=== PATIENT | male | born 1940 | race Caucasian/White ===

== ENCOUNTER 2016-04-27 18:30 | Inpatient (IN) | payer MEDICAID, MEDICARE ==
--- NOTE | 2016-04-27 18:41 | ED Physician Chart ---
Chief Complaint/HPI - Patient Information Date Seen:: 04/27/16 Time Seen:: 18:30 Chief Complaint:: agitation History of Present Illness:: 76-year-old male sent in from [facility] facility with acute, moderate, worsening, constant, agitation 2 days. Has associated increased aggressive behavior towards staff and other patients. History limited patient has underlying dementia and psychosis History provided by EMS and EMS run sheet Allergies:: Allergies Allergy/AdvReac Type Severity Reaction Status Date / Time MDX No Known Allergies - Nka Allergy Verified 10/28/11 12:00 [No Known Allergies - Nka] Historian:: EMS Review:: Nurse's Note Reviewed, EMS run form Reviewed, Transfer documents Reviewed Review of Systems - Review of Systems Other: Complete system review otherwise unremarkable except as noted in HPI. Past Medical History - Past Medical History Past Medical History: HTN, DM, Dementia Family History: None Social History: Non Smoker, No Alcohol, No Drug Use, Care Facility Surgical History: None Psychiatricy History: Dementia Medication: Reviewed Family Medical History - Family Member Mother History Unknown: Yes Ethnicity: Living Status: Still Living Hx Family Cancer: (unable to assess . pt is confused.) Hx Family Coronary Artery Disease: (KRISTEN) Hx Family Congestive Heart Failure: (KRISTEN) Hx Family Hypertension: (KRISTEN) Hx Family Stroke: (KRISTEN) Hx Family Diabetes: (KRISTEN) Hx Family Seizures: (KRISTEN) Hx Family Dementia: (KRISTEN) Hx Family AIDS: (KRISTEN) Hx Family COPD: (KRISTEN) Hx Family Hepatitis: (KRISTEN) Hx Family Psychiatric Problems: (KRISTEN) Hx Family Tuberculosis: (KRISTEN) Physical Exam - Physical Examination Other:: INITIAL VITAL SIGNS: Reviewed by me GENERAL: Alert and interactive but uncooperative and demented. No acute distress HEAD: Head is normocephalic and atraumatic EYES: EOMI. . No scleral icterus. No conjunctival injection ENT: Moist mucous membranes. NECK: Supple. No masses. Full range of motion RESPIRATORY: No tachypnea. Clear breath sounds bilaterally. No wheezing, rales, or rhonchi CV: Regular rate and rhythm. No murmurs, rubs, or gallops ABDOMEN: Soft, non-distended, non-tender. No guarding. No rebound. No masses. EXTREMITIES: No deformity. No cyanosis. No edema. SKIN: Warm and dry. No obvious rashes. NEUROLOGIC: Alert and oriented. Face is symmetric. Speech is normal. Moves all extremities equally. Motor and sensory distally intact. Labs/Radiology/EKG Results - Lab Results Results: Lab Results 04/27/16 04/27/16 04/27/16 Range/Units 19:06 19:06 19:10 WBC 8.5 (4.8-10.8) Th/cmm RBC 2.87 L (3.80-5.80) Mil/cmm Hgb 8.6 L (12.6-17.4) gm/dL Hct 25.5 L (39.0-49.0) % MCV 88.7 (80-99) fl MCH 29.9 (27.0-31.0) pg MCHC Differential 33.7 (28.0-36.0) pg RDW 13.9 (11.5-20.0) % Plt Count 274 D (150-400) Th/cmm MPV 8.2 fl Neutrophils % 76.5 (40.0-80.0) % Lymphocytes % 10.7 L (20.0-50.0) % Monocytes % 12.2 H (2.0-10.0) % Eosinophils % 0.1 (0.0-5.0) % Basophils % 0.5 (0.0-2.0) % Sodium 132 L (136-145) mEq/L Potassium 5.0 (3.5-5.1) mEq/L Chloride 102 (98-107) mEq/L Carbon Dioxide 24.4 (21.0-31.0) mEq/L Anion Gap 10.6 (7.0-16.0) BUN 57 H (7-25) mg/dL Creatinine 1.8 H (0.7-1.3) mg/dL Est GFR ( Amer) TNP Est GFR (Non-Af Amer) TNP BUN/Creatinine Ratio 31.7 Glucose 434 H (70-105) mg/dL Calcium 8.8 (8.6-10.3) mg/dL Triglycerides 149 (<150) mg/dL Cholesterol 138 (<200) mg/dL LDL Cholesterol Direct 65 L (75-193) mg/dL HDL Cholesterol 42 (23-92) mg/dL Urine Source CATH Urine Color YELLOW Urine Clarity HAZY (CLEAR) Urine pH 6.0 Ur Specific [place] 1.020 (1.005-1.030) Urine Protein >300 H (NEGATIVE) mg/dL Urine Glucose (UA) 500 H (NEGATIVE) mg/dL Urine Ketones 15 H (NEGATIVE) mg/dL Urine Blood SMALL H (NEGATIVE) Urine Nitrate NEGATIVE (NEGATIVE) Urine Bilirubin NEGATIVE (NEGATIVE) Urine Urobilinogen 0.2 (0.2 - 1.0) E.U./dL Ur Leukocyte Esterase NEGATIVE (NEGATIVE) Urine RBC 2-5 H (0-5) /hpf Urine WBC 0-2 (0-5) /hpf Ur Epithelial Cells OCCASIONAL (FEW) /lpf Amorphous Sediment MANY URATES (NONE SEEN) Urine Bacteria 1+ H (NONE SEEN) /hpf - EKG Interpretations Comments:: 12-lead EKG Interpretation by Helio Fontanez MD: Normal Sinus Rhythm with ventricular rate of 71 beats per minute Normal axis Normal intervals No acute ST or T wave changes. No obvious STEMI ED Septic Shock - . Is Septic Shock (SBP<90, OR Lactate>4 mmol\L) present?: No Reassessment (Disposition) - Reassessment Reassessment:: Patient has severe dehydration. Has acute renal failure. Has hyperglycemia. Receiving 1 L of IV normal saline and 5 units of IV insulin here in the ER. We will need further treatment prior to admission to general psych. Discussed case with the admitting physician Dr. Orourke. He'll admit the patient to his service for further workup and treatment. Reassessment Condition:: Improved - Diagnosis Diagnosis:: Acute renal failure Dehydration Hyperglycemia/uncontrolled diabetes mellitus Psychosis, NOS Hypertension - Patient Disposition Discharge/Transfer:: Acute Care w/in this hosp Admitted to:: Telemetry Admitting Medical Physician:: Carlos Orourke Time:: 19:45 Condition at Disposition:: Improved ED Discharge Plan - Patient Disposition Admit/Discharge/Transfer: Acute Care w/in this hosp Condition at Disposition: Stable
[2016-04-27] MEDS ORDERED: Haloperidol Lactate 5 mg/mL 1mL Vial IM STA (18:44)
[2016-04-27] MEDS ORDERED: Haloperidol Lactate 5 mg/mL 1mL Vial ONE (18:47)
[2016-04-27 18:55] VITALS: BP 157/77
[2016-04-27 19:19] LABS: % BASOPHILS 0.5 % (0.0-2.0); % EOSINOPHILS 0.1 % (0.0-5.0); % LYMPHOCYTES 10.7 % (20.0-50.0); % MONOCYTES 12.2 % (2.0-10.0); % NEUTROPHILS 76.5 % (40.0-80.0); HEMATOCRIT 25.5 % (39.0-49.0); HEMOGLOBIN 8.6 gm/dL (12.6-17.4); MEAN CELL VOLUME 88.7 fl (80-99); MEAN CORPUSCULAR HEMOGLOBIN 29.9 pg (27.0-31.0); MEAN CORPUSCULAR HGB CONC 33.7 pg (28.0-36.0); MEAN PLATELET VOLUME 8.2 fl; NEUTROPHILE ABSOLUTE 6.6 Th/cmm (1.8-8.0); RED BLOOD COUNT 2.87 Mil/cmm (3.80-5.80); RED CELL DISTRIBUTION WIDTH 13.9 % (11.5-20.0); WHITE BLOOD COUNT 8.5 Th/cmm (4.8-10.8)
[2016-04-27 19:21] LABS: PLATELET COUNT 274 Th/cmm (150-400)
[2016-04-27 19:34] LABS: URINE COLOR YELLOW; URINE GLUCOSE (UA) 500 mg/dL (NEGATIVE)
[2016-04-27 19:34] LABS: ANION GAP 10.6 (7.0-16.0); BUN - UREA NITROGEN 57 mg/dL (7-25); BUN/CREATININE RATIO 31.7; CALCIUM SERUM 8.8 mg/dL (8.6-10.3); CARBON DIOXIDE 24.4 mEq/L (21.0-31.0); CHLORIDE 102 mEq/L (98-107); CHOLESTEROL 138 mg/dL (<200); CREATININE - SERUM 1.8 mg/dL (0.7-1.3); GLUCOSE 434 mg/dL (70-105); SODIUM SERUM 132 mEq/L (136-145); TRIGLYCERIDES 149 mg/dL (<150)
[2016-04-27 19:35] LABS: URINE BACTERIA 1+ /hpf (NONE SEEN); URINE BILIRUBIN NEGATIVE (NEGATIVE); URINE BLOOD SMALL (NEGATIVE); URINE EPITHELIAL CELLS OCCASIONAL /lpf (FEW); URINE KETONE 15 mg/dL (NEGATIVE); URINE PROTEIN >300 mg/dL (NEGATIVE); URINE UROBILINOGEN 0.2 E.U./dL (0.2 - 1.0); URINE WBC 0-2 /hpf (0-5)
[2016-04-27 19:36] LABS: URINE AMORPHOUS SEDIMENT MANY URATES (NONE SEEN)
[2016-04-27] MEDS ORDERED: Sodium Chloride 0.9% 1,000 ML IV ONE (19:42)
[2016-04-27] MEDS ORDERED: INSULIN HUMAN REGULAR 100 UNITS/ML UNIT IVP ONE (19:43)
[2016-04-27] MEDS ORDERED: INSULIN HUMAN REGULAR 100 UNITS/ML UNIT ONE (19:53)
--- NOTE | 2016-04-27 19:57 | Admit Criteria Form ---
Admit Criteria Forms - Admit Criteria Diagnosis: RENAL FAILURE, ACUTE Clinical Indications for Admission to Inpatient Care ( Place 'X' for any and all applicable criteria): Admission is indicated for ALL (if I & II) or III of the following [A](2)(3)(4)( 5)(6)(7): [ ]I. Acute renal failure as indicated by ANY ONE of the following: [ ]a) A 3-fold rise in serum creatinine from baseline [ ]b) Serum creatinine greater than 4 mg/dL (354 micromoles/L) with an acute rise greater than 0.5 mg/dL (44.2 micromoles/L) [ ]c) Reduction of more than 75% in estimated glomerular filtration rate from baseline [ ]d) Estimated glomerular filtration rate less than 35 mL/min/1.73m2 (0.59mL/sec/1.73m2)in a child up to 18 years of age [ ]e) Anuria indicated by ALL of the following: [ ]i) Adequate volume status [ ]ii) Cessation of urine output indicated by ANY ONE of the following: [ ]1) Urine output less than 0.3 mL/kg/hr for 24 hours [ ]2) Anuria (urine output less than 0.1 mL/kg/ hr) for 12 hours [X] II. Renal failure cannot be managed in an outpatient setting or observational care setting as indicating by ANY ONE of the following: [ ]a) Altered mental status that is severe or persistent [ ]b) Volume overload or Respiratory distress (eg, clinically significant pulmonary edema) that is severe or persistent [ ]c) Cardiac arrhythmias of immediate concern [ ]d) Hemodynamic instability [ ]e) Clinically significant electrolyte abnormality that requires inpatient care (eg, hyperkalemia with severe ECG findings)[B] [ ]f) Clinically significant metabolic abnormality (eg, acidosis) that is severe or persistent [ ]g) Acute treatment of renal failure (eg, renal replacement therapy) not feasible or appropriate in observational care setting [ ]h) Clinical situation too unstable or uncertain (eg, inadequate urine output, ongoing decline in renal function, etiology unclear) [ ]i) Necessary support and caregiver ability to comply with outpatient treatment cannot be arranged in observation care timeframe (eg, within 24 hours) [X]j) Other significant finding or clinical condition judged not to be within scope of observation care [ ]III.General contraindications and/or Inappropriate clinical situations for Observational Care in patients with Acute Renal Failure, when ANY ONE of the following is required: [ ]a) Prediction of prolongation of LOS based on ANY ONE of the following may be considered as a contraindication for observational care 2, 3, 4, 5, 6, 7, 8 , 9, 10, 11 [ ]i) Age > 65 yrs. [ ]ii) Patient arriving by ambulance [ ]iii) Patient with high acuity [ ]iv) Patient requiring vital sign monitoring [ ]v) Patient on IV medication [ ]b) Systolic blood pressures 180mmHg 3,12 [ ]c) Patient with altered mental status including delirium and other alteration of consciousness, (3) [ ]d) Patient whose discharge disposition will be to a detention home or rehabilitation home should not be managed in Emergency Department Observation Unit. CMS rule requires 3 days hospital stay before such placement.3,13 [ ]e) Patient with failure to thrive due to broad array of etiologies 3, 16,17 [ ]f) Inability to ambulate 3,14 Extended stay beyond goal length of stay may be needed for(13) [ ]a) Continuing uremic complications [ ]b) Care for comorbidities [ ]c) acute renal failure [ ]d) Need for dialysis The original [facility] content created by [employer] has been revised. The portions of the content which have been revised are identified through the use of italic text or in bold, and [facility] has neither reviewed nor approved the modified material. All other unmodified content is copyright [facility] [employer]. Please see references footnoted in the original [facility] edition 2016 Admit Criteria Met?: Yes
[2016-04-27] MEDS ORDERED: Magnesium Hydroxide (MOM) 30 mL UDC PO PRN (21:28)
[2016-04-27] MEDS ORDERED: Maalox 30 mL Cup PO PRN (21:34)
[2016-04-27] MEDS ORDERED: guaiFENesin 200 MG/10 ML UDC PO PRN (21:34)
[2016-04-27] MEDS: Sodium Chloride 0.9% 1,000 ML IV SCH (22:21)
[2016-04-28 06:22] LABS: % BASOPHILS 0.6 % (0.0-2.0); % EOSINOPHILS 0.9 % (0.0-5.0); % LYMPHOCYTES 20.9 % (20.0-50.0); % NEUTROPHILS 63.6 % (40.0-80.0); MEAN CELL VOLUME 89.3 fl (80-99); MEAN CORPUSCULAR HEMOGLOBIN 30.2 pg (27.0-31.0); MEAN CORPUSCULAR HGB CONC 33.8 pg (28.0-36.0); NEUTROPHILE ABSOLUTE 5.3 Th/cmm (1.8-8.0); PLATELET COUNT 280 Th/cmm (150-400); RED BLOOD COUNT 2.65 Mil/cmm (3.80-5.80); RED CELL DISTRIBUTION WIDTH 14.5 % (11.5-20.0); WHITE BLOOD COUNT 8.3 Th/cmm (4.8-10.8)
[2016-04-28] MEDS: INSULIN ASPART, RECOMBINANT 100 UNITS/ML SUBQ SCH ×4 (06:33→23:36)
[2016-04-28 06:43] LABS: ALB/GLOB RATIO 0.9 (1.0-1.8); ALKALINE PHOSPHATASE 66 U/L (34-104); ANION GAP 10.8 (7.0-16.0); BILIRUBIN,TOTAL 0.5 mg/dL (0.3-1.0); BUN - UREA NITROGEN 58 mg/dL (7-25); CALCIUM SERUM 8.9 mg/dL (8.6-10.3); CARBON DIOXIDE 25.2 mEq/L (21.0-31.0); CHLORIDE 106 mEq/L (98-107); GLUCOSE 247 mg/dL (70-105); MAGNESIUM 2.1 mg/dL (1.9-2.7); SGOT 7 U/L (13-39); SGPT/ALT 3 U/L (7-52); SODIUM SERUM 137 mEq/L (136-145)
[2016-04-28 06:55] LABS: HEMATOCRIT 23.7 % (39.0-49.0)
[2016-04-28] MEDS: Ferrous Sulfate 300 MG/5 ML UDC PO SCH ×2 (09:37→17:59)
[2016-04-28] MEDS: Multivitamin w/ Minerals Tab PO SCH (09:37)
[2016-04-28 12:21] LABS: HEP B CORE IGM Negative (Negative); HEP C ANTIBODY 0.2 s/co ratio (0.0-0.9)
--- NOTE | 2016-04-29 05:00 | Consultation ---
IDENTIFYING INFORMATION: The patient is a 76-year-old male. REASON FOR CONSULTATION: The patient is being very agitated, combative, hitting staff, very hard to redirect. He is confused, demented. He is well-known case to me. I have seen him in the past many times. Had been hospitalized many, many times to [facility]. Patient was a very poor historian, unable to participate in meaningful conversation. PAST PSYCHIATRIC HISTORY: Dementia and psychosis. MEDICAL HISTORY: The patient was admitted because of renal failure. MEDICATIONS: He has been on Depakote 500 mg at bedtime, Seroquel 50 mg at bedtime. FAMILY AND SOCIAL HISTORY: The patient has been at a residential for the past year with multiple admissions to different psychiatric facility and different residential. He is unable to give more information. MENTAL STATUS EXAMINATION: The patient is appropriately dressed, not well groomed. He has bruises all over his body. He has renal failure. He was unable to tell me his age, where he is, why he is here. He was hitting staff, easily agitated, combative, confused, unable to engage in any meaningful conversation. Long and short term memory is poor. Insight and judgment are impaired. Unable to answer questions on hallucination or suicidal ideation or homicidal ideation. IMPRESSION: Dementia with behavioral disturbances. MEDICAL DIAGNOSIS: Renal failure, deferred to the medical doctor. I would recommend to increase Seroquel to 75 mg at bedtime and continue Depakote. Thank you very much for allowing me to participate in the care of this most interesting gentleman. [facility]# [id number]
[2016-04-29 06:58] LABS: % BASOPHILS 0.4 % (0.0-2.0); % EOSINOPHILS 0.9 % (0.0-5.0); % MONOCYTES 13.6 % (2.0-10.0); % NEUTROPHILS 61.1 % (40.0-80.0); HEMOGLOBIN 8.1 gm/dL (12.6-17.4); MEAN CELL VOLUME 87.9 fl (80-99); MEAN CORPUSCULAR HEMOGLOBIN 29.5 pg (27.0-31.0); MEAN CORPUSCULAR HGB CONC 33.5 pg (28.0-36.0); MEAN PLATELET VOLUME 7.8 fl; NEUTROPHILE ABSOLUTE 4.2 Th/cmm (1.8-8.0); PLATELET COUNT 350 Th/cmm (150-400); RED BLOOD COUNT 2.73 Mil/cmm (3.80-5.80); WHITE BLOOD COUNT 6.8 Th/cmm (4.8-10.8)
[2016-04-29] MEDS: INSULIN ASPART, RECOMBINANT 100 UNITS/ML SUBQ SCH ×4 (07:05→20:46)
[2016-04-29 07:13] LABS: ANION GAP 10.8 (7.0-16.0); BUN - UREA NITROGEN 57 mg/dL (7-25); BUN/CREATININE RATIO 31.7; CALCIUM SERUM 8.9 mg/dL (8.6-10.3); CARBON DIOXIDE 24.9 mEq/L (21.0-31.0); CHLORIDE 108 mEq/L (98-107); CREATININE - SERUM 1.8 mg/dL (0.7-1.3); GLUCOSE 209 mg/dL (70-105); POTASSIUM SERUM 4.7 mEq/L (3.5-5.1); SODIUM SERUM 139 mEq/L (136-145)
[2016-04-29] MEDS: Ferrous Sulfate 300 MG/5 ML UDC PO SCH ×2 (09:09→17:26)
[2016-04-29] MEDS: Multivitamin w/ Minerals Tab PO SCH (09:09)
[2016-04-29 13:12] LABS: FOLIC ACID 10.4 ng/mL (>3.0)
--- NOTE | 2016-04-29 15:16 | Internal Medicine Prog Note ---
Internal Medicine Subjective - Subjective Service Date: 04/29/16 ([facility] [id number]) Internal Medicine Objective - Results Result Diagrams: 04/29/16 06:02 04/29/16 06:02 Recent Labs: Laboratory Last Values WBC 6.8 Th/cmm (4.8-10.8) 04/29/16 06:02 RBC 2.73 Mil/cmm (3.80-5.80) L 04/29/16 06:02 Hgb 8.1 gm/dL (12.6-17.4) L 04/29/16 06:02 Hct 24.0 % (39.0-49.0) L 04/29/16 06:02 MCV 87.9 fl (80-99) 04/29/16 06:02 MCH 29.5 pg (27.0-31.0) 04/29/16 06:02 MCHC Differential 33.5 pg (28.0-36.0) 04/29/16 06:02 RDW 14.0 % (11.5-20.0) 04/29/16 06:02 Plt Count 350 Th/cmm (150-400) D 04/29/16 06:02 MPV 7.8 fl 04/29/16 06:02 Neutrophils % 61.1 % (40.0-80.0) 04/29/16 06:02 Lymphocytes % 24.0 % (20.0-50.0) 04/29/16 06:02 Monocytes % 13.6 % (2.0-10.0) H 04/29/16 06:02 Eosinophils % 0.9 % (0.0-5.0) 04/29/16 06:02 Basophils % 0.4 % (0.0-2.0) 04/29/16 06:02 Sodium 139 mEq/L (136-145) 04/29/16 06:02 Potassium 4.7 mEq/L (3.5-5.1) 04/29/16 06:02 Chloride 108 mEq/L (98-107) H 04/29/16 06:02 Carbon Dioxide 24.9 mEq/L (21.0-31.0) 04/29/16 06:02 Anion Gap 10.8 (7.0-16.0) 04/29/16 06:02 BUN 57 mg/dL (7-25) H 04/29/16 06:02 Creatinine 1.8 mg/dL (0.7-1.3) H 04/29/16 06:02 Est GFR ( Amer) TNP 04/29/16 06:02 Est GFR (Non-Af Amer) TNP 04/29/16 06:02 BUN/Creatinine Ratio 31.7 04/29/16 06:02 Glucose 209 mg/dL (70-105) H 04/29/16 06:02 POC Glucose 353 MG/DL (70 - 105) H 04/29/16 11:48 Hemoglobin A1c % 9.5 % (4.0-6.0) H 04/27/16 19:06 Calcium 8.9 mg/dL (8.6-10.3) 04/29/16 06:02 Magnesium 2.0 mg/dL (1.9-2.7) 04/29/16 06:02 Total Bilirubin 0.5 mg/dL (0.3-1.0) 04/28/16 05:49 AST 7 U/L (13-39) L 04/28/16 05:49 ALT 3 U/L (7-52) L 04/28/16 05:49 Alkaline Phosphatase 66 U/L (34-104) 04/28/16 05:49 Ammonia 39 umol/L (16-53) 04/29/16 06:02 B-Natriuretic Peptide 120.0 pg/mL (5.0-100.0) H 04/28/16 05:49 Total Protein 6.1 gm/dL (6.0-8.3) 04/28/16 05:49 Albumin 2.9 gm/dL (4.2-5.5) L 04/28/16 05:49 Globulin 3.2 gm/dL 04/28/16 05:49 Albumin/Globulin Ratio 0.9 (1.0-1.8) L 04/28/16 05:49 Triglycerides 149 mg/dL (<150) 04/27/16 19:06 Cholesterol 138 mg/dL (<200) 04/27/16 19:06 LDL Cholesterol Direct 65 mg/dL (75-193) L 04/27/16 19:06 HDL Cholesterol 42 mg/dL (23-92) 04/27/16 19:06 Vitamin B12 771 pg/mL (211-946) 04/28/16 05:49 Folic Acid 10.4 ng/mL (>3.0) 04/28/16 05:49 TSH 0.75 uIU/ml (0.34-5.60) 04/27/16 19:06 Urine Source CATH 04/27/16 19:10 Urine Color YELLOW 04/27/16 19:10 Urine Clarity HAZY (CLEAR) 04/27/16 19:10 Urine pH 6.0 04/27/16 19:10 Ur Specific [place] 1.020 (1.005-1.030) 04/27/16 19:10 Urine Protein >300 mg/dL (NEGATIVE) H 04/27/16 19:10 Urine Glucose (UA) 500 mg/dL (NEGATIVE) H 04/27/16 19:10 Urine Ketones 15 mg/dL (NEGATIVE) H 04/27/16 19:10 Urine Blood SMALL (NEGATIVE) H 04/27/16 19:10 Urine Nitrate NEGATIVE (NEGATIVE) 04/27/16 19:10 Urine Bilirubin NEGATIVE (NEGATIVE) 04/27/16 19:10 Urine Urobilinogen 0.2 E.U./dL (0.2 - 1.0) 04/27/16 19:10 Ur Leukocyte Esterase NEGATIVE (NEGATIVE) 04/27/16 19:10 Urine RBC 2-5 /hpf (0-5) H 04/27/16 19:10 Urine WBC 0-2 /hpf (0-5) 04/27/16 19:10 Ur Epithelial Cells OCCASIONAL /lpf (FEW) 04/27/16 19:10 Amorphous Sediment MANY URATES (NONE SEEN) 04/27/16 19:10 Urine Bacteria 1+ /hpf (NONE SEEN) H 04/27/16 19:10 Hepatitis A IgM Ab Negative (Negative) 04/27/16 19:06 Hep Bs Antigen Negative (Negative) 04/27/16 19:06 Hep B Core IgM Ab Negative (Negative) 04/27/16 19:06 Hepatitis C Antibody 0.2 s/co ratio (0.0-0.9) 04/27/16 19:06 - Physical Exam Vitals and I&O: Vital Signs Temp 97.6 F 04/29/16 11:33 Pulse 73 04/29/16 11:33 Resp 17 04/29/16 11:33 BP 176/72 04/29/16 11:33 Pulse Ox 97 04/29/16 11:33 Intake & Output 04/28/16 04/29/16 04/29/16 18:59 06:59 18:59 Intake Total 200 Balance 200 Intake: Oral 200 Other: # Voids 2 # Bowel Movements 1 0 Active Medications: Current Medications Acetaminophen (Tylenol) 650 mg PO Q4HR PRN PRN Reason: Pain (Mild) Stop: 06/26/16 21:27 Last Admin: 04/28/16 05:08 Dose: 650 mg Al Hydrox/Mg Hydrox/Simethicone (Maalox) 30 ml PO Q6HR PRN PRN Reason: Constipation Stop: 06/26/16 21:33 Carbidopa/Levodopa (Sinemet 25mg-100 Mg) 1 tab PO TID [facility] Stop: 06/27/16 08:59 Last Admin: 04/29/16 14:30 Dose: 1 tab Clonidine HCl (Catapres) 0.1 mg PO Q6HR PRN PRN Reason: SBP GREATER THAN 160 Stop: 06/26/16 21:33 Clopidogrel Bisulfate (Plavix) 75 mg PO DAILY [facility] Stop: 06/27/16 08:59 Last Admin: 04/29/16 09:09 Dose: 75 mg Docusate Sodium (Colace) 100 mg PO BID [facility] Stop: 06/27/16 08:59 Last Admin: 04/29/16 09:09 Dose: 100 mg Donepezil HCl (Aricept) 10 mg PO DAILY [facility] Stop: 06/27/16 08:59 Last Admin: 04/29/16 09:09 Dose: 10 mg Famotidine (Pepcid) 20 mg PO BID [facility] Stop: 06/27/16 08:59 Last Admin: 04/29/16 09:10 Dose: 20 mg Ferrous Sulfate (Iron) 325 mg PO BID [facility] Stop: 06/27/16 08:59 Last Admin: 04/29/16 09:09 Dose: 325 mg Glipizide (Glucotrol) 5 mg PO BID [facility] Stop: 06/27/16 08:59 Last Admin: 04/29/16 09:10 Dose: 5 mg Guaifenesin (Robitussin) 200 mg PO Q4HR PRN PRN Reason: Cough or Congestion Stop: 06/26/16 21:33 Sodium Chloride (Nacl 0.9%) 1,000 mls @ 85 mls/hr IV .[id number] JASVIR Stop: 06/26/16 21:44 Last Admin: 04/27/16 22:21 Dose: 85 mls/hr Insulin Aspart (Novolog) 0 units SUBQ ACHS JASVIR PRN Reason: Protocol Stop: 06/27/16 07:29 Last Admin: 04/29/16 12:17 Dose: 8 units Lorazepam (Ativan) 0.5 mg PO Q6HR PRN; Protocol PRN Reason: Anxiety Stop: 06/26/16 21:27 Last Admin: 04/29/16 12:16 Dose: 0.5 mg Magnesium Hydroxide (Milk Of Magnesia) 30 ml PO HS PRN PRN Reason: Constipation Stop: 06/26/16 21:27 Ondansetron HCl (Zofran) 4 mg IV Q8H PRN PRN Reason: Nausea / Vomiting Stop: 06/26/16 21:33 Psyllium Hydrophilic Mucilloid (Metamucil) 1 pkt PO DAILY [facility] Stop: 06/27/16 08:59 Last Admin: 04/29/16 09:10 Dose: 1 pkt Quetiapine Fumarate (Seroquel) 75 mg PO HS JASVIR PRN Reason: Protocol Stop: 06/27/16 20:59 Last Admin: 04/28/16 22:37 Dose: 75 mg Valproate Sodium (Depakene) 500 mg PO BID JASVIR PRN Reason: Protocol Stop: 06/27/16 08:59 Last Admin: 04/29/16 09:09 Dose: 500 mg - Procedures Procedures: Procedures Procedure Code Date ENDOSC POLYPECTOMY OF LG INTEST 45.42 07/13/07 GROUP PSYCHOTHERAPY 56190 06/03/15 GROUP PSYCHOTHERAPY [id number] 06/03/15 INDIVID PSYCHOTHERAP NEC 94.39 05/27/08 INSERT INDWELLING CATH 57.94 10/29/09 LESION REMOVAL COLONOSCOPY 50607 07/13/07 OTHER GROUP THERAPY 94.44 06/23/14 PERCUTANEOUS [ENDOSCOPIC] GASTROSTOMY [PEG] 43.11 10/10/13 RECREATIONAL THERAPY 93.81 06/24/10 Internal Medicine Assmt/Plan - Assessment Assessment: ALOC RENAL FAILURE DEHYDRATION UNCONTROLLED DIABETES Nutritional Asmnt/Malnutr-PDOC - Dietary Evaluation Malnutrition Findings (Please click <Entered> for more info): Nutritional Asmnt/Malnutrition Start: 04/28/16 14: 44 Text: Status: Complete Freq: Document 04/28/16 14:44 GSUN (Rec: 04/28/16 15:06 GSCATALINA [id number]) Nutritional Asmnt/Malnutrition Patient General Information Nutritional Screening Consult Diagnosis ER: acute renal failure, dehydration, uncontrolled DM Pertinent Medical Hx/Surgical Hx ER: HTN, DM, dementia Subjective Information 76 year old male from SNF. Pt was confused, unable to provide DM edu. Pt was seen agitated, kicking and trying to get out of bed. Spoke to RADIOGRAPHER ANGIOGRAM at bedside, stated pt eats well 80% breakfast with total assist. Mild fat wasting to orbitals and chest noted. Obtained 107.3lb via bedscale today, questionable difference to EMR weight, will follow. Current Diet Order/ Nutrition Support [id number], pureed Patient / S.O Can't verbalize diet edu Pertinent Medications Maalox, Colace, Pepcid, Iron, Glucotrol, Novolog, MOM, Zofran, Seroquel Pertinent Labs 3: BUN 57H, creatinine 1.8H, glucose 434H, A1c 9.5H 32: BUN 58H, creatinine 2.0H, glucose 247H Nutritional Hx/Data Height 5 ft 6 in Height (Calculated Centimeters) 167.6 Current Weight (lbs) 155 lb Weight (Calculated Kilograms) 70.3 Weight (Calculated Grams) 16110.8 [place] Body Weight 142lb Weight Status Approriate GI Symptoms Food Allergies No Cultural/Ethnic/Gnosticist Belief Unknown. Usual diet at home Unknown. Skin Integrity/Comment: Barron Johnson RN: multiple bruises, right lower leg abrasion Current %PO Good (75-100%) Estimated Nutritional Goals BEE in Kcals: Using Current wt Calories/Kcals/Kg 25-30kcal/kg Kcals Calculated 1758-2109kcal Protein: Using Current wt Protein g/k.6-1g/kg Protein Calculated 42-70g Fluid: ml Per MD (renal dysfunction) Nutritional Problem 2. Problem Problem Impaired nutrient utilization related to Etiology ER: acute kidney injury aeb Signs/Symptoms: BUN 58H, creatinine 2.0H 1. Problem Problem Altered nutrition related laboratory values related to Etiology DM aeb Signs/Symptoms: glucose 434H, A1c 9.5H Intervention/Recommendation Comments 1. Recommend [id number] + renal diet. 2. Monitor weight, questionable weight EMR vs. bedscale today. Expected Outcomes/Goals Expected Outcomes/Goals 1. PO intake to meet at least 75% of estimated nutritional needs.
--- NOTE | 2016-04-29 17:06 | History & Physical ---
CHIEF COMPLAINT: ALOC. HISTORY OF PRESENT ILLNESS: This is a 76-year-old male who is a [place] [facility] resident who is brought here to [facility] for ALOC. The patient is unable to feed himself, very agitated. PAST MEDICAL HISTORY: Diabetes, Alzheimer, hypercholesterolemia, schizoaffective Parkinson's. PAST SURGICAL HISTORY: Unable to obtain. MEDICATIONS: Please see medication reconciliation. ALLERGIES: No drug allergies. SOCIAL HISTORY: The patient is a [place] [facility] resident. FAMILY HISTORY: Noncontributory. REVIEW OF SYSTEMS: Unable to obtain, patient is confused. PHYSICAL EXAMINATION: GENERAL: The patient is awake, confused, in no apparent distress. VITAL SIGNS: Temperature 97.6, heart rate 72, blood pressure 176/72, O2 97%. HEENT: Head; normocephalic, atraumatic. NECK: Supple. No mass. LUNGS: Clear. CARDIOVASCULAR: Regular rhythm. ABDOMEN: Soft, nontender. LABORATORY DATA: WBC 6.8, H and H 8.1 and 24.0. Sodium 139, potassium 4.7, chloride 108, carbon dioxide 24.9, BUN 57 and creatinine 1.8. ASSESSMENT: Renal failure, dehydration, uncontrolled diabetes, altered level of consciousness. PLAN: We will keep the patient on IV fluids for hydration. Sitter at bedside for safety. Monitor patient's electrolytes levels. Psychiatrist on the case. We will continue to monitor the patient. JOB# [id number]
[2016-04-29 19:14] LABS: INR 0.94 (0.5-1.4); PROTHROMBIN TIME (TEST) 9.8 SECONDS (9.5-11.5)
--- NOTE | 2016-04-30 00:42 | Progress Notes ---
Case was discussed with staff of the patient. The patient continues to have episodes of agitation and irritability. Continues to be unable to carry on a conversation or make safe plan for self-care. Unpredictable and impulsive. I did increase his Seroquel yesterday to 75 mg at bedtime with no side effects, no sedation, and no nausea. The patient will need to follow up with psychiatrist upon discharge; however, he is still agitated and out of control. He needs to go to [facility] when medically cleared. Thank you very much for allowing me to participate in the care of this most interesting gentleman. JOB# [id number]
--- NOTE | 2016-04-30 01:54 | Consultation ---
INPATIENT GI CONSULT REFERRING PHYSICIAN: Dr. Orourke. REASON FOR CONSULTATION: Anemia. HISTORY OF PRESENT ILLNESS: This is a 76-year-old male with agitation being admitted to the hospital and was found to be anemic. No reports of any GI bleeding per staff. There is no nausea, vomiting, diarrhea, constipation, melena, hematochezia, hematemesis, or coffee-ground emesis. The patient is somewhat combative with staff. PAST MEDICAL HISTORY: Hypertension, diabetes, and dementia. PAST SURGICAL HISTORY: None to abdomen. FAMILY HISTORY: Noncontributory. SOCIAL HISTORY: Resident of skilled facility. ALLERGIES: None. CURRENT MEDICATIONS: Tylenol, Maalox, Sinemet, Catapres, Plavix, Colace, Aricept, Pepcid, iron, glipizide, Robitussin, insulin, Ativan, milk of magnesia, ____, Seroquel, and valproic acid. REVIEW OF SYSTEMS: Unobtainable. PHYSICAL EXAMINATION: VITAL SIGNS: Temperature is 97.6, breathing 17, pulse of 73, blood pressure /72, and satting 97%. GENERAL: In no apparent distress. EYES: Anicteric. Normal conjunctivae. HEENT: Normocephalic and atraumatic. Moist mucous membranes. NECK: Soft and supple. CHEST: Clear. No effort. CARDIOVASCULAR: Regular rate and rhythm. ABDOMEN: Soft, nontender, and nondistended. SKIN: Warm and dry. EXTREMITIES: Reveal no cyanosis. LABORATORY DATA: Show white count 6.8, hemoglobin 8.1, MCV of 87.9, platelets of 350,000, creatinine 1.8, and ammonia is normal at 39. IMPRESSION: This is a 76-year-old male with a normocytic anemia. No overt GI bleeding. He also has underlying dementia and psychiatric component. The patient is not cooperative with staff at this time. Workup may be challenging in this current setting. Stool studies can be checked and collected. If it is positive, then consider endoscopic workup such as EGD, colonoscopy with the patient also has to be off his Plavix. PLAN: 1. Check stool OB. 2. Defer psychiatric management for psychiatrist and primary doctor. 3. If sign of GI bleeding, then consider endoscopic workup. Thank you for allowing me to participate. Please call me if you have any questions. [facility]# [phone]
[2016-04-30] MEDS: INSULIN ASPART, RECOMBINANT 100 UNITS/ML SUBQ SCH ×4 (06:41→22:24)
[2016-04-30] MEDS: Multivitamin w/ Minerals Tab PO SCH (08:53)
[2016-04-30] MEDS: Ferrous Sulfate 300 MG/5 ML UDC PO SCH ×2 (08:54→16:47)
[2016-04-30] MEDS: Sodium Chloride 0.9% 1,000 ML IV SCH (09:52)
--- NOTE | 2016-04-30 14:55 | Internal Medicine Prog Note ---
Internal Medicine Subjective - Subjective Patient seen and examined:: with staff, chart reviewed Patient is:: awake, verbal, interactive Per staff patient is:: no adverse event, noncompliant, confused Internal Medicine Objective - Results Result Diagrams: 04/29/16 06:02 04/29/16 06:02 Recent Labs: Laboratory Last Values WBC 6.8 Th/cmm (4.8-10.8) 04/29/16 06:02 RBC 2.73 Mil/cmm (3.80-5.80) L 04/29/16 06:02 Hgb 8.1 gm/dL (12.6-17.4) L 04/29/16 06:02 Hct 24.0 % (39.0-49.0) L 04/29/16 06:02 MCV 87.9 fl (80-99) 04/29/16 06:02 MCH 29.5 pg (27.0-31.0) 04/29/16 06:02 MCHC Differential 33.5 pg (28.0-36.0) 04/29/16 06:02 RDW 14.0 % (11.5-20.0) 04/29/16 06:02 Plt Count 350 Th/cmm (150-400) D 04/29/16 06:02 MPV 7.8 fl 04/29/16 06:02 Neutrophils % 61.1 % (40.0-80.0) 04/29/16 06:02 Lymphocytes % 24.0 % (20.0-50.0) 04/29/16 06:02 Monocytes % 13.6 % (2.0-10.0) H 04/29/16 06:02 Eosinophils % 0.9 % (0.0-5.0) 04/29/16 06:02 Basophils % 0.4 % (0.0-2.0) 04/29/16 06:02 PT 9.8 SECONDS (9.5-11.5) 04/29/16 18:50 INR 0.94 (0.5-1.4) 04/29/16 18:50 Sodium 139 mEq/L (136-145) 04/29/16 06:02 Potassium 4.7 mEq/L (3.5-5.1) 04/29/16 06:02 Chloride 108 mEq/L (98-107) H 04/29/16 06:02 Carbon Dioxide 24.9 mEq/L (21.0-31.0) 04/29/16 06:02 Anion Gap 10.8 (7.0-16.0) 04/29/16 06:02 BUN 57 mg/dL (7-25) H 04/29/16 06:02 Creatinine 1.8 mg/dL (0.7-1.3) H 04/29/16 06:02 Est GFR ( Amer) TNP 04/29/16 06:02 Est GFR (Non-Af Amer) TNP 04/29/16 06:02 BUN/Creatinine Ratio 31.7 04/29/16 06:02 Glucose 209 mg/dL (70-105) H 04/29/16 06:02 POC Glucose 356 MG/DL (70 - 105) H 04/30/16 11:31 Hemoglobin A1c % 9.5 % (4.0-6.0) H 04/27/16 19:06 Calcium 8.9 mg/dL (8.6-10.3) 04/29/16 06:02 Magnesium 2.0 mg/dL (1.9-2.7) 04/29/16 06:02 Total Bilirubin 0.5 mg/dL (0.3-1.0) 04/28/16 05:49 AST 7 U/L (13-39) L 04/28/16 05:49 ALT 3 U/L (7-52) L 04/28/16 05:49 Alkaline Phosphatase 66 U/L (34-104) 04/28/16 05:49 Ammonia 39 umol/L (16-53) 04/29/16 06:02 B-Natriuretic Peptide 120.0 pg/mL (5.0-100.0) H 04/28/16 05:49 Total Protein 6.1 gm/dL (6.0-8.3) 04/28/16 05:49 Albumin 2.9 gm/dL (4.2-5.5) L 04/28/16 05:49 Globulin 3.2 gm/dL 04/28/16 05:49 Albumin/Globulin Ratio 0.9 (1.0-1.8) L 04/28/16 05:49 Triglycerides 149 mg/dL (<150) 04/27/16 19:06 Cholesterol 138 mg/dL (<200) 04/27/16 19:06 LDL Cholesterol Direct 65 mg/dL (75-193) L 04/27/16 19:06 HDL Cholesterol 42 mg/dL (23-92) 04/27/16 19:06 Vitamin B12 771 pg/mL (211-946) 04/28/16 05:49 Folic Acid 10.4 ng/mL (>3.0) 04/28/16 05:49 TSH 0.75 uIU/ml (0.34-5.60) 04/27/16 19:06 Urine Source CATH 04/27/16 19:10 Urine Color YELLOW 04/27/16 19:10 Urine Clarity HAZY (CLEAR) 04/27/16 19:10 Urine pH 6.0 04/27/16 19:10 Ur Specific [place] 1.020 (1.005-1.030) 04/27/16 19:10 Urine Protein >300 mg/dL (NEGATIVE) H 04/27/16 19:10 Urine Glucose (UA) 500 mg/dL (NEGATIVE) H 04/27/16 19:10 Urine Ketones 15 mg/dL (NEGATIVE) H 04/27/16 19:10 Urine Blood SMALL (NEGATIVE) H 04/27/16 19:10 Urine Nitrate NEGATIVE (NEGATIVE) 04/27/16 19:10 Urine Bilirubin NEGATIVE (NEGATIVE) 04/27/16 19:10 Urine Urobilinogen 0.2 E.U./dL (0.2 - 1.0) 04/27/16 19:10 Ur Leukocyte Esterase NEGATIVE (NEGATIVE) 04/27/16 19:10 Urine RBC 2-5 /hpf (0-5) H 04/27/16 19:10 Urine WBC 0-2 /hpf (0-5) 04/27/16 19:10 Ur Epithelial Cells OCCASIONAL /lpf (FEW) 04/27/16 19:10 Amorphous Sediment MANY URATES (NONE SEEN) 04/27/16 19:10 Urine Bacteria 1+ /hpf (NONE SEEN) H 04/27/16 19:10 Hepatitis A IgM Ab Negative (Negative) 04/27/16 19:06 Hep Bs Antigen Negative (Negative) 04/27/16 19:06 Hep B Core IgM Ab Negative (Negative) 04/27/16 19:06 Hepatitis C Antibody 0.2 s/co ratio (0.0-0.9) 04/27/16 19:06 - Physical Exam Vitals and I&O: Vital Signs Temp 97.9 F 04/30/16 04:00 Pulse 71 04/30/16 08:53 Resp 18 04/30/16 04:00 BP 174/71 04/30/16 08:53 Pulse Ox 98 04/30/16 04:00 Intake & Output 04/29/16 04/30/16 04/30/16 18:59 06:59 18:59 Intake Total 600 30 Balance 600 30 Intake: Oral 600 30 Other: # Voids 3 2 # Bowel Movements 0 Active Medications: Current Medications Acetaminophen (Tylenol) 650 mg PO Q4HR PRN PRN Reason: Pain (Mild) Stop: 06/26/16 21:27 Last Admin: 04/28/16 05:08 Dose: 650 mg Al Hydrox/Mg Hydrox/Simethicone (Maalox) 30 ml PO Q6HR PRN PRN Reason: Constipation Stop: 06/26/16 21:33 Carbidopa/Levodopa (Sinemet 25mg-100 Mg) 1 tab PO TID [facility] Stop: 06/27/16 08:59 Last Admin: 04/30/16 13:16 Dose: 1 tab Clonidine HCl (Catapres) 0.1 mg PO Q6HR PRN PRN Reason: SBP GREATER THAN 160 Stop: 06/26/16 21:33 Last Admin: 04/29/16 18:24 Dose: 0.1 mg Docusate Sodium (Colace) 100 mg PO BID [facility] Stop: 06/27/16 08:59 Last Admin: 04/30/16 08:54 Dose: 100 mg Donepezil HCl (Aricept) 10 mg PO DAILY [facility] Stop: 06/27/16 08:59 Last Admin: 04/30/16 08:53 Dose: 10 mg Famotidine (Pepcid) 20 mg PO BID [facility] Stop: 06/27/16 08:59 Last Admin: 04/30/16 08:53 Dose: 20 mg Ferrous Sulfate (Iron) 325 mg PO BID [facility] Stop: 06/27/16 08:59 Last Admin: 04/30/16 08:54 Dose: 325 mg Glipizide (Glucotrol) 5 mg PO BID [facility] Stop: 06/27/16 08:59 Last Admin: 04/30/16 08:53 Dose: 5 mg Guaifenesin (Robitussin) 200 mg PO Q4HR PRN PRN Reason: Cough or Congestion Stop: 06/26/16 21:33 Sodium Chloride (Nacl 0.9%) 1,000 mls @ 85 mls/hr IV .[id number] [facility] Stop: 06/26/16 21:44 Last Admin: 04/30/16 09:52 Dose: 85 mls/hr Insulin Aspart (Novolog) 0 units SUBQ ACHS JASVIR PRN Reason: Protocol Stop: 06/27/16 07:29 Last Admin: 04/30/16 11:41 Dose: 8 units Lorazepam (Ativan) 0.5 mg PO Q6HR PRN; Protocol PRN Reason: Anxiety Stop: 06/26/16 21:27 Last Admin: 04/29/16 12:16 Dose: 0.5 mg Losartan Potassium (Cozaar) 25 mg PO DAILY [facility] Stop: 06/28/16 20:59 Last Admin: 04/30/16 08:53 Dose: 25 mg Magnesium Hydroxide (Milk Of Magnesia) 30 ml PO HS PRN PRN Reason: Constipation Stop: 06/26/16 21:27 Ondansetron HCl (Zofran) 4 mg IV Q8H PRN PRN Reason: Nausea / Vomiting Stop: 06/26/16 21:33 Psyllium Hydrophilic Mucilloid (Metamucil) 1 pkt PO DAILY [facility] Stop: 06/27/16 08:59 Last Admin: 04/30/16 09:03 Dose: 1 pkt Quetiapine Fumarate (Seroquel) 75 mg PO HS JASVIR PRN Reason: Protocol Stop: 06/27/16 20:59 Last Admin: 04/29/16 20:34 Dose: 75 mg Valproate Sodium (Depakene) 500 mg PO BID JASVIR PRN Reason: Protocol Stop: 06/27/16 08:59 Last Admin: 04/30/16 08:54 Dose: 500 mg General: congested, demented HEENT: NC/AT, PERRLA Neck: Supple, No JVD Lungs: congested, rales Cardiovascular: RRR, Normal S1, Normal S2 Abdomen: soft non-tender, globular Extremities: excoriation, contracture Neurological: no change, unable to follow command - Procedures Procedures: Procedures Procedure Code Date ENDOSC POLYPECTOMY OF LG INTEST 45.42 07/13/07 GROUP PSYCHOTHERAPY 10857 06/03/15 GROUP PSYCHOTHERAPY GZHZZZZ 06/03/15 INDIVID PSYCHOTHERAP NEC 94.39 05/27/08 INSERT INDWELLING CATH 57.94 10/29/09 LESION REMOVAL COLONOSCOPY 62153 07/13/07 OTHER GROUP THERAPY 94.44 06/23/14 PERCUTANEOUS [ENDOSCOPIC] GASTROSTOMY [PEG] 43.11 10/10/13 RECREATIONAL THERAPY 93.81 06/24/10 Internal Medicine Assmt/Plan - Assessment Assessment: Assessment: ALOC RENAL FAILURE DEHYDRATION UNCONTROLLED DIABETES - Plan Plan: cont on iv abx o2 bronchodilator check labs pt on 1 to 1 psych fu jose g rn Nutritional Asmnt/Malnutr-PDOC - Dietary Evaluation Malnutrition Findings (Please click <Entered> for more info): Nutritional Asmnt/Malnutrition Start: 04/28/16 14: 44 Text: Status: Complete Freq: Document 04/28/16 14:44 GSUN (Rec: 04/28/16 15:06 GSUN [email or web address]) Nutritional Asmnt/Malnutrition Patient General Information Nutritional Screening Consult Diagnosis ER: acute renal failure, dehydration, uncontrolled DM Pertinent Medical Hx/Surgical Hx ER: HTN, DM, dementia Subjective Information 76 year old male from SNF. Pt was confused, unable to provide DM edu. Pt was seen agitated, kicking and trying to get out of bed. Spoke to TABLE KEEPER at bedside, stated pt eats well 80% breakfast with total assist. Mild fat wasting to orbitals and chest noted. Obtained 107.3lb via bedscale today, questionable difference to EMR weight, will follow. Current Diet Order/ Nutrition Support [id number], pureed Patient / S.O Can't verbalize diet edu Pertinent Medications Maalox, Colace, Pepcid, Iron, Glucotrol, Novolog, MOM, Zofran, Seroquel Pertinent Labs 3: BUN 57H, creatinine 1.8H, glucose 434H, A1c 9.5H 3/2: BUN 58H, creatinine 2.0H, glucose 247H Nutritional Hx/Data Height 1.68 m Height (Calculated Centimeters) 167.6 Current Weight (lbs) 70.307 kg Weight (Calculated Kilograms) 70.3 Weight (Calculated Grams) 54736.8 [place] Body Weight 142lb Weight Status Approriate GI Symptoms Food Allergies No Cultural/Ethnic/Rastafarian Belief Unknown. Usual diet at home Unknown. Skin Integrity/Comment: Barron 13. RN: multiple bruises, right lower leg abrasion Current %PO Good (75-100%) Estimated Nutritional Goals BEE in Kcals: Using Current wt Calories/Kcals/Kg 25-30kcal/kg Kcals Calculated 1758-2109kcal Protein: Using Current wt Protein g/k.6-1g/kg Protein Calculated 42-70g Fluid: ml Per MD (renal dysfunction) Nutritional Problem 2. Problem Problem Impaired nutrient utilization related to Etiology ER: acute kidney injury aeb Signs/Symptoms: BUN 58H, creatinine 2.0H 1. Problem Problem Altered nutrition related laboratory values related to Etiology DM aeb Signs/Symptoms: glucose 434H, A1c 9.5H Intervention/Recommendation Comments 1. Recommend [id number] + renal diet. 2. Monitor weight, questionable weight EMR vs. bedscale today. Expected Outcomes/Goals Expected Outcomes/Goals 1. PO intake to meet at least 75% of estimated nutritional needs.
[2016-04-30 17:45] LABS: MEAN CELL VOLUME 88.8 fl (80-99); MEAN CORPUSCULAR HGB CONC 33.8 pg (28.0-36.0); MEAN PLATELET VOLUME 7.2 fl; PLATELET COUNT 304 Th/cmm (150-400); RED BLOOD COUNT 2.28 Mil/cmm (3.80-5.80); RED CELL DISTRIBUTION WIDTH 14.5 % (11.5-20.0); WHITE BLOOD COUNT 5.3 Th/cmm (4.8-10.8)
[2016-04-30 17:53] LABS: ANION GAP 11.5 (7.0-16.0); BUN - UREA NITROGEN 53 mg/dL (7-25); BUN/CREATININE RATIO 37.9; CALCIUM SERUM 8.7 mg/dL (8.6-10.3); CARBON DIOXIDE 21.8 mEq/L (21.0-31.0); CHLORIDE 105 mEq/L (98-107); CREATININE - SERUM 1.4 mg/dL (0.7-1.3); GLUCOSE 289 mg/dL (70-105); POTASSIUM SERUM 5.3 mEq/L (3.5-5.1); SODIUM SERUM 133 mEq/L (136-145)
[2016-04-30 18:24] LABS: HEMOGLOBIN 6.9 gm/dL (12.6-17.4)
[2016-04-30 18:25] LABS: HEMATOCRIT 20.3 % (39.0-49.0)
[2016-04-30 18:41] LABS: ANISOCYTOSIS 1+; BASOPHIL 1 % (0-3); EOSINOPHIL 3 % (0-5); NEUTROPHILS 52 % (40-80); PLATELET ESTIMATE ADEQUATE (NORMAL); PLATELET MORPHOLOGY NORMAL (NORMAL); TOTAL CELLS COUNTED 100
[2016-05-01] MEDS: INSULIN ASPART, RECOMBINANT 100 UNITS/ML SUBQ SCH ×4 (06:54→20:37)
[2016-05-01 07:14] LABS: RED BLOOD COUNT 2.68 Mil/cmm (3.80-5.80)
[2016-05-01 07:27] LABS: MEAN CELL VOLUME 87.6 fl (80-99); MEAN CORPUSCULAR HEMOGLOBIN 29.5 pg (27.0-31.0); MEAN CORPUSCULAR HGB CONC 33.7 pg (28.0-36.0); MEAN PLATELET VOLUME 7.3 fl; PLATELET COUNT 444 Th/cmm (150-400); WHITE BLOOD COUNT 6.9 Th/cmm (4.8-10.8)
[2016-05-01 07:33] LABS: ANION GAP 11.5 (7.0-16.0); BUN - UREA NITROGEN 47 mg/dL (7-25); BUN/CREATININE RATIO 36.2; CALCIUM SERUM 8.5 mg/dL (8.6-10.3); CARBON DIOXIDE 22.4 mEq/L (21.0-31.0); CHLORIDE 108 mEq/L (98-107); CREATININE - SERUM 1.3 mg/dL (0.7-1.3); GLUCOSE 210 mg/dL (70-105); POTASSIUM SERUM 4.9 mEq/L (3.5-5.1); SODIUM SERUM 137 mEq/L (136-145)
[2016-05-01 08:42] LABS: HEMATOCRIT 23.5 % (39.0-49.0); HEMOGLOBIN 7.9 gm/dL (12.6-17.4)
[2016-05-01] MEDS: Ferrous Sulfate 300 MG/5 ML UDC PO SCH ×2 (09:03→16:20)
[2016-05-01] MEDS: Multivitamin w/ Minerals Tab PO SCH (09:04)
[2016-05-01 10:00] LABS: ANISOCYTOSIS 1+; EOSINOPHIL 6 % (0-5); NEUTROPHILS 54 % (40-80); PLATELET ESTIMATE ADEQUATE (NORMAL); PLATELET MORPHOLOGY NORMAL (NORMAL); TOTAL CELLS COUNTED 100
[2016-05-01] MEDS: Sodium Chloride 0.9% 1,000 ML IV SCH ×2 (12:43→14:27)
--- NOTE | 2016-05-01 14:14 | Internal Medicine Prog Note ---
Internal Medicine Subjective - Subjective Patient seen and examined:: with staff, chart reviewed Patient is:: awake, verbal, interactive Patient Complaints of:: congestion Per staff patient is:: no adverse event, noncompliant, confused Internal Medicine Objective - Results Result Diagrams: 05/01/16 06:45 05/01/16 06:45 Recent Labs: Laboratory Last Values WBC 6.9 Th/cmm (4.8-10.8) D 05/01/16 06:45 RBC 2.68 Mil/cmm (3.80-5.80) L 05/01/16 06:45 Hgb 7.9 gm/dL (12.6-17.4) L* D 05/01/16 06:45 Hct 23.5 % (39.0-49.0) L* D 05/01/16 06:45 MCV 87.6 fl (80-99) 05/01/16 06:45 MCH 29.5 pg (27.0-31.0) 05/01/16 06:45 MCHC Differential 33.7 pg (28.0-36.0) 05/01/16 06:45 RDW 14.0 % (11.5-20.0) 05/01/16 06:45 Plt Count 444 Th/cmm (150-400) H D 05/01/16 06:45 MPV 7.3 fl 05/01/16 06:45 Neutrophils % 61.1 % (40.0-80.0) 04/29/16 06:02 Lymphocytes % 24.0 % (20.0-50.0) 04/29/16 06:02 Monocytes % 13.6 % (2.0-10.0) H 04/29/16 06:02 Eosinophils % 0.9 % (0.0-5.0) 04/29/16 06:02 Basophils % 0.4 % (0.0-2.0) 04/29/16 06:02 Neutrophils (Manual) 54 % (40-80) 05/01/16 06:45 Lymphocytes 25 % (20-50) 05/01/16 06:45 Monocytes 15 % (2-10) H 05/01/16 06:45 Eosinophils 6 % (0-5) H 05/01/16 06:45 Basophils 1 % (0-3) 04/30/16 17:26 Platelet Estimate ADEQUATE (NORMAL) 05/01/16 06:45 Platelet Morphology NORMAL (NORMAL) 05/01/16 06:45 Anisocytosis 1+ 05/01/16 06:45 RBC Morph Micro Appear ABNORMAL (NORMAL) 05/01/16 06:45 PT 9.8 SECONDS (9.5-11.5) 04/29/16 18:50 INR 0.94 (0.5-1.4) 04/29/16 18:50 Sodium 137 mEq/L (136-145) 05/01/16 06:45 Potassium 4.9 mEq/L (3.5-5.1) 05/01/16 06:45 Chloride 108 mEq/L (98-107) H 05/01/16 06:45 Carbon Dioxide 22.4 mEq/L (21.0-31.0) 05/01/16 06:45 Anion Gap 11.5 (7.0-16.0) 05/01/16 06:45 BUN 47 mg/dL (7-25) H 05/01/16 06:45 Creatinine 1.3 mg/dL (0.7-1.3) 05/01/16 06:45 Est GFR ( Amer) TNP 05/01/16 06:45 Est GFR (Non-Af Amer) TNP 05/01/16 06:45 BUN/Creatinine Ratio 36.2 05/01/16 06:45 Glucose 210 mg/dL (70-105) H 05/01/16 06:45 POC Glucose 339 MG/DL (70 - 105) H 05/01/16 11:23 Hemoglobin A1c % 9.5 % (4.0-6.0) H 04/27/16 19:06 Calcium 8.5 mg/dL (8.6-10.3) L 05/01/16 06:45 Magnesium 2.0 mg/dL (1.9-2.7) 04/29/16 06:02 Total Bilirubin 0.5 mg/dL (0.3-1.0) 04/28/16 05:49 AST 7 U/L (13-39) L 04/28/16 05:49 ALT 3 U/L (7-52) L 04/28/16 05:49 Alkaline Phosphatase 66 U/L (34-104) 04/28/16 05:49 Ammonia 38 umol/L (16-53) 05/01/16 06:45 B-Natriuretic Peptide 113.0 pg/mL (5.0-100.0) H 05/01/16 06:45 Total Protein 6.1 gm/dL (6.0-8.3) 04/28/16 05:49 Albumin 2.9 gm/dL (4.2-5.5) L 04/28/16 05:49 Globulin 3.2 gm/dL 04/28/16 05:49 Albumin/Globulin Ratio 0.9 (1.0-1.8) L 04/28/16 05:49 Triglycerides 149 mg/dL (<150) 04/27/16 19:06 Cholesterol 138 mg/dL (<200) 04/27/16 19:06 LDL Cholesterol Direct 65 mg/dL (75-193) L 04/27/16 19:06 HDL Cholesterol 42 mg/dL (23-92) 04/27/16 19:06 Vitamin B12 771 pg/mL (211-946) 04/28/16 05:49 Folic Acid 10.4 ng/mL (>3.0) 04/28/16 05:49 TSH 0.75 uIU/ml (0.34-5.60) 04/27/16 19:06 Urine Source CATH 04/27/16 19:10 Urine Color YELLOW 04/27/16 19:10 Urine Clarity HAZY (CLEAR) 04/27/16 19:10 Urine pH 6.0 04/27/16 19:10 Ur Specific [place] 1.020 (1.005-1.030) 04/27/16 19:10 Urine Protein >300 mg/dL (NEGATIVE) H 04/27/16 19:10 Urine Glucose (UA) 500 mg/dL (NEGATIVE) H 04/27/16 19:10 Urine Ketones 15 mg/dL (NEGATIVE) H 04/27/16 19:10 Urine Blood SMALL (NEGATIVE) H 04/27/16 19:10 Urine Nitrate NEGATIVE (NEGATIVE) 04/27/16 19:10 Urine Bilirubin NEGATIVE (NEGATIVE) 04/27/16 19:10 Urine Urobilinogen 0.2 E.U./dL (0.2 - 1.0) 04/27/16 19:10 Ur Leukocyte Esterase NEGATIVE (NEGATIVE) 04/27/16 19:10 Urine RBC 2-5 /hpf (0-5) H 04/27/16 19:10 Urine WBC 0-2 /hpf (0-5) 04/27/16 19:10 Ur Epithelial Cells OCCASIONAL /lpf (FEW) 04/27/16 19:10 Amorphous Sediment MANY URATES (NONE SEEN) 04/27/16 19:10 Urine Bacteria 1+ /hpf (NONE SEEN) H 04/27/16 19:10 Stool Occult Blood NEGATIVE (NEGATIVE) 04/30/16 14:50 Hepatitis A IgM Ab Negative (Negative) 04/27/16 19:06 Hep Bs Antigen Negative (Negative) 04/27/16 19:06 Hep B Core IgM Ab Negative (Negative) 04/27/16 19:06 Hepatitis C Antibody 0.2 s/co ratio (0.0-0.9) 04/27/16 19:06 - Physical Exam Vitals and I&O: Vital Signs Temp 97.0 F 05/01/16 00:00 Pulse 73 05/01/16 12:43 Resp 18 05/01/16 00:00 BP 166/77 05/01/16 09:04 Pulse Ox 98 05/01/16 00:00 Intake & Output 04/30/16 05/01/16 05/01/16 18:59 06:59 18:59 Intake Total 1820 2820 Balance 1820 2820 Intake: Intake, IV Amount 1000 Sodium Chloride 0.9% 1, 1000 000 ml @ 85 mls/hr IV . [id number] [facility] Rx#:[id number] Oral 800 800 Tube Feeding 1020 1020 Other: # Voids 3 3 # Bowel Movements 2 2 Stool Characteristics Soft Soft Formed Formed Brown Brown Active Medications: Current Medications Acetaminophen (Tylenol) 650 mg PO Q4HR PRN PRN Reason: Pain (Mild) Stop: 06/26/16 21:27 Last Admin: 04/28/16 05:08 Dose: 650 mg Al Hydrox/Mg Hydrox/Simethicone (Maalox) 30 ml PO Q6HR PRN PRN Reason: Constipation Stop: 06/26/16 21:33 Carbidopa/Levodopa (Sinemet 25mg-100 Mg) 1 tab PO TID [facility] Stop: 06/27/16 08:59 Last Admin: 05/01/16 09:03 Dose: 1 tab Clonidine HCl (Catapres) 0.1 mg PO Q6HR PRN PRN Reason: SBP GREATER THAN 160 Stop: 06/26/16 21:33 Last Admin: 05/01/16 12:43 Dose: 0.1 mg Docusate Sodium (Colace) 100 mg PO BID [facility] Stop: 06/27/16 08:59 Last Admin: 05/01/16 09:04 Dose: 100 mg Donepezil HCl (Aricept) 10 mg PO DAILY [facility] Stop: 06/27/16 08:59 Last Admin: 05/01/16 09:03 Dose: 10 mg Famotidine (Pepcid) 20 mg PO BID [facility] Stop: 06/27/16 08:59 Last Admin: 05/01/16 09:03 Dose: 20 mg Ferrous Sulfate (Iron) 325 mg PO BID [facility] Stop: 06/27/16 08:59 Last Admin: 05/01/16 09:03 Dose: 325 mg Glipizide (Glucotrol) 5 mg PO BID [facility] Stop: 06/27/16 08:59 Last Admin: 05/01/16 09:04 Dose: 5 mg Guaifenesin (Robitussin) 200 mg PO Q4HR PRN PRN Reason: Cough or Congestion Stop: 06/26/16 21:33 Sodium Chloride (Nacl 0.9%) 1,000 mls @ 75 mls/hr IV .[id number] [facility] Stop: 06/30/16 14:09 Insulin Aspart (Novolog) 0 units SUBQ ACHS JASVIR PRN Reason: Protocol Stop: 06/27/16 07:29 Last Admin: 05/01/16 11:42 Dose: 6 units Lorazepam (Ativan) 0.5 mg PO Q6HR PRN; Protocol PRN Reason: Anxiety Stop: 06/26/16 21:27 Last Admin: 04/29/16 12:16 Dose: 0.5 mg Losartan Potassium (Cozaar) 25 mg PO DAILY [facility] Stop: 06/28/16 20:59 Last Admin: 05/01/16 09:04 Dose: 25 mg Magnesium Hydroxide (Milk Of Magnesia) 30 ml PO HS PRN PRN Reason: Constipation Stop: 06/26/16 21:27 Ondansetron HCl (Zofran) 4 mg IV Q8H PRN PRN Reason: Nausea / Vomiting Stop: 06/26/16 21:33 Psyllium Hydrophilic Mucilloid (Metamucil) 1 pkt PO DAILY JASVIR Stop: 06/27/16 08:59 Last Admin: 05/01/16 09:04 Dose: 1 pkt Quetiapine Fumarate (Seroquel) 75 mg PO HS JASVIR PRN Reason: Protocol Stop: 06/27/16 20:59 Last Admin: 04/30/16 21:44 Dose: 75 mg Valproate Sodium (Depakene) 500 mg PO BID JASVIR PRN Reason: Protocol Stop: 06/27/16 08:59 Last Admin: 05/01/16 09:03 Dose: 500 mg General: demented HEENT: NC/AT, PERRLA Neck: Supple, No JVD Lungs: congested, rales Cardiovascular: RRR, Normal S1, Normal S2 Abdomen: soft non-tender, globular, positive bowel sound Extremities: excoriation, contracture Neurological: no change - Procedures Procedures: Procedures Procedure Code Date ENDOSC POLYPECTOMY OF LG INTEST 45.42 07/13/07 GROUP PSYCHOTHERAPY 41961 06/03/15 GROUP PSYCHOTHERAPY GZHZZZZ 06/03/15 INDIVID PSYCHOTHERAP NEC 94.39 05/27/08 INSERT INDWELLING CATH 57.94 10/29/09 LESION REMOVAL COLONOSCOPY 25197 07/13/07 OTHER GROUP THERAPY 94.44 06/23/14 PERCUTANEOUS [ENDOSCOPIC] GASTROSTOMY [PEG] 43.11 10/10/13 RECREATIONAL THERAPY 93.81 06/24/10 Internal Medicine Assmt/Plan - Assessment Assessment: Assessment: sever anemia ro gi bleed ALOC RENAL FAILURE DEHYDRATION UNCONTROLLED DIABETES - Plan Plan: monitor h and h cont on iv hydration o2 bronchodilator check labs pt on 1 to 1 psych fu jose g rn Nutritional Asmnt/Malnutr-PDOC - Dietary Evaluation Malnutrition Findings (Please click <Entered> for more info): Nutritional Asmnt/Malnutrition Start: 04/28/16 14: 44 Text: Status: Complete Freq: Document 04/28/16 14:44 GSCATALINA (Rec: 04/28/16 15:06 ROBER [email or web address]) Nutritional Asmnt/Malnutrition Patient General Information Nutritional Screening Consult Diagnosis ER: acute renal failure, dehydration, uncontrolled DM Pertinent Medical Hx/Surgical Hx ER: HTN, DM, dementia Subjective Information 76 year old male from SNF. Pt was confused, unable to provide DM edu. Pt was seen agitated, kicking and trying to get out of bed. Spoke to SPRING FITTER at bedside, stated pt eats well 80% breakfast with total assist. Mild fat wasting to orbitals and chest noted. Obtained 107.3lb via bedscale today, questionable difference to EMR weight, will follow. Current Diet Order/ Nutrition Support [id number], pureed Patient / S.O Can't verbalize diet edu Pertinent Medications Maalox, Colace, Pepcid, Iron, Glucotrol, Novolog, MOM, Zofran, Seroquel Pertinent Labs 04/27: BUN 57H, creatinine 1.8H, glucose 434H, A1c 9.5H 32: BUN 58H, creatinine 2.0H, glucose 247H Nutritional Hx/Data Height 1.68 m Height (Calculated Centimeters) 167.6 Current Weight (lbs) 70.307 kg Weight (Calculated Kilograms) 70.3 Weight (Calculated Grams) 48349.8 Boss Body Weight 142lb Weight Status Approriate GI Symptoms Food Allergies No Cultural/Ethnic/Restorationist Belief Unknown. Usual diet at home Unknown. Skin Integrity/Comment: Barron Ayala. RN: multiple bruises, right lower leg abrasion Current %PO Good (75-100%) Estimated Nutritional Goals BEE in Kcals: Using Current wt Calories/Kcals/Kg 25-30kcal/kg Kcals Calculated 1758-2109kcal Protein: Using Current wt Protein g/k.6-1g/kg Protein Calculated 42-70g Fluid: ml Per MD (renal dysfunction) Nutritional Problem 2. Problem Problem Impaired nutrient utilization related to Etiology ER: acute kidney injury aeb Signs/Symptoms: BUN 58H, creatinine 2.0H 1. Problem Problem Altered nutrition related laboratory values related to Etiology DM aeb Signs/Symptoms: glucose 434H, A1c 9.5H Intervention/Recommendation Comments 1. Recommend [id number] + renal diet. 2. Monitor weight, questionable weight EMR vs. bedscale today. Expected Outcomes/Goals Expected Outcomes/Goals 1. PO intake to meet at least 75% of estimated nutritional needs.
[2016-05-02] MEDS: Sodium Chloride 0.9% 1,000 ML IV SCH (06:07)
[2016-05-02] MEDS: INSULIN ASPART, RECOMBINANT 100 UNITS/ML SUBQ SCH ×4 (07:06→21:50)
[2016-05-02 08:06] LABS: % EOSINOPHILS 2.2 % (0.0-5.0); % LYMPHOCYTES 24.6 % (20.0-50.0); % MONOCYTES 12.2 % (2.0-10.0); HEMOGLOBIN 8.4 gm/dL (12.6-17.4); MEAN CELL VOLUME 89.2 fl (80-99); MEAN CORPUSCULAR HGB CONC 33.6 pg (28.0-36.0); MEAN PLATELET VOLUME 7.2 fl; NEUTROPHILE ABSOLUTE 3.6 Th/cmm (1.8-8.0); PLATELET COUNT 512 Th/cmm (150-400); RED CELL DISTRIBUTION WIDTH 13.9 % (11.5-20.0)
[2016-05-02] MEDS: Multivitamin w/ Minerals Tab PO SCH (08:19)
[2016-05-02] MEDS: Ferrous Sulfate 300 MG/5 ML UDC PO SCH ×2 (08:20→17:30)
[2016-05-02 08:21] LABS: ALB/GLOB RATIO 0.9 (1.0-1.8); ALKALINE PHOSPHATASE 77 U/L (34-104); BILIRUBIN,TOTAL 0.5 mg/dL (0.3-1.0); BUN - UREA NITROGEN 35 mg/dL (7-25); BUN/CREATININE RATIO 29.2; CALCIUM SERUM 8.7 mg/dL (8.6-10.3); CARBON DIOXIDE 23.1 mEq/L (21.0-31.0); CHLORIDE 107 mEq/L (98-107); CREATININE - SERUM 1.2 mg/dL (0.7-1.3); GLUCOSE 254 mg/dL (70-105); MAGNESIUM 1.8 mg/dL (1.9-2.7); POTASSIUM SERUM 5.1 mEq/L (3.5-5.1); SGOT 11 U/L (13-39); SGPT/ALT 7 U/L (7-52); SODIUM SERUM 136 mEq/L (136-145)
--- NOTE | 2016-05-02 11:39 | Internal Medicine Prog Note ---
Internal Medicine Subjective - Subjective Service Date: 05/02/16 (awake, per nursing staff patient has a poor appetite. ) Patient seen and examined:: with staff Patient is:: awake Per staff patient is:: poor oral intake Internal Medicine Objective - Results Result Diagrams: 05/02/16 07:30 05/02/16 07:30 Recent Labs: Laboratory Last Values WBC 6.0 Th/cmm (4.8-10.8) 05/02/16 07:30 RBC 2.80 Mil/cmm (3.80-5.80) L 05/02/16 07:30 Hgb 8.4 gm/dL (12.6-17.4) L 05/02/16 07:30 Hct 25.0 % (39.0-49.0) L 05/02/16 07:30 MCV 89.2 fl (80-99) 05/02/16 07:30 MCH 30.0 pg (27.0-31.0) 05/02/16 07:30 MCHC Differential 33.6 pg (28.0-36.0) 05/02/16 07:30 RDW 13.9 % (11.5-20.0) 05/02/16 07:30 Plt Count 512 Th/cmm (150-400) H 05/02/16 07:30 MPV 7.2 fl 05/02/16 07:30 Neutrophils % 60.0 % (40.0-80.0) 05/02/16 07:30 Lymphocytes % 24.6 % (20.0-50.0) 05/02/16 07:30 Monocytes % 12.2 % (2.0-10.0) H 05/02/16 07:30 Eosinophils % 2.2 % (0.0-5.0) 05/02/16 07:30 Basophils % 1.0 % (0.0-2.0) 05/02/16 07:30 Neutrophils (Manual) 54 % (40-80) 05/01/16 06:45 Lymphocytes 25 % (20-50) 05/01/16 06:45 Monocytes 15 % (2-10) H 05/01/16 06:45 Eosinophils 6 % (0-5) H 05/01/16 06:45 Basophils 1 % (0-3) 04/30/16 17:26 Platelet Estimate ADEQUATE (NORMAL) 05/01/16 06:45 Platelet Morphology NORMAL (NORMAL) 05/01/16 06:45 Anisocytosis 1+ 05/01/16 06:45 RBC Morph Micro Appear ABNORMAL (NORMAL) 05/01/16 06:45 PT 9.8 SECONDS (9.5-11.5) 04/29/16 18:50 INR 0.94 (0.5-1.4) 04/29/16 18:50 Sodium 136 mEq/L (136-145) 05/02/16 07:30 Potassium 5.1 mEq/L (3.5-5.1) 05/02/16 07:30 Chloride 107 mEq/L (98-107) 05/02/16 07:30 Carbon Dioxide 23.1 mEq/L (21.0-31.0) 05/02/16 07:30 Anion Gap 11.0 (7.0-16.0) 05/02/16 07:30 BUN 35 mg/dL (7-25) H 05/02/16 07:30 Creatinine 1.2 mg/dL (0.7-1.3) 05/02/16 07:30 Est GFR ( Amer) TNP 05/02/16 07:30 Est GFR (Non-Af Amer) TNP 05/02/16 07:30 BUN/Creatinine Ratio 29.2 05/02/16 07:30 Glucose 254 mg/dL (70-105) H 05/02/16 07:30 POC Glucose 249 MG/DL (70 - 105) H 05/02/16 05:58 Hemoglobin A1c % 9.5 % (4.0-6.0) H 04/27/16 19:06 Calcium 8.7 mg/dL (8.6-10.3) 05/02/16 07:30 Magnesium 1.8 mg/dL (1.9-2.7) L 05/02/16 07:30 Total Bilirubin 0.5 mg/dL (0.3-1.0) 05/02/16 07:30 AST 11 U/L (13-39) L 05/02/16 07:30 ALT 7 U/L (7-52) 05/02/16 07:30 Alkaline Phosphatase 77 U/L (34-104) 05/02/16 07:30 Ammonia 42 umol/L (16-53) 05/02/16 07:30 B-Natriuretic Peptide 113.0 pg/mL (5.0-100.0) H 05/01/16 06:45 Total Protein 5.8 gm/dL (6.0-8.3) L 05/02/16 07:30 Albumin 2.8 gm/dL (4.2-5.5) L 05/02/16 07:30 Globulin 3.0 gm/dL 05/02/16 07:30 Albumin/Globulin Ratio 0.9 (1.0-1.8) L 05/02/16 07:30 Triglycerides 149 mg/dL (<150) 04/27/16 19:06 Cholesterol 138 mg/dL (<200) 04/27/16 19:06 LDL Cholesterol Direct 65 mg/dL (75-193) L 04/27/16 19:06 HDL Cholesterol 42 mg/dL (23-92) 04/27/16 19:06 Vitamin B12 771 pg/mL (211-946) 04/28/16 05:49 Folic Acid 10.4 ng/mL (>3.0) 04/28/16 05:49 TSH 0.75 uIU/ml (0.34-5.60) 04/27/16 19:06 Urine Source CATH 04/27/16 19:10 Urine Color YELLOW 04/27/16 19:10 Urine Clarity HAZY (CLEAR) 04/27/16 19:10 Urine pH 6.0 04/27/16 19:10 Ur Specific Success 1.020 (1.005-1.030) 04/27/16 19:10 Urine Protein >300 mg/dL (NEGATIVE) H 04/27/16 19:10 Urine Glucose (UA) 500 mg/dL (NEGATIVE) H 04/27/16 19:10 Urine Ketones 15 mg/dL (NEGATIVE) H 04/27/16 19:10 Urine Blood SMALL (NEGATIVE) H 04/27/16 19:10 Urine Nitrate NEGATIVE (NEGATIVE) 04/27/16 19:10 Urine Bilirubin NEGATIVE (NEGATIVE) 04/27/16 19:10 Urine Urobilinogen 0.2 E.U./dL (0.2 - 1.0) 04/27/16 19:10 Ur Leukocyte Esterase NEGATIVE (NEGATIVE) 04/27/16 19:10 Urine RBC 2-5 /hpf (0-5) H 04/27/16 19:10 Urine WBC 0-2 /hpf (0-5) 04/27/16 19:10 Ur Epithelial Cells OCCASIONAL /lpf (FEW) 04/27/16 19:10 Amorphous Sediment MANY URATES (NONE SEEN) 04/27/16 19:10 Urine Bacteria 1+ /hpf (NONE SEEN) H 04/27/16 19:10 Stool Occult Blood NEGATIVE (NEGATIVE) 05/01/16 13:30 Hepatitis A IgM Ab Negative (Negative) 04/27/16 19:06 Hep Bs Antigen Negative (Negative) 04/27/16 19:06 Hep B Core IgM Ab Negative (Negative) 04/27/16 19:06 Hepatitis C Antibody 0.2 s/co ratio (0.0-0.9) 04/27/16 19:06 - Physical Exam Vitals and I&O: Vital Signs Temp 97.8 F 05/02/16 08:01 Pulse 98 05/02/16 08:19 Resp 20 05/02/16 08:01 BP 198/80 05/02/16 08:19 Pulse Ox 97 05/02/16 08:01 Intake & Output 05/01/16 05/02/16 05/02/16 18:59 06:59 18:59 Intake Total 1000 Balance 1000 Intake: Intake, IV Amount 1000 Sodium Chloride 0.9% 1, 1000 000 ml @ 75 mls/hr IV . [id number] [facility] Rx#:[id number] Other: # Voids 2 1 # Bowel Movements 1 Active Medications: Current Medications Acetaminophen (Tylenol) 650 mg PO Q4HR PRN PRN Reason: Pain (Mild) Stop: 06/26/16 21:27 Last Admin: 04/28/16 05:08 Dose: 650 mg Al Hydrox/Mg Hydrox/Simethicone (Maalox) 30 ml PO Q6HR PRN PRN Reason: Constipation Stop: 06/26/16 21:33 Carbidopa/Levodopa (Sinemet 25mg-100 Mg) 1 tab PO TID [facility] Stop: 06/27/16 08:59 Last Admin: 05/02/16 08:20 Dose: 1 tab Clonidine HCl (Catapres) 0.1 mg PO Q6HR PRN PRN Reason: SBP GREATER THAN 160 Stop: 06/26/16 21:33 Last Admin: 05/01/16 12:43 Dose: 0.1 mg Docusate Sodium (Colace) 100 mg PO BID [facility] Stop: 06/27/16 08:59 Last Admin: 05/02/16 08:20 Dose: 100 mg Donepezil HCl (Aricept) 10 mg PO DAILY [facility] Stop: 06/27/16 08:59 Last Admin: 05/02/16 08:19 Dose: 10 mg Famotidine (Pepcid) 20 mg PO BID [facility] Stop: 06/27/16 08:59 Last Admin: 05/02/16 08:19 Dose: 20 mg Ferrous Sulfate (Iron) 325 mg PO BID [facility] Stop: 06/27/16 08:59 Last Admin: 05/02/16 08:20 Dose: 325 mg Glipizide (Glucotrol) 5 mg PO BID [facility] Stop: 06/27/16 08:59 Last Admin: 05/02/16 08:18 Dose: 5 mg Guaifenesin (Robitussin) 200 mg PO Q4HR PRN PRN Reason: Cough or Congestion Stop: 06/26/16 21:33 Sodium Chloride (Nacl 0.9%) 1,000 mls @ 75 mls/hr IV .[id number] [facility] Stop: 06/30/16 14:09 Last Admin: 05/02/16 06:07 Dose: 75 mls/hr Insulin Aspart (Novolog) 0 units SUBQ ACHS [facility] PRN Reason: Protocol Stop: 06/27/16 07:29 Last Admin: 05/02/16 07:06 Dose: 2 units Lorazepam (Ativan) 0.5 mg PO Q6HR PRN; Protocol PRN Reason: Anxiety Stop: 06/26/16 21:27 Last Admin: 05/02/16 08:19 Dose: 0.5 mg Losartan Potassium (Cozaar) 25 mg PO DAILY [facility] Stop: 06/28/16 20:59 Last Admin: 05/02/16 08:19 Dose: 25 mg Magnesium Hydroxide (Milk Of Magnesia) 30 ml PO HS PRN PRN Reason: Constipation Stop: 06/26/16 21:27 Ondansetron HCl (Zofran) 4 mg IV Q8H PRN PRN Reason: Nausea / Vomiting Stop: 06/26/16 21:33 Psyllium Hydrophilic Mucilloid (Metamucil) 1 pkt PO DAILY [facility] Stop: 06/27/16 08:59 Last Admin: 05/02/16 08:20 Dose: 1 pkt Quetiapine Fumarate (Seroquel) 75 mg PO HS [facility] PRN Reason: Protocol Stop: 06/27/16 20:59 Last Admin: 05/01/16 20:52 Dose: Not Given Valproate Sodium (Depakene) 500 mg PO BID [facility] PRN Reason: Protocol Stop: 06/27/16 08:59 Last Admin: 05/02/16 08:20 Dose: 500 mg General: alert HEENT: NC/AT, PERRLA Neck: Supple Lungs: CTAB Cardiovascular: RRR, Normal S1, Normal S2, without murmur Abdomen: soft non-tender - Procedures Procedures: Procedures Procedure Code Date ENDOSC POLYPECTOMY OF LG INTEST 45.42 07/13/07 GROUP PSYCHOTHERAPY 69951 06/03/15 GROUP PSYCHOTHERAPY [id number] 06/03/15 INDIVID PSYCHOTHERAP NEC 94.39 05/27/08 INSERT INDWELLING CATH 57.94 10/29/09 LESION REMOVAL COLONOSCOPY 33369 07/13/07 OTHER GROUP THERAPY 94.44 06/23/14 PERCUTANEOUS [ENDOSCOPIC] GASTROSTOMY [PEG] 43.11 10/10/13 RECREATIONAL THERAPY 93.81 06/24/10 Internal Medicine Assmt/Plan - Assessment Assessment: ALOC RENAL FAILURE DEHYDRATION UNCONTROLLED DIABETES - Plan Plan: monitor h/h will add megace dc to erik when bed available Nutritional Asmnt/Malnutr-PDOC - Dietary Evaluation Malnutrition Findings (Please click <Entered> for more info): Nutritional Asmnt/Malnutrition Start: 04/28/16 14: 44 Text: Status: Complete Freq: Document 04/28/16 14:44 GSUN (Rec: 04/28/16 15:06 GSUN [id number]) Nutritional Asmnt/Malnutrition Patient General Information Nutritional Screening Consult Diagnosis ER: acute renal failure, dehydration, uncontrolled DM Pertinent Medical Hx/Surgical Hx ER: HTN, DM, dementia Subjective Information 76 year old male from SNF. Pt was confused, unable to provide DM edu. Pt was seen agitated, kicking and trying to get out of bed. Spoke to MOLDING PLASTERER at bedside, stated pt eats well 80% breakfast with total assist. Mild fat wasting to orbitals and chest noted. Obtained 107.3lb via bedscale today, questionable difference to EMR weight, will follow. Current Diet Order/ Nutrition Support [id number], pureed Patient / S.O Can't verbalize diet edu Pertinent Medications Maalox, Colace, Pepcid, Iron, Glucotrol, Novolog, MOM, Zofran, Seroquel Pertinent Labs 04/27: BUN 57H, creatinine 1.8H, glucose 434H, A1c 9.5H 04/28: BUN 58H, creatinine 2.0H, glucose 247H Nutritional Hx/Data Height 5 ft 6 in Height (Calculated Centimeters) 167.6 Current Weight (lbs) 155 lb Weight (Calculated Kilograms) 70.3 Weight (Calculated Grams) 92576.8 [place] Body Weight 142lb Weight Status Approriate GI Symptoms Food Allergies No Cultural/Ethnic/Nondenominational Belief Unknown. Usual diet at home Unknown. Skin Integrity/Comment: Barron Johnson RN: multiple bruises, right lower leg abrasion Current %PO Good (75-100%) Estimated Nutritional Goals BEE in Kcals: Using Current wt Calories/Kcals/Kg 25-30kcal/kg Kcals Calculated 1758-2109kcal Protein: Using Current wt Protein g/k.6-1g/kg Protein Calculated 42-70g Fluid: ml Per MD (renal dysfunction) Nutritional Problem 2. Problem Problem Impaired nutrient utilization related to Etiology ER: acute kidney injury aeb Signs/Symptoms: BUN 58H, creatinine 2.0H 1. Problem Problem Altered nutrition related laboratory values related to Etiology DM aeb Signs/Symptoms: glucose 434H, A1c 9.5H Intervention/Recommendation Comments 1. Recommend [id number] + renal diet. 2. Monitor weight, questionable weight EMR vs. bedscale today. Expected Outcomes/Goals Expected Outcomes/Goals 1. PO intake to meet at least 75% of estimated nutritional needs.
--- NOTE | 2016-05-02 22:21 | Progress Notes ---
Case discussed with staff of the patient, reviewed records. The patient, so far, has been uncooperative, refusing to take his medications and not eating well. He continues to be agitated at times. He has been compliant with the medication with no side effects. Seroquel dose was increased and I would recommend to transfer the patient to [facility] when medically cleared for further treatment unless his behavior improved. Thank you very much for allowing me to participate in the care of this most interesting gentleman. JOB# [id number]
[2016-05-03 06:13] LABS: FOLIC ACID 9.6 ng/mL (>3.0)
[2016-05-03 07:24] LABS: % BASOPHILS 1.1 % (0.0-2.0); % EOSINOPHILS 1.3 % (0.0-5.0); % LYMPHOCYTES 22.3 % (20.0-50.0); % MONOCYTES 10.6 % (2.0-10.0); % NEUTROPHILS 64.7 % (40.0-80.0); HEMATOCRIT 26.1 % (39.0-49.0); HEMOGLOBIN 8.8 gm/dL (12.6-17.4); MEAN CELL VOLUME 89.2 fl (80-99); MEAN CORPUSCULAR HEMOGLOBIN 30.2 pg (27.0-31.0); MEAN CORPUSCULAR HGB CONC 33.9 pg (28.0-36.0); MEAN PLATELET VOLUME 7.2 fl; NEUTROPHILE ABSOLUTE 4.1 Th/cmm (1.8-8.0); PLATELET COUNT 567 Th/cmm (150-400); RED BLOOD COUNT 2.93 Mil/cmm (3.80-5.80); RED CELL DISTRIBUTION WIDTH 13.9 % (11.5-20.0); WHITE BLOOD COUNT 6.4 Th/cmm (4.8-10.8)
[2016-05-03 07:41] LABS: ANION GAP 12.2 (7.0-16.0); BUN - UREA NITROGEN 34 mg/dL (7-25); BUN/CREATININE RATIO 28.3; CALCIUM SERUM 8.8 mg/dL (8.6-10.3); CARBON DIOXIDE 22.9 mEq/L (21.0-31.0); CHLORIDE 107 mEq/L (98-107); CREATININE - SERUM 1.2 mg/dL (0.7-1.3); GLUCOSE 229 mg/dL (70-105); POTASSIUM SERUM 5.1 mEq/L (3.5-5.1); SODIUM SERUM 137 mEq/L (136-145)
[2016-05-03] MEDS: Ferrous Sulfate 300 MG/5 ML UDC PO SCH ×2 (09:05→18:13)
[2016-05-03] MEDS: Multivitamin w/ Minerals Tab PO SCH (09:08)
[2016-05-03] MEDS: INSULIN ASPART, RECOMBINANT 100 UNITS/ML SUBQ SCH ×4 (09:20→21:03)
--- NOTE | 2016-06-06 | Discharge Summary ---
FINAL DIAGNOSES: 1. Renal failure. 2. Dehydration. 3. Uncontrolled diabetes. 4. Altered level of consciousness. HISTORY OF PRESENT ILLNESS: This is a 76-year-old male who is a resident of a intermediate who is brought [facility] to [facility] for ALOC. The patient was unable to feed himself. The patient was also very agitated. PHYSICAL EXAMINATION: GENERAL: The patient is well developed, well nourished, in no acute distress. VITAL SIGNS: Stable. HEENT: Head is normocephalic and atraumatic. NECK: Supple. No mass. LUNGS: Clear. CARDIOVASCULAR: Regular rate rhythm. ABDOMEN: Soft, nontender, and nondistended. During the hospital stay, the patient was admitted to the Med/Surg unit. The patient was kept on IV fluids for hydration. The patient had a sitter by the bedside for safety, also a psychiatrist ____ on the case due to psychosis. The patient had a consultation with GI and his plan of care for this patient was discharge first to ____ and if there is any sign of GI bleed to do a endoscopic workup. The patient's H and H were normal during the hospital stay. For this reason, the patient was felt stable for discharge to the Geropsych Unit. CONDITION UPON DISCHARGE: Fair. DISPOSITION: Geropsych unit. JOB# [id number]
--- NOTE | 2016-06-09 16:25 | History & Physical ---
ADMIT DATE: 04/27/2016 CHIEF COMPLAINT: Change in mental status, status post fall. HISTORY OF PRESENT ILLNESS: This is a 76-year-old male with history of Parkinson's, Alzheimer's, diabetes, hypertension, dementia, BPH, GERD, was admitted from nursing facility secondary to a change in mental status: The patient apparently fell with a large bruise on the left side of the face. The patient is confused, unable to provide a meaningful history and review of systems. PAST MEDICAL HISTORY: As mentioned in history present illness. PAST SURGICAL HISTORY: Unable to obtain from the patient. ALLERGIES: No known drug allergies. MEDICATIONS: Tylenol, clonidine, Sinemet, glipizide, guaifenesin. FAMILY HISTORY: Noncontributory. SOCIAL HISTORY: The patient is in [facility]. The patient requiring 24-hour total care. REVIEW OF SYSTEMS: This is limited secondary to the patient's current mental state. We will try to obtain more detailed review of systems at a later date with the family members Lovely Alegre, the sister, number [phone]. Also try to get information from nursing staff in [place], number [phone] as well as from Dr[address] Brewer, who has been following the patient recently. PHYSICAL EXAMINATION: VITAL SIGNS: Blood pressure 120/47, respirations 20, pulse 69, temperature ____. GENERAL: Elderly male, appears stated age, chronically ill. NECK: Supple. HEENT: ____ positive ecchymosis on left eye as well the jaw.. LUNGS: Decreased breath sounds, few rhonchi. HEART: Regular rate and rhythm without systolic ejection murmur. ABDOMEN: Soft, nontender. Positive bowel sounds. EXTREMITIES: Positive excoriations. NEUROLOGIC: Limited. LABORATORY DATA: WBC 8.3, hemoglobin 8, platelets 280. Sodium 132, potassium 4.0, BUN is 28.3, creatinine 2.0. Blood sugar reported at 232, last 2 readings. Albumin 2.9. UA positive ketones and bacteria. ASSESSMENT: Status post fall, altered level of consciousness, anemia, left eye contusion, Parkinson, dehydration, renal failure, diabetes out of control, hypertension, dementia, benign prostatic hypertrophy, gastroesophageal reflux disease, Alzheimer's. PLAN: Continue the patient on IV hydration. We will correct electrolyte abnormalities. We will review the patient's chest x-ray. We will refer the patient to Psychiatry. We will send occult blood and ____ the patient and may need endoscopy. We will continue to follow. JOB# [id number]
== END 2016-05-03 22:04 | DRG 682 ==
LOC: ER 18:30 → TELE 19:45 → MSI 04-29 07:12
PROVIDERS: ADMIT Internal Medicine; ATTEND Internal Medicine
DX: N17.9 Acute kidney failure, unspecified (principal); G93.41 Metabolic encephalopathy; E43 Unspecified severe protein-calorie malnutrition; F02.81 Dementia in other diseases classified elsewhere, unspecified severity, with behavioral disturbance; E11.65 Type 2 diabetes mellitus with hyperglycemia; G20 Parkinson's disease; G30.9 Alzheimer's disease, unspecified; D64.9 Anemia, unspecified; I10 Essential (primary) hypertension; F29 Unspecified psychosis not due to a substance or known physiological condition; N40.0 Benign prostatic hyperplasia without lower urinary tract symptoms; K21.9 Gastro-esophageal reflux disease without esophagitis; F25.9 Schizoaffective disorder, unspecified; Z91.14 Patient's other noncompliance with medication regimen; Z79.4 Long term (current) use of insulin; Z68.25 Body mass index [BMI] 25.0-25.9, adult
CPT/HCPCS: 36415-UA; 80048-TC; 80053-TC; 80061-TC; 80074-90; 81001-TC; 82140-TC; 82270-TC; 82607-90; 82746-90; 82948-90; 83036-90; 83735-TC; 83880-TC; 84443-TC; 85007-TC; 85025-TC; 85027-TC; 85610-TC; 93005; J1200; J1630; J1815; J2060; J7030; Z7610

== ENCOUNTER 2016-05-03 19:00 | Inpatient (IN) | payer MEDICARE, MEDICAID ==
[~2016-05-03 19:00] MED LIST: Maalox 30 mL Cup PO PRN
[2016-05-03] MEDS ORDERED: Magnesium Hydroxide (MOM) 30 mL UDC PO PRN (21:44)
[2016-05-03] MEDS ORDERED: Maalox 30 mL Cup PO PRN ×2 (21:44→21:55)
[2016-05-04] MEDS ORDERED: Maalox 30 mL Cup PO PRN (01:04)
[2016-05-04 01:35] VITALS: BP 181/83
--- NOTE | 2016-05-04 02:25 | Progress Notes ---
Case was discussed with staff of the patient, reviewed records. The patient is reported by the staff, not eating much, continues to have episodes of agitation and irritability, continues to be unpredictable, impulsive, can carry on a reasonable conversation. I would recommend to move the patient to [facility] when medically cleared and I did increase his Seroquel dose. No side effects. Thank you very much for allowing me to participate in the care of this most interesting gentleman. [facility]# [id number]
[2016-05-04] MEDS: INSULIN ASPART, RECOMBINANT 100 UNITS/ML SUBQ SCH ×4 (06:43→20:12)
[2016-05-04] MEDS: Ferrous Sulfate 300 MG/5 ML UDC PO SCH ×2 (10:20→16:48)
[2016-05-04] MEDS: Multivitamin w/ Minerals Tab PO SCH (10:25)
--- NOTE | 2016-05-04 11:09 | Internal Medicine Prog Note ---
Internal Medicine Subjective - Subjective Service Date: 05/04/16 Patient seen and examined:: with staff Patient is:: awake Per staff patient is:: no adverse event Internal Medicine Objective - Physical Exam Vitals and I&O: Vital Signs Temp Pulse 80 05/04/16 00:55 Resp 18 05/04/16 00:55 BP 181/83 05/04/16 01:34 Pulse Ox Intake & Output 05/03/16 05/04/16 05/04/16 18:59 06:59 18:59 Weight (lbs) 133 lb 5 oz Other: # Voids 1 # Bowel Movements 0 Active Medications: Current Medications Acetaminophen (Tylenol) 650 mg PO Q4HR PRN PRN Reason: Pain (Mild) Stop: 07/02/16 21:43 Al Hydrox/Mg Hydrox/Simethicone (Maalox) 30 ml PO Q4HR PRN PRN Reason: GI DISTRESS Stop: 07/02/16 21:43 Carbidopa/Levodopa (Sinemet 25mg-100 Mg) 1 tab PO TIDWM [facility] Stop: 07/03/16 07:59 Last Admin: 05/04/16 08:00 Dose: 1 tab Docusate Sodium (Colace) 100 mg PO BID [facility] Stop: 07/03/16 08:59 Last Admin: 05/04/16 10:50 Dose: Not Given Donepezil HCl (Aricept) 10 mg PO DAILY [facility] Stop: 07/03/16 08:59 Last Admin: 05/04/16 10:20 Dose: 10 mg Famotidine (Pepcid) 20 mg PO BID [facility] Stop: 07/03/16 08:59 Last Admin: 05/04/16 10:20 Dose: 20 mg Ferrous Sulfate (Iron) 325 mg PO BID [facility] Stop: 07/03/16 08:59 Last Admin: 05/04/16 10:20 Dose: 325 mg Glipizide (Glucotrol) 5 mg PO BIDAC [facility] Stop: 07/03/16 07:29 Last Admin: 05/04/16 06:53 Dose: Not Given Insulin Aspart (Novolog) 0 units SUBQ ACHS [facility] PRN Reason: Protocol Stop: 07/03/16 07:29 Last Admin: 05/04/16 06:43 Dose: Not Given Losartan Potassium (Cozaar) 50 mg PO DAILY [facility] Stop: 07/03/16 08:59 Last Admin: 05/04/16 10:25 Dose: Not Given Magnesium Hydroxide (Milk Of Magnesia) 30 ml PO HS PRN PRN Reason: Constipation Stop: 07/02/16 21:43 Psyllium Hydrophilic Mucilloid (Metamucil) 1 pkt PO DAILY [facility] Stop: 07/03/16 08:59 Last Admin: 05/04/16 10:25 Dose: 1 pkt Quetiapine Fumarate 50 mg/ (Quetiapine Fumarate 25 mg) 75 mg PO HS [facility] Stop: 07/03/16 20:59 Valproate Sodium (Depakene) 250 mg PO BID [facility] PRN Reason: Protocol Stop: 07/03/16 10:59 General: alert HEENT: NC/AT, PERRLA Neck: Supple Lungs: CTAB Cardiovascular: RRR, Normal S1, Normal S2, without murmur Abdomen: soft non-tender, non-distended Extremities: clear Neurological: no change - Procedures Procedures: Procedures Procedure Code Date ENDOSC POLYPECTOMY OF LG INTEST 45.42 07/13/07 GROUP PSYCHOTHERAPY 87209 06/03/15 GROUP PSYCHOTHERAPY GZHZZZZ 06/03/15 INDIVID PSYCHOTHERAP NEC 94.39 05/27/08 INSERT INDWELLING CATH 57.94 10/29/09 LESION REMOVAL COLONOSCOPY 52394 07/13/07 OTHER GROUP THERAPY 94.44 06/23/14 PERCUTANEOUS [ENDOSCOPIC] GASTROSTOMY [PEG] 43.11 10/10/13 RECREATIONAL THERAPY 93.81 06/24/10 Internal Medicine Assmt/Plan - Assessment Assessment: RENAL FAILURE DEHYDRATION UNCONTROLLED DIABETES - Plan Plan: MONITOR I+O FALL PRECAUTIONS CPM
--- NOTE | 2016-05-04 13:19 | Psychosocial Evaluation ---
IDENTIFYING INFORMATION: The patient is a 76-year-old male. CHIEF COMPLAINT: No answer. HISTORY OF PRESENT ILLNESS: The patient was transferred from the medical floor. He was admitted there because of renal failure. However, he has been agitated, refusing medications, refusing care, very hard to redirect. He is confused, unable to carry on a conversation. He is demented and confused. The patient at times refusing medications, refusing to eat. He sleeps well. He gets agitated with the staff and tried to hit them. PAST PSYCHIATRIC HISTORY: The patient was a very poor historian, unable to participate in a meaningful conversation. He is demented, confused. PAST PSYCHIATRIC HISTORY: Long history of psychotic disorder. Has been admitted to this facility many times because of his aggressive behavior and has been to a different correction. MEDICAL HISTORY: Deferred to the medical doctor. ALLERGIES: The patient has no known drug allergies. MEDICATIONS: Has been on Seroquel, which was increased to 75 mg at bedtime. He is on Depakote 250 mg twice a day. He has high blood pressure, anemia and renal failure and he is on Aricept 10 mg at bedtime. He is on medication for Parkinson's, Sinemet. FAMILY AND SOCIAL HISTORY: The patient has been in a correction. He has been too many different correction. Family is supportive. He is single, never , no children. No information about family history. The patient is unable to give information. I do not have his old records. MENTAL STATUS EXAMINATION: The patient is appropriately dressed, not very well groomed. He was in hospital gown. He has some bruises on his body. He is unable to participate in a meaningful conversation. He has a poor long and short term memory. He has been agitated, confused, hitting staff, refusing to eat, refusing to take his medication at times. I did not ask questions regarding hallucination. His insight and judgment is impaired. IMPRESSION: AXIS I: Bipolar disorder and dementia. MEDICAL DIAGNOSIS: Deferred to the medical doctors. His assets, he is accepting treatment. Negative poor coping skills. INITIAL TREATMENT PLAN: The patient continued on medication. We will check Depakote level. Do group therapy, milieu therapy, individual therapy. ESTIMATED LENGTH OF STAY: 3-7 days. DISCHARGE CRITERIA: Decreasing agitation, no longer acting out, ____ medication compliant. After discharge, outpatient treatment. JOB# [id number]
[2016-05-05] MEDS: INSULIN ASPART, RECOMBINANT 100 UNITS/ML SUBQ SCH ×4 (06:33→21:25)
[2016-05-05] MEDS: Ferrous Sulfate 300 MG/5 ML UDC PO SCH ×2 (08:17→16:04)
[2016-05-05] MEDS: Multivitamin w/ Minerals Tab PO SCH (08:18)
--- NOTE | 2016-05-05 11:37 | Internal Medicine Prog Note ---
Internal Medicine Subjective - Subjective Service Date: 05/05/16 Patient seen and examined:: with staff Patient is:: awake Patient Complaints of:: congestion Per staff patient is:: no adverse event Internal Medicine Objective - Results Recent Labs: Laboratory Last Values POC Glucose 293 MG/DL (70 - 105) H 05/05/16 11:07 - Physical Exam Vitals and I&O: Vital Signs Temp 98.0 F 05/04/16 14:00 Pulse 68 05/04/16 20:00 Resp 18 05/05/16 08:00 BP 158/70 05/04/16 14:00 Pulse Ox 97 05/04/16 14:00 Intake & Output 05/04/16 05/05/16 05/05/16 18:59 06:59 18:59 Intake Total 700 Balance 700 Intake: Oral 700 Other: # Voids 3 # Bowel Movements 0 Active Medications: Current Medications Acetaminophen (Tylenol) 650 mg PO Q4HR PRN PRN Reason: Pain (Mild) Stop: 07/02/16 21:43 Al Hydrox/Mg Hydrox/Simethicone (Maalox) 30 ml PO Q4HR PRN PRN Reason: GI DISTRESS Stop: 07/02/16 21:43 Carbidopa/Levodopa (Sinemet 25mg-100 Mg) 1 tab PO TIDWM [facility] Stop: 07/03/16 07:59 Last Admin: 05/05/16 11:23 Dose: Not Given Docusate Sodium (Colace) 100 mg PO BID [facility] Stop: 07/03/16 08:59 Last Admin: 05/05/16 08:17 Dose: Not Given Donepezil HCl (Aricept) 10 mg PO DAILY [facility] Stop: 07/03/16 08:59 Last Admin: 05/05/16 08:17 Dose: Not Given Famotidine (Pepcid) 20 mg PO BID [facility] Stop: 07/03/16 08:59 Last Admin: 05/05/16 08:17 Dose: Not Given Ferrous Sulfate (Iron) 325 mg PO BID [facility] Stop: 07/03/16 08:59 Last Admin: 05/05/16 08:17 Dose: Not Given Glipizide (Glucotrol) 5 mg PO BIDAC [facility] Stop: 07/03/16 07:29 Last Admin: 05/05/16 06:33 Dose: Not Given Insulin Aspart (Novolog) 0 units SUBQ ACHS [facility] PRN Reason: Protocol Stop: 07/03/16 07:29 Last Admin: 05/05/16 11:17 Dose: 4 units Losartan Potassium (Cozaar) 50 mg PO DAILY [facility] Stop: 07/03/16 08:59 Last Admin: 05/05/16 08:17 Dose: Not Given Magnesium Hydroxide (Milk Of Magnesia) 30 ml PO HS PRN PRN Reason: Constipation Stop: 07/02/16 21:43 Psyllium Hydrophilic Mucilloid (Metamucil) 1 pkt PO DAILY [facility] Stop: 07/03/16 08:59 Last Admin: 05/05/16 08:18 Dose: Not Given Quetiapine Fumarate 50 mg/ (Quetiapine Fumarate 25 mg) 75 mg PO HS [facility] Stop: 07/03/16 20:59 Last Admin: 05/04/16 20:11 Dose: Not Given Valproate Sodium (Depakene) 250 mg PO BID [facility] PRN Reason: Protocol Stop: 07/03/16 10:59 Last Admin: 05/05/16 08:18 Dose: Not Given General: alert HEENT: NC/AT, PERRLA Neck: Supple Lungs: CTAB Cardiovascular: RRR, Normal S1, Normal S2, without murmur Abdomen: soft non-tender, non-distended - Procedures Procedures: Procedures Procedure Code Date ENDOSC POLYPECTOMY OF LG INTEST 45.42 07/13/07 GROUP PSYCHOTHERAPY 26257 06/03/15 GROUP PSYCHOTHERAPY GZHZZZZ 06/03/15 INDIVID PSYCHOTHERAP NEC 94.39 05/27/08 INSERT INDWELLING CATH 57.94 10/29/09 LESION REMOVAL COLONOSCOPY 88609 07/13/07 OTHER GROUP THERAPY 94.44 06/23/14 PERCUTANEOUS [ENDOSCOPIC] GASTROSTOMY [PEG] 43.11 10/10/13 RECREATIONAL THERAPY 93.81 06/24/10 Internal Medicine Assmt/Plan - Assessment Assessment: RENAL FAILURE DEHYDRATION UNCONTROLLED DIABETES - Plan Plan: MONITOR I+O FALL PRECAUTIONS CPM
--- NOTE | 2016-05-06 02:35 | Progress Notes ---
Case was discussed with staff of the patient, reviewed records. The patient continues to be confused and demented. Yesterday, he did take medication after he first refused this. He is still unpredictable, impulsive and continues to have poor insight. Unable to participate in a meaningful conversation or make safe plan for self-care. He has been compliant with the medication with no side effects, no sedation, no nausea and we will give him more time ____ increase Seroquel ____ further adjustment ____ is okay for the rest of the day. He is on Depakote 250 mg twice a day and will be ordering a ____ on him and we will continue to work with the patient in group therapy, milieu therapy, adjust medication as needed. JOB# [id number]
[2016-05-06] MEDS: INSULIN ASPART, RECOMBINANT 100 UNITS/ML SUBQ SCH ×4 (06:55→20:22)
[2016-05-06] MEDS: Ferrous Sulfate 300 MG/5 ML UDC PO SCH ×2 (08:26→16:34)
[2016-05-06] MEDS: Multivitamin w/ Minerals Tab PO SCH (08:27)
--- NOTE | 2016-05-06 13:16 | Internal Medicine Prog Note ---
Internal Medicine Subjective - Subjective Patient seen and examined:: with staff, chart reviewed Patient is:: awake, verbal Per staff patient is:: no adverse event, poor appetite, poor oral intake, combative, noncompliant, confused Internal Medicine Objective - Results Recent Labs: Laboratory Last Values POC Glucose 215 MG/DL (70 - 105) H 05/06/16 06:21 Valproic Acid 12.4 ug/mL (50.0-100.0) L 05/05/16 20:00 - Physical Exam Vitals and I&O: Vital Signs Temp 97.2 F 05/05/16 20:34 Pulse 71 05/06/16 08:26 Resp 19 05/05/16 20:34 BP 170/62 05/06/16 08:26 Pulse Ox 100 05/05/16 20:34 Active Medications: Current Medications Acetaminophen (Tylenol) 650 mg PO Q4HR PRN PRN Reason: Pain (Mild) Stop: 07/02/16 21:43 Al Hydrox/Mg Hydrox/Simethicone (Maalox) 30 ml PO Q4HR PRN PRN Reason: GI DISTRESS Stop: 07/02/16 21:43 Carbidopa/Levodopa (Sinemet 25mg-100 Mg) 1 tab PO TIDWM [facility] Stop: 07/03/16 07:59 Last Admin: 05/06/16 13:00 Dose: Not Given Docusate Sodium (Colace) 100 mg PO BID [facility] Stop: 07/03/16 08:59 Last Admin: 05/06/16 08:26 Dose: Not Given Donepezil HCl (Aricept) 10 mg PO DAILY [facility] Stop: 07/03/16 08:59 Last Admin: 05/06/16 08:26 Dose: Not Given Famotidine (Pepcid) 20 mg PO BID [facility] Stop: 07/03/16 08:59 Last Admin: 05/06/16 08:26 Dose: Not Given Ferrous Sulfate (Iron) 325 mg PO BID [facility] Stop: 07/03/16 08:59 Last Admin: 05/06/16 08:26 Dose: Not Given Glipizide (Glucotrol) 5 mg PO BIDAC [facility] Stop: 07/03/16 07:29 Last Admin: 05/06/16 06:55 Dose: 5 mg Insulin Aspart (Novolog) 0 units SUBQ ACHS [facility] PRN Reason: Protocol Stop: 07/03/16 07:29 Last Admin: 05/06/16 12:00 Dose: Not Given Losartan Potassium (Cozaar) 50 mg PO DAILY [facility] Stop: 07/03/16 08:59 Last Admin: 05/06/16 08:26 Dose: Not Given Magnesium Hydroxide (Milk Of Magnesia) 30 ml PO HS PRN PRN Reason: Constipation Stop: 07/02/16 21:43 Psyllium Hydrophilic Mucilloid (Metamucil) 1 pkt PO DAILY [facility] Stop: 07/03/16 08:59 Last Admin: 05/06/16 08:27 Dose: Not Given Quetiapine Fumarate (Seroquel) 100 mg PO HS [facility] Stop: 07/05/16 20:59 Valproate Sodium (Depakene) 250 mg PO BID [facility] PRN Reason: Protocol Stop: 07/03/16 10:59 Last Admin: 05/06/16 08:27 Dose: Not Given General: demented, other (l eye bruising) HEENT: NC/AT, PERRLA Neck: Supple, No JVD Lungs: CTAB Cardiovascular: RRR, Normal S1, Normal S2 Abdomen: soft non-tender, globular, positive bowel sound Extremities: excoriation, contracture Neurological: no change, disorganized, unable to follow command - Procedures Procedures: Procedures Procedure Code Date ENDOSC POLYPECTOMY OF LG INTEST 45.42 07/13/07 GROUP PSYCHOTHERAPY 92932 06/03/15 GROUP PSYCHOTHERAPY GZHZZZZ 06/03/15 INDIVID PSYCHOTHERAP NEC 94.39 05/27/08 INSERT INDWELLING CATH 57.94 10/29/09 LESION REMOVAL COLONOSCOPY 19667 07/13/07 OTHER GROUP THERAPY 94.44 06/23/14 PERCUTANEOUS [ENDOSCOPIC] GASTROSTOMY [PEG] 43.11 10/10/13 RECREATIONAL THERAPY 93.81 06/24/10 Internal Medicine Assmt/Plan - Assessment Assessment: ch RENAL FAILURE DEHYDRATION UNCONTROLLED DIABETES dementia gait instability poor po intake - Plan Plan: cont on ada iss cont on oral dm meds jose g rn
--- NOTE | 2016-05-06 22:19 | Progress Notes ---
Case discussed with staff of the patient, reviewed records. The patient apparently has been at times refusing his medication. He has been unpredictable, impulsive, gets aggressive with the staff. He is sleeping well, he need help with his feeding. He has no side effects with the medication he takes. We will be increasing Seroquel to 100 mg at bedtime and so far, no side effects, no sedation, no nausea, no extrapyramidal symptoms and we will continue to work with the patient in group therapy, milieu therapy, adjust medication as needed. JOB# [id number]
[2016-05-07] MEDS: INSULIN ASPART, RECOMBINANT 100 UNITS/ML SUBQ SCH ×4 (06:50→20:39)
[2016-05-07] MEDS: Ferrous Sulfate 300 MG/5 ML UDC PO SCH ×2 (09:15→16:11)
[2016-05-07] MEDS: Multivitamin w/ Minerals Tab PO SCH (09:15)
--- NOTE | 2016-05-07 12:51 | Internal Medicine Prog Note ---
Internal Medicine Subjective - Subjective Service Date: 05/07/16 Patient seen and examined:: with staff Patient is:: awake Per staff patient is:: no adverse event Internal Medicine Objective - Results Recent Labs: Laboratory Last Values POC Glucose 299 MG/DL (70 - 105) H 05/07/16 06:21 Valproic Acid 12.4 ug/mL (50.0-100.0) L 05/05/16 20:00 - Physical Exam Vitals and I&O: Vital Signs Temp 97.2 F 05/05/16 20:34 Pulse 66 05/06/16 19:38 Resp 18 05/06/16 19:38 BP 170/62 05/06/16 08:26 Pulse Ox 100 05/05/16 20:34 Intake & Output 05/06/16 05/07/16 05/07/16 18:59 06:59 18:59 Intake Total 240 Balance 240 Intake: Oral 240 Other: # Voids 1 Active Medications: Current Medications Acetaminophen (Tylenol) 650 mg PO Q4HR PRN PRN Reason: Pain (Mild) Stop: 07/02/16 21:43 Al Hydrox/Mg Hydrox/Simethicone (Maalox) 30 ml PO Q4HR PRN PRN Reason: GI DISTRESS Stop: 07/02/16 21:43 Carbidopa/Levodopa (Sinemet 25mg-100 Mg) 1 tab PO TIDWM [facility] Stop: 07/03/16 07:59 Last Admin: 05/07/16 11:52 Dose: Not Given Docusate Sodium (Colace) 100 mg PO BID [facility] Stop: 07/03/16 08:59 Last Admin: 05/07/16 09:15 Dose: Not Given Donepezil HCl (Aricept) 10 mg PO DAILY [facility] Stop: 07/03/16 08:59 Last Admin: 05/07/16 09:15 Dose: Not Given Famotidine (Pepcid) 20 mg PO BID [facility] Stop: 07/03/16 08:59 Last Admin: 05/07/16 09:15 Dose: Not Given Ferrous Sulfate (Iron) 325 mg PO BID [facility] Stop: 07/03/16 08:59 Last Admin: 05/07/16 09:15 Dose: Not Given Glipizide (Glucotrol) 5 mg PO BIDAC [facility] Stop: 07/03/16 07:29 Last Admin: 05/07/16 06:50 Dose: Not Given Insulin Aspart (Novolog) 0 units SUBQ ACHS [facility] PRN Reason: Protocol Stop: 07/03/16 07:29 Last Admin: 05/07/16 11:53 Dose: Not Given Losartan Potassium (Cozaar) 50 mg PO DAILY [facility] Stop: 07/03/16 08:59 Last Admin: 05/07/16 09:15 Dose: Not Given Magnesium Hydroxide (Milk Of Magnesia) 30 ml PO HS PRN PRN Reason: Constipation Stop: 07/02/16 21:43 Psyllium Hydrophilic Mucilloid (Metamucil) 1 pkt PO DAILY [facility] Stop: 07/03/16 08:59 Last Admin: 05/07/16 09:15 Dose: Not Given Quetiapine Fumarate (Seroquel) 100 mg PO HS [facility] Stop: 07/05/16 20:59 Last Admin: 05/06/16 20:23 Dose: Not Given Valproate Sodium (Depakene) 250 mg PO BID [facility] PRN Reason: Protocol Stop: 07/03/16 10:59 Last Admin: 05/07/16 09:15 Dose: Not Given General: alert HEENT: NC/AT, PERRLA Neck: Supple Lungs: CTAB Cardiovascular: RRR, Normal S1, Normal S2, without murmur Abdomen: soft non-tender, non-distended Extremities: clear - Procedures Procedures: Procedures Procedure Code Date ENDOSC POLYPECTOMY OF LG INTEST 45.42 07/13/07 GROUP PSYCHOTHERAPY 33506 06/03/15 GROUP PSYCHOTHERAPY GZHZZZZ 06/03/15 INDIVID PSYCHOTHERAP NEC 94.39 05/27/08 INSERT INDWELLING CATH 57.94 10/29/09 LESION REMOVAL COLONOSCOPY 23243 07/13/07 OTHER GROUP THERAPY 94.44 06/23/14 PERCUTANEOUS [ENDOSCOPIC] GASTROSTOMY [PEG] 43.11 10/10/13 RECREATIONAL THERAPY 93.81 06/24/10 Internal Medicine Assmt/Plan - Assessment Assessment: RENAL FAILURE DEHYDRATION UNCONTROLLED DIABETES - Plan Plan: MONITOR I+O FALL PRECAUTIONS CPM Nutritional Asmnt/Malnutr-PDOC - Dietary Evaluation Malnutrition Findings (Please click <Entered> for more info): Nutritional Asmnt/Malnutrition Start: 05/07/16 09: 08 Text: Status: Complete Freq: Document 05/07/16 09:08 DMITRI (Rec: 05/07/16 09:26 DMITRI SANGEETA- FNS1) Nutritional Asmnt/Malnutrition Patient General Information Nutritional Screening Moderate Risk Screening Diagnosis Psychosis (Reason for visit) Pertinent Medical Hx/Surgical Hx Per nursing notes, DM, HTN, CVA, renal failure, dehydration, and psycho history of psychosis, alzheimer's, bipolar and dementia. Subjective Information Patient is from [facility], primarily [place]ovan speaking. Per nursing notes, history of becoming easily agitated and physically combative. Refusing some meds and blood sugar checks. Patient lying in bed asleep at time of visit. Current Diet Order/ Nutrition Support CCHO- 60gm puree Patient / S.O Not Indicated Pertinent Medications maalox, colace, pepcid, iron, glipizide, novolog, cozaar, MOM, metamucil Pertinent Labs No labs drawn in this visit ( only accuchecks). Blood sugar 168-299. Nutritional Hx/Data Height 5 ft 6 in Height (Calculated Centimeters) 167.6 Current Weight (lbs) 133 lb Weight (Calculated Kilograms) 60.3 Weight (Calculated Grams) 61404.8 [place] Body Weight 142lb % [place] Body Weight 93 Recent Weight Change No Weight Status Approriate GI Symptoms Food Allergies No Cultural/Ethnic/Mormon Belief None indicated Usual diet at home Regular Skin Integrity/Comment: Barron Us 19 Current %PO Poor (25-49%) Estimated Nutritional Goals BEE in Kcals: Using Current wt Calories/Kcals/Kg 25-30 kcal/kg Kcals Calculated 7003-6146 kcal/day Protein: Using Current wt Protein g/k gm/kg Protein Calculated 60gm/day Fluid: ml 2748-7391 ml/day Nutritional Problem 2. Problem Problem Inadequate oral intake related to Etiology possible poor appetite aeb Signs/Symptoms: meeting <50% of estimated nutrient needs 1. Problem Problem Altered nutrition related lab values related to Etiology uncontrolled hyperglycemia aeb Signs/Symptoms: accuchecks 168-299 Intervention/Recommendation Recommendations by RD Increase Calorie Intake Comments 1. MD to continue to adjust insulin regimen for optimal glycemic control. 2. Encourage oral intake of meals; provide snacks to optimize nutrient intake. Assist with meals as needed. Expected Outcomes/Goals Expected Outcomes/Goals oral intake >75% of meals, glucose normalizes 80-180 Physician Parameters for PEM Body Mass Index (BMI) 19 - 24 (Normal)
--- NOTE | 2016-05-07 21:05 | Progress Notes ---
SUBJECTIVE: Chart reviewed and the patient interviewed. Also discussed the patient's condition with the staff and reviewed records and labs. The patient is still severely aggressive and irritable mood. The patient also is still refusing care and resisting staff's help. The patient also is trying to get off the bed and ____ exposing himself to falling and dangerous situations. He also is still refusing medications at times. He also still needs lots of redirections. ASSESSMENT: The patient is still aggressive and can be dangerous to self and others. TREATMENT PLAN: We will continue monitoring his behavior closely. Also, Dr. Mai will continue to monitor the dose of Seroquel, there are no side effects. We will continue same dose and we will continue to follow up closely. JOB# [id number]
[2016-05-08] MEDS: INSULIN ASPART, RECOMBINANT 100 UNITS/ML SUBQ SCH ×4 (06:48→21:31)
[2016-05-08] MEDS: Ferrous Sulfate 300 MG/5 ML UDC PO SCH ×2 (09:36→16:24)
[2016-05-08] MEDS: Multivitamin w/ Minerals Tab PO SCH (09:37)
--- NOTE | 2016-05-08 16:07 | Internal Medicine Prog Note ---
Internal Medicine Subjective - Subjective Service Date: 05/08/16 Patient seen and examined:: with staff Patient is:: awake Per staff patient is:: no adverse event Internal Medicine Objective - Results Recent Labs: Laboratory Last Values POC Glucose 295 MG/DL (70 - 105) H 05/08/16 11:25 Valproic Acid 12.4 ug/mL (50.0-100.0) L 05/05/16 20:00 - Physical Exam Vitals and I&O: Vital Signs Temp 97.2 F 05/08/16 15:32 Pulse 74 05/08/16 15:32 Resp 18 05/08/16 15:32 BP 133/72 05/08/16 15:32 Pulse Ox 96 05/08/16 15:32 Intake & Output 05/07/16 05/08/16 05/08/16 17:59 06:59 18:59 Intake Total Balance Intake: Oral Other: # Voids Active Medications: Current Medications Acetaminophen (Tylenol) 650 mg PO Q4HR PRN PRN Reason: Pain (Mild) Stop: 07/02/16 21:43 Al Hydrox/Mg Hydrox/Simethicone (Maalox) 30 ml PO Q4HR PRN PRN Reason: GI DISTRESS Stop: 07/02/16 21:43 Carbidopa/Levodopa (Sinemet 25mg-100 Mg) 1 tab PO TIDWM [facility] Stop: 07/03/16 07:59 Last Admin: 05/08/16 11:37 Dose: Not Given Docusate Sodium (Colace) 100 mg PO BID [facility] Stop: 07/03/16 08:59 Last Admin: 05/08/16 09:36 Dose: Not Given Donepezil HCl (Aricept) 10 mg PO DAILY [facility] Stop: 07/03/16 08:59 Last Admin: 05/08/16 09:36 Dose: Not Given Famotidine (Pepcid) 20 mg PO BID [facility] Stop: 07/03/16 08:59 Last Admin: 05/08/16 09:36 Dose: Not Given Ferrous Sulfate (Iron) 325 mg PO BID [facility] Stop: 07/03/16 08:59 Last Admin: 05/08/16 09:36 Dose: Not Given Glipizide (Glucotrol) 5 mg PO BIDAC [facility] Stop: 07/03/16 07:29 Last Admin: 05/08/16 06:48 Dose: 5 mg Insulin Aspart (Novolog) 0 units SUBQ ACHS [facility] PRN Reason: Protocol Stop: 07/03/16 07:29 Last Admin: 05/08/16 11:36 Dose: 4 units Losartan Potassium (Cozaar) 50 mg PO DAILY [facility] Stop: 07/03/16 08:59 Last Admin: 05/08/16 09:36 Dose: Not Given Magnesium Hydroxide (Milk Of Magnesia) 30 ml PO HS PRN PRN Reason: Constipation Stop: 07/02/16 21:43 Psyllium Hydrophilic Mucilloid (Metamucil) 1 pkt PO DAILY [facility] Stop: 07/03/16 08:59 Last Admin: 05/08/16 09:37 Dose: Not Given Quetiapine Fumarate (Seroquel) 100 mg PO HS [facility] Stop: 07/05/16 20:59 Last Admin: 05/07/16 20:39 Dose: 100 mg Valproate Sodium (Depakene) 250 mg PO BID [facility] PRN Reason: Protocol Stop: 07/03/16 10:59 Last Admin: 05/08/16 09:37 Dose: Not Given General: alert HEENT: NC/AT, PERRLA Neck: Supple Lungs: CTAB Cardiovascular: RRR, Normal S1, Normal S2, without murmur Abdomen: soft non-tender, non-distended, positive bowel sound Neurological: no change - Procedures Procedures: Procedures Procedure Code Date ENDOSC POLYPECTOMY OF LG INTEST 45.42 07/13/07 GROUP PSYCHOTHERAPY 49202 06/03/15 GROUP PSYCHOTHERAPY GZHZZZZ 06/03/15 INDIVID PSYCHOTHERAP NEC 94.39 05/27/08 INSERT INDWELLING CATH 57.94 10/29/09 LESION REMOVAL COLONOSCOPY 69719 07/13/07 OTHER GROUP THERAPY 94.44 06/23/14 PERCUTANEOUS [ENDOSCOPIC] GASTROSTOMY [PEG] 43.11 10/10/13 RECREATIONAL THERAPY 93.81 06/24/10 Internal Medicine Assmt/Plan - Assessment Assessment: RENAL FAILURE DEHYDRATION UNCONTROLLED DIABETES - Plan Plan: MONITOR I+O FALL PRECAUTIONS CPM Nutritional Asmnt/Malnutr-PDOC - Dietary Evaluation Malnutrition Findings (Please click <Entered> for more info): Nutritional Asmnt/Malnutrition Start: 05/07/16 09: 08 Text: Status: Complete Freq: Document 05/07/16 09:08 DMITRI (Rec: 05/07/16 09:26 DMITRI SANGEETA- FNS1) Nutritional Asmnt/Malnutrition Patient General Information Nutritional Screening Moderate Risk Screening Diagnosis Psychosis (Reason for visit) Pertinent Medical Hx/Surgical Hx Per nursing notes, DM, HTN, CVA, renal failure, dehydration, and psycho history of psychosis, alzheimer's, bipolar and dementia. Subjective Information Patient is from [facility], primarily Bengali speaking. Per nursing notes, history of becoming easily agitated and physically combative. Refusing some meds and blood sugar checks. Patient lying in bed asleep at time of visit. Current Diet Order/ Nutrition Support CCHO- 60gm puree Patient / S.O Not Indicated Pertinent Medications maalox, colace, pepcid, iron, glipizide, novolog, cozaar, MOM, metamucil Pertinent Labs No labs drawn in this visit ( only accuchecks). Blood sugar 168-299. Nutritional Hx/Data Height 5 ft 6 in Height (Calculated Centimeters) 167.6 Current Weight (lbs) 133 lb Weight (Calculated Kilograms) 60.3 Weight (Calculated Grams) 29863.8 [place] Body Weight 142lb % [place] Body Weight 93 Recent Weight Change No Weight Status Approriate GI Symptoms Food Allergies No Cultural/Ethnic/Jain Belief None indicated Usual diet at home Regular Skin Integrity/Comment: Barron Us 19 Current %PO Poor (25-49%) Estimated Nutritional Goals BEE in Kcals: Using Current wt Calories/Kcals/Kg 25-30 kcal/kg Kcals Calculated 1354-4290 kcal/day Protein: Using Current wt Protein g/k gm/kg Protein Calculated 60gm/day Fluid: ml 3602-0489 ml/day Nutritional Problem 2. Problem Problem Inadequate oral intake related to Etiology possible poor appetite aeb Signs/Symptoms: meeting <50% of estimated nutrient needs 1. Problem Problem Altered nutrition related lab values related to Etiology uncontrolled hyperglycemia aeb Signs/Symptoms: accuchecks 168-299 Intervention/Recommendation Recommendations by RD Increase Calorie Intake Comments 1. MD to continue to adjust insulin regimen for optimal glycemic control. 2. Encourage oral intake of meals; provide snacks to optimize nutrient intake. Assist with meals as needed. Expected Outcomes/Goals Expected Outcomes/Goals oral intake >75% of meals, glucose normalizes 80-180 Physician Parameters for PEM Body Mass Index (BMI) 19 - 24 (Normal)
--- NOTE | 2016-05-08 22:32 | Progress Notes ---
SUBJECTIVE: Chart reviewed and the patient interviewed. Also discussed the patient's condition with the staff and reviewed records and labs. The patient is still in angry and in irritable mood. The patient also still has episodes of aggression and impulsive, but seems that it is slightly less than before. The patient also is easier to the direct him. The patient also tries to participate slightly more in the groups. Also, has been slightly easier to care for him. Also, he is still apparently resisting care and aggressive with the staff. ASSESSMENT: The patient still can be dangerous to others and aggressive. TREATMENT PLAN: Continue to monitor his behavior and his condition closely. The patient also did take his psychotropic medications yesterday orally. Continue same dose and continue to follow up. [facility]# [id number]
[2016-05-09] MEDS: INSULIN ASPART, RECOMBINANT 100 UNITS/ML SUBQ SCH ×4 (07:01→21:00)
[2016-05-09] MEDS: Multivitamin w/ Minerals Tab PO SCH (10:31)
[2016-05-09] MEDS: Ferrous Sulfate 300 MG/5 ML UDC PO SCH ×2 (10:31→16:06)
--- NOTE | 2016-05-09 12:17 | Internal Medicine Prog Note ---
Internal Medicine Subjective - Subjective Service Date: 05/09/16 Patient seen and examined:: with staff Patient is:: awake Per staff patient is:: no adverse event Internal Medicine Objective - Results Recent Labs: Laboratory Last Values POC Glucose 226 MG/DL (70 - 105) H 05/09/16 06:56 Valproic Acid 12.4 ug/mL (50.0-100.0) L 05/05/16 20:00 - Physical Exam Vitals and I&O: Vital Signs Temp 97.5 F 05/09/16 06:34 Pulse 78 05/09/16 10:31 Resp 19 05/09/16 06:34 BP 148/86 05/09/16 10:31 Pulse Ox 98 05/09/16 06:34 Intake & Output 05/08/16 05/09/16 05/09/16 18:59 06:59 18:59 Intake Total 120 Balance 120 Intake: Oral 120 Other: # Voids 3 Active Medications: Current Medications Acetaminophen (Tylenol) 650 mg PO Q4HR PRN PRN Reason: Pain (Mild) Stop: 07/02/16 21:43 Al Hydrox/Mg Hydrox/Simethicone (Maalox) 30 ml PO Q4HR PRN PRN Reason: GI DISTRESS Stop: 07/02/16 21:43 Carbidopa/Levodopa (Sinemet 25mg-100 Mg) 1 tab PO TIDWM [facility] Stop: 07/03/16 07:59 Last Admin: 05/09/16 10:30 Dose: 1 tab Docusate Sodium (Colace) 100 mg PO BID [facility] Stop: 07/03/16 08:59 Last Admin: 05/09/16 10:30 Dose: 100 mg Donepezil HCl (Aricept) 10 mg PO DAILY [facility] Stop: 07/03/16 08:59 Last Admin: 05/09/16 10:30 Dose: 10 mg Famotidine (Pepcid) 20 mg PO BID [facility] Stop: 07/03/16 08:59 Last Admin: 05/09/16 10:31 Dose: 20 mg Ferrous Sulfate (Iron) 325 mg PO BID [facility] Stop: 07/03/16 08:59 Last Admin: 05/09/16 10:31 Dose: 325 mg Glipizide (Glucotrol) 5 mg PO BIDAC [facility] Stop: 07/03/16 07:29 Last Admin: 05/09/16 07:01 Dose: 5 mg Insulin Aspart (Novolog) 0 units SUBQ ACHS [facility] PRN Reason: Protocol Stop: 07/03/16 07:29 Last Admin: 05/09/16 07:01 Dose: 2 units Losartan Potassium (Cozaar) 50 mg PO DAILY [facility] Stop: 07/03/16 08:59 Last Admin: 05/09/16 10:31 Dose: 50 mg Magnesium Hydroxide (Milk Of Magnesia) 30 ml PO HS PRN PRN Reason: Constipation Stop: 07/02/16 21:43 Psyllium Hydrophilic Mucilloid (Metamucil) 1 pkt PO DAILY [facility] Stop: 07/03/16 08:59 Last Admin: 05/09/16 10:32 Dose: 1 pkt Quetiapine Fumarate (Seroquel) 100 mg PO HS [facility] Stop: 07/05/16 20:59 Last Admin: 05/08/16 21:31 Dose: Not Given Valproate Sodium (Depakene) 250 mg PO BID [facility] PRN Reason: Protocol Stop: 07/03/16 10:59 Last Admin: 05/09/16 10:32 Dose: 250 mg General: alert HEENT: NC/AT, PERRLA Neck: Supple Lungs: CTAB Cardiovascular: RRR, Normal S1, Normal S2, without murmur Abdomen: soft non-tender, non-distended Extremities: clear - Procedures Procedures: Procedures Procedure Code Date ENDOSC POLYPECTOMY OF LG INTEST 45.42 07/13/07 GROUP PSYCHOTHERAPY 63492 06/03/15 GROUP PSYCHOTHERAPY GZHZZZZ 06/03/15 INDIVID PSYCHOTHERAP NEC 94.39 05/27/08 INSERT INDWELLING CATH 57.94 10/29/09 LESION REMOVAL COLONOSCOPY 82443 07/13/07 OTHER GROUP THERAPY 94.44 06/23/14 PERCUTANEOUS [ENDOSCOPIC] GASTROSTOMY [PEG] 43.11 10/10/13 RECREATIONAL THERAPY 93.81 06/24/10 Internal Medicine Assmt/Plan - Assessment Assessment: RENAL FAILURE DEHYDRATION UNCONTROLLED DIABETES - Plan Plan: MONITOR I+O FALL PRECAUTIONS CPM Nutritional Asmnt/Malnutr-PDOC - Dietary Evaluation Malnutrition Findings (Please click <Entered> for more info): Nutritional Asmnt/Malnutrition Start: 05/07/16 09: 08 Text: Status: Complete Freq: Document 05/07/16 09:08 DMITRI (Rec: 05/07/16 09:26 DMITRI SANGEETA- FNS1) Nutritional Asmnt/Malnutrition Patient General Information Nutritional Screening Moderate Risk Screening Diagnosis Psychosis (Reason for visit) Pertinent Medical Hx/Surgical Hx Per nursing notes, DM, HTN, CVA, renal failure, dehydration, and psycho history of psychosis, alzheimer's, bipolar and dementia. Subjective Information Patient is from [facility], primarily Hungarian speaking. Per nursing notes, history of becoming easily agitated and physically combative. Refusing some meds and blood sugar checks. Patient lying in bed asleep at time of visit. Current Diet Order/ Nutrition Support CCHO- 60gm puree Patient / S.O Not Indicated Pertinent Medications maalox, colace, pepcid, iron, glipizide, novolog, cozaar, MOM, metamucil Pertinent Labs No labs drawn in this visit ( only accuchecks). Blood sugar 168-299. Nutritional Hx/Data Height 5 ft 6 in Height (Calculated Centimeters) 167.6 Current Weight (lbs) 133 lb Weight (Calculated Kilograms) 60.3 Weight (Calculated Grams) 92130.8 [place] Body Weight 142lb % [place] Body Weight 93 Recent Weight Change No Weight Status Approriate GI Symptoms Food Allergies No Cultural/Ethnic/Worship Belief None indicated Usual diet at home Regular Skin Integrity/Comment: [place] Us 19 Current %PO Poor (25-49%) Estimated Nutritional Goals BEE in Kcals: Using Current wt Calories/Kcals/Kg 25-30 kcal/kg Kcals Calculated 9410-4465 kcal/day Protein: Using Current wt Protein g/k gm/kg Protein Calculated 60gm/day Fluid: ml 4225-4221 ml/day Nutritional Problem 2. Problem Problem Inadequate oral intake related to Etiology possible poor appetite aeb Signs/Symptoms: meeting <50% of estimated nutrient needs 1. Problem Problem Altered nutrition related lab values related to Etiology uncontrolled hyperglycemia aeb Signs/Symptoms: accuchecks 168-299 Intervention/Recommendation Recommendations by RD Increase Calorie Intake Comments 1. MD to continue to adjust insulin regimen for optimal glycemic control. 2. Encourage oral intake of meals; provide snacks to optimize nutrient intake. Assist with meals as needed. Expected Outcomes/Goals Expected Outcomes/Goals oral intake >75% of meals, glucose normalizes 80-180 Physician Parameters for PEM Body Mass Index (BMI) 19 - 24 (Normal)
--- NOTE | 2016-05-10 00:03 | Progress Notes ---
Case was discussed with staff and the patient. The patient has been selective about what medication he will take. He is unpredictable and impulsive, however, he is not acting in anyway dangerous. He has been cooperative with Accu-Chek. He takes insulin, Glucotrol. However, I am still trying to find out what other medication he refuses. I will be changing his Depakote to Depakote sprinkles to help with his compliance. He has so far no side effects with the medication, no sedation, no nausea, no extrapyramidal symptoms. We may have to ____ him and we will continue to work with the patient in group therapy, milieu therapy, and adjust the medication as needed. JOB# [id number]
[2016-05-10] MEDS: INSULIN ASPART, RECOMBINANT 100 UNITS/ML SUBQ SCH ×4 (07:13→20:52)
[2016-05-10] MEDS: Ferrous Sulfate 300 MG/5 ML UDC PO SCH ×2 (08:59→16:22)
[2016-05-10] MEDS: Multivitamin w/ Minerals Tab PO SCH ×2 (09:00→09:02)
--- NOTE | 2016-05-10 12:51 | Internal Medicine Prog Note ---
Internal Medicine Subjective - Subjective Service Date: 05/10/16 Patient seen and examined:: with staff Patient is:: awake Per staff patient is:: no adverse event Internal Medicine Objective - Results Recent Labs: Laboratory Last Values POC Glucose 212 MG/DL (70 - 105) H 05/10/16 07:01 Valproic Acid 12.4 ug/mL (50.0-100.0) L 05/05/16 20:00 - Physical Exam Vitals and I&O: Vital Signs Temp 97.8 F 05/09/16 21:07 Pulse 67 05/10/16 11:38 Resp 20 05/10/16 11:38 BP 132/55 05/10/16 10:03 Pulse Ox 97 05/09/16 21:07 Intake & Output 05/09/16 05/10/16 05/10/16 18:59 06:59 18:59 Intake Total 700 120 Balance 700 120 Intake: Oral 700 120 Other: # Voids 3 2 # Bowel Movements 1 0 Active Medications: Current Medications Acetaminophen (Tylenol) 650 mg PO Q4HR PRN PRN Reason: Pain (Mild) Stop: 07/02/16 21:43 Al Hydrox/Mg Hydrox/Simethicone (Maalox) 30 ml PO Q4HR PRN PRN Reason: GI DISTRESS Stop: 07/02/16 21:43 Carbidopa/Levodopa (Sinemet 25mg-100 Mg) 1 tab PO TIDWM [facility] Stop: 07/03/16 07:59 Last Admin: 05/10/16 12:50 Dose: 1 tab Docusate Sodium (Colace) 100 mg PO BID [facility] Stop: 07/03/16 08:59 Last Admin: 05/10/16 09:00 Dose: 100 mg Donepezil HCl (Aricept) 10 mg PO DAILY [facility] Stop: 07/03/16 08:59 Last Admin: 05/10/16 09:01 Dose: 10 mg Famotidine (Pepcid) 20 mg PO BID [facility] Stop: 07/03/16 08:59 Last Admin: 05/10/16 09:01 Dose: 20 mg Ferrous Sulfate (Iron) 325 mg PO BID [facility] Stop: 07/03/16 08:59 Last Admin: 05/10/16 08:59 Dose: 325 mg Glipizide (Glucotrol) 5 mg PO BIDAC [facility] Stop: 07/03/16 07:29 Last Admin: 05/10/16 06:54 Dose: Not Given Insulin Aspart (Novolog) 0 units SUBQ ACHS [facility] PRN Reason: Protocol Stop: 07/03/16 07:29 Last Admin: 05/10/16 11:32 Dose: 6 units Losartan Potassium (Cozaar) 50 mg PO DAILY [facility] Stop: 07/03/16 08:59 Last Admin: 05/10/16 10:03 Dose: Not Given Magnesium Hydroxide (Milk Of Magnesia) 30 ml PO HS PRN PRN Reason: Constipation Stop: 07/02/16 21:43 Psyllium Hydrophilic Mucilloid (Metamucil) 1 pkt PO DAILY [facility] Stop: 07/03/16 08:59 Last Admin: 05/10/16 08:59 Dose: 1 pkt Quetiapine Fumarate (Seroquel) 100 mg PO HS [facility] Stop: 07/05/16 20:59 Last Admin: 05/09/16 20:44 Dose: 100 mg Valproate Sodium (Depakene) 250 mg PO BID [facility] PRN Reason: Protocol Stop: 07/03/16 10:59 Last Admin: 05/10/16 09:02 Dose: 250 mg General: alert HEENT: NC/AT, PERRLA Neck: Supple Lungs: CTAB Cardiovascular: RRR, Normal S1, Normal S2, without murmur Abdomen: soft non-tender, non-distended Neurological: no change - Procedures Procedures: Procedures Procedure Code Date ENDOSC POLYPECTOMY OF LG INTEST 45.42 07/13/07 GROUP PSYCHOTHERAPY 63681 06/03/15 GROUP PSYCHOTHERAPY GZHZZZZ 06/03/15 INDIVID PSYCHOTHERAP NEC 94.39 05/27/08 INSERT INDWELLING CATH 57.94 10/29/09 LESION REMOVAL COLONOSCOPY 25261 07/13/07 OTHER GROUP THERAPY 94.44 06/23/14 PERCUTANEOUS [ENDOSCOPIC] GASTROSTOMY [PEG] 43.11 10/10/13 RECREATIONAL THERAPY 93.81 06/24/10 Internal Medicine Assmt/Plan - Assessment Assessment: RENAL FAILURE DEHYDRATION UNCONTROLLED DIABETES - Plan Plan: MONITOR I+O FALL PRECAUTIONS CPM Nutritional Asmnt/Malnutr-PDOC - Dietary Evaluation Malnutrition Findings (Please click <Entered> for more info): Nutritional Asmnt/Malnutrition Start: 05/07/16 09: 08 Text: Status: Complete Freq: Document 05/07/16 09:08 DMITRI (Rec: 05/07/16 09:26 DMITRI SANGEETA- FNS1) Nutritional Asmnt/Malnutrition Patient General Information Nutritional Screening Moderate Risk Screening Diagnosis Psychosis (Reason for visit) Pertinent Medical Hx/Surgical Hx Per nursing notes, DM, HTN, CVA, renal failure, dehydration, and psycho history of psychosis, alzheimer's, bipolar and dementia. Subjective Information Patient is from [facility], primarily [place] speaking. Per nursing notes, history of becoming easily agitated and physically combative. Refusing some meds and blood sugar checks. Patient lying in bed asleep at time of visit. Current Diet Order/ Nutrition Support CCHO- 60gm puree Patient / S.O Not Indicated Pertinent Medications maalox, colace, pepcid, iron, glipizide, novolog, cozaar, MOM, metamucil Pertinent Labs No labs drawn in this visit ( only accuchecks). Blood sugar 168-299. Nutritional Hx/Data Height 5 ft 6 in Height (Calculated Centimeters) 167.6 Current Weight (lbs) 133 lb Weight (Calculated Kilograms) 60.3 Weight (Calculated Grams) 98221.8 [place] Body Weight 142lb % [place] Body Weight 93 Recent Weight Change No Weight Status Approriate GI Symptoms Food Allergies No Cultural/Ethnic/Gnosticist Belief None indicated Usual diet at home Regular Skin Integrity/Comment: IntactBarron 19 Current %PO Poor (25-49%) Estimated Nutritional Goals BEE in Kcals: Using Current wt Calories/Kcals/Kg 25-30 kcal/kg Kcals Calculated 5620-4075 kcal/day Protein: Using Current wt Protein g/k gm/kg Protein Calculated 60gm/day Fluid: ml 4914-0531 ml/day Nutritional Problem 2. Problem Problem Inadequate oral intake related to Etiology possible poor appetite aeb Signs/Symptoms: meeting <50% of estimated nutrient needs 1. Problem Problem Altered nutrition related lab values related to Etiology uncontrolled hyperglycemia aeb Signs/Symptoms: accuchecks 168-299 Intervention/Recommendation Recommendations by RD Increase Calorie Intake Comments 1. MD to continue to adjust insulin regimen for optimal glycemic control. 2. Encourage oral intake of meals; provide snacks to optimize nutrient intake. Assist with meals as needed. Expected Outcomes/Goals Expected Outcomes/Goals oral intake >75% of meals, glucose normalizes 80-180 Physician Parameters for PEM Body Mass Index (BMI) 19 - 24 (Normal)
--- NOTE | 2016-05-11 00:19 | Progress Notes ---
Case was discussed with staff and the patient, reviewed records. The patient now is taking his medication. He is more pleasant and cooperative today. He is able to smile. It seemed like certain people, staff members, he was found better too. When I asked them to try to see if that person was dealing with the same patient, so he continued to be compliant with his medication with no side effects with the medication, no sedation, no nausea, and we will continue to work with the patient in group therapy, milieu therapy, adjust medication as needed. JOB# [id number]
[2016-05-11] MEDS: INSULIN ASPART, RECOMBINANT 100 UNITS/ML SUBQ SCH ×4 (06:33→21:57)
[2016-05-11] MEDS: Ferrous Sulfate 300 MG/5 ML UDC PO SCH ×2 (09:59→17:21)
[2016-05-11] MEDS: Multivitamin w/ Minerals Tab PO SCH (09:59)
--- NOTE | 2016-05-11 16:12 | Internal Medicine Prog Note ---
Internal Medicine Subjective - Subjective Service Date: 05/11/16 Patient seen and examined:: with staff Patient is:: awake Internal Medicine Objective - Results Recent Labs: Laboratory Last Values POC Glucose 395 MG/DL (70 - 105) H 05/11/16 12:06 Valproic Acid 12.4 ug/mL (50.0-100.0) L 05/05/16 20:00 - Physical Exam Vitals and I&O: Vital Signs Temp 97.8 F 05/11/16 06:38 Pulse 71 05/11/16 10:00 Resp 18 05/11/16 06:38 BP 134/67 05/11/16 10:00 Pulse Ox 98 05/11/16 06:38 Intake & Output 05/10/16 05/11/16 05/11/16 18:59 06:59 18:59 Intake Total 720 120 Balance 720 120 Intake: Oral 720 120 Other: # Voids 4 3 # Bowel Movements 1 0 Active Medications: Current Medications Acetaminophen (Tylenol) 650 mg PO Q4HR PRN PRN Reason: Pain (Mild) Stop: 07/02/16 21:43 Al Hydrox/Mg Hydrox/Simethicone (Maalox) 30 ml PO Q4HR PRN PRN Reason: GI DISTRESS Stop: 07/02/16 21:43 Carbidopa/Levodopa (Sinemet 25mg-100 Mg) 1 tab PO TIDWM [facility] Stop: 07/03/16 07:59 Last Admin: 05/11/16 12:15 Dose: 1 tab Docusate Sodium (Colace) 100 mg PO BID [facility] Stop: 07/03/16 08:59 Last Admin: 05/11/16 09:59 Dose: 100 mg Donepezil HCl (Aricept) 10 mg PO DAILY [facility] Stop: 07/03/16 08:59 Last Admin: 05/11/16 09:59 Dose: 10 mg Famotidine (Pepcid) 20 mg PO BID [facility] Stop: 07/03/16 08:59 Last Admin: 05/11/16 09:59 Dose: 20 mg Ferrous Sulfate (Iron) 325 mg PO BID [facility] Stop: 07/03/16 08:59 Last Admin: 05/11/16 09:59 Dose: 325 mg Glipizide (Glucotrol) 5 mg PO BIDAC [facility] Stop: 07/03/16 07:29 Last Admin: 05/11/16 06:45 Dose: 5 mg Insulin Aspart (Novolog) 0 units SUBQ ACHS [facility] PRN Reason: Protocol Stop: 07/03/16 07:29 Last Admin: 05/11/16 12:16 Dose: 8 units Losartan Potassium (Cozaar) 50 mg PO DAILY [facility] Stop: 07/03/16 08:59 Last Admin: 05/11/16 10:00 Dose: 50 mg Magnesium Hydroxide (Milk Of Magnesia) 30 ml PO HS PRN PRN Reason: Constipation Stop: 07/02/16 21:43 Psyllium Hydrophilic Mucilloid (Metamucil) 1 pkt PO DAILY [facility] Stop: 07/03/16 08:59 Last Admin: 05/11/16 10:00 Dose: 1 pkt Quetiapine Fumarate (Seroquel) 100 mg PO HS [facility] Stop: 07/05/16 20:59 Last Admin: 05/10/16 20:25 Dose: 100 mg Valproate Sodium (Depakene) 250 mg PO BID [facility] PRN Reason: Protocol Stop: 07/03/16 10:59 Last Admin: 05/11/16 10:00 Dose: 250 mg General: alert HEENT: NC/AT, PERRLA Neck: Supple Lungs: CTAB Cardiovascular: RRR, Normal S1, Normal S2, without murmur Abdomen: soft non-tender, non-distended, positive bowel sound Neurological: no change - Procedures Procedures: Procedures Procedure Code Date ENDOSC POLYPECTOMY OF LG INTEST 45.42 07/13/07 GROUP PSYCHOTHERAPY 17745 06/03/15 GROUP PSYCHOTHERAPY GZHZZZZ 06/03/15 INDIVID PSYCHOTHERAP NEC 94.39 05/27/08 INSERT INDWELLING CATH 57.94 10/29/09 LESION REMOVAL COLONOSCOPY 18853 07/13/07 OTHER GROUP THERAPY 94.44 06/23/14 PERCUTANEOUS [ENDOSCOPIC] GASTROSTOMY [PEG] 43.11 10/10/13 RECREATIONAL THERAPY 93.81 06/24/10 Internal Medicine Assmt/Plan - Assessment Assessment: RENAL FAILURE DEHYDRATION UNCONTROLLED DIABETES - Plan Plan: MONITOR I+O FALL PRECAUTIONS CPM Nutritional Asmnt/Malnutr-PDOC - Dietary Evaluation Malnutrition Findings (Please click <Entered> for more info): Nutritional Asmnt/Malnutrition Start: 05/07/16 09: 08 Text: Status: Complete Freq: Document 05/07/16 09:08 MMULHERN (Rec: 05/07/16 09:26 DMITRI SANGEETA- FNS1) Nutritional Asmnt/Malnutrition Patient General Information Nutritional Screening Moderate Risk Screening Diagnosis Psychosis (Reason for visit) Pertinent Medical Hx/Surgical Hx Per nursing notes, DM, HTN, CVA, renal failure, dehydration, and psycho history of psychosis, alzheimer's, bipolar and dementia. Subjective Information Patient is from [facility], primarily [place]cu[place] speaking. Per nursing notes, history of becoming easily agitated and physically combative. Refusing some meds and blood sugar checks. Patient lying in bed asleep at time of visit. Current Diet Order/ Nutrition Support CCHO- 60gm puree Patient / S.O Not Indicated Pertinent Medications maalox, colace, pepcid, iron, glipizide, novolog, cozaar, MOM, metamucil Pertinent Labs No labs drawn in this visit ( only accuchecks). Blood sugar 168-299. Nutritional Hx/Data Height 5 ft 6 in Height (Calculated Centimeters) 167.6 Current Weight (lbs) 133 lb Weight (Calculated Kilograms) 60.3 Weight (Calculated Grams) 95946.8 [place] Body Weight 142lb % [place] Body Weight 93 Recent Weight Change No Weight Status Approriate GI Symptoms Food Allergies No Cultural/Ethnic/Islam Belief None indicated Usual diet at home Regular Skin Integrity/Comment: Intact, Barron 19 Current %PO Poor (25-49%) Estimated Nutritional Goals BEE in Kcals: Using Current wt Calories/Kcals/Kg 25-30 kcal/kg Kcals Calculated 9413-3719 kcal/day Protein: Using Current wt Protein g/k gm/kg Protein Calculated 60gm/day Fluid: ml 9528-0270 ml/day Nutritional Problem 2. Problem Problem Inadequate oral intake related to Etiology possible poor appetite aeb Signs/Symptoms: meeting <50% of estimated nutrient needs 1. Problem Problem Altered nutrition related lab values related to Etiology uncontrolled hyperglycemia aeb Signs/Symptoms: accuchecks 168-299 Intervention/Recommendation Recommendations by RD Increase Calorie Intake Comments 1. MD to continue to adjust insulin regimen for optimal glycemic control. 2. Encourage oral intake of meals; provide snacks to optimize nutrient intake. Assist with meals as needed. Expected Outcomes/Goals Expected Outcomes/Goals oral intake >75% of meals, glucose normalizes 80-180 Physician Parameters for PEM Body Mass Index (BMI) 19 - 24 (Normal)
--- NOTE | 2016-05-12 00:25 | Progress Notes ---
Case was discussed with staff and the patient, reviewed records. The patient has been compliant with his medication. In the past few days, he has been easier to redirect ____, no side effects of the medication, no sedation, no nausea, no extrapyramidal symptoms; however, he continues to be unpredictable, getting agitated and aggressive with staff at times, and ____ medication, no sedation, no nausea, no extrapyramidal symptoms. We will continue to work with the patient in group therapy, milieu therapy, adjust medication as needed. JOB# [id number]
[2016-05-12] MEDS: INSULIN ASPART, RECOMBINANT 100 UNITS/ML SUBQ SCH ×4 (07:07→21:47)
[2016-05-12] MEDS: Multivitamin w/ Minerals Tab PO SCH (09:26)
[2016-05-12] MEDS: Ferrous Sulfate 300 MG/5 ML UDC PO SCH ×2 (09:26→17:57)
--- NOTE | 2016-05-12 21:04 | Internal Medicine Prog Note ---
Internal Medicine Subjective - Subjective Patient seen and examined:: with staff, chart reviewed Patient is:: awake, verbal, interactive Per staff patient is:: no adverse event, confused Internal Medicine Objective - Results Recent Labs: Laboratory Last Values POC Glucose 274 MG/DL (70 - 105) H 05/12/16 17:55 Valproic Acid 12.4 ug/mL (50.0-100.0) L 05/05/16 20:00 - Physical Exam Vitals and I&O: Vital Signs Temp 97.3 F 05/12/16 06:24 Pulse 71 05/12/16 09:27 Resp 19 05/12/16 06:24 BP 118/75 05/12/16 09:27 Pulse Ox 97 05/12/16 06:24 Intake & Output 05/12/16 05/12/16 05/13/16 06:59 18:59 06:59 Intake Total 120 1100 Balance 120 1100 Weight (lbs) 57.697 kg Intake: Oral 120 1100 Other: # Voids 3 4 # Bowel Movements 1 Active Medications: Current Medications Acetaminophen (Tylenol) 650 mg PO Q4HR PRN PRN Reason: Pain (Mild) Stop: 07/02/16 21:43 Al Hydrox/Mg Hydrox/Simethicone (Maalox) 30 ml PO Q4HR PRN PRN Reason: GI DISTRESS Stop: 07/02/16 21:43 Carbidopa/Levodopa (Sinemet 25mg-100 Mg) 1 tab PO TIDWM [facility] Stop: 07/03/16 07:59 Last Admin: 05/12/16 17:57 Dose: 1 tab Docusate Sodium (Colace) 100 mg PO BID [facility] Stop: 07/03/16 08:59 Last Admin: 05/12/16 17:58 Dose: Not Given Donepezil HCl (Aricept) 10 mg PO DAILY [facility] Stop: 07/03/16 08:59 Last Admin: 05/12/16 09:25 Dose: 10 mg Famotidine (Pepcid) 20 mg PO BID [facility] Stop: 07/03/16 08:59 Last Admin: 05/12/16 17:57 Dose: 20 mg Ferrous Sulfate (Iron) 325 mg PO BID [facility] Stop: 07/03/16 08:59 Last Admin: 05/12/16 17:57 Dose: 325 mg [facility]) [facility] Stop: 07/03/16 07:29 Last Admin: 05/12/16 16:55 Dose: Not Given Insulin Aspart (Novolog) 0 units SUBQ ACHS [facility] PRN Reason: Protocol Stop: 07/03/16 07:29 Last Admin: 05/12/16 16:54 Dose: Not Given Losartan Potassium (Cozaar) 50 mg PO DAILY [facility] Stop: 07/03/16 08:59 Last Admin: 05/12/16 09:27 Dose: 50 mg Magnesium Hydroxide (Milk Of Magnesia) 30 ml PO HS PRN PRN Reason: Constipation Stop: 07/02/16 21:43 Psyllium Hydrophilic Mucilloid (Metamucil) 1 pkt PO DAILY [facility] Stop: 07/03/16 08:59 Last Admin: 05/12/16 09:26 Dose: 1 pkt Quetiapine Fumarate (Seroquel) 100 mg PO HS [facility] Stop: 07/05/16 20:59 Last Admin: 05/11/16 21:57 Dose: Not Given Valproate Sodium (Depakene) 250 mg PO BID [facility] PRN Reason: Protocol Stop: 07/03/16 10:59 Last Admin: 05/12/16 17:57 Dose: 250 mg General: demented HEENT: NC/AT, PERRLA, EOMI Neck: Supple, No JVD Lungs: CTAB Cardiovascular: RRR, Normal S1, Normal S2 Abdomen: soft non-tender, globular, positive bowel sound Extremities: excoriation, contracture Neurological: no change, disorganized - Procedures Procedures: Procedures Procedure Code Date ENDOSC POLYPECTOMY OF LG INTEST 45.42 07/13/07 GROUP PSYCHOTHERAPY 15077 06/03/15 GROUP PSYCHOTHERAPY GZHZZZZ 06/03/15 INDIVID PSYCHOTHERAP NEC 94.39 05/27/08 INSERT INDWELLING CATH 57.94 10/29/09 LESION REMOVAL COLONOSCOPY 26397 07/13/07 OTHER GROUP THERAPY 94.44 06/23/14 PERCUTANEOUS [ENDOSCOPIC] GASTROSTOMY [PEG] 43.11 10/10/13 RECREATIONAL THERAPY 93.81 06/24/10 Internal Medicine Assmt/Plan - Assessment Assessment: ch RENAL FAILURE DEHYDRATION UNCONTROLLED DIABETES dementia gait instability poor po intake - Plan Plan: cont on ada iss cont on oral dm meds dw rn continue w present care Nutritional Asmnt/Malnutr-PDOC - Dietary Evaluation Malnutrition Findings (Please click <Entered> for more info): Nutritional Asmnt/Malnutrition Start: 05/07/16 09: 08 Text: Status: Complete Freq: Document 05/07/16 09:08 JULIAHA (Rec: 05/07/16 09:26 JULIAHA RUTHERFORD- FNS1) Nutritional Asmnt/Malnutrition Patient General Information Nutritional Screening Moderate Risk Screening Diagnosis Psychosis (Reason for visit) Pertinent Medical Hx/Surgical Hx Per nursing notes, DM, HTN, CVA, renal failure, dehydration, and psycho history of psychosis, alzheimer's, bipolar and dementia. Subjective Information Patient is from [facility], primarily [place]raini speaking. Per nursing notes, history of becoming easily agitated and physically combative. Refusing some meds and blood sugar checks. Patient lying in bed asleep at time of visit. Current Diet Order/ Nutrition Support CCHO- 60gm puree Patient / S.O Not Indicated Pertinent Medications maalox, colace, pepcid, iron, glipizide, novolog, cozaar, MOM, metamucil Pertinent Labs No labs drawn in this visit ( only accuchecks). Blood sugar 168-299. Nutritional Hx/Data Height 1.68 m Height (Calculated Centimeters) 167.6 Current Weight (lbs) 60.328 kg Weight (Calculated Kilograms) 60.3 Weight (Calculated Grams) 02064.8 Bre[place] Body Weight 142lb % Breaks Body Weight 93 Recent Weight Change No Weight Status Approriate GI Symptoms Food Allergies No Cultural/Ethnic/Oriental Orthodox Belief None indicated Usual diet at home Regular Skin Integrity/Comment: Intact, Barron 19 Current %PO Poor (25-49%) Estimated Nutritional Goals BEE in Kcals: Using Current wt Calories/Kcals/Kg 25-30 kcal/kg Kcals Calculated 0259-9944 kcal/day Protein: Using Current wt Protein g/k gm/kg Protein Calculated 60gm/day Fluid: ml 2908-7942 ml/day Nutritional Problem 2. Problem Problem Inadequate oral intake related to Etiology possible poor appetite aeb Signs/Symptoms: meeting <50% of estimated nutrient needs 1. Problem Problem Altered nutrition related lab values related to Etiology uncontrolled hyperglycemia aeb Signs/Symptoms: accuchecks 168-299 Intervention/Recommendation Recommendations by RD Increase Calorie Intake Comments 1. MD to continue to adjust insulin regimen for optimal glycemic control. 2. Encourage oral intake of meals; provide snacks to optimize nutrient intake. Assist with meals as needed. Expected Outcomes/Goals Expected Outcomes/Goals oral intake >75% of meals, glucose normalizes 80-180 Physician Parameters for PEM Body Mass Index (BMI) 19 - 24 (Normal)
--- NOTE | 2016-05-13 01:15 | Progress Notes ---
Case was discussed with staff of the patient, reviewed records. The patient continues to be demented, confused, unpredictable, impulsive, unable to participate in a meaningful conversation or make safe plan for self-care; however, he is taking his medication, which is good at least. No side effects with the medication, no sedation, no nausea, no extrapyramidal symptoms; and I will be checking his Depakote level and we will continue to work with the patient in group therapy, milieu therapy, adjust the medication as needed. His last Depakote level was 10, which is below acceptable range, and since then, the dose is increased. JOB# [id number]
[2016-05-13] MEDS: INSULIN ASPART, RECOMBINANT 100 UNITS/ML SUBQ SCH ×4 (06:37→21:06)
[2016-05-13] MEDS: Ferrous Sulfate 300 MG/5 ML UDC PO SCH ×2 (09:40→18:53)
[2016-05-13] MEDS: Multivitamin w/ Minerals Tab PO SCH (11:01)
--- NOTE | 2016-05-13 14:22 | Internal Medicine Prog Note ---
Internal Medicine Subjective - Subjective Service Date: 05/13/16 Patient seen and examined:: with staff Patient is:: awake Per staff patient is:: no adverse event Internal Medicine Objective - Results Recent Labs: Laboratory Last Values POC Glucose 342 MG/DL (70 - 105) H 05/13/16 13:01 Valproic Acid 12.4 ug/mL (50.0-100.0) L 05/05/16 20:00 - Physical Exam Vitals and I&O: Vital Signs Temp 97.3 F 05/12/16 06:24 Pulse 86 05/13/16 09:42 Resp 19 05/12/16 06:24 BP 150/73 05/13/16 09:42 Pulse Ox 97 05/12/16 06:24 Intake & Output 05/12/16 05/13/16 05/13/16 18:59 06:59 18:59 Intake Total 1100 120 Balance 1100 120 Weight (lbs) 127 lb 3.2 oz Intake: Oral 1100 120 Other: # Voids 4 3 # Bowel Movements 1 Active Medications: Current Medications Acetaminophen (Tylenol) 650 mg PO Q4HR PRN PRN Reason: Pain (Mild) Stop: 07/02/16 21:43 Al Hydrox/Mg Hydrox/Simethicone (Maalox) 30 ml PO Q4HR PRN PRN Reason: GI DISTRESS Stop: 07/02/16 21:43 Carbidopa/Levodopa (Sinemet 25mg-100 Mg) 1 tab PO TIDWM [facility] Stop: 07/03/16 07:59 Last Admin: 05/13/16 13:36 Dose: Not Given Docusate Sodium (Colace) 100 mg PO BID [facility] Stop: 07/03/16 08:59 Last Admin: 05/13/16 11:01 Dose: Not Given Donepezil HCl (Aricept) 10 mg PO DAILY [facility] Stop: 07/03/16 08:59 Last Admin: 05/13/16 09:41 Dose: 10 mg Famotidine (Pepcid) 20 mg PO BID [facility] Stop: 07/03/16 08:59 Last Admin: 05/13/16 09:42 Dose: 20 mg Ferrous Sulfate (Iron) 325 mg PO BID [facility] Stop: 07/03/16 08:59 Last Admin: 05/13/16 09:40 Dose: 325 mg [facility] Stop: 07/03/16 07:29 Last Admin: 05/13/16 06:36 Dose: Not Given Insulin Aspart (Novolog) 0 units SUBQ ACHS JASVIR PRN Reason: Protocol Stop: 07/03/16 07:29 Last Admin: 05/13/16 13:38 Dose: 6 units Losartan Potassium (Cozaar) 50 mg PO DAILY [facility] Stop: 07/03/16 08:59 Last Admin: 05/13/16 09:42 Dose: 50 mg Magnesium Hydroxide (Milk Of Magnesia) 30 ml PO HS PRN PRN Reason: Constipation Stop: 07/02/16 21:43 Psyllium Hydrophilic Mucilloid (Metamucil) 1 pkt PO DAILY [facility] Stop: 07/03/16 08:59 Last Admin: 05/13/16 09:40 Dose: 1 pkt Quetiapine Fumarate (Seroquel) 100 mg PO HS [facility] Stop: 07/05/16 20:59 Last Admin: 05/12/16 21:29 Dose: 100 mg Valproate Sodium (Depakene) 250 mg PO BID JASVIR PRN Reason: Protocol Stop: 07/03/16 10:59 Last Admin: 05/13/16 09:40 Dose: 250 mg General: alert HEENT: NC/AT, PERRLA Neck: Supple Lungs: CTAB Cardiovascular: RRR, Normal S1, Normal S2, without murmur Abdomen: soft non-tender, non-distended, positive bowel sound Neurological: no change - Procedures Procedures: Procedures Procedure Code Date ENDOSC POLYPECTOMY OF LG INTEST 45.42 07/13/07 GROUP PSYCHOTHERAPY 92683 06/03/15 GROUP PSYCHOTHERAPY GZHZZZZ 06/03/15 INDIVID PSYCHOTHERAP NEC 94.39 05/27/08 INSERT INDWELLING CATH 57.94 10/29/09 LESION REMOVAL COLONOSCOPY 59483 07/13/07 OTHER GROUP THERAPY 94.44 06/23/14 PERCUTANEOUS [ENDOSCOPIC] GASTROSTOMY [PEG] 43.11 10/10/13 RECREATIONAL THERAPY 93.81 06/24/10 Internal Medicine Assmt/Plan - Assessment Assessment: RENAL FAILURE DEHYDRATION UNCONTROLLED DIABETES - Plan Plan: MONITOR I+O FALL PRECAUTIONS CPM Nutritional Asmnt/Malnutr-PDOC - Dietary Evaluation Malnutrition Findings (Please click <Entered> for more info): Nutritional Asmnt/Malnutrition Start: 05/07/16 09: 08 Text: Status: Complete Freq: Document 05/07/16 09:08 DMITRI (Rec: 05/07/16 09:26 DMITRI SANGEETA- FNS1) Nutritional Asmnt/Malnutrition Patient General Information Nutritional Screening Moderate Risk Screening Diagnosis Psychosis (Reason for visit) Pertinent Medical Hx/Surgical Hx Per nursing notes, DM, HTN, CVA, renal failure, dehydration, and psycho history of psychosis, alzheimer's, bipolar and dementia. Subjective Information Patient is from [facility], primarily [place] speaking. Per nursing notes, history of becoming easily agitated and physically combative. Refusing some meds and blood sugar checks. Patient lying in bed asleep at time of visit. Current Diet Order/ Nutrition Support [facility] [facility] [place] / S.O Not Indicated Pertinent Medications maalox, colace, pepcid, iron, glipizide, novolog, cozaar, MOM, metamucil Pertinent Labs No labs drawn in this visit ( only accuchecks). Blood sugar 168-299. Nutritional Hx/Data Height 5 ft 6 in Height (Calculated Centimeters) 167.6 Current Weight (lbs) 133 lb Weight (Calculated Kilograms) 60.3 Weight (Calculated Grams) 77514.8 [place] Body Weight 142lb % [place] Body Weight 93 Recent Weight Change No Weight Status Approriate GI Symptoms Food Allergies No Cultural/Ethnic/Jeh[employer] Belief None indicated Usual diet at home Regular Skin Integrity/Comment: Intact, Barron 19 Current %PO Poor (25-49%) Estimated Nutritional Goals BEE in Kcals: Using Current wt Calories/Kcals/Kg 25-30 kcal/kg Kcals Calculated 3331-7415 kcal/day Protein: Using Current wt Protein g/k gm/kg Protein Calculated 60gm/day Fluid: ml 5971-4721 ml/day Nutritional Problem 2. Problem Problem Inadequate oral intake related to Etiology possible poor appetite aeb Signs/Symptoms: meeting <50% of estimated nutrient needs 1. Problem Problem Altered nutrition related lab values related to Etiology uncontrolled hyperglycemia aeb Signs/Symptoms: accuchecks 168-299 Intervention/Recommendation Recommendations by RD Increase Calorie Intake Comments 1. MD to continue to adjust insulin regimen for optimal glycemic control. 2. Encourage oral intake of meals; provide snacks to optimize nutrient intake. Assist with meals as needed. Expected Outcomes/Goals Expected Outcomes/Goals oral intake >75% of meals, glucose normalizes 80-180 Physician Parameters for PEM Body Mass Index (BMI) 19 - 24 (Normal)
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
[2016-05-14] MEDS: INSULIN ASPART, RECOMBINANT 100 UNITS/ML SUBQ SCH ×4 (06:52→20:38)
[2016-05-14] MEDS: Ferrous Sulfate 300 MG/5 ML UDC PO SCH ×2 (08:38→16:26)
[2016-05-14] MEDS: Multivitamin w/ Minerals Tab PO SCH (08:39)
--- NOTE | 2016-05-14 12:35 | Internal Medicine Prog Note ---
Internal Medicine Subjective - Subjective Patient seen and examined:: with staff, chart reviewed Patient is:: awake, verbal, interactive Per staff patient is:: no adverse event, no episodes of fall, confused Internal Medicine Objective - Results Recent Labs: Laboratory Last Values POC Glucose 305 MG/DL (70 - 105) H 05/14/16 11:21 Valproic Acid 12.4 ug/mL (50.0-100.0) L 05/05/16 20:00 - Physical Exam Vitals and I&O: Vital Signs Temp 97.6 F 05/13/16 14:44 Pulse 73 05/14/16 10:54 Resp 19 05/14/16 10:54 BP 134/66 05/14/16 08:38 Pulse Ox 97 05/13/16 14:44 Intake & Output 05/13/16 05/14/16 05/14/16 18:59 06:59 18:59 Intake Total 1200 Balance 1200 Intake: Oral 1200 Other: # Bowel Movements 1 Active Medications: Current Medications Acetaminophen (Tylenol) 650 mg PO Q4HR PRN PRN Reason: Pain (Mild) Stop: 07/02/16 21:43 Al Hydrox/Mg Hydrox/Simethicone (Maalox) 30 ml PO Q4HR PRN PRN Reason: GI DISTRESS Stop: 07/02/16 21:43 Carbidopa/Levodopa (Sinemet 25mg-100 Mg) 1 tab PO TIDWM [facility] Stop: 07/03/16 07:59 Last Admin: 05/14/16 11:31 Dose: 1 tab Docusate Sodium (Colace) 100 mg PO BID [facility] Stop: 07/03/16 08:59 Last Admin: 05/14/16 08:39 Dose: 100 mg Donepezil HCl (Aricept) 10 mg PO DAILY [facility] Stop: 07/03/16 08:59 Last Admin: 05/14/16 08:39 Dose: 10 mg Famotidine (Pepcid) 20 mg PO BID [facility] Stop: 07/03/16 08:59 Last Admin: 05/14/16 08:39 Dose: 20 mg Ferrous Sulfate (Iron) 325 mg PO BID [facility] Stop: 07/03/16 08:59 Last Admin: 05/14/16 08:38 Dose: 325 mg Glipizide (Glucotrol) 5 mg PO BIDAC [facility] Stop: 07/03/16 07:29 Last Admin: 05/14/16 06:50 Dose: 5 mg Insulin Aspart (Novolog) 0 units SUBQ ACHS JASVIR PRN Reason: Protocol Stop: 07/03/16 07:29 Last Admin: 05/14/16 11:31 Dose: 6 units Losartan Potassium (Cozaar) 50 mg PO DAILY [facility] Stop: 07/03/16 08:59 Last Admin: 05/14/16 08:38 Dose: 50 mg Magnesium Hydroxide (Milk Of Magnesia) 30 ml PO HS PRN PRN Reason: Constipation Stop: 07/02/16 21:43 Psyllium Hydrophilic Mucilloid (Metamucil) 1 pkt PO DAILY [facility] Stop: 07/03/16 08:59 Last Admin: 05/14/16 08:38 Dose: 1 pkt Quetiapine Fumarate (Seroquel) 100 mg PO HS [facility] Stop: 07/05/16 20:59 Last Admin: 05/13/16 20:06 Dose: 100 mg Valproate Sodium (Depakene) 250 mg PO BID [facility]IR PRN Reason: Protocol Stop: 07/03/16 10:59 Last Admin: 05/14/16 08:39 Dose: 250 mg General: demented HEENT: NC/AT, PERRLA, EOMI Neck: Supple, No JVD Lungs: CTAB Cardiovascular: RRR, Normal S1, Normal S2 Abdomen: soft non-tender, globular, positive bowel sound Extremities: excoriation Neurological: no change - Procedures Procedures: Procedures Procedure Code Date ENDOSC POLYPECTOMY OF LG INTEST 45.42 07/13/07 GROUP PSYCHOTHERAPY 67304 06/03/15 GROUP PSYCHOTHERAPY GZHZZZZ 06/03/15 INDIVID PSYCHOTHERAP NEC 94.39 05/27/08 INSERT INDWELLING CATH 57.94 10/29/09 LESION REMOVAL COLONOSCOPY 20310 07/13/07 OTHER GROUP THERAPY 94.44 06/23/14 PERCUTANEOUS [ENDOSCOPIC] GASTROSTOMY [PEG] 43.11 10/10/13 RECREATIONAL THERAPY 93.81 06/24/10 Internal Medicine Assmt/Plan - Assessment Assessment: ch RENAL FAILURE DEHYDRATION UNCONTROLLED DIABETES dementia gait instability poor po intake - Plan Plan: cont on ada iss cont on oral dm meds dw rn continue w present care Nutritional Asmnt/Malnutr-PDOC - Dietary Evaluation Malnutrition Findings (Please click <Entered> for more info): Nutritional Asmnt/Malnutrition Start: 05/07/16 09: 08 Text: Status: Complete Freq: Document 05/07/16 09:08 DMITRI (Rec: 05/07/16 09:26 DMITRI SANGEETA- FNS1) Nutritional Asmnt/Malnutrition Patient General Information Nutritional Screening Moderate Risk Screening Diagnosis Psychosis (Reason for visit) Pertinent Medical Hx/Surgical Hx Per nursing notes, DM, HTN, CVA, renal failure, dehydration, and psycho history of psychosis, alzheimer's, bipolar and dementia. Subjective Information Patient is from [facility], primarily Ma[place] speaking. Per nursing notes, history of becoming easily agitated and physically combative. Refusing some meds and blood sugar checks. Patient lying in bed asleep at time of visit. Current Diet Order/ Nutrition Support [facility]- 60 pure Patient / S.O Not Indicated Pertinent Medications maalox, colace, pepcid, iron, glipizide, novolog, cozaar, MOM, metamucil Pertinent Labs No labs drawn in this visit ( only accuchecks). Blood sugar 168-299. Nutritional Hx/Data Height 1.68 m Height (Calculated Centimeters) 167.6 Current Weight (lbs) 60.328 kg Weight (Calculated Kilograms) 60.3 Weight (Calculated Grams) 18888.8 [place] Body Weight 142lb % [place] Body Weight 93 Recent Weight Change No Weight Status Approriate GI Symptoms Food Allergies No Cultural/Ethnic/Spiritism Belief None indicated Usual diet at home Regular Skin Integrity/Comment: Intact, [place] 19 Current %PO Poor (25-49%) Estimated Nutritional Goals BEE in Kcals: Using Current wt Calories/Kcals/Kg 25-30 kcal/kg Kcals Calculated 8919-6489 kcal/day Protein: Using Current wt Protein g/k gm/kg Protein Calculated 60gm/day Fluid: ml 5161-6636 ml/day Nutritional Problem 2. Problem Problem Inadequate oral intake related to Etiology possible poor appetite aeb Signs/Symptoms: meeting <50% of estimated nutrient needs 1. Problem Problem Altered nutrition related lab values related to Etiology uncontrolled hyperglycemia aeb Signs/Symptoms: accuchecks 168-299 Intervention/Recommendation Recommendations by RD Increase Calorie Intake Comments 1. MD to continue to adjust insulin regimen for optimal glycemic control. 2. Encourage oral intake of meals; provide snacks to optimize nutrient intake. Assist with meals as needed. Expected Outcomes/Goals Expected Outcomes/Goals oral intake >75% of meals, glucose normalizes 80-180 Physician Parameters for PEM Body Mass Index (BMI) 19 - 24 (Normal)
--- NOTE | 2016-05-14 23:18 | Progress Notes ---
SUBJECTIVE: The patient seen, chart reviewed, discussed with staff. The patient is currently in the hospital, agitated, refusing medications, refusing care, demented, confused, resistant to care. On [id number], the patient remains somewhat confused, not really answering questions appropriately. I cannot really understand him. Dr. Mai has been seeing the patient since his admission, noted continued impulsivity, continued sundowning, confusional episodes, concerns for safety. On a positive note, he is taking his medications. No overt side effects noted. ASSESSMENT: The patient remains symptomatic, still with some confusional episodes, impulsive, unpredictable. PLAN: We will continue to monitor. Medications were reviewed. We will titrate as tolerated. [facility]# [id number]
[2016-05-15] MEDS: INSULIN ASPART, RECOMBINANT 100 UNITS/ML SUBQ SCH ×4 (06:47→21:10)
[2016-05-15] MEDS: Ferrous Sulfate 300 MG/5 ML UDC PO SCH ×2 (08:49→16:36)
[2016-05-15] MEDS: Multivitamin w/ Minerals Tab PO SCH (08:50)
--- NOTE | 2016-05-15 20:17 | Internal Medicine Prog Note ---
Internal Medicine Subjective - Subjective Patient seen and examined:: with staff, chart reviewed Patient is:: awake, verbal, interactive Per staff patient is:: no adverse event, confused Internal Medicine Objective - Results Recent Labs: Laboratory Last Values POC Glucose 283 MG/DL (70 - 105) H 05/15/16 16:20 Valproic Acid 12.4 ug/mL (50.0-100.0) L 05/05/16 20:00 - Physical Exam Vitals and I&O: Vital Signs Temp 98.2 F 05/15/16 19:41 Pulse 82 05/15/16 19:41 Resp 20 05/15/16 19:41 BP 146/68 05/15/16 19:41 Pulse Ox 97 05/15/16 19:41 Intake & Output 05/15/16 05/15/16 05/16/16 06:59 18:59 06:59 Intake Total 120 720 120 Balance 120 720 120 Intake: Oral 120 720 120 Other: # Voids 1 4 1 # Bowel Movements 1 Active Medications: Current Medications Acetaminophen (Tylenol) 650 mg PO Q4HR PRN PRN Reason: Pain (Mild) Stop: 07/02/16 21:43 Al Hydrox/Mg Hydrox/Simethicone (Maalox) 30 ml PO Q4HR PRN PRN Reason: GI DISTRESS Stop: 07/02/16 21:43 Carbidopa/Levodopa (Sinemet 25mg-100 Mg) 1 tab PO TIDWM [facility] Stop: 07/03/16 07:59 Last Admin: 05/15/16 16:37 Dose: 1 tab Docusate Sodium (Colace) 100 mg PO BID [facility] Stop: 07/03/16 08:59 Last Admin: 05/15/16 16:39 Dose: 100 mg Donepezil HCl (Aricept) 10 mg PO DAILY [facility] Stop: 07/03/16 08:59 Last Admin: 05/15/16 08:49 Dose: 10 mg Famotidine (Pepcid) 20 mg PO BID [facility] Stop: 07/03/16 08:59 Last Admin: 05/15/16 16:37 Dose: 20 mg Ferrous Sulfate (Iron) 325 mg PO BID [facility] Stop: 07/03/16 08:59 Last Admin: 05/15/16 16:36 Dose: 325 mg Glipizide (Glucotrol) 5 mg PO BIDAC [facility] Stop: 07/03/16 07:29 Last Admin: 05/15/16 16:37 Dose: 5 mg Insulin Aspart (Novolog) 0 units SUBQ ACHS JASVIR PRN Reason: Protocol Stop: 07/03/16 07:29 Last Admin: 05/15/16 16:38 Dose: 4 units Losartan Potassium (Cozaar) 50 mg PO DAILY [facility] Stop: 07/03/16 08:59 Last Admin: 05/15/16 11:22 Dose: 50 mg Magnesium Hydroxide (Milk Of Magnesia) 30 ml PO HS PRN PRN Reason: Constipation Stop: 07/02/16 21:43 Psyllium Hydrophilic Mucilloid (Metamucil) 1 pkt PO DAILY [facility] Stop: 07/03/16 08:59 Last Admin: 05/15/16 08:50 Dose: 1 pkt Quetiapine Fumarate (Seroquel) 100 mg PO HS [facility] Stop: 07/05/16 20:59 Last Admin: 05/14/16 20:34 Dose: 100 mg Valproate Sodium (Depakene) 250 mg PO BID JAS[facility]IR PRN Reason: Protocol Stop: 07/03/16 10:59 Last Admin: 05/15/16 16:37 Dose: 250 mg General: demented HEENT: NC/AT, PERRLA, EOMI Neck: Supple, No JVD Lungs: CTAB Cardiovascular: RRR, Normal S1, Normal S2 Abdomen: soft non-tender, globular, positive bowel sound Extremities: excoriation Neurological: no change - Procedures Procedures: Procedures Procedure Code Date ENDOSC POLYPECTOMY OF LG INTEST 45.42 07/13/07 GROUP PSYCHOTHERAPY 57723 06/03/15 GROUP PSYCHOTHERAPY GZHZZZZ 06/03/15 INDIVID PSYCHOTHERAP NEC 94.39 05/27/08 INSERT INDWELLING CATH 57.94 10/29/09 LESION REMOVAL COLONOSCOPY 65102 07/13/07 OTHER GROUP THERAPY 94.44 06/23/14 PERCUTANEOUS [ENDOSCOPIC] GASTROSTOMY [PEG] 43.11 10/10/13 RECREATIONAL THERAPY 93.81 06/24/10 Internal Medicine Assmt/Plan - Assessment Assessment: ch RENAL FAILURE DEHYDRATION UNCONTROLLED DIABETES dementia gait instability poor po intake - Plan Plan: cont on ada iss cont on oral dm meds dw rn continue w present care Nutritional Asmnt/Malnutr-PDOC - Dietary Evaluation Malnutrition Findings (Please click <Entered> for more info): Nutritional Asmnt/Malnutrition Start: 05/07/16 09: 08 Text: Status: Complete Freq: Document 05/07/16 09:08 JULIAHA (Rec: 05/07/16 09:26 JULIAHA R[place]FORD- FNS1) Nutritional Asmnt/Malnutrition Patient General Information Nutritional Screening Moderate Risk Screening Diagnosis Psychosis (Reason for visit) Pertinent Medical Hx/Surgical Hx Per nursing notes, DM, HTN, CVA, renal failure, dehydration, and psycho history of psychosis, alzheimer's, bipolar and dementia. Subjective Information Patient is from [facility], primarily [place] speaking. Per nursing notes, history of becoming easily agitated and physically combative. Refusing some meds and blood sugar checks. Patient lying in bed asleep at time of visit. Current Diet [facility]/ [facility] Patient / S.O Not Indicated Pertinent Medications maalox, colace, pepcid, iron, glipizide, novolog, cozaar, MOM, metamucil Pertinent Labs No labs drawn in this visit ( only accuchecks). Blood sugar 168-299. Nutritional Hx/Data Height 1.68 m Height (Calculated Centimeters) 167.6 Current Weight (lbs) 60.328 kg Weight (Calculated Kilograms) 60.3 Weight (Calculated Grams) 25672.8 [place] Body Weight 142lb % [place] Body Weight 93 Recent Weight Change No Weight Status Approriate GI Symptoms Food Allergies No Cultural/Ethnic/Congregational Belief None indicated Usual diet at home Regular Skin Integrity/Comment: [place], Barron 19 Current %PO Poor (25-49%) Estimated Nutritional Goals BEE in Kcals: Using Current wt Calories/Kcals/Kg 25-30 kcal/kg Kcals Calculated 2224-3392 kcal/day Protein: Using Current wt Protein g/k gm/kg Protein Calculated 60gm/day Fluid: ml 4979-3871 ml/day Nutritional Problem 2. Problem Problem Inadequate oral intake related to Etiology possible poor appetite aeb Signs/Symptoms: meeting <50% of estimated nutrient needs 1. Problem Problem Altered nutrition related lab values related to Etiology uncontrolled hyperglycemia aeb Signs/Symptoms: accuchecks 168-299 Intervention/Recommendation Recommendations by RD Increase Calorie Intake Comments 1. MD to continue to adjust insulin regimen for optimal glycemic control. 2. Encourage oral intake of meals; provide snacks to optimize nutrient intake. Assist with meals as needed. Expected Outcomes/Goals Expected Outcomes/Goals oral intake >75% of meals, glucose normalizes 80-180 Physician Parameters for PEM Body Mass Index (BMI) 19 - 24 (Normal)
--- NOTE | 2016-05-15 20:40 | Progress Notes ---
SUBJECTIVE: The patient was seen, chart reviewed, and discussed with staff. The patient is currently in the hospital due to agitation, restlessness, and poor p.o. intake. On [id number], the patient is with sister at bedside. The sister is helping him eat. Still noted poor p.o. intake, however, still confused. He is pretty withdrawn. Concerns for impulsivity, sundowning. No overt side effects noted. He is taking his medicine. ASSESSMENT: The patient remains symptomatic, confused, impulsive, unpredictable, and poor p.o. intake. Concerns for his ability to function at a lower level of care. PLAN: Continue to monitor. Monitor for any medication side effects. Discussed with sister at bedside. [facility]# [id number]
[2016-05-16] MEDS: INSULIN ASPART, RECOMBINANT 100 UNITS/ML SUBQ SCH ×4 (06:48→21:00)
[2016-05-16] MEDS: Ferrous Sulfate 300 MG/5 ML UDC PO SCH ×2 (09:09→16:35)
[2016-05-16] MEDS: Multivitamin w/ Minerals Tab PO SCH (09:10)
--- NOTE | 2016-05-16 12:33 | Progress Notes ---
Case was discussed with staff of the patient, reviewed records. The patient has been ____ care; however, he is more compliant for the medication with no side effects, no sedation, no nausea, no extrapyramidal symptoms. He has been easier to redirect. He is sleeping better, eating better. He is tolerating the medication with no side effects. His Depakote level is pending. I asked for another Depakote level and we will continue to work with the patient in group therapy, milieu therapy, adjust medication as needed. JOB# [id number]
--- NOTE | 2016-05-16 13:14 | Internal Medicine Prog Note ---
Internal Medicine Subjective - Subjective Service Date: 05/16/16 Patient seen and examined:: with staff Patient is:: awake Per staff patient is:: no adverse event Internal Medicine Objective - Results Recent Labs: Laboratory Last Values POC Glucose 266 MG/DL (70 - 105) H 05/16/16 06:44 Valproic Acid 12.4 ug/mL (50.0-100.0) L 05/05/16 20:00 - Physical Exam Vitals and I&O: Vital Signs Temp 0 F 05/16/16 06:08 Pulse 82 05/15/16 19:41 Resp 20 05/15/16 19:41 BP 146/68 05/15/16 19:41 Pulse Ox 97 05/15/16 19:41 Intake & Output 05/15/16 05/16/16 05/16/16 18:59 06:59 18:59 Intake Total 720 120 Balance 720 120 Intake: Oral 720 120 Other: # Voids 4 3 # Bowel Movements 1 0 Active Medications: Current Medications Acetaminophen (Tylenol) 650 mg PO Q4HR PRN PRN Reason: Pain (Mild) Stop: 07/02/16 21:43 Al Hydrox/Mg Hydrox/Simethicone (Maalox) 30 ml PO Q4HR PRN PRN Reason: GI DISTRESS Stop: 07/02/16 21:43 Carbidopa/Levodopa (Sinemet 25mg-100 Mg) 1 tab PO TIDWM [facility] Stop: 07/03/16 07:59 Last Admin: 05/16/16 12:09 Dose: 1 tab Docusate Sodium (Colace) 100 mg PO BID [facility] Stop: 07/03/16 08:59 Last Admin: 05/16/16 09:09 Dose: 100 mg Donepezil HCl (Aricept) 10 mg PO DAILY [facility] Stop: 07/03/16 08:59 Last Admin: 05/16/16 09:09 Dose: 10 mg Famotidine (Pepcid) 20 mg PO BID [facility] Stop: 07/03/16 08:59 Last Admin: 05/16/16 09:09 Dose: 20 mg Ferrous Sulfate (Iron) 325 mg PO BID [facility] Stop: 07/03/16 08:59 Last Admin: 05/16/16 09:09 Dose: 325 mg Glipizide (Glucotrol) 5 mg PO BIDAC [facility] Stop: 07/03/16 07:29 Last Admin: 05/16/16 06:47 Dose: 5 mg Insulin Aspart (Novolog) 0 units SUBQ ACHS JASVIR PRN Reason: Protocol Stop: 07/03/16 07:29 Last Admin: 05/16/16 12:02 Dose: 4 units Losartan Potassium (Cozaar) 50 mg PO DAILY [facility] Stop: 07/03/16 08:59 Last Admin: 05/16/16 09:27 Dose: Not Given Magnesium Hydroxide (Milk Of Magnesia) 30 ml PO HS PRN PRN Reason: Constipation Stop: 07/02/16 21:43 Psyllium Hydrophilic Mucilloid (Metamucil) 1 pkt PO DAILY [facility] Stop: 07/03/16 08:59 Last Admin: 05/16/16 09:10 Dose: 1 pkt Quetiapine Fumarate (Seroquel) 100 mg PO HS [facility] Stop: 07/05/16 20:59 Last Admin: 05/15/16 20:45 Dose: 100 mg Valproate Sodium (Depakene) 250 mg PO BID J[facility]IR PRN Reason: Protocol Stop: 07/03/16 10:59 Last Admin: 05/16/16 09:10 Dose: 250 mg General: alert HEENT: NC/AT, PERRLA Lungs: CTAB Abdomen: soft non-tender Extremities: clear - Procedures Procedures: Procedures Procedure Code Date ENDOSC POLYPECTOMY OF LG INTEST 45.42 07/13/07 GROUP PSYCHOTHERAPY 84613 06/03/15 GROUP PSYCHOTHERAPY GZHZZZZ 06/03/15 INDIVID PSYCHOTHERAP NEC 94.39 05/27/08 INSERT INDWELLING CATH 57.94 10/29/09 LESION REMOVAL COLONOSCOPY 51252 07/13/07 OTHER GROUP THERAPY 94.44 06/23/14 PERCUTANEOUS [ENDOSCOPIC] GASTROSTOMY [PEG] 43.11 10/10/13 RECREATIONAL THERAPY 93.81 06/24/10 Internal Medicine Assmt/Plan - Assessment Assessment: RENAL FAILURE DEHYDRATION UNCONTROLLED DIABETES - Plan Plan: MONITOR I+O FALL PRECAUTIONS CPM Nutritional Asmnt/Malnutr-PDOC - Dietary Evaluation Malnutrition Findings (Please click <Entered> for more info): Nutritional Asmnt/Malnutrition Start: 05/07/16 09: 08 Text: Status: Complete Freq: Document 05/07/16 09:08 DMITRI (Rec: 05/07/16 09:26 MMULHERN SANGEETA- [email or web address]) Nutritional Asmnt/Malnutrition Patient General Information Nutritional Screening Moderate Risk Screening Diagnosis Psychosis (Reason for visit) Pertinent Medical Hx/Surgical Hx Per nursing notes, DM, HTN, CVA, renal failure, dehydration, and psycho history of psychosis, alzheimer's, bipolar and dementia. Subjective Information Patient is from [facility], primarily Hebrew speaking. Per nursing notes, history of becoming easily agitated and physically combative. Refusing some meds and blood sugar checks. Patient lying in bed asleep at time of visit. Current Diet [facility]/ [facility] Patient / S.O Not Indicated Pertinent Medications maalox, colace, pepcid, iron, glipizide, novolog, cozaar, MOM, metamucil Pertinent Labs No labs drawn in this visit ( only accuchecks). Blood sugar 168-299. Nutritional Hx/Data Height 5 ft 6 in Height (Calculated Centimeters) 167.6 Current Weight (lbs) 133 lb Weight (Calculated Kilograms) 60.3 Weight (Calculated Grams) 87257.8 [place] Body Weight 142lb % [place] Body Weight 93 Recent Weight Change No Weight Status Approriate GI Symptoms Food Allergies No Cultural/Ethnic/Advent Belief None indicated Usual diet at home Regular Skin Integrity/Comment: Intact, Barron 19 Current %PO Poor (25-49%) Estimated Nutritional Goals BEE in Kcals: Using Current wt Calories/Kcals/Kg 25-30 kcal/kg Kcals Calculated 2068-9597 kcal/day Protein: Using Current wt Protein g/k gm/kg Protein Calculated 60gm/day Fluid: ml 9642-3457 ml/day Nutritional Problem 2. Problem Problem Inadequate oral intake related to Etiology possible poor appetite aeb Signs/Symptoms: meeting <50% of estimated nutrient needs 1. Problem Problem Altered nutrition related lab values related to Etiology uncontrolled hyperglycemia aeb Signs/Symptoms: accuchecks 168-299 Intervention/Recommendation Recommendations by RD Increase Calorie Intake Comments 1. MD to continue to adjust insulin regimen for optimal glycemic control. 2. Encourage oral intake of meals; provide snacks to optimize nutrient intake. Assist with meals as needed. Expected Outcomes/Goals Expected Outcomes/Goals oral intake >75% of meals, glucose normalizes 80-180 Physician Parameters for PEM Body Mass Index (BMI) 19 - 24 (Normal)
[2016-05-17] MEDS: INSULIN ASPART, RECOMBINANT 100 UNITS/ML SUBQ SCH ×4 (06:53→20:57)
[2016-05-17] MEDS: Ferrous Sulfate 300 MG/5 ML UDC PO SCH ×2 (09:00→16:34)
--- NOTE | 2016-05-17 11:41 | Internal Medicine Prog Note ---
Internal Medicine Subjective - Subjective Service Date: 05/17/16 Patient seen and examined:: with staff Patient is:: awake Per staff patient is:: no adverse event Internal Medicine Objective - Results Recent Labs: Laboratory Last Values POC Glucose 231 MG/DL (70 - 105) H 05/17/16 06:40 Valproic Acid 12.4 ug/mL (50.0-100.0) L 05/05/16 20:00 - Physical Exam Vitals and I&O: Vital Signs Temp 98 F 05/16/16 19:51 Pulse 68 05/16/16 19:51 Resp 19 05/16/16 19:51 BP 132/67 05/16/16 19:51 Pulse Ox 96 05/16/16 19:51 Intake & Output 05/16/16 05/17/16 05/17/16 18:59 06:59 18:59 Intake Total 1800 360 Balance 1800 360 Intake: Oral 1800 360 Other: # Voids 4 3 # Bowel Movements 0 Active Medications: Current Medications Acetaminophen (Tylenol) 650 mg PO Q4HR PRN PRN Reason: Pain (Mild) Stop: 07/02/16 21:43 Al Hydrox/Mg Hydrox/Simethicone (Maalox) 30 ml PO Q4HR PRN PRN Reason: GI DISTRESS Stop: 07/02/16 21:43 Carbidopa/Levodopa (Sinemet 25mg-100 Mg) 1 tab PO TIDWM [facility] Stop: 07/03/16 07:59 Last Admin: 05/16/16 16:34 Dose: 1 tab Docusate Sodium (Colace) 100 mg PO BID [facility] Stop: 07/03/16 08:59 Last Admin: 05/16/16 16:35 Dose: 100 mg Donepezil HCl (Aricept) 10 mg PO DAILY [facility] Stop: 07/03/16 08:59 Last Admin: 05/16/16 09:09 Dose: 10 mg Famotidine (Pepcid) 20 mg PO BID [facility] Stop: 07/03/16 08:59 Last Admin: 05/16/16 16:34 Dose: 20 mg Ferrous Sulfate (Iron) 325 mg PO BID [facility] Stop: 07/03/16 08:59 Last Admin: 05/16/16 16:35 Dose: 325 mg Glipizide (Glucotrol) 5 mg PO BIDAC [facility] Stop: 07/03/16 07:29 Last Admin: 05/17/16 06:36 Dose: Not Given Insulin Aspart (Novolog) 0 units SUBQ ACHS JASVIR PRN Reason: Protocol Stop: 07/03/16 07:29 Last Admin: 05/17/16 06:53 Dose: 2 units Losartan Potassium (Cozaar) 50 mg PO DAILY [facility] Stop: 07/03/16 08:59 Last Admin: 05/16/16 09:27 Dose: Not Given Magnesium Hydroxide (Milk Of Magnesia) 30 ml PO HS PRN PRN Reason: Constipation Stop: 07/02/16 21:43 Psyllium Hydrophilic Mucilloid (Metamucil) 1 pkt PO DAILY [facility] Stop: 07/03/16 08:59 Last Admin: 05/16/16 09:10 Dose: 1 pkt Quetiapine Fumarate (Seroquel) 100 mg PO HS [facility] Stop: 07/05/16 20:59 Last Admin: 05/16/16 20:53 Dose: 100 mg Valproate Sodium (Depakene) 250 mg PO BID [facility] PRN Reason: Protocol Stop: 07/03/16 10:59 Last Admin: 05/16/16 16:34 Dose: 250 mg General: alert HEENT: NC/AT, PERRLA Neck: Supple Lungs: CTAB Cardiovascular: RRR, Normal S1, Normal S2, without murmur Abdomen: soft non-tender, non-distended, positive bowel sound Neurological: no change - Procedures Procedures: Procedures Procedure Code Date ENDOSC POLYPECTOMY OF LG INTEST 45.42 07/13/07 GROUP PSYCHOTHERAPY 25347 06/03/15 GROUP PSYCHOTHERAPY GZHZZZZ 06/03/15 INDIVID PSYCHOTHERAP NEC 94.39 05/27/08 INSERT INDWELLING CATH 57.94 10/29/09 LESION REMOVAL COLONOSCOPY 88975 07/13/07 OTHER GROUP THERAPY 94.44 06/23/14 PERCUTANEOUS [ENDOSCOPIC] GASTROSTOMY [PEG] 43.11 10/10/13 RECREATIONAL THERAPY 93.81 06/24/10 Internal Medicine Assmt/Plan - Assessment Assessment: RENAL FAILURE DEHYDRATION UNCONTROLLED DIABETES - Plan Plan: MONITOR I+O FALL PRECAUTIONS CPM Nutritional Asmnt/Malnutr-PDOC - Dietary Evaluation Malnutrition Findings (Please click <Entered> for more info): Nutritional Asmnt/Malnutrition Start: 05/07/16 09: 08 Text: Status: Complete Freq: Document 05/07/16 09:08 JULIAJenna (Rec: 05/07/16 09:26 DMITRI SANGEETA- FNS1) Nutritional Asmnt/Malnutrition Patient General Information Nutritional Screening Moderate Risk Screening Diagnosis Psychosis (Reason for visit) Pertinent Medical Hx/Surgical Hx Per nursing notes, DM, HTN, CVA, renal failure, dehydration, and psycho history of psychosis, alzheimer's, bipolar and dementia. Subjective Information Patient is from [facility], primarily Arabic speaking. Per nursing notes, history of becoming easily agitated and physically combative. Refusing some meds and blood sugar checks. Patient lying in bed asleep at time of visit. Current Diet Order/ Nutrition Support [facility]- 60gm puree Patient / S.O Not Indicated Pertinent Medications maalox, colace, pepcid, iron, glipizide, novolog, cozaar, MOM, metamucil Pertinent Labs No labs drawn in this visit ( only accuchecks). Blood sugar 168-299. Nutritional Hx/Data Height 5 ft 6 in Height (Calculated Centimeters) 167.6 Current Weight (lbs) 133 lb Weight (Calculated Kilograms) 60.3 Weight (Calculated Grams) 42353.8 [place] Body Weight 142lb % [place] Body Weight 93 Recent Weight Change No Weight Status Approriate GI Symptoms Food Allergies No Cultural/Ethnic/Mu-Ism Belief None indicated Usual diet at home Regular Skin Integrity/Comment: IntactBarron 19 Current %PO Poor (25-49%) Estimated Nutritional Goals BEE in Kcals: Using Current wt Calories/Kcals/Kg 25-30 kcal/kg Kcals Calculated 5735-9859 kcal/day Protein: Using Current wt Protein g/k gm/kg Protein Calculated 60gm/day Fluid: ml 5241-2891 ml/day Nutritional Problem 2. Problem Problem Inadequate oral intake related to Etiology possible poor appetite aeb Signs/Symptoms: meeting <50% of estimated nutrient needs 1. Problem Problem Altered nutrition related lab values related to Etiology uncontrolled hyperglycemia aeb Signs/Symptoms: accuchecks 168-299 Intervention/Recommendation Recommendations by RD Increase Calorie Intake Comments 1. MD to continue to adjust insulin regimen for optimal glycemic control. 2. Encourage oral intake of meals; provide snacks to optimize nutrient intake. Assist with meals as needed. Expected Outcomes/Goals Expected Outcomes/Goals oral intake >75% of meals, glucose normalizes 80-180 Physician Parameters for PEM Body Mass Index (BMI) 19 - 24 (Normal)
--- NOTE | 2016-05-17 20:54 | Progress Notes ---
Case was discussed with staff of the patient. The patient needs total care. He reported . He continues to be unpredictable, impulsive, and easily agitated. He is sleeping well. He is compliant with the medication, now with no side effects, no sedation, no nausea, and he tolerated the increase in Seroquel with no side effects, no sedation, no nausea, and no extrapyramidal symptoms. We will continue to work with the patient in group therapy, milieu therapy, and adjust medication as needed. JOB# [id number]
[2016-05-18] MEDS: INSULIN ASPART, RECOMBINANT 100 UNITS/ML SUBQ SCH ×4 (06:57→20:58)
[2016-05-18] MEDS: Ferrous Sulfate 300 MG/5 ML UDC PO SCH ×3 (08:48→17:08)
[2016-05-18] MEDS: Multivitamin w/ Minerals Tab PO SCH ×2 (08:50→09:00)
--- NOTE | 2016-05-18 15:19 | Internal Medicine Prog Note ---
Internal Medicine Subjective - Subjective Service Date: 05/18/16 Patient seen and examined:: with staff Patient is:: awake Per staff patient is:: no adverse event Internal Medicine Objective - Results Recent Labs: Laboratory Last Values POC Glucose 323 MG/DL (70 - 105) H 05/18/16 11:24 Valproic Acid 12.4 ug/mL (50.0-100.0) L 05/05/16 20:00 - Physical Exam Vitals and I&O: Vital Signs Temp 97.5 F 05/17/16 20:00 Pulse 75 05/18/16 10:49 Resp 19 05/18/16 10:49 BP 112/72 05/18/16 08:49 Pulse Ox 96 05/17/16 20:00 Intake & Output 05/17/16 05/18/16 05/18/16 18:59 06:59 18:59 Intake Total 1800 120 Balance 1800 120 Weight (lbs) 128 lb 1.6 oz Intake: Oral 1800 120 Other: # Voids 6 3 Active Medications: Current Medications Acetaminophen (Tylenol) 650 mg PO Q4HR PRN PRN Reason: Pain (Mild) Stop: 07/02/16 21:43 Al Hydrox/Mg Hydrox/Simethicone (Maalox) 30 ml PO Q4HR PRN PRN Reason: GI DISTRESS Stop: 07/02/16 21:43 Carbidopa/Levodopa (Sinemet 25mg-100 Mg) 1 tab PO TIDWM [facility] Stop: 07/03/16 07:59 Last Admin: 05/18/16 11:31 Dose: 1 tab Docusate Sodium (Colace) 100 mg PO BID [facility] Stop: 07/03/16 08:59 Last Admin: 05/18/16 08:55 Dose: 100 mg Donepezil HCl (Aricept) 10 mg PO DAILY [facility] Stop: 07/03/16 08:59 Last Admin: 05/18/16 08:48 Dose: 10 mg Famotidine (Pepcid) 20 mg PO BID [facility] Stop: 07/03/16 08:59 Last Admin: 05/18/16 08:48 Dose: 20 mg Ferrous Sulfate (Iron) 325 mg PO BID [facility] Stop: 07/03/16 08:59 Last Admin: 05/18/16 08:48 Dose: 325 mg Glipizide (Glucotrol) 5 mg PO BIDAC [facility] Stop: 07/03/16 07:29 Last Admin: 05/18/16 06:56 Dose: Not Given Insulin Aspart (Novolog) 0 units SUBQ ACHS JASVIR PRN Reason: Protocol Stop: 07/03/16 07:29 Last Admin: 05/18/16 11:43 Dose: 6 units Losartan Potassium (Cozaar) 50 mg PO DAILY [facility] Stop: 07/03/16 08:59 Last Admin: 05/18/16 08:49 Dose: 50 mg Magnesium Hydroxide (Milk Of Magnesia) 30 ml PO HS PRN PRN Reason: Constipation Stop: 07/02/16 21:43 Psyllium Hydrophilic Mucilloid (Metamucil) 1 pkt PO DAILY [facility] Stop: 07/03/16 08:59 Last Admin: 05/18/16 08:50 Dose: 1 pkt Quetiapine Fumarate (Seroquel) 100 mg PO HS [facility] Stop: 07/05/16 20:59 Last Admin: 05/17/16 20:30 Dose: 100 mg Valproate Sodium (Depakene) 250 mg PO BID [facility] PRN Reason: Protocol Stop: 07/03/16 10:59 Last Admin: 05/18/16 08:51 Dose: 250 mg General: alert HEENT: NC/AT, PERRLA Neck: Supple Lungs: CTAB Cardiovascular: RRR, Normal S1, Normal S2, without murmur Abdomen: soft non-tender, non-distended Extremities: clear - Procedures Procedures: Procedures Procedure Code Date ENDOSC POLYPECTOMY OF LG INTEST 45.42 07/13/07 GROUP PSYCHOTHERAPY 52762 06/03/15 GROUP PSYCHOTHERAPY GZHZZZZ 06/03/15 INDIVID PSYCHOTHERAP NEC 94.39 05/27/08 INSERT INDWELLING CATH 57.94 10/29/09 LESION REMOVAL COLONOSCOPY 95314 07/13/07 OTHER GROUP THERAPY 94.44 06/23/14 PERCUTANEOUS [ENDOSCOPIC] GASTROSTOMY [PEG] 43.11 10/10/13 RECREATIONAL THERAPY 93.81 06/24/10 Internal Medicine Assmt/Plan - Assessment Assessment: RENAL FAILURE DEHYDRATION UNCONTROLLED DIABETES - Plan Plan: MONITOR I+O FALL PRECAUTIONS CPM Nutritional Asmnt/Malnutr-PDOC - Dietary Evaluation Malnutrition Findings (Please click <Entered> for more info): Nutritional Asmnt/Malnutrition Start: 05/07/16 09: 08 Text: Status: Complete Freq: Document 05/07/16 09:08 JULIAHA (Rec: 05/07/16 09:26 DMITRI SANGEETA- FNS1) Nutritional Asmnt/Malnutrition Patient General Information Nutritional Screening Moderate Risk Screening Diagnosis Psychosis (Reason for visit) Pertinent Medical Hx/Surgical Hx Per nursing notes, DM, HTN, CVA, renal failure, dehydration, and psycho history of psychosis, alzheimer's, bipolar and dementia. Subjective Information Patient is from [facility] primarily Telugu speaking. Per nursing notes, history of becoming easily agitated and physically combative. Refusing some meds and blood sugar checks. Patient lying in bed asleep at time of visit. Current Diet Order/ [facility] Patient / S.O Not Indicated Pertinent Medications maalox, colace, pepcid, iron, glipizide, novolog, cozaar, MOM, metamucil Pertinent Labs No labs drawn in this visit ( only accuchecks). Blood sugar 168-299. Nutritional Hx/Data Height 5 ft 6 in Height (Calculated Centimeters) 167.6 Current Weight (lbs) 133 lb Weight (Calculated Kilograms) 60.3 Weight (Calculated Grams) 20380.8 [place] Body Weight 142lb % [place] Body Weight 93 Recent Weight Change No Weight Status Approriate GI Symptoms Food Allergies No Cultural/Ethnic/Advent Belief None indicated Usual diet at home Regular Skin Integrity/Comment: [place] 19 Current %PO Poor (25-49%) Estimated Nutritional Goals BEE in Kcals: Using Current wt Calories/Kcals/Kg 25-30 kcal/kg Kcals Calculated 8728-7559 kcal/day Protein: Using Current wt Protein g/k gm/kg Protein Calculated 60gm/day Fluid: ml 4742-3709 ml/day Nutritional Problem 2. Problem Problem Inadequate oral intake related to Etiology possible poor appetite aeb Signs/Symptoms: meeting <50% of estimated nutrient needs 1. Problem Problem Altered nutrition related lab values related to Etiology uncontrolled hyperglycemia aeb Signs/Symptoms: accuchecks 168-299 Intervention/Recommendation Recommendations by RD Increase Calorie Intake Comments 1. MD to continue to adjust insulin regimen for optimal glycemic control. 2. Encourage oral intake of meals; provide snacks to optimize nutrient intake. Assist with meals as needed. Expected Outcomes/Goals Expected Outcomes/Goals oral intake >75% of meals, glucose normalizes 80-180 Physician Parameters for PEM Body Mass Index (BMI) 19 - 24 (Normal)
--- NOTE | 2016-05-18 16:24 | Discharge Summary ---
IDENTIFYING INFORMATION: The patient is a 76-year-old male. HISTORY OF PRESENT ILLNESS: The patient was transferred from the medical floor, originally admitted because of renal failure, has been agitated, refusing medications, refusing care, very hard to redirect. He was confused, unable to carry on a conversation. He is demented, cannot make safe plan for self-care, refusing medications, refusing to eat. He sleeps well, eats well. He was hitting the staff, trying to harm them. COURSE IN THE HOSPITAL: The patient was continued with his medications. Staff had to feed him. He did have episode the first few days and was refusing medications however, later started taking on a regular basis. The patient was continued with Sinemet, Aricept 10 mg at bedtime, Pepcid, iron, glipizide, insulin, losartan, multivitamins, and Seroquel was increased to 100 mg at bedtime, Depakote that was continued 250 mg twice a day. The patient progressively got better. He was still demented, confused yet. He was not acting out or agitated or hitting the staff. He was easier to redirect. He had to be fed by the staff and he was eating, felt he improved. We felt he could be discharged to a lesser level of care. FINAL DIAGNOSES: Psychosis, not otherwise specified; dementia with behavior disturbances. DISCHARGE PLAN: The patient will be discharged back to the long term; will follow up with the psychiatrist, primary care physician. EXPECTED OUTCOME: Stable if the patient complies with the above. [facility]# [id number]
[2016-05-19] MEDS: INSULIN ASPART, RECOMBINANT 100 UNITS/ML SUBQ SCH ×4 (06:54→21:00)
[2016-05-19] MEDS: Ferrous Sulfate 300 MG/5 ML UDC PO SCH ×2 (08:38→16:43)
[2016-05-19] MEDS: Multivitamin w/ Minerals Tab PO SCH ×2 (08:40→11:01)
--- NOTE | 2016-05-19 12:49 | Internal Medicine Prog Note ---
Internal Medicine Subjective - Subjective Service Date: 05/19/16 Patient seen and examined:: with staff Patient is:: awake Per staff patient is:: no adverse event Internal Medicine Objective - Results Recent Labs: Laboratory Last Values POC Glucose 308 MG/DL (70 - 105) H 05/19/16 11:15 Valproic Acid 12.4 ug/mL (50.0-100.0) L 05/05/16 20:00 - Physical Exam Vitals and I&O: Vital Signs Temp 97.5 F 05/18/16 20:45 Pulse 68 05/18/16 20:45 Resp 18 05/18/16 20:45 BP 146/73 05/18/16 20:45 Pulse Ox 98 05/18/16 20:45 Intake & Output 05/18/16 05/19/16 05/19/16 18:59 06:59 18:59 Intake Total 960 Balance 960 Intake: Oral 960 Other: # Voids 3 # Bowel Movements 0 Active Medications: Current Medications Acetaminophen (Tylenol) 650 mg PO Q4HR PRN PRN Reason: Pain (Mild) Stop: 07/02/16 21:43 Al Hydrox/Mg Hydrox/Simethicone (Maalox) 30 ml PO Q4HR PRN PRN Reason: GI DISTRESS Stop: 07/02/16 21:43 Carbidopa/Levodopa (Sinemet 25mg-100 Mg) 1 tab PO TIDWM [facility] Stop: 07/03/16 07:59 Last Admin: 05/19/16 11:03 Dose: Not Given Docusate Sodium (Colace) 100 mg PO BID [facility] Stop: 07/03/16 08:59 Last Admin: 05/19/16 08:56 Dose: Not Given Donepezil HCl (Aricept) 10 mg PO DAILY [facility] Stop: 07/03/16 08:59 Last Admin: 05/19/16 08:57 Dose: Not Given Famotidine (Pepcid) 20 mg PO BID [facility] Stop: 07/03/16 08:59 Last Admin: 05/19/16 08:56 Dose: Not Given Ferrous Sulfate (Iron) 325 mg PO BID [facility] Stop: 07/03/16 08:59 Last Admin: 05/19/16 08:38 Dose: 325 mg Glipizide (Glucotrol) 5 mg PO BIDAC [facility] Stop: 07/03/16 07:29 Last Admin: 05/19/16 06:44 Dose: 5 mg Insulin Aspart (Novolog) 0 units SUBQ ACHS JASVIR PRN Reason: Protocol Stop: 07/03/16 07:29 Last Admin: 05/19/16 11:20 Dose: 6 units Losartan Potassium (Cozaar) 50 mg PO DAILY JASVIR Stop: 07/03/16 08:59 Last Admin: 05/19/16 08:41 Dose: Not Given Magnesium Hydroxide (Milk Of Magnesia) 30 ml PO HS PRN PRN Reason: Constipation Stop: 07/02/16 21:43 Psyllium Hydrophilic Mucilloid (Metamucil) 1 pkt PO DAILY JASVIR Stop: 07/03/16 08:59 Last Admin: 05/19/16 08:39 Dose: 1 pkt Quetiapine Fumarate (Seroquel) 100 mg PO HS JASIVR Stop: 07/05/16 20:59 Last Admin: 05/18/16 20:24 Dose: 100 mg Valproate Sodium (Depakene) 250 mg PO BID JASVIR PRN Reason: Protocol Stop: 07/03/16 10:59 Last Admin: 05/19/16 08:38 Dose: 250 mg General: alert HEENT: NC/AT, PERRLA Neck: Supple Lungs: CTAB Cardiovascular: RRR, Normal S1, Normal S2, without murmur Abdomen: soft non-tender, non-distended Extremities: clear - Procedures Procedures: Procedures Procedure Code Date ENDOSC POLYPECTOMY OF LG INTEST 45.42 07/13/07 GROUP PSYCHOTHERAPY 33481 06/03/15 GROUP PSYCHOTHERAPY GZHZZZZ 06/03/15 INDIVID PSYCHOTHERAP NEC 94.39 05/27/08 INSERT INDWELLING CATH 57.94 10/29/09 LESION REMOVAL COLONOSCOPY 41740 07/13/07 OTHER GROUP THERAPY 94.44 06/23/14 PERCUTANEOUS [ENDOSCOPIC] GASTROSTOMY [PEG] 43.11 10/10/13 RECREATIONAL THERAPY 93.81 06/24/10 Internal Medicine Assmt/Plan - Assessment Assessment: RENAL FAILURE DEHYDRATION UNCONTROLLED DIABETES - Plan Plan: MONITOR I+O FALL PRECAUTIONS CPM Nutritional Asmnt/Malnutr-PDOC - Dietary Evaluation Malnutrition Findings (Please click <Entered> for more info): Nutritional Asmnt/Malnutrition Start: 05/07/16 09: 08 Text: Status: Complete Freq: Document 05/07/16 09:08 DMITRI (Rec: 05/07/16 09:26 DMITRI SANGEETA- FNS1) Nutritional Asmnt/Malnutrition Patient General Information Nutritional Screening Moderate Risk Screening Diagnosis Psychosis (Reason for visit) Pertinent Medical Hx/Surgical Hx Per nursing notes, DM, HTN, CVA, renal failure, dehydration, and psycho history of psychosis, alzheimer's, bipolar and dementia. Subjective Information Patient is from [facility], primarily Citizen Of [place] speaking. Per nursing notes, history of becoming easily agitated and physically combative. Refusing some meds and blood sugar checks. Patient lying in bed asleep at time of visit. Current Diet Order/ Nutrition Support CCHO- 60gm puree Patient / S.O Not Indicated Pertinent Medications maalox, colace, pepcid, iron, glipizide, novolog, cozaar, MOM, metamucil Pertinent Labs No labs drawn in this visit ( only accuchecks). Blood sugar 168-299. Nutritional Hx/Data Height 5 ft 6 in Height (Calculated Centimeters) 167.6 Current Weight (lbs) 133 lb Weight (Calculated Kilograms) 60.3 Weight (Calculated Grams) 68554.8 [place] Body Weight 142lb % [place] Body Weight 93 Recent Weight Change No Weight Status Approriate GI Symptoms Food Allergies No Cultural/Ethnic/Rastafari Belief None indicated Usual diet at home Regular Skin Integrity/Comment: Intact, Barron 19 Current %PO Poor (25-49%) Estimated Nutritional Goals BEE in Kcals: Using Current wt Calories/Kcals/Kg 25-30 kcal/kg Kcals Calculated 8616-1557 kcal/day Protein: Using Current wt Protein g/k gm/kg Protein Calculated 60gm/day Fluid: ml 9238-2237 ml/day Nutritional Problem 2. Problem Problem Inadequate oral intake related to Etiology possible poor appetite aeb Signs/Symptoms: meeting <50% of estimated nutrient needs 1. Problem Problem Altered nutrition related lab values related to Etiology uncontrolled hyperglycemia aeb Signs/Symptoms: accuchecks 168-299 Intervention/Recommendation Recommendations by RD Increase Calorie Intake Comments 1. MD to continue to adjust insulin regimen for optimal glycemic control. 2. Encourage oral intake of meals; provide snacks to optimize nutrient intake. Assist with meals as needed. Expected Outcomes/Goals Expected Outcomes/Goals oral intake >75% of meals, glucose normalizes 80-180 Physician Parameters for PEM Body Mass Index (BMI) 19 - 24 (Normal)
--- NOTE | 2016-05-19 23:29 | Progress Notes ---
Case was discussed with the staff of the patient, reviewed records. The patient was supposed to have been discharged yesterday, but ____ to senior living, ____ take the patient, so now they are working on placement for this patient, will be sent to a place in [place], that is where his sister want him to go because that she like to visit him and at this point, he is cleared to go when we find him a placement and no side effects with the medication and we will continue to work with the patient in group therapy, milieu therapy, adjust medication as needed. JOB# [id number]
[2016-05-20] MEDS: INSULIN ASPART, RECOMBINANT 100 UNITS/ML SUBQ SCH ×4 (06:55→21:05)
[2016-05-20] MEDS: Ferrous Sulfate 300 MG/5 ML UDC PO SCH ×2 (09:10→17:21)
[2016-05-20] MEDS: Multivitamin w/ Minerals Tab PO SCH (09:10)
--- NOTE | 2016-05-20 13:45 | Internal Medicine Prog Note ---
Internal Medicine Subjective - Subjective Service Date: 05/20/16 Patient seen and examined:: with staff Patient is:: awake Per staff patient is:: no adverse event Internal Medicine Objective - Results Recent Labs: Laboratory Last Values POC Glucose 234 MG/DL (70 - 105) H 05/20/16 06:45 Valproic Acid 12.4 ug/mL (50.0-100.0) L 05/05/16 20:00 - Physical Exam Vitals and I&O: Vital Signs Temp 97.8 F 05/19/16 14:00 Pulse 72 05/19/16 14:00 Resp 18 05/19/16 14:00 BP 134/74 05/19/16 14:00 Pulse Ox 97 05/19/16 14:00 Intake & Output 05/19/16 05/20/16 05/20/16 18:59 06:59 18:59 Intake Total 1000 Balance 1000 Weight (lbs) 129 lb 9.6 oz Intake: Oral 1000 Other: # Voids 3 2 # Bowel Movements 1 Active Medications: Current Medications Acetaminophen (Tylenol) 650 mg PO Q4HR PRN PRN Reason: Pain (Mild) Stop: 07/02/16 21:43 Al Hydrox/Mg Hydrox/Simethicone (Maalox) 30 ml PO Q4HR PRN PRN Reason: GI DISTRESS Stop: 07/02/16 21:43 Carbidopa/Levodopa (Sinemet 25mg-100 Mg) 1 tab PO TIDWM [facility] Stop: 07/03/16 07:59 Last Admin: 05/20/16 09:10 Dose: Not Given Docusate Sodium (Colace) 100 mg PO BID [facility] Stop: 07/03/16 08:59 Last Admin: 05/20/16 09:10 Dose: Not Given Donepezil HCl (Aricept) 10 mg PO DAILY [facility] Stop: 07/03/16 08:59 Last Admin: 05/20/16 09:10 Dose: Not Given Famotidine (Pepcid) 20 mg PO BID [facility] Stop: 07/03/16 08:59 Last Admin: 05/20/16 09:10 Dose: Not Given Ferrous Sulfate (Iron) 325 mg PO BID [facility] Stop: 07/03/16 08:59 Last Admin: 05/20/16 09:10 Dose: Not Given Glipizide (Glucotrol) 5 mg PO BIDAC [facility] Stop: 07/03/16 07:29 Last Admin: 05/20/16 06:55 Dose: 5 mg Insulin Aspart (Novolog) 0 units SUBQ ACHS JASVIR PRN Reason: Protocol Stop: 07/03/16 07:29 Last Admin: 05/20/16 06:55 Dose: 2 units Losartan Potassium (Cozaar) 50 mg PO DAILY JASVIR Stop: 07/03/16 08:59 Last Admin: 05/20/16 09:10 Dose: Not Given Magnesium Hydroxide (Milk Of Magnesia) 30 ml PO HS PRN PRN Reason: Constipation Stop: 07/02/16 21:43 Psyllium Hydrophilic Mucilloid (Metamucil) 1 pkt PO DAILY [facility] Stop: 07/03/16 08:59 Last Admin: 05/20/16 09:10 Dose: Not Given Quetiapine Fumarate (Seroquel) 100 mg PO HS JASVIR Stop: 07/05/16 20:59 Last Admin: 05/19/16 20:16 Dose: 100 mg Valproate Sodium (Depakene) 250 mg PO BID JASVIR PRN Reason: Protocol Stop: 07/03/16 10:59 Last Admin: 05/20/16 09:10 Dose: Not Given General: alert HEENT: NC/AT, PERRLA Neck: Supple Lungs: CTAB Cardiovascular: RRR, Normal S1, Normal S2, without murmur Abdomen: soft non-tender, non-distended, positive bowel sound Neurological: no change - Procedures Procedures: Procedures Procedure Code Date ENDOSC POLYPECTOMY OF LG INTEST 45.42 07/13/07 GROUP PSYCHOTHERAPY 96422 06/03/15 GROUP PSYCHOTHERAPY GZHZZZZ 06/03/15 INDIVID PSYCHOTHERAP NEC 94.39 05/27/08 INSERT INDWELLING CATH 57.94 10/29/09 LESION REMOVAL COLONOSCOPY 54279 07/13/07 OTHER GROUP THERAPY 94.44 06/23/14 PERCUTANEOUS [ENDOSCOPIC] GASTROSTOMY [PEG] 43.11 10/10/13 RECREATIONAL THERAPY 93.81 06/24/10 Internal Medicine Assmt/Plan - Assessment Assessment: RENAL FAILURE DEHYDRATION UNCONTROLLED DIABETES - Plan Plan: MONITOR I+O FALL PRECAUTIONS CPM Nutritional Asmnt/Malnutr-PDOC - Dietary Evaluation Malnutrition Findings (Please click <Entered> for more info): Nutritional Asmnt/Malnutrition Start: 05/07/16 09: 08 Text: Status: Complete Freq: Document 05/07/16 09:08 JULIAHA (Rec: 05/07/16 09:26 DMITRI SANGEETA- FNS1) Nutritional Asmnt/Malnutrition Patient General Information Nutritional Screening Moderate Risk Screening Diagnosis Psychosis (Reason for visit) Pertinent Medical Hx/Surgical Hx Per nursing notes, DM, HTN, CVA, renal failure, dehydration, and psycho history of psychosis, alzheimer's, bipolar and dementia. Subjective Information Patient is from [facility], primarily [place] speaking. Per nursing notes, history of becoming easily agitated and physically combative. Refusing some meds and blood sugar checks. Patient lying in bed asleep at time of visit. Current Diet Order/ Nutrition Support CCHO- 60gm puree Patient / S.O Not Indicated Pertinent Medications maalox, colace, pepcid, iron, glipizide, novolog, cozaar, MOM, metamucil Pertinent Labs No labs drawn in this visit ( only accuchecks). Blood sugar 168-299. Nutritional Hx/Data Height 5 ft 6 in Height (Calculated Centimeters) 167.6 Current Weight (lbs) 133 lb Weight (Calculated Kilograms) 60.3 Weight (Calculated Grams) 19928.8 [place] Body Weight 142lb % [place] Body Weight 93 Recent Weight Change No Weight Status Approriate GI Symptoms Food Allergies No Cultural/Ethnic/Congregational Belief None indicated Usual diet at home Regular Skin Integrity/Comment: [place] 19 Current %PO Poor (25-49%) Estimated Nutritional Goals BEE in Kcals: Using Current wt Calories/Kcals/Kg 25-30 kcal/kg Kcals Calculated 2149-1875 kcal/day Protein: Using Current wt Protein g/k gm/kg Protein Calculated 60gm/day Fluid: ml 5217-5311 ml/day Nutritional Problem 2. Problem Problem Inadequate oral intake related to Etiology possible poor appetite aeb Signs/Symptoms: meeting <50% of estimated nutrient needs 1. Problem Problem Altered nutrition related lab values related to Etiology uncontrolled hyperglycemia aeb Signs/Symptoms: accuchecks 168-299 Intervention/Recommendation Recommendations by RD Increase Calorie Intake Comments 1. MD to continue to adjust insulin regimen for optimal glycemic control. 2. Encourage oral intake of meals; provide snacks to optimize nutrient intake. Assist with meals as needed. Expected Outcomes/Goals Expected Outcomes/Goals oral intake >75% of meals, glucose normalizes 80-180 Physician Parameters for PEM Body Mass Index (BMI) 19 - 24 (Normal)
--- NOTE | 2016-05-21 02:25 | Progress Notes ---
Case was discussed with staff of the patient, reviewed records. The patient was ____ to be discharged, working on placement. Apparently, the place they approached in [place] did not accept him, so we are working on other placement. The patient is demented, confused; however, we believe this is the best he can do. He is compliant with the medication, no side effects, no sedation, no nausea, no extrapyramidal symptoms, and we will continue to work with the patient in group therapy, milieu therapy, and adjust medication as needed. JOB# [id number]
[2016-05-21] MEDS: INSULIN ASPART, RECOMBINANT 100 UNITS/ML SUBQ SCH ×4 (06:39→20:41)
[2016-05-21] MEDS: Ferrous Sulfate 300 MG/5 ML UDC PO SCH ×2 (09:54→17:02)
[2016-05-21] MEDS: Multivitamin w/ Minerals Tab PO SCH (09:55)
--- NOTE | 2016-05-21 16:41 | Internal Medicine Prog Note ---
Internal Medicine Subjective - Subjective Service Date: 05/21/16 Patient seen and examined:: with staff Patient is:: awake Per staff patient is:: no adverse event Internal Medicine Objective - Results Recent Labs: Laboratory Last Values POC Glucose 283 MG/DL (70 - 105) H 05/21/16 11:41 Valproic Acid 12.4 ug/mL (50.0-100.0) L 05/05/16 20:00 - Physical Exam Vitals and I&O: Vital Signs Temp 97.8 F 05/21/16 14:00 Pulse 72 05/21/16 15:07 Resp 20 05/21/16 14:00 BP 165/86 05/21/16 15:07 Pulse Ox 97 05/21/16 14:00 Intake & Output 05/20/16 05/21/16 05/21/16 18:59 06:59 18:59 Intake Total 800 240 Balance 800 240 Weight (lbs) 129 lb 9.6 oz Intake: Oral 800 240 Other: # Voids 2 1 # Bowel Movements 3 Active Medications: Current Medications Acetaminophen (Tylenol) 650 mg PO Q4HR PRN PRN Reason: Pain (Mild) Stop: 07/02/16 21:43 Al Hydrox/Mg Hydrox/Simethicone (Maalox) 30 ml PO Q4HR PRN PRN Reason: GI DISTRESS Stop: 07/02/16 21:43 Carbidopa/Levodopa (Sinemet 25mg-100 Mg) 1 tab PO TIDWM [facility] Stop: 07/03/16 07:59 Last Admin: 05/21/16 11:59 Dose: Not Given Docusate Sodium (Colace) 100 mg PO BID [facility] Stop: 07/03/16 08:59 Last Admin: 05/21/16 09:54 Dose: Not Given Donepezil HCl (Aricept) 10 mg PO DAILY [facility] Stop: 07/03/16 08:59 Last Admin: 05/21/16 09:54 Dose: Not Given Famotidine (Pepcid) 20 mg PO BID [facility] Stop: 07/03/16 08:59 Last Admin: 05/21/16 09:54 Dose: Not Given Ferrous Sulfate (Iron) 325 mg PO BID [facility] Stop: 07/03/16 08:59 Last Admin: 05/21/16 09:54 Dose: Not Given [facility]: 07/03/16 07:29 Last Admin: 05/21/16 06:38 Dose: 5 mg Insulin Aspart (Novolog) 0 units SUBQ ACHS JASVIR PRN Reason: Protocol Stop: 07/03/16 07:29 Last Admin: 05/21/16 12:03 Dose: 4 units Losartan Potassium (Cozaar) 50 mg PO DAILY JAS[facility]IR Stop: 07/03/16 08:59 Last Admin: 05/21/16 15:07 Dose: 50 mg Magnesium Hydroxide (Milk Of Magnesia) 30 ml PO HS PRN PRN Reason: Constipation Stop: 07/02/16 21:43 Psyllium Hydrophilic Mucilloid (Metamucil) 1 pkt PO DAILY [facility] Stop: 07/03/16 08:59 Last Admin: 05/21/16 09:55 Dose: Not Given Quetiapine Fumarate (Seroquel) 100 mg PO HS [facility] Stop: 07/05/16 20:59 Last Admin: 05/20/16 21:06 Dose: 100 mg Valproate Sodium (Depakene) 250 mg PO BID JASVIR PRN Reason: Protocol Stop: 07/03/16 10:59 Last Admin: 05/21/16 09:55 Dose: Not Given General: alert HEENT: NC/AT, PERRLA Neck: Supple Lungs: CTAB Cardiovascular: RRR, Normal S1, Normal S2, without murmur Abdomen: soft non-tender, non-distended, positive bowel sound Neurological: no change - Procedures Procedures: Procedures Procedure Code Date ENDOSC POLYPECTOMY OF LG INTEST 45.42 07/13/07 GROUP PSYCHOTHERAPY 61946 06/03/15 GROUP PSYCHOTHERAPY GZHZZZZ 06/03/15 INDIVID PSYCHOTHERAP NEC 94.39 05/27/08 INSERT INDWELLING CATH 57.94 10/29/09 LESION REMOVAL COLONOSCOPY 58760 07/13/07 OTHER GROUP THERAPY 94.44 06/23/14 PERCUTANEOUS [ENDOSCOPIC] GASTROSTOMY [PEG] 43.11 10/10/13 RECREATIONAL THERAPY 93.81 06/24/10 Internal Medicine Assmt/Plan - Assessment Assessment: RENAL FAILURE DEHYDRATION UNCONTROLLED DIABETES - Plan Plan: MONITOR I+O FALL PRECAUTIONS CPM Nutritional Asmnt/Malnutr-PDOC - Dietary Evaluation Malnutrition Findings (Please click <Entered> for more info): Nutritional Asmnt/Malnutrition Start: 05/07/16 09: 08 Text: Status: Complete Freq: Document 05/07/16 09:08 DMITRI (Rec: 05/07/16 09:26 DMITRI SANGEETA- FNS1) Nutritional Asmnt/Malnutrition Patient General Information Nutritional Screening Moderate Risk Screening Diagnosis Psychosis (Reason for visit) Pertinent Medical Hx/Surgical Hx Per nursing notes, DM, HTN, CVA, renal failure, dehydration, and psycho history of psychosis, alzheimer's, bipolar and dementia. Subjective Information Patient is from [facility], primarily [place] speaking. Per nursing notes, history of becoming easily agitated and physically combative. Refusing some meds and blood sugar checks. Patient lying in bed asleep at time of visit. Current Diet [facility]/ [facility] Patient / S.O Not Indicated Pertinent Medications maalox, colace, pepcid, iron, glipizide, novolog, cozaar, MOM, metamucil Pertinent Labs No labs drawn in this visit ( only accuchecks). Blood sugar 168-299. Nutritional Hx/Data Height 5 ft 6 in Height (Calculated Centimeters) 167.6 Current Weight (lbs) 133 lb Weight (Calculated Kilograms) 60.3 Weight (Calculated Grams) 38699.8 [place] Body Weight 142lb % [place] Body Weight 93 Recent Weight Change No Weight Status Approriate GI Symptoms Food Allergies No Cultural/Ethnic/Episcopalian Belief None indicated Usual diet at home Regular Skin Integrity/Comment: Intact, [place] 19 Current %PO Poor (25-49%) Estimated Nutritional Goals BEE in Kcals: Using Current wt Calories/Kcals/Kg 25-30 kcal/kg Kcals Calculated 1188-5204 kcal/day Protein: Using Current wt Protein g/k gm/kg Protein Calculated 60gm/day Fluid: ml 3607-5887 ml/day Nutritional Problem 2. Problem Problem Inadequate oral intake related to Etiology possible poor appetite aeb Signs/Symptoms: meeting <50% of estimated nutrient needs 1. Problem Problem Altered nutrition related lab values related to Etiology uncontrolled hyperglycemia aeb Signs/Symptoms: accuchecks 168-299 Intervention/Recommendation Recommendations by RD Increase Calorie Intake Comments 1. MD to continue to adjust insulin regimen for optimal glycemic control. 2. Encourage oral intake of meals; provide snacks to optimize nutrient intake. Assist with meals as needed. Expected Outcomes/Goals Expected Outcomes/Goals oral intake >75% of meals, glucose normalizes 80-180 Physician Parameters for PEM Body Mass Index (BMI) 19 - 24 (Normal)
--- NOTE | 2016-05-21 20:34 | Progress Notes ---
Case was discussed with staff of the patient and reviewed records. The patient is still awaiting placement. His sister came to visit him. Sister wanted him to go to a facility close to [place], so she can see him often. He is much better. He is not acting out and hitting staff. He is sleeping well, eating well, and compliant with the medication. No side effects, no sedation, no nausea, and no extrapyramidal symptoms. We will continue to work with the patient in group therapy, milieu therapy, and adjust medications as needed. JOB# [id number]
[2016-05-22] MEDS: INSULIN ASPART, RECOMBINANT 100 UNITS/ML SUBQ SCH ×4 (06:39→20:44)
[2016-05-22] MEDS ORDERED: Albuterol/Ipratropium Neb 3 ML AERS HHN PRN (08:05)
--- NOTE | 2016-05-22 09:26 | Diagnostic Imaging Report ---
CLINICAL INDICATION: Shortness of breath FINDINGS: Heart size is normal. No infiltrates or effusions. No bony thoracic abnormalities. IMPRESSION: Normal chest x-ray.
[2016-05-22] MEDS: Multivitamin w/ Minerals Tab PO SCH (09:33)
[2016-05-22] MEDS: Ferrous Sulfate 300 MG/5 ML UDC PO SCH ×2 (09:33→17:36)
[2016-05-22 09:42] LABS: % BASOPHILS 0.6 % (0.0-2.0); % EOSINOPHILS 0.2 % (0.0-5.0); % LYMPHOCYTES 13.3 % (20.0-50.0); % MONOCYTES 5.3 % (2.0-10.0); % NEUTROPHILS 80.6 % (40.0-80.0); MEAN CELL VOLUME 87.1 fl (80-99); MEAN CORPUSCULAR HEMOGLOBIN 29.6 pg (27.0-31.0); NEUTROPHILE ABSOLUTE 9.6 Th/cmm (1.8-8.0); RED BLOOD COUNT 3.66 Mil/cmm (3.80-5.80); RED CELL DISTRIBUTION WIDTH 14.3 % (11.5-20.0)
[2016-05-22 09:48] LABS: HEMATOCRIT 31.9 % (39.0-49.0); HEMOGLOBIN 10.9 gm/dL (12.6-17.4); PLATELET COUNT 365 Th/cmm (150-400); WHITE BLOOD COUNT 11.9 Th/cmm (4.8-10.8)
[2016-05-22 10:06] LABS: ANION GAP 6.8 (7.0-16.0); BUN - UREA NITROGEN 62 mg/dL (7-25); BUN/CREATININE RATIO 38.8; CALCIUM SERUM 9.8 mg/dL (8.6-10.3); CARBON DIOXIDE 27.3 mEq/L (21.0-31.0); CHLORIDE 105 mEq/L (98-107); CREATININE - SERUM 1.6 mg/dL (0.7-1.3); GLUCOSE 264 mg/dL (70-105); POTASSIUM SERUM 5.1 mEq/L (3.5-5.1); SODIUM SERUM 134 mEq/L (136-145)
--- NOTE | 2016-05-22 17:04 | Internal Medicine Prog Note ---
Internal Medicine Subjective - Subjective Service Date: 05/22/16 Patient seen and examined:: with staff Patient is:: awake Per staff patient is:: no adverse event Internal Medicine Objective - Results Result Diagrams: 05/22/16 09:30 05/22/16 09:30 Recent Labs: Laboratory Last Values WBC 11.9 Th/cmm (4.8-10.8) H D 05/22/16 09:30 RBC 3.66 Mil/cmm (3.80-5.80) L 05/22/16 09:30 Hgb 10.9 gm/dL (12.6-17.4) L D 05/22/16 09:30 Hct 31.9 % (39.0-49.0) L D 05/22/16 09:30 MCV 87.1 fl (80-99) 05/22/16 09:30 MCH 29.6 pg (27.0-31.0) 05/22/16 09:30 MCHC Differential 34.0 pg (28.0-36.0) 05/22/16 09:30 RDW 14.3 % (11.5-20.0) 05/22/16 09:30 Plt Count 365 Th/cmm (150-400) D 05/22/16 09:30 MPV 9.0 fl 05/22/16 09:30 Neutrophils % 80.6 % (40.0-80.0) H 05/22/16 09:30 Lymphocytes % 13.3 % (20.0-50.0) L 05/22/16 09:30 Monocytes % 5.3 % (2.0-10.0) 05/22/16 09:30 Eosinophils % 0.2 % (0.0-5.0) 05/22/16 09:30 Basophils % 0.6 % (0.0-2.0) 05/22/16 09:30 Sodium 134 mEq/L (136-145) L 05/22/16 09:30 Potassium 5.1 mEq/L (3.5-5.1) 05/22/16 09:30 Chloride 105 mEq/L (98-107) 05/22/16 09:30 Carbon Dioxide 27.3 mEq/L (21.0-31.0) 05/22/16 09:30 Anion Gap 6.8 (7.0-16.0) L 05/22/16 09:30 BUN 62 mg/dL (7-25) H 05/22/16 09:30 Creatinine 1.6 mg/dL (0.7-1.3) H 05/22/16 09:30 Est GFR ( Amer) TNP 05/22/16 09:30 Est GFR (Non-Af Amer) TNP 05/22/16 09:30 BUN/Creatinine Ratio 38.8 05/22/16 09:30 Glucose 264 mg/dL (70-105) H 05/22/16 09:30 POC Glucose 288 MG/DL (70 - 105) H 05/22/16 16:30 Calcium 9.8 mg/dL (8.6-10.3) 05/22/16 09:30 Valproic Acid 12.4 ug/mL (50.0-100.0) L 05/05/16 20:00 - Physical Exam Vitals and I&O: Vital Signs Temp 98.3 F 05/22/16 15:15 Pulse 71 05/22/16 15:15 Resp 19 05/22/16 15:15 BP 142/78 05/22/16 15:15 Pulse Ox 97 05/22/16 15:15 Intake & Output 05/21/16 05/22/16 05/22/16 18:59 06:59 18:59 Intake Total 960 Balance 960 Intake: Oral 960 Other: # Voids 3 # Bowel Movements 1 Active Medications: Current Medications Acetaminophen (Tylenol) 650 mg PO Q4HR PRN PRN Reason: Pain (Mild) Stop: 07/02/16 21:43 Al Hydrox/Mg Hydrox/Simethicone (Maalox) 30 ml PO Q4HR PRN PRN Reason: GI DISTRESS Stop: 07/02/16 21:43 Albuterol/Ipratropium (Duoneb Neb) 3 ml HHN Q4HRT PRN PRN Reason: Wheezing Stop: 07/21/16 08:04 Last Admin: 05/22/16 11:16 Dose: 3 ml Carbidopa/Levodopa (Sinemet 25mg-100 Mg) 1 tab PO TIDWM [facility]AS[facility] Stop: 07/03/16 07:59 Last Admin: 05/22/16 12:20 Dose: Not Given Docusate Sodium (Colace) 100 mg PO BID [facility] Stop: 07/03/16 08:59 Last Admin: 05/22/16 09:33 Dose: Not Given Donepezil HCl (Aricept) 10 mg PO DAILY [facility] Stop: 07/03/16 08:59 Last Admin: 05/22/16 09:33 Dose: Not Given Famotidine (Pepcid) 20 mg PO BID [facility] Stop: 07/03/16 08:59 Last Admin: 05/22/16 09:33 Dose: Not Given Ferrous Sulfate (Iron) 325 mg PO BID [facility] Stop: 07/03/16 08:59 Last Admin: 05/22/16 09:33 Dose: Not Given Glipizide (Glucotrol) 5 mg PO BIDAC [facility] Stop: 07/03/16 07:29 Last Admin: 05/22/16 06:38 Dose: 5 mg Insulin Aspart (Novolog) 0 units SUBQ ACHS [facility] PRN Reason: Protocol Stop: 07/03/16 07:29 Last Admin: 05/22/16 12:15 Dose: 2 units Losartan Potassium (Cozaar) 50 mg PO DAILY [facility] Stop: 07/03/16 08:59 Last Admin: 05/21/16 15:07 Dose: 50 mg Magnesium Hydroxide (Milk Of Magnesia) 30 ml PO HS PRN PRN Reason: Constipation Stop: 07/02/16 21:43 Psyllium Hydrophilic Mucilloid (Metamucil) 1 pkt PO DAILY [facility] Stop: 07/03/16 08:59 Last Admin: 05/22/16 09:28 Dose: Not Given Quetiapine Fumarate (Seroquel) 100 mg PO HS [facility] Stop: 07/05/16 20:59 Last Admin: 05/21/16 20:40 Dose: 100 mg Valproate Sodium (Depakene) 250 mg PO BID [facility] PRN Reason: Protocol Stop: 07/03/16 10:59 Last Admin: 05/22/16 09:33 Dose: Not Given General: alert HEENT: NC/AT, PERRLA Neck: Supple Lungs: CTAB Cardiovascular: RRR, Normal S1, Normal S2, without murmur Abdomen: soft non-tender, non-distended, positive bowel sound Neurological: no change - Procedures Procedures: Procedures Procedure Code Date ENDOSC POLYPECTOMY OF LG INTEST 45.42 07/13/07 GROUP PSYCHOTHERAPY 32835 06/03/15 GROUP PSYCHOTHERAPY GZHZZZZ 06/03/15 INDIVID PSYCHOTHERAP NEC 94.39 05/27/08 INSERT INDWELLING CATH 57.94 10/29/09 LESION REMOVAL COLONOSCOPY 08732 07/13/07 OTHER GROUP THERAPY 94.44 06/23/14 PERCUTANEOUS [ENDOSCOPIC] GASTROSTOMY [PEG] 43.11 10/10/13 RECREATIONAL THERAPY 93.81 06/24/10 Internal Medicine Assmt/Plan - Assessment Assessment: RENAL FAILURE DEHYDRATION UNCONTROLLED DIABETES - Plan Plan: MONITOR I+O FALL PRECAUTIONS CPM Nutritional Asmnt/Malnutr-PDOC - Dietary Evaluation Malnutrition Findings (Please click <Entered> for more info): Nutritional Asmnt/Malnutrition Start: 05/07/16 09: 08 Text: Status: Complete Freq: Document 05/07/16 09:08 DMITRI (Rec: 05/07/16 09:26 MMMILTON [place]- FNS1) Nutritional Asmnt/Malnutrition Patient General Information Nutritional Screening Moderate Risk Screening Diagnosis Psychosis (Reason for visit) Pertinent Medical Hx/Surgical Hx Per nursing notes, DM, HTN, CVA, renal failure, dehydration, and psycho history of psychosis, alzheimer's, bipolar and dementia. Subjective Information Patient is from [facility], primarily [place] speaking. Per nursing notes, history of becoming easily agitated and physically combative. Refusing some meds and blood sugar checks. Patient lying in bed asleep at time of visit. Current Diet Order/ Nutrition Support [facility]- 60gm puree Patient / S.O Not Indicated Pertinent Medications maalox, colace, pepcid, iron, glipizide, novolog, cozaar, MOM, metamucil Pertinent Labs No labs drawn in this visit ( only accuchecks). Blood sugar 168-299. Nutritional Hx/Data Height 5 ft 6 in Height (Calculated Centimeters) 167.6 Current Weight (lbs) 133 lb Weight (Calculated Kilograms) 60.3 Weight (Calculated Grams) 84709.8 [place] Body Weight 142lb % [place] Body Weight 93 Recent Weight Change No Weight Status Approriate GI Symptoms Food Allergies No Cultural/Ethnic/Jew Belief None indicated Usual diet at home Regular Skin Integrity/Comment: Intact, Barron 19 Current %PO Poor (25-49%) Estimated Nutritional Goals BEE in Kcals: Using Current wt Calories/Kcals/Kg 25-30 kcal/kg Kcals Calculated 7363-1662 kcal/day Protein: Using Current wt Protein g/k gm/kg Protein Calculated 60gm/day Fluid: ml 8273-1817 ml/day Nutritional Problem 2. Problem Problem Inadequate oral intake related to Etiology possible poor appetite aeb Signs/Symptoms: meeting <50% of estimated nutrient needs 1. Problem Problem Altered nutrition related lab values related to Etiology uncontrolled hyperglycemia aeb Signs/Symptoms: accuchecks 168-299 Intervention/Recommendation Recommendations by RD Increase Calorie Intake Comments 1. MD to continue to adjust insulin regimen for optimal glycemic control. 2. Encourage oral intake of meals; provide snacks to optimize nutrient intake. Assist with meals as needed. Expected Outcomes/Goals Expected Outcomes/Goals oral intake >75% of meals, glucose normalizes 80-180 Physician Parameters for PEM Body Mass Index (BMI) 19 - 24 (Normal)
--- NOTE | 2016-05-23 01:24 | Psychosocial Evaluation ---
Case was discussed with staff of the patient, reviewed records. The patient continues to do the same. He is compliant with the medication with no side effects. Awaiting placement for this patient. No acting out behavior. No suicidal ideation, no homicidal ideation, no paranoia. He is unable to participate in a meaningful conversation, demented, confused, and we will continue to work with the patient in group therapy, milieu therapy, and adjust medication as needed. [facility]# [id number]
[2016-05-23] MEDS: INSULIN ASPART, RECOMBINANT 100 UNITS/ML SUBQ SCH ×4 (06:38→20:38)
[2016-05-23 08:22] LABS: % EOSINOPHILS 0.4 % (0.0-5.0); % LYMPHOCYTES 12.8 % (20.0-50.0); % MONOCYTES 4.1 % (2.0-10.0); % NEUTROPHILS 82.7 % (40.0-80.0); HEMATOCRIT 32.7 % (39.0-49.0); HEMOGLOBIN 10.9 gm/dL (12.6-17.4); MEAN CELL VOLUME 87.6 fl (80-99); MEAN CORPUSCULAR HEMOGLOBIN 29.2 pg (27.0-31.0); MEAN CORPUSCULAR HGB CONC 33.3 pg (28.0-36.0); NEUTROPHILE ABSOLUTE 11.1 Th/cmm (1.8-8.0); PLATELET COUNT 350 Th/cmm (150-400); RED BLOOD COUNT 3.73 Mil/cmm (3.80-5.80); RED CELL DISTRIBUTION WIDTH 14.6 % (11.5-20.0)
--- NOTE | 2016-05-23 08:22 | Diagnostic Imaging Report ---
KUB abdominal film HISTORY: Pain Stool noted within nondilated large bowel and within the rectal region. Nondilated small bowel is seen. No free intraperitoneal air. IMPRESSION: 1. Stool-filled nondilated large bowel with a mildly distended stool-filled rectum. No other acute radiographic abnormalities.
[2016-05-23 08:34] LABS: WHITE BLOOD COUNT 13.4 Th/cmm (4.8-10.8)
[2016-05-23 08:38] LABS: ALB/GLOB RATIO 0.9 (1.0-1.8); ALKALINE PHOSPHATASE 140 U/L (34-104); ANION GAP 6.5 (7.0-16.0); BILIRUBIN,TOTAL 0.3 mg/dL (0.3-1.0); BUN - UREA NITROGEN 64 mg/dL (7-25); CALCIUM SERUM 9.6 mg/dL (8.6-10.3); CHLORIDE 106 mEq/L (98-107); CREATININE - SERUM 1.6 mg/dL (0.7-1.3); GLUCOSE 288 mg/dL (70-105); LIPASE 16 U/L (11-82); POTASSIUM SERUM 5.5 mEq/L (3.5-5.1); SGOT 34 U/L (13-39); SGPT/ALT 37 U/L (7-52); SODIUM SERUM 135 mEq/L (136-145)
[2016-05-23] MEDS: Ferrous Sulfate 300 MG/5 ML UDC PO SCH ×2 (09:08→16:21)
[2016-05-23] MEDS: Multivitamin w/ Minerals Tab PO SCH (09:08)
--- NOTE | 2016-05-23 13:00 | Internal Medicine Prog Note ---
Internal Medicine Subjective - Subjective Service Date: 05/23/16 (awake, alert, no episodes of vomiting ) Patient seen and examined:: with staff Per staff patient is:: no adverse event Internal Medicine Objective - Results Result Diagrams: 05/23/16 07:45 05/23/16 07:45 Recent Labs: Laboratory Last Values WBC 13.4 Th/cmm (4.8-10.8) H 05/23/16 07:45 RBC 3.73 Mil/cmm (3.80-5.80) L 05/23/16 07:45 Hgb 10.9 gm/dL (12.6-17.4) L 05/23/16 07:45 Hct 32.7 % (39.0-49.0) L 05/23/16 07:45 MCV 87.6 fl (80-99) 05/23/16 07:45 MCH 29.2 pg (27.0-31.0) 05/23/16 07:45 MCHC Differential 33.3 pg (28.0-36.0) 05/23/16 07:45 RDW 14.6 % (11.5-20.0) 05/23/16 07:45 Plt Count 350 Th/cmm (150-400) 05/23/16 07:45 MPV 9.0 fl 05/23/16 07:45 Neutrophils % 82.7 % (40.0-80.0) H 05/23/16 07:45 Lymphocytes % 12.8 % (20.0-50.0) L 05/23/16 07:45 Monocytes % 4.1 % (2.0-10.0) 05/23/16 07:45 Eosinophils % 0.4 % (0.0-5.0) 05/23/16 07:45 Basophils % 0.0 % (0.0-2.0) 05/23/16 07:45 Sodium 135 mEq/L (136-145) L 05/23/16 07:45 Potassium 5.5 mEq/L (3.5-5.1) H 05/23/16 07:45 Chloride 106 mEq/L (98-107) 05/23/16 07:45 Carbon Dioxide 28.0 mEq/L (21.0-31.0) 05/23/16 07:45 Anion Gap 6.5 (7.0-16.0) L 05/23/16 07:45 BUN 64 mg/dL (7-25) H 05/23/16 07:45 Creatinine 1.6 mg/dL (0.7-1.3) H 05/23/16 07:45 Est GFR ( Amer) TNP 05/23/16 07:45 Est GFR (Non-Af Amer) TNP 05/23/16 07:45 BUN/Creatinine Ratio 40.0 05/23/16 07:45 Glucose 288 mg/dL (70-105) H 05/23/16 07:45 POC Glucose 326 MG/DL (70 - 105) H 05/23/16 11:09 Calcium 9.6 mg/dL (8.6-10.3) 05/23/16 07:45 Total Bilirubin 0.3 mg/dL (0.3-1.0) 05/23/16 07:45 AST 34 U/L (13-39) 05/23/16 07:45 ALT 37 U/L (7-52) 05/23/16 07:45 Alkaline Phosphatase 140 U/L (34-104) H 05/23/16 07:45 Total Protein 6.9 gm/dL (6.0-8.3) 05/23/16 07:45 Albumin 3.3 gm/dL (4.2-5.5) L 05/23/16 07:45 Globulin 3.6 gm/dL 05/23/16 07:45 Albumin/Globulin Ratio 0.9 (1.0-1.8) L 05/23/16 07:45 Lipase 16 U/L (11-82) 05/23/16 07:45 Valproic Acid < 10.0 ug/mL (50.0-100.0) L 05/23/16 07:45 - Physical Exam Vitals and I&O: Vital Signs Temp 97.2 F 05/23/16 06:32 Pulse 81 05/23/16 11:43 Resp 20 05/23/16 11:43 BP 122/68 05/23/16 09:09 Pulse Ox 98 05/23/16 07:28 Intake & Output 05/22/16 05/23/16 05/23/16 18:59 06:59 18:59 Intake Total 600 120 Balance 600 120 Intake: Oral 600 120 Other: # Voids 2 3 # Bowel Movements 1 Active Medications: Current Medications Acetaminophen (Tylenol) 650 mg PO Q4HR PRN PRN Reason: Pain (Mild) Stop: 07/02/16 21:43 Al Hydrox/Mg Hydrox/Simethicone (Maalox) 30 ml PO Q4HR PRN PRN Reason: GI DISTRESS Stop: 07/02/16 21:43 Albuterol/Ipratropium (Duoneb Neb) 3 ml HHN Q4HRT PRN PRN Reason: Wheezing Stop: 07/21/16 08:04 Last Admin: 05/22/16 11:16 Dose: 3 ml Carbidopa/Levodopa (Sinemet 25mg-100 Mg) 1 tab PO TIDWM [facility] Stop: 07/03/16 07:59 Last Admin: 05/23/16 12:00 Dose: Not Given Docusate Sodium (Colace) 250 mg PO BID [facility] Stop: 07/22/16 12:44 Donepezil HCl (Aricept) 10 mg PO DAILY [facility] Stop: 07/03/16 08:59 Last Admin: 05/23/16 09:09 Dose: 10 mg Famotidine (Pepcid) 20 mg PO BID [facility] Stop: 07/03/16 08:59 Last Admin: 05/23/16 09:09 Dose: 20 mg Ferrous Sulfate (Iron) 325 mg PO BID [facility] Stop: 07/03/16 08:59 Last Admin: 05/23/16 09:08 Dose: 325 mg Glipizide (Glucotrol) 5 mg PO BIDAC [facility] Stop: 07/03/16 07:29 Last Admin: 05/23/16 06:30 Dose: Not Given Insulin Aspart (Novolog) 0 units SUBQ ACHS [facility] PRN Reason: Protocol Stop: 07/03/16 07:29 Last Admin: 05/23/16 11:15 Dose: 6 units Losartan Potassium (Cozaar) 50 mg PO DAILY [facility] Stop: 07/03/16 08:59 Last Admin: 05/23/16 09:09 Dose: 50 mg Magnesium Hydroxide (Milk Of Magnesia) 30 ml PO HS PRN PRN Reason: Constipation Stop: 07/02/16 21:43 Ondansetron HCl (Zofran Odt) 4 mg PO Q6H PRN PRN Reason: Nausea / Vomiting Stop: 07/21/16 20:25 Last Admin: 05/22/16 21:11 Dose: 4 mg Psyllium Hydrophilic Mucilloid (Metamucil) 1 pkt PO DAILY [facility] Stop: 07/03/16 08:59 Last Admin: 05/23/16 09:08 Dose: 1 pkt Quetiapine Fumarate (Seroquel) 100 mg PO HS [facility] Stop: 07/05/16 20:59 Last Admin: 05/22/16 20:27 Dose: Not Given Sodium Polystyrene Sulfonate (Kayexalate) 30 gm PO X1 ONE Stop: 05/23/16 12:22 Valproate Sodium (Depakene) 250 mg PO BID [facility] PRN Reason: Protocol Stop: 07/03/16 10:59 Last Admin: 05/23/16 09:13 Dose: 250 mg General: alert HEENT: NC/AT Neck: Supple Cardiovascular: RRR, Normal S1, Normal S2, without murmur Abdomen: soft non-tender, non-distended Extremities: clear - Procedures Procedures: Procedures Procedure Code Date ENDOSC POLYPECTOMY OF LG INTEST 45.42 07/13/07 GROUP PSYCHOTHERAPY 97598 06/03/15 GROUP PSYCHOTHERAPY GZHZZZZ 06/03/15 INDIVID PSYCHOTHERAP NEC 94.39 05/27/08 INSERT INDWELLING CATH 57.94 10/29/09 LESION REMOVAL COLONOSCOPY 46770 07/13/07 OTHER GROUP THERAPY 94.44 06/23/14 PERCUTANEOUS [ENDOSCOPIC] GASTROSTOMY [PEG] 43.11 10/10/13 RECREATIONAL THERAPY 93.81 06/24/10 Internal Medicine Assmt/Plan - Assessment Assessment: RENAL FAILURE DEHYDRATION UNCONTROLLED DIABETES - Plan Plan: ABDOMINAL US TO BE DONE MONITOR I+O FALL PRECAUTIONS CPM Nutritional Asmnt/Malnutr-PDOC - Dietary Evaluation Malnutrition Findings (Please click <Entered> for more info): Nutritional Asmnt/Malnutrition Start: 05/07/16 09: 08 Text: Status: Complete Freq: Document 05/07/16 09:08 DMITRI (Rec: 05/07/16 09:26 DMITRI [place]- FNS1) Nutritional Asmnt/Malnutrition Patient General Information Nutritional Screening Moderate Risk Screening Diagnosis Psychosis (Reason for visit) Pertinent Medical Hx/Surgical Hx Per nursing notes, DM, HTN, CVA, renal failure, dehydration, and psycho history of psychosis, alzheimer's, bipolar and dementia. Subjective Information Patient is from [facility], primarily [place] speaking. Per nursing notes, history of becoming easily agitated and physically combative. Refusing some meds and blood sugar checks. Patient lying in bed asleep at time of visit. Current Diet Order/ Nutrition Support [facility]- 60gm puree Patient / S.O Not Indicated Pertinent Medications maalox, colace, pepcid, iron, glipizide, novolog, cozaar, MOM, metamucil Pertinent Labs No labs drawn in this visit ( only accuchecks). Blood sugar 168-299. Nutritional Hx/Data Height 5 ft 6 in Height (Calculated Centimeters) 167.6 Current Weight (lbs) 133 lb Weight (Calculated Kilograms) 60.3 Weight (Calculated Grams) 72215.8 [place] Body Weight 142lb % [place] Body Weight 93 Recent Weight Change No Weight Status Approriate GI Symptoms Food Allergies No Cultural/Ethnic/Muslim Belief None indicated Usual diet at home Regular Skin Integrity/Comment: Intact, [place] 19 Current %PO Poor (25-49%) Estimated Nutritional Goals BEE in Kcals: Using Current wt Calories/Kcals/Kg 25-30 kcal/kg Kcals Calculated 4805-7789 kcal/day Protein: Using Current wt Protein g/k gm/kg Protein Calculated 60gm/day Fluid: ml 6116-3459 ml/day Nutritional Problem 2. Problem Problem Inadequate oral intake related to Etiology possible poor appetite aeb Signs/Symptoms: meeting <50% of estimated nutrient needs 1. Problem Problem Altered nutrition related lab values related to Etiology uncontrolled hyperglycemia aeb Signs/Symptoms: accuchecks 168-299 Intervention/Recommendation Recommendations by RD Increase Calorie Intake Comments 1. MD to continue to adjust insulin regimen for optimal glycemic control. 2. Encourage oral intake of meals; provide snacks to optimize nutrient intake. Assist with meals as needed. Expected Outcomes/Goals Expected Outcomes/Goals oral intake >75% of meals, glucose normalizes 80-180 Physician Parameters for PEM Body Mass Index (BMI) 19 - 24 (Normal)
--- NOTE | 2016-05-23 14:42 | Diagnostic Imaging Report ---
Portable chest x-ray HISTORY: Cough The heart size is difficult to assess with portable technique in a poor inspiration. There appears to be increased density in the left lower lobe with obscuration of the left hemidiaphragm. Consolidation and/or atelectasis cannot be excluded. Clinical correlation is needed. IMPRESSION: 1. Density left lower lobe. Consolidation and/or atelectasis cannot be excluded. Clinical correlation is needed.
[2016-05-24] MEDS: INSULIN ASPART, RECOMBINANT 100 UNITS/ML SUBQ SCH ×4 (06:40→20:58)
[2016-05-24] MEDS ORDERED: Fleet Enema 135 mL RC PRN (08:29)
--- NOTE | 2016-05-24 08:34 | Diagnostic Imaging Report ---
Abdominal ultrasound HISTORY: Pain The exam is very limited due to lack of patient cooperation, amputation, and bowel gas. Incomplete visualization of the liver. No obvious focal lesions are seen. Suboptimal delineation of the gallbladder. Questionable echogenic density in the region of the gallbladder neck. Cholelithiasis cannot be definitely excluded. The common bile duct cannot be seen. The pancreas cannot be visualized. Limited visualization of the kidneys with no obvious focal lesions or hydronephrosis. The spleen cannot clearly seen. No other obvious intra-abdominal abnormalities. IMPRESSION: 1. Extremely limited exam due to the factors noted above 2. Questionable changes in the gallbladder neck region that may be associated with cholelithiasis
[2016-05-24 08:38] LABS: % BASOPHILS 0.7 % (0.0-2.0); % EOSINOPHILS 2.5 % (0.0-5.0); % LYMPHOCYTES 26.7 % (20.0-50.0); % MONOCYTES 4.8 % (2.0-10.0); % NEUTROPHILS 65.3 % (40.0-80.0); HEMATOCRIT 30.4 % (39.0-49.0); HEMOGLOBIN 10.2 gm/dL (12.6-17.4); MEAN CELL VOLUME 86.9 fl (80-99); MEAN CORPUSCULAR HEMOGLOBIN 29.3 pg (27.0-31.0); MEAN CORPUSCULAR HGB CONC 33.7 pg (28.0-36.0); MEAN PLATELET VOLUME 8.9 fl; NEUTROPHILE ABSOLUTE 5.8 Th/cmm (1.8-8.0); PLATELET COUNT 313 Th/cmm (150-400); RED BLOOD COUNT 3.49 Mil/cmm (3.80-5.80); RED CELL DISTRIBUTION WIDTH 14.4 % (11.5-20.0)
--- NOTE | 2016-05-24 08:40 | Progress Notes ---
Case was discussed with staff of the patient, reviewed records. The patient apparently has been impacted. He has abdominal pain. KUB showed a fecal impaction and distended small bowel ____ rectum the medical doctor is taking care of it and also working on placement for this patient. He is demented, confused, and continues to have poor insight, unpredictable, impulsive, needing redirection. Sleeping is disturbed because of his pain, and the staff has to feed him, and we will continue to work with the patient in group therapy, milieu therapy, and adjust medication as needed. JOB# [id number]
[2016-05-24 08:43] LABS: WHITE BLOOD COUNT 8.9 Th/cmm (4.8-10.8)
[2016-05-24 08:55] LABS: ANION GAP 3.9 (7.0-16.0); BUN - UREA NITROGEN 69 mg/dL (7-25); BUN/CREATININE RATIO 34.5; CALCIUM SERUM 9.5 mg/dL (8.6-10.3); CARBON DIOXIDE 30.6 mEq/L (21.0-31.0); CHLORIDE 106 mEq/L (98-107); GLUCOSE 258 mg/dL (70-105); POTASSIUM SERUM 4.5 mEq/L (3.5-5.1); SODIUM SERUM 136 mEq/L (136-145)
[2016-05-24] MEDS: Ferrous Sulfate 300 MG/5 ML UDC PO SCH ×2 (09:11→16:30)
[2016-05-24] MEDS: Multivitamin w/ Minerals Tab PO SCH (09:12)
--- NOTE | 2016-05-24 12:50 | Internal Medicine Prog Note ---
Internal Medicine Subjective - Subjective Patient seen and examined:: with staff, chart reviewed Patient is:: asleep, non-verbal, non-interactive Per staff patient is:: no adverse event, noncompliant, confused Internal Medicine Objective - Results Result Diagrams: 05/24/16 08:15 05/24/16 08:15 Recent Labs: Laboratory Last Values WBC 8.9 Th/cmm (4.8-10.8) D 05/24/16 08:15 RBC 3.49 Mil/cmm (3.80-5.80) L 05/24/16 08:15 Hgb 10.2 gm/dL (12.6-17.4) L 05/24/16 08:15 Hct 30.4 % (39.0-49.0) L 05/24/16 08:15 MCV 86.9 fl (80-99) 05/24/16 08:15 MCH 29.3 pg (27.0-31.0) 05/24/16 08:15 MCHC Differential 33.7 pg (28.0-36.0) 05/24/16 08:15 RDW 14.4 % (11.5-20.0) 05/24/16 08:15 Plt Count 313 Th/cmm (150-400) 05/24/16 08:15 MPV 8.9 fl 05/24/16 08:15 Neutrophils % 65.3 % (40.0-80.0) 05/24/16 08:15 Lymphocytes % 26.7 % (20.0-50.0) 05/24/16 08:15 Monocytes % 4.8 % (2.0-10.0) 05/24/16 08:15 Eosinophils % 2.5 % (0.0-5.0) 05/24/16 08:15 Basophils % 0.7 % (0.0-2.0) 05/24/16 08:15 Sodium 136 mEq/L (136-145) 05/24/16 08:15 Potassium 4.5 mEq/L (3.5-5.1) 05/24/16 08:15 Chloride 106 mEq/L (98-107) 05/24/16 08:15 Carbon Dioxide 30.6 mEq/L (21.0-31.0) 05/24/16 08:15 Anion Gap 3.9 (7.0-16.0) L 05/24/16 08:15 BUN 69 mg/dL (7-25) H 05/24/16 08:15 Creatinine 2.0 mg/dL (0.7-1.3) H 05/24/16 08:15 Est GFR ( Amer) TNP 05/24/16 08:15 Est GFR (Non-Af Amer) TNP 05/24/16 08:15 BUN/Creatinine Ratio 34.5 05/24/16 08:15 Glucose 258 mg/dL (70-105) H 05/24/16 08:15 POC Glucose 291 MG/DL (70 - 105) H 05/24/16 11:15 Calcium 9.5 mg/dL (8.6-10.3) 05/24/16 08:15 Total Bilirubin 0.3 mg/dL (0.3-1.0) 05/23/16 07:45 AST 34 U/L (13-39) 05/23/16 07:45 ALT 37 U/L (7-52) 05/23/16 07:45 Alkaline Phosphatase 140 U/L (34-104) H 05/23/16 07:45 Total Protein 6.9 gm/dL (6.0-8.3) 05/23/16 07:45 Albumin 3.3 gm/dL (4.2-5.5) L 05/23/16 07:45 Globulin 3.6 gm/dL 05/23/16 07:45 Albumin/Globulin Ratio 0.9 (1.0-1.8) L 05/23/16 07:45 Lipase 16 U/L (11-82) 05/23/16 07:45 Valproic Acid < 10.0 ug/mL (50.0-100.0) L 05/23/16 07:45 - Physical Exam Vitals and I&O: Vital Signs Temp 98.2 F 05/24/16 06:39 Pulse 70 05/24/16 11:32 Resp 18 05/24/16 11:32 BP 123/67 05/24/16 09:13 Pulse Ox 95 05/24/16 07:00 Intake & Output 05/23/16 05/24/16 05/24/16 18:59 06:59 18:59 Intake Total 120 Balance 120 Intake: Oral 120 Other: # Voids 2 2 # Bowel Movements 0 0 Stool Characteristics Soft Formed Green Active Medications: Current Medications Acetaminophen (Tylenol) 650 mg PO Q4HR PRN PRN Reason: Pain (Mild) Stop: 07/02/16 21:43 Al Hydrox/Mg Hydrox/Simethicone (Maalox) 30 ml PO Q4HR PRN PRN Reason: GI DISTRESS Stop: 07/02/16 21:43 Albuterol/Ipratropium (Duoneb Neb) 3 ml HHN Q4HRT PRN PRN Reason: Wheezing Stop: 07/21/16 08:04 Last Admin: 05/22/16 11:16 Dose: 3 ml Bisacodyl (Dulcolax 10 Mg Supp) 10 mg RC DAILY PRN PRN Reason: Constipation Stop: 07/23/16 08:28 Carbidopa/Levodopa (Sinemet 25mg-100 Mg) 1 tab PO TIDWM [facility] Stop: 07/03/16 07:59 Last Admin: 05/24/16 12:12 Dose: 1 tab Docusate Sodium (Colace) 250 mg PO BID [facility] Stop: 07/22/16 12:44 Last Admin: 05/24/16 09:15 Dose: 250 mg Donepezil HCl (Aricept) 10 mg PO DAILY [facility] Stop: 07/03/16 08:59 Last Admin: 05/24/16 09:14 Dose: 10 mg Famotidine (Pepcid) 20 mg PO BID [facility] Stop: 07/03/16 08:59 Last Admin: 05/24/16 09:14 Dose: 20 mg Ferrous Sulfate (Iron) 325 mg PO BID [facility] Stop: 07/03/16 08:59 Last Admin: 05/24/16 09:11 Dose: 325 mg Glipizide (Glucotrol) 5 mg PO BIDAC [facility] Stop: 07/03/16 07:29 Last Admin: 05/24/16 06:39 Dose: 5 mg Insulin Aspart (Novolog) 0 units SUBQ ACHS [facility] PRN Reason: Protocol Stop: 07/03/16 07:29 Last Admin: 05/24/16 11:19 Dose: 4 units Losartan Potassium (Cozaar) 50 mg PO DAILY [facility] Stop: 07/03/16 08:59 Last Admin: 05/24/16 09:13 Dose: 50 mg Magnesium Hydroxide (Milk Of Magnesia) 30 ml PO HS PRN PRN Reason: Constipation Stop: 07/02/16 21:43 Ondansetron HCl (Zofran Odt) 4 mg PO Q6H PRN PRN Reason: Nausea / Vomiting Stop: 07/21/16 20:25 Last Admin: 05/22/16 21:11 Dose: 4 mg Psyllium Hydrophilic Mucilloid (Metamucil) 1 pkt PO DAILY [facility] Stop: 07/03/16 08:59 Last Admin: 05/24/16 09:12 Dose: 1 pkt Quetiapine Fumarate (Seroquel) 100 mg PO HS [facility] Stop: 07/05/16 20:59 Last Admin: 05/23/16 20:38 Dose: 100 mg Sodium Phosphate (Fleet Enema) 135 ml RC PRN PRN PRN Reason: Constipation Stop: 07/23/16 08:28 Last Admin: 05/24/16 10:00 Dose: 135 ml Valproate Sodium (Depakene) 250 mg PO BID [facility] PRN Reason: Protocol Stop: 07/03/16 10:59 Last Admin: 05/24/16 09:12 Dose: 250 mg General: weak, demented HEENT: NC/AT, PERRLA Neck: Supple, No JVD Lungs: CTAB Cardiovascular: RRR, Normal S1, Normal S2 Abdomen: soft non-tender, globular Extremities: excoriation, contracture Neurological: disorganized, unable to follow command - Procedures Procedures: Procedures Procedure Code Date ENDOSC POLYPECTOMY OF LG INTEST 45.42 07/13/07 GROUP PSYCHOTHERAPY 80441 06/03/15 GROUP PSYCHOTHERAPY GZHZZZZ 06/03/15 INDIVID PSYCHOTHERAP NEC 94.39 05/27/08 INSERT INDWELLING CATH 57.94 10/29/09 LESION REMOVAL COLONOSCOPY 31145 07/13/07 OTHER GROUP THERAPY 94.44 06/23/14 PERCUTANEOUS [ENDOSCOPIC] GASTROSTOMY [PEG] 43.11 10/10/13 RECREATIONAL THERAPY 93.81 06/24/10 Internal Medicine Assmt/Plan - Assessment Assessment: ch RENAL FAILURE DEHYDRATION UNCONTROLLED DIABETES dementia gait instability poor po intake lung consolidation - Plan Plan: cont on ada iss cont on oral dm meds dw rn continue w present care laxative addded, will review cxr Nutritional Asmnt/Malnutr-PDOC - Dietary Evaluation Malnutrition Findings (Please click <Entered> for more info): Nutritional Asmnt/Malnutrition Start: 05/07/16 09: 08 Text: Status: Complete Freq: Document 05/07/16 09:08 JULIAHA (Rec: 05/07/16 09:26 JULIAHA RUTHERFORD- FNS1) Nutritional Asmnt/Malnutrition Patient General Information Nutritional Screening Moderate Risk Screening Diagnosis Psychosis (Reason for visit) Pertinent Medical Hx/Surgical Hx Per nursing notes, DM, HTN, CVA, renal failure, dehydration, and psycho history of psychosis, alzheimer's, bipolar and dementia. Subjective Information Patient is from [facility], primarily [place] speaking. Per nursing notes, history of becoming easily agitated and physically combative. Refusing some meds and blood sugar checks. Patient lying in bed asleep at time of visit. Current Diet [facility]/ [facility] Patient / S.O Not Indicated Pertinent Medications maalox, colace, pepcid, iron, glipizide, novolog, cozaar, MOM, metamucil Pertinent Labs No labs drawn in this visit ( only accuchecks). Blood sugar 168-299. Nutritional Hx/Data Height 1.68 m Height (Calculated Centimeters) 167.6 Current Weight (lbs) 60.328 kg Weight (Calculated Kilograms) 60.3 Weight (Calculated Grams) 94368.8 [place] Body Weight 142lb % [place] Body Weight 93 Recent Weight Change No Weight Status Approriate GI Symptoms Food Allergies No Cultural/Ethnic/Alevism Belief None indicated Usual diet at home Regular Skin Integrity/Comment: Intact, Barron 19 Current %PO Poor (25-49%) Estimated Nutritional Goals BEE in Kcals: Using Current wt Calories/Kcals/Kg 25-30 kcal/kg Kcals Calculated 0900-8752 kcal/day Protein: Using Current wt Protein g/k gm/kg Protein Calculated 60gm/day Fluid: ml 0014-2492 ml/day Nutritional Problem 2. Problem Problem Inadequate oral intake related to Etiology possible poor appetite aeb Signs/Symptoms: meeting <50% of estimated nutrient needs 1. Problem Problem Altered nutrition related lab values related to Etiology uncontrolled hyperglycemia aeb Signs/Symptoms: accuchecks 168-299 Intervention/Recommendation Recommendations by RD Increase Calorie Intake Comments 1. MD to continue to adjust insulin regimen for optimal glycemic control. 2. Encourage oral intake of meals; provide snacks to optimize nutrient intake. Assist with meals as needed. Expected Outcomes/Goals Expected Outcomes/Goals oral intake >75% of meals, glucose normalizes 80-180 Physician Parameters for PEM Body Mass Index (BMI) 19 - 24 (Normal)
--- NOTE | 2016-05-25 05:40 | Progress Notes ---
Case was discussed with staff of the patient, reviewed records. The patient continues ____ the same. The staff is still working on placement for this patient because apparently it has been hard to find a ____ place to go. He is sleeping well and eating well. No acting out behavior and no suicidal ideation. No homicidal ideation. No paranoia. No side effects. He also has been having trouble with his distention and fecal impaction, and the medical doctor is working on it. He has low hemoglobin. Dr. Orourke is taking care of that. His Depakote level is low; however, he is doing well on that level. He is not getting it for seizure disorders, just for behavior, and his behavior has been fine at this point, so there is no need to increase the dose. He does have low sodium level at 135 and low albumin and high alkaline phosphatase, but high blood sugar, high BUN and high creatinine. I will alert the staff to alert Dr. Orourke to ____ normal lab work and we will continue to work with the patient in group therapy, milieu therapy, and adjust medication as needed. JOB# [id number]
[2016-05-25] MEDS: INSULIN ASPART, RECOMBINANT 100 UNITS/ML SUBQ SCH ×4 (06:31→20:34)
[2016-05-25] MEDS: Ferrous Sulfate 300 MG/5 ML UDC PO SCH ×2 (09:55→17:36)
[2016-05-25] MEDS: Multivitamin w/ Minerals Tab PO SCH (09:57)
--- NOTE | 2016-05-25 13:34 | Internal Medicine Prog Note ---
Internal Medicine Subjective - Subjective Service Date: 05/25/16 (patient had a BM this morning, no nausea/vomiting/ abdominal pain) Patient seen and examined:: with staff Patient is:: awake Internal Medicine Objective - Results Result Diagrams: 05/24/16 08:15 05/24/16 08:15 Recent Labs: Laboratory Last Values WBC 8.9 Th/cmm (4.8-10.8) D 05/24/16 08:15 RBC 3.49 Mil/cmm (3.80-5.80) L 05/24/16 08:15 Hgb 10.2 gm/dL (12.6-17.4) L 05/24/16 08:15 Hct 30.4 % (39.0-49.0) L 05/24/16 08:15 MCV 86.9 fl (80-99) 05/24/16 08:15 MCH 29.3 pg (27.0-31.0) 05/24/16 08:15 MCHC Differential 33.7 pg (28.0-36.0) 05/24/16 08:15 RDW 14.4 % (11.5-20.0) 05/24/16 08:15 Plt Count 313 Th/cmm (150-400) 05/24/16 08:15 MPV 8.9 fl 05/24/16 08:15 Neutrophils % 65.3 % (40.0-80.0) 05/24/16 08:15 Lymphocytes % 26.7 % (20.0-50.0) 05/24/16 08:15 Monocytes % 4.8 % (2.0-10.0) 05/24/16 08:15 Eosinophils % 2.5 % (0.0-5.0) 05/24/16 08:15 Basophils % 0.7 % (0.0-2.0) 05/24/16 08:15 Sodium 136 mEq/L (136-145) 05/24/16 08:15 Potassium 4.5 mEq/L (3.5-5.1) 05/24/16 08:15 Chloride 106 mEq/L (98-107) 05/24/16 08:15 Carbon Dioxide 30.6 mEq/L (21.0-31.0) 05/24/16 08:15 Anion Gap 3.9 (7.0-16.0) L 05/24/16 08:15 BUN 69 mg/dL (7-25) H 05/24/16 08:15 Creatinine 2.0 mg/dL (0.7-1.3) H 05/24/16 08:15 Est GFR ( Amer) TNP 05/24/16 08:15 Est GFR (Non-Af Amer) TNP 05/24/16 08:15 BUN/Creatinine Ratio 34.5 05/24/16 08:15 Glucose 258 mg/dL (70-105) H 05/24/16 08:15 POC Glucose 338 MG/DL (70 - 105) H 05/25/16 11:16 Calcium 9.5 mg/dL (8.6-10.3) 05/24/16 08:15 Total Bilirubin 0.3 mg/dL (0.3-1.0) 05/23/16 07:45 AST 34 U/L (13-39) 05/23/16 07:45 ALT 37 U/L (7-52) 05/23/16 07:45 Alkaline Phosphatase 140 U/L (34-104) H 05/23/16 07:45 Total Protein 6.9 gm/dL (6.0-8.3) 05/23/16 07:45 Albumin 3.3 gm/dL (4.2-5.5) L 05/23/16 07:45 Globulin 3.6 gm/dL 05/23/16 07:45 Albumin/Globulin Ratio 0.9 (1.0-1.8) L 05/23/16 07:45 Lipase 16 U/L (11-82) 05/23/16 07:45 Valproic Acid < 10.0 ug/mL (50.0-100.0) L 05/23/16 07:45 - Physical Exam Vitals and I&O: Vital Signs Temp 97.6 F 05/25/16 06:49 Pulse 75 05/25/16 09:56 Resp 19 05/25/16 06:49 BP 126/55 05/25/16 09:56 Pulse Ox 99 05/25/16 06:49 Intake & Output 05/24/16 05/25/16 05/25/16 18:59 06:59 18:59 Intake Total 2180 120 Output Total 4 Balance 2176 120 Intake: Oral 2180 120 Output: Urine/Stool Mix 4 Other: # Voids 4 3 # Bowel Movements 4 0 Stool Characteristics Soft Formed Green Active Medications: Current Medications Acetaminophen (Tylenol) 650 mg PO Q4HR PRN PRN Reason: Pain (Mild) Stop: 07/02/16 21:43 Al Hydrox/Mg Hydrox/Simethicone (Maalox) 30 ml PO Q4HR PRN PRN Reason: GI DISTRESS Stop: 07/02/16 21:43 Albuterol/Ipratropium (Duoneb Neb) 3 ml HHN Q4HRT PRN PRN Reason: Wheezing Stop: 07/21/16 08:04 Last Admin: 05/22/16 11:16 Dose: 3 ml Bisacodyl (Dulcolax 10 Mg Supp) 10 mg RC DAILY PRN PRN Reason: Constipation Stop: 07/23/16 08:28 Carbidopa/Levodopa (Sinemet 25mg-100 Mg) 1 tab PO TIDWM [facility] Stop: 07/03/16 07:59 Last Admin: 05/25/16 09:56 Dose: 1 tab Docusate Sodium (Colace) 250 mg PO BID [facility] Stop: 07/22/16 12:44 Last Admin: 05/25/16 09:56 Dose: 250 mg Donepezil HCl (Aricept) 10 mg PO DAILY [facility] Stop: 07/03/16 08:59 Last Admin: 05/25/16 09:55 Dose: 10 mg Famotidine (Pepcid) 20 mg PO BID [facility] Stop: 07/03/16 08:59 Last Admin: 05/25/16 09:56 Dose: 20 mg Ferrous Sulfate (Iron) 325 mg PO BID [facility] Stop: 07/03/16 08:59 Last Admin: 05/25/16 09:55 Dose: 325 mg Glipizide (Glucotrol) 5 mg PO BIDAC [facility] Stop: 07/03/16 07:29 Last Admin: 05/25/16 06:31 Dose: 5 mg Insulin Aspart (Novolog) 0 units SUBQ ACHS [facility] PRN Reason: Protocol Stop: 07/03/16 07:29 Last Admin: 05/25/16 06:31 Dose: Not Given Losartan Potassium (Cozaar) 50 mg PO DAILY [facility] Stop: 07/03/16 08:59 Last Admin: 05/25/16 09:56 Dose: 50 mg Magnesium Hydroxide (Milk Of Magnesia) 30 ml PO HS PRN PRN Reason: Constipation Stop: 07/02/16 21:43 Ondansetron HCl (Zofran Odt) 4 mg PO Q6H PRN PRN Reason: Nausea / Vomiting Stop: 07/21/16 20:25 Last Admin: 05/22/16 21:11 Dose: 4 mg Psyllium Hydrophilic Mucilloid (Metamucil) 1 pkt PO DAILY [facility] Stop: 07/03/16 08:59 Last Admin: 05/25/16 09:57 Dose: 1 pkt Quetiapine Fumarate (Seroquel) 100 mg PO HS [facility] Stop: 07/05/16 20:59 Last Admin: 05/24/16 20:44 Dose: 100 mg Sodium Phosphate (Fleet Enema) 135 ml RC PRN PRN PRN Reason: Constipation Stop: 07/23/16 08:28 Last Admin: 05/24/16 10:00 Dose: 135 ml Valproate Sodium (Depakene) 250 mg PO BID [facility] PRN Reason: Protocol Stop: 07/03/16 10:59 Last Admin: 05/25/16 09:58 Dose: 250 mg - Procedures Procedures: Procedures Procedure Code Date ENDOSC POLYPECTOMY OF LG INTEST 45.42 07/13/07 GROUP PSYCHOTHERAPY 39654 06/03/15 GROUP PSYCHOTHERAPY GZHZZZZ 06/03/15 INDIVID PSYCHOTHERAP NEC 94.39 05/27/08 INSERT INDWELLING CATH 57.94 10/29/09 LESION REMOVAL COLONOSCOPY 68205 07/13/07 OTHER GROUP THERAPY 94.44 06/23/14 PERCUTANEOUS [ENDOSCOPIC] GASTROSTOMY [PEG] 43.11 10/10/13 RECREATIONAL THERAPY 93.81 06/24/10 Internal Medicine Assmt/Plan - Assessment Assessment: Chronic RENAL FAILURE UNCONTROLLED DIABETES dementia gait instability poor po intake lung consolidation - Plan Plan: f/u bmp in am encourage fluids monitor glucose FALL PRECAUTIONS CPM Nutritional Asmnt/Malnutr-PDOC - Dietary Evaluation Malnutrition Findings (Please click <Entered> for more info): Nutritional Asmnt/Malnutrition Start: 05/07/16 09: 08 Text: Status: Complete Freq: Document 05/07/16 09:08 DMITRI (Rec: 05/07/16 09:26 MMULHA RUTHERFORD- FNS1) Nutritional Asmnt/Malnutrition Patient General Information Nutritional Screening Moderate Risk Screening Diagnosis Psychosis (Reason for visit) Pertinent Medical Hx/Surgical Hx Per nursing notes, DM, HTN, CVA, renal failure, dehydration, and psycho history of psychosis, alzheimer's, bipolar and dementia. Subjective Information Patient is from [facility], primarily [place] speaking. Per nursing notes, history of becoming easily agitated and physically combative. Refusing some meds and blood sugar checks. Patient lying in bed asleep at time of visit. Current Diet [facility]/ [facility] Patient / S.O Not Indicated Pertinent Medications maalox, colace, pepcid, iron, glipizide, novolog, cozaar, MOM, metamucil Pertinent Labs No labs drawn in this visit ( only accuchecks). Blood sugar 168-299. Nutritional Hx/Data Height 5 ft 6 in Height (Calculated Centimeters) 167.6 Current Weight (lbs) 133 lb Weight (Calculated Kilograms) 60.3 Weight (Calculated Grams) 36836.8 [place] Body Weight 142lb % [place] Body Weight 93 Recent Weight Change No Weight Status Approriate GI Symptoms Food Allergies No Cultural/Ethnic/Denominational Belief None indicated Usual diet at home Regular Skin Integrity/Comment: Intact, Barron 19 Current %PO Poor (25-49%) Estimated Nutritional Goals BEE in Kcals: Using Current wt Calories/Kcals/Kg 25-30 kcal/kg Kcals Calculated 9510-4948 kcal/day Protein: Using Current wt Protein g/k gm/kg Protein Calculated 60gm/day Fluid: ml 0454-9609 ml/day Nutritional Problem 2. Problem Problem Inadequate oral intake related to Etiology possible poor appetite aeb Signs/Symptoms: meeting <50% of estimated nutrient needs 1. Problem Problem Altered nutrition related lab values related to Etiology uncontrolled hyperglycemia aeb Signs/Symptoms: accuchecks 168-299 Intervention/Recommendation Recommendations by RD Increase Calorie Intake Comments 1. MD to continue to adjust insulin regimen for optimal glycemic control. 2. Encourage oral intake of meals; provide snacks to optimize nutrient intake. Assist with meals as needed. Expected Outcomes/Goals Expected Outcomes/Goals oral intake >75% of meals, glucose normalizes 80-180 Physician Parameters for PEM Body Mass Index (BMI) 19 - 24 (Normal)
--- NOTE | 2016-05-26 02:21 | Progress Notes ---
Case was discussed with staff of the patient, reviewed records. The patient is not acting out in anyway dangerous. He continues to isolate himself. He is sleeping better. He is fed by the staff. He has been at times declining his medication, but in general, he is stable and can be going to a lesser level of care. No side effects with the medication, no sedation, no nausea, no extrapyramidal symptoms and working on placement for this patient. We will continue patient in group therapy, milieu therapy and adjust medications ____. JOB# [id number]
[2016-05-26] MEDS: INSULIN ASPART, RECOMBINANT 100 UNITS/ML SUBQ SCH ×4 (06:51→20:59)
[2016-05-26 08:40] LABS: ANION GAP 7.4 (7.0-16.0); BUN - UREA NITROGEN 62 mg/dL (7-25); BUN/CREATININE RATIO 41.3; CALCIUM SERUM 9.5 mg/dL (8.6-10.3); CARBON DIOXIDE 29.6 mEq/L (21.0-31.0); CHLORIDE 106 mEq/L (98-107); CREATININE - SERUM 1.5 mg/dL (0.7-1.3); GLUCOSE 224 mg/dL (70-105); SODIUM SERUM 138 mEq/L (136-145)
[2016-05-26] MEDS: Multivitamin w/ Minerals Tab PO SCH (09:44)
[2016-05-26] MEDS: Ferrous Sulfate 300 MG/5 ML UDC PO SCH ×2 (09:44→17:12)
--- NOTE | 2016-05-26 13:35 | Internal Medicine Prog Note ---
Internal Medicine Subjective - Subjective Patient seen and examined:: with staff, chart reviewed Patient is:: awake, non-verbal, non-interactive Per staff patient is:: no adverse event, noncompliant, confused Internal Medicine Objective - Results Result Diagrams: 05/24/16 08:15 05/26/16 08:00 Recent Labs: Laboratory Last Values WBC 8.9 Th/cmm (4.8-10.8) D 05/24/16 08:15 RBC 3.49 Mil/cmm (3.80-5.80) L 05/24/16 08:15 Hgb 10.2 gm/dL (12.6-17.4) L 05/24/16 08:15 Hct 30.4 % (39.0-49.0) L 05/24/16 08:15 MCV 86.9 fl (80-99) 05/24/16 08:15 MCH 29.3 pg (27.0-31.0) 05/24/16 08:15 MCHC Differential 33.7 pg (28.0-36.0) 05/24/16 08:15 RDW 14.4 % (11.5-20.0) 05/24/16 08:15 Plt Count 313 Th/cmm (150-400) 05/24/16 08:15 MPV 8.9 fl 05/24/16 08:15 Neutrophils % 65.3 % (40.0-80.0) 05/24/16 08:15 Lymphocytes % 26.7 % (20.0-50.0) 05/24/16 08:15 Monocytes % 4.8 % (2.0-10.0) 05/24/16 08:15 Eosinophils % 2.5 % (0.0-5.0) 05/24/16 08:15 Basophils % 0.7 % (0.0-2.0) 05/24/16 08:15 Sodium 138 mEq/L (136-145) 05/26/16 08:00 Potassium 5.0 mEq/L (3.5-5.1) 05/26/16 08:00 Chloride 106 mEq/L (98-107) 05/26/16 08:00 Carbon Dioxide 29.6 mEq/L (21.0-31.0) 05/26/16 08:00 Anion Gap 7.4 (7.0-16.0) 05/26/16 08:00 BUN 62 mg/dL (7-25) H 05/26/16 08:00 Creatinine 1.5 mg/dL (0.7-1.3) H 05/26/16 08:00 Est GFR ( Amer) TNP 05/26/16 08:00 Est GFR (Non-Af Amer) TNP 05/26/16 08:00 BUN/Creatinine Ratio 41.3 05/26/16 08:00 Glucose 224 mg/dL (70-105) H 05/26/16 08:00 POC Glucose 311 MG/DL (70 - 105) H 05/25/16 20:22 Calcium 9.5 mg/dL (8.6-10.3) 05/26/16 08:00 Total Bilirubin 0.3 mg/dL (0.3-1.0) 05/23/16 07:45 AST 34 U/L (13-39) 05/23/16 07:45 ALT 37 U/L (7-52) 05/23/16 07:45 Alkaline Phosphatase 140 U/L (34-104) H 05/23/16 07:45 Total Protein 6.9 gm/dL (6.0-8.3) 05/23/16 07:45 Albumin 3.3 gm/dL (4.2-5.5) L 05/23/16 07:45 Globulin 3.6 gm/dL 05/23/16 07:45 Albumin/Globulin Ratio 0.9 (1.0-1.8) L 05/23/16 07:45 Lipase 16 U/L (11-82) 05/23/16 07:45 Valproic Acid < 10.0 ug/mL (50.0-100.0) L 05/23/16 07:45 - Physical Exam Vitals and I&O: Vital Signs Temp 97.8 F 05/25/16 14:00 Pulse 68 05/26/16 13:17 Resp 18 05/25/16 19:39 BP 147/58 05/26/16 13:17 Pulse Ox 98 05/25/16 19:39 Intake & Output 05/25/16 05/26/16 05/26/16 18:59 06:59 18:59 Intake Total 960 120 Balance 960 120 Weight (lbs) 56.427 kg Intake: Oral 960 120 Other: # Voids 3 3 # Bowel Movements 0 Active Medications: Current Medications Acetaminophen (Tylenol) 650 mg PO Q4HR PRN PRN Reason: Pain (Mild) Stop: 07/02/16 21:43 Al Hydrox/Mg Hydrox/Simethicone (Maalox) 30 ml PO Q4HR PRN PRN Reason: GI DISTRESS Stop: 07/02/16 21:43 Albuterol/Ipratropium (Duoneb Neb) 3 ml HHN Q4HRT PRN PRN Reason: Wheezing Stop: 07/21/16 08:04 Last Admin: 05/22/16 11:16 Dose: 3 ml Bisacodyl (Dulcolax 10 Mg Supp) 10 mg RC DAILY PRN PRN Reason: Constipation Stop: 07/23/16 08:28 Carbidopa/Levodopa (Sinemet 25mg-100 Mg) 1 tab PO TIDWM [facility] Stop: 07/03/16 07:59 Last Admin: 05/26/16 13:14 Dose: Not Given Docusate Sodium (Colace) 250 mg PO BID [facility] Stop: 07/22/16 12:44 Last Admin: 05/26/16 09:42 Dose: 250 mg Donepezil HCl (Aricept) 10 mg PO DAILY [facility] Stop: 07/03/16 08:59 Last Admin: 05/26/16 09:43 Dose: 10 mg Famotidine (Pepcid) 20 mg PO BID [facility] Stop: 07/03/16 08:59 Last Admin: 05/26/16 09:43 Dose: 20 mg Ferrous Sulfate (Iron) 325 mg PO BID [facility] Stop: 07/03/16 08:59 Last Admin: 05/26/16 09:44 Dose: 325 mg Glipizide (Glucotrol) 5 mg PO BIDAC [facility] Stop: 07/03/16 07:29 Last Admin: 05/26/16 06:50 Dose: 5 mg Insulin Aspart (Novolog) 0 units SUBQ ACHS JASVIR PRN Reason: Protocol Stop: 07/03/16 07:29 Last Admin: 05/26/16 06:51 Dose: Not Given Losartan Potassium (Cozaar) 50 mg PO DAILY [facility] Stop: 07/03/16 08:59 Last Admin: 05/26/16 13:17 Dose: 50 mg Magnesium Hydroxide (Milk Of Magnesia) 30 ml PO HS PRN PRN Reason: Constipation Stop: 07/02/16 21:43 Ondansetron HCl (Zofran Odt) 4 mg PO Q6H PRN PRN Reason: Nausea / Vomiting Stop: 07/21/16 20:25 Last Admin: 05/22/16 21:11 Dose: 4 mg Psyllium Hydrophilic Mucilloid (Metamucil) 1 pkt PO DAILY [facility] Stop: 07/03/16 08:59 Last Admin: 05/26/16 09:44 Dose: 1 pkt Quetiapine Fumarate (Seroquel) 100 mg PO HS [facility] Stop: 07/05/16 20:59 Last Admin: 05/25/16 20:34 Dose: 100 mg Sodium Phosphate (Fleet Enema) 135 ml RC PRN PRN PRN Reason: Constipation Stop: 07/23/16 08:28 Last Admin: 05/24/16 10:00 Dose: 135 ml Valproate Sodium (Depakene) 250 mg PO BID JASVIR PRN Reason: Protocol Stop: 07/03/16 10:59 Last Admin: 05/26/16 09:45 Dose: 250 mg General: demented HEENT: NC/AT, PERRLA Neck: Supple, + trach Lungs: CTAB Cardiovascular: RRR, Normal S1, Normal S2 Abdomen: soft non-tender, globular, positive bowel sound Extremities: excoriation, contracture Neurological: disorganized, unsteady, unable to follow command - Procedures Procedures: Procedures Procedure Code Date ENDOSC POLYPECTOMY OF LG INTEST 45.42 07/13/07 GROUP PSYCHOTHERAPY 01384 06/03/15 GROUP PSYCHOTHERAPY GZHZZZZ 06/03/15 INDIVID PSYCHOTHERAP NEC 94.39 05/27/08 INSERT INDWELLING CATH 57.94 10/29/09 LESION REMOVAL COLONOSCOPY 36770 07/13/07 OTHER GROUP THERAPY 94.44 06/23/14 PERCUTANEOUS [ENDOSCOPIC] GASTROSTOMY [PEG] 43.11 10/10/13 RECREATIONAL THERAPY 93.81 06/24/10 Internal Medicine Assmt/Plan - Assessment Assessment: ch RENAL FAILURE DEHYDRATION UNCONTROLLED DIABETES dementia gait instability poor po intake lung consolidation - Plan Plan: cont on ada iss cont on oral dm meds dw rn continue w present care laxative addded, will review cxr Nutritional Asmnt/Malnutr-PDOC - Dietary Evaluation Malnutrition Findings (Please click <Entered> for more info): Nutritional Asmnt/Malnutrition Start: 05/07/16 09: 08 Text: Status: Complete Freq: Document 05/07/16 09:08 JULIAJenna (Rec: 05/07/16 09:26 DMITRI SANGEETA- [email or web address]) Nutritional Asmnt/Malnutrition Patient General Information Nutritional Screening Moderate Risk Screening Diagnosis Psychosis (Reason for visit) Pertinent Medical Hx/Surgical Hx Per nursing notes, DM, HTN, CVA, renal failure, dehydration, and psycho history of psychosis, alzheimer's, bipolar and dementia. Subjective Information Patient is from [facility], primarily [place] speaking. Per nursing notes, history of becoming easily agitated and physically combative. Refusing some meds and blood sugar checks. Patient lying in bed asleep at time of visit. Current Diet [facility]/ [facility] / S.O Not Indicated Pertinent Medications maalox, colace, pepcid, iron, glipizide, novolog, cozaar, MOM, metamucil Pertinent Labs No labs drawn in this visit ( only accuchecks). Blood sugar 168-299. Nutritional Hx/Data Height 1.68 m Height (Calculated Centimeters) 167.6 Current Weight (lbs) 60.328 kg Weight (Calculated Kilograms) 60.3 Weight (Calculated Grams) 88346.8 [place] Body Weight 142lb % [place] Body Weight 93 Recent Weight Change No Weight Status Approriate GI Symptoms Food Allergies No Cultural/Ethnic/Congregation Belief None indicated Usual diet at home Regular Skin Integrity/Comment: Intact, [place] 19 Current %PO Poor (25-49%) Estimated Nutritional Goals BEE in Kcals: Using Current wt Calories/Kcals/Kg 25-30 kcal/kg Kcals Calculated 4909-1161 kcal/day Protein: Using Current wt Protein g/k gm/kg Protein Calculated 60gm/day Fluid: ml 7790-1272 ml/day Nutritional Problem 2. Problem Problem Inadequate oral intake related to Etiology possible poor appetite aeb Signs/Symptoms: meeting <50% of estimated nutrient needs 1. Problem Problem Altered nutrition related lab values related to Etiology uncontrolled hyperglycemia aeb Signs/Symptoms: accuchecks 168-299 Intervention/Recommendation Recommendations by RD Increase Calorie Intake Comments 1. MD to continue to adjust insulin regimen for optimal glycemic control. 2. Encourage oral intake of meals; provide snacks to optimize nutrient intake. Assist with meals as needed. Expected Outcomes/Goals Expected Outcomes/Goals oral intake >75% of meals, glucose normalizes 80-180 Physician Parameters for PEM Body Mass Index (BMI) 19 - 24 (Normal)
--- NOTE | 2016-05-27 00:01 | Progress Notes ---
Case was discussed with staff of the patient, reviewed records. The patient continues to wait a placement. He is sleeping well, eating well. He ____ with agitation, but he is needed to redirect. He has been compliant with the medication with no side effects. No sedation, no nausea and no extrapyramidal symptoms. I will continue outpatient group therapy, milieu therapy and adjust medication ____. JOB# [id number]
[2016-05-27] MEDS: INSULIN ASPART, RECOMBINANT 100 UNITS/ML SUBQ SCH ×4 (06:43→20:49)
[2016-05-27] MEDS: Ferrous Sulfate 300 MG/5 ML UDC PO SCH ×3 (08:23→16:42)
[2016-05-27] MEDS: Multivitamin w/ Minerals Tab PO SCH (08:24)
--- NOTE | 2016-05-27 17:11 | Internal Medicine Prog Note ---
Internal Medicine Subjective - Subjective Service Date: 05/27/16 Patient seen and examined:: with staff Patient is:: awake Per staff patient is:: no adverse event Internal Medicine Objective - Results Result Diagrams: 05/24/16 08:15 05/26/16 08:00 Recent Labs: Laboratory Last Values WBC 8.9 Th/cmm (4.8-10.8) D 05/24/16 08:15 RBC 3.49 Mil/cmm (3.80-5.80) L 05/24/16 08:15 Hgb 10.2 gm/dL (12.6-17.4) L 05/24/16 08:15 Hct 30.4 % (39.0-49.0) L 05/24/16 08:15 MCV 86.9 fl (80-99) 05/24/16 08:15 MCH 29.3 pg (27.0-31.0) 05/24/16 08:15 MCHC Differential 33.7 pg (28.0-36.0) 05/24/16 08:15 RDW 14.4 % (11.5-20.0) 05/24/16 08:15 Plt Count 313 Th/cmm (150-400) 05/24/16 08:15 MPV 8.9 fl 05/24/16 08:15 Neutrophils % 65.3 % (40.0-80.0) 05/24/16 08:15 Lymphocytes % 26.7 % (20.0-50.0) 05/24/16 08:15 Monocytes % 4.8 % (2.0-10.0) 05/24/16 08:15 Eosinophils % 2.5 % (0.0-5.0) 05/24/16 08:15 Basophils % 0.7 % (0.0-2.0) 05/24/16 08:15 Sodium 138 mEq/L (136-145) 05/26/16 08:00 Potassium 5.0 mEq/L (3.5-5.1) 05/26/16 08:00 Chloride 106 mEq/L (98-107) 05/26/16 08:00 Carbon Dioxide 29.6 mEq/L (21.0-31.0) 05/26/16 08:00 Anion Gap 7.4 (7.0-16.0) 05/26/16 08:00 BUN 62 mg/dL (7-25) H 05/26/16 08:00 Creatinine 1.5 mg/dL (0.7-1.3) H 05/26/16 08:00 Est GFR ( Amer) TNP 05/26/16 08:00 Est GFR (Non-Af Amer) TNP 05/26/16 08:00 BUN/Creatinine Ratio 41.3 05/26/16 08:00 Glucose 224 mg/dL (70-105) H 05/26/16 08:00 POC Glucose 201 MG/DL (70 - 105) H 05/27/16 16:18 Calcium 9.5 mg/dL (8.6-10.3) 05/26/16 08:00 Total Bilirubin 0.3 mg/dL (0.3-1.0) 05/23/16 07:45 AST 34 U/L (13-39) 05/23/16 07:45 ALT 37 U/L (7-52) 05/23/16 07:45 Alkaline Phosphatase 140 U/L (34-104) H 05/23/16 07:45 Total Protein 6.9 gm/dL (6.0-8.3) 05/23/16 07:45 Albumin 3.3 gm/dL (4.2-5.5) L 05/23/16 07:45 Globulin 3.6 gm/dL 05/23/16 07:45 Albumin/Globulin Ratio 0.9 (1.0-1.8) L 05/23/16 07:45 Lipase 16 U/L (11-82) 05/23/16 07:45 Valproic Acid < 10.0 ug/mL (50.0-100.0) L 05/23/16 07:45 - Physical Exam Vitals and I&O: Vital Signs Temp 97.6 F 05/27/16 06:38 Pulse 60 05/27/16 09:10 Resp 18 05/27/16 09:10 BP 139/70 05/27/16 08:22 Pulse Ox 96 05/27/16 09:10 Intake & Output 05/26/16 05/27/16 05/27/16 18:59 06:59 18:59 Intake Total 700 120 Balance 700 120 Weight (lbs) 124 lb 9.6 oz Intake: Oral 700 120 Other: # Voids 3 3 # Bowel Movements 1 Active Medications: Current Medications Acetaminophen (Tylenol) 650 mg PO Q4HR PRN PRN Reason: Pain (Mild) Stop: 07/02/16 21:43 Al Hydrox/Mg Hydrox/Simethicone (Maalox) 30 ml PO Q4HR PRN PRN Reason: GI DISTRESS Stop: 07/02/16 21:43 Albuterol/Ipratropium (Duoneb Neb) 3 ml HHN Q4HRT PRN PRN Reason: Wheezing Stop: 07/21/16 08:04 Last Admin: 05/22/16 11:16 Dose: 3 ml Bisacodyl (Dulcolax 10 Mg Supp) 10 mg RC DAILY PRN PRN Reason: Constipation Stop: 07/23/16 08:28 Carbidopa/Levodopa (Sinemet 25mg-100 Mg) 1 tab PO TIDWM [facility] Stop: 07/03/16 07:59 Last Admin: 05/27/16 16:41 Dose: 1 tab Docusate Sodium (Colace) 250 mg PO BID [facility] Stop: 07/22/16 12:44 Last Admin: 05/27/16 16:42 Dose: Not Given Donepezil HCl (Aricept) 10 mg PO DAILY [facility] Stop: 07/03/16 08:59 Last Admin: 05/27/16 08:24 Dose: 10 mg Famotidine (Pepcid) 20 mg PO BID [facility] Stop: 07/03/16 08:59 Last Admin: 05/27/16 16:41 Dose: 20 mg Ferrous Sulfate (Iron) 325 mg PO BID [facility] Stop: 07/03/16 08:59 Last Admin: 05/27/16 16:42 Dose: 325 mg Glipizide (Glucotrol) 5 mg PO BIDAC [facility] Stop: 07/03/16 07:29 Last Admin: 05/27/16 16:41 Dose: 5 mg Insulin Aspart (Novolog) 0 units SUBQ ACHS JASVIR PRN Reason: Protocol Stop: 07/03/16 07:29 Last Admin: 05/27/16 16:43 Dose: 2 units Losartan Potassium (Cozaar) 50 mg PO DAILY [facility] Stop: 07/03/16 08:59 Last Admin: 05/27/16 08:22 Dose: 50 mg Magnesium Hydroxide (Milk Of Magnesia) 30 ml PO HS PRN PRN Reason: Constipation Stop: 07/02/16 21:43 Ondansetron HCl (Zofran Odt) 4 mg PO Q6H PRN PRN Reason: Nausea / Vomiting Stop: 07/21/16 20:25 Last Admin: 05/22/16 21:11 Dose: 4 mg Psyllium Hydrophilic Mucilloid (Metamucil) 1 pkt PO DAILY [facility]AS[facility] Stop: 07/03/16 08:59 Last Admin: 05/27/16 08:22 Dose: 1 pkt Quetiapine Fumarate (Seroquel) 100 mg PO HS JAS[facility]IR Stop: 07/05/16 20:59 Last Admin: 05/26/16 20:59 Dose: 100 mg Sodium Phosphate (Fleet Enema) 135 ml RC PRN PRN PRN Reason: Constipation Stop: 07/23/16 08:28 Last Admin: 05/24/16 10:00 Dose: 135 ml Valproate Sodium (Depakene) 250 mg PO BID JASVIR PRN Reason: Protocol Stop: 07/03/16 10:59 Last Admin: 05/27/16 16:42 Dose: 250 mg General: alert HEENT: NC/AT, PERRLA Neck: Supple Lungs: CTAB Cardiovascular: RRR, Normal S2, without murmur Abdomen: soft non-tender, non-distended Extremities: clear Neurological: no change - Procedures Procedures: Procedures Procedure Code Date ENDOSC POLYPECTOMY OF LG INTEST 45.42 07/13/07 GROUP PSYCHOTHERAPY 51533 06/03/15 GROUP PSYCHOTHERAPY GZHZZZZ 06/03/15 INDIVID PSYCHOTHERAP NEC 94.39 05/27/08 INSERT INDWELLING CATH 57.94 10/29/09 LESION REMOVAL COLONOSCOPY 63710 07/13/07 OTHER GROUP THERAPY 94.44 06/23/14 PERCUTANEOUS [ENDOSCOPIC] GASTROSTOMY [PEG] 43.11 10/10/13 RECREATIONAL THERAPY 93.81 06/24/10 Internal Medicine Assmt/Plan - Assessment Assessment: Chronic RENAL FAILURE UNCONTROLLED DIABETES dementia gait instability poor po intake lung consolidation - Plan Plan: f/u bmp in am encourage fluids monitor glucose FALL PRECAUTIONS CPM Nutritional Asmnt/Malnutr-PDOC - Dietary Evaluation Malnutrition Findings (Please click <Entered> for more info): Nutritional Asmnt/Malnutrition Start: 05/07/16 09: 08 Text: Status: Complete Freq: Document 05/07/16 09:08 DMITRI (Rec: 05/07/16 09:26 DMITRI SANGEETA- FNS1) Nutritional Asmnt/Malnutrition Patient General Information Nutritional Screening Moderate Risk Screening Diagnosis Psychosis (Reason for visit) Pertinent Medical Hx/Surgical Hx Per nursing notes, DM, HTN, CVA, renal failure, dehydration, and psycho history of psychosis, alzheimer's, bipolar and dementia. Subjective Information Patient is from [facility], primarily [place] speaking. Per nursing notes, history of becoming easily agitated and physically combative. Refusing some meds and blood sugar checks. Patient lying in bed asleep at time of visit. Current Diet Order/ Nutrition Support [facility]- 60gm puree Patient / S.O Not Indicated Pertinent Medications maalox, colace, pepcid, iron, glipizide, novolog, cozaar, MOM, metamucil Pertinent Labs No labs drawn in this visit ( only accuchecks). Blood sugar 168-299. Nutritional Hx/Data Height 5 ft 6 in Height (Calculated Centimeters) 167.6 Current Weight (lbs) 133 lb Weight (Calculated Kilograms) 60.3 Weight (Calculated Grams) 38698.8 [place] Body Weight 142lb % [place] Body Weight 93 Recent Weight Change No Weight Status Approriate GI Symptoms Food Allergies No Cultural/Ethnic/Congregational Belief None indicated Usual diet at home Regular Skin Integrity/Comment: IntactBarron 19 Current %PO Poor (25-49%) Estimated Nutritional Goals BEE in Kcals: Using Current wt Calories/Kcals/Kg 25-30 kcal/kg Kcals Calculated 4119-3566 kcal/day Protein: Using Current wt Protein g/k gm/kg Protein Calculated 60gm/day Fluid: ml 8959-2090 ml/day Nutritional Problem 2. Problem Problem Inadequate oral intake related to Etiology possible poor appetite aeb Signs/Symptoms: meeting <50% of estimated nutrient needs 1. Problem Problem Altered nutrition related lab values related to Etiology uncontrolled hyperglycemia aeb Signs/Symptoms: accuchecks 168-299 Intervention/Recommendation Recommendations by RD Increase Calorie Intake Comments 1. MD to continue to adjust insulin regimen for optimal glycemic control. 2. Encourage oral intake of meals; provide snacks to optimize nutrient intake. Assist with meals as needed. Expected Outcomes/Goals Expected Outcomes/Goals oral intake >75% of meals, glucose normalizes 80-180 Physician Parameters for PEM Body Mass Index (BMI) 19 - 24 (Normal)
--- NOTE | 2016-05-28 00:07 | Progress Notes ---
Case was discussed with staff of the patient, reviewed records. The patient was supposed to have been discharged yesterday; however, last minute, the staff read his chart, they decided they cannot handle him though they are poor ____ financially. The patient continues to do the same. This is his basic level of functioning where having hard time placing him and so far, he is taking medication with no side effects, no sedation, no nausea, no extrapyramidal symptoms, and we will continue to work with the patient in group therapy, milieu therapy, adjust medication as needed. JOB# [id number]
[2016-05-28] MEDS: INSULIN ASPART, RECOMBINANT 100 UNITS/ML SUBQ SCH ×4 (06:57→20:50)
[2016-05-28] MEDS: Multivitamin w/ Minerals Tab PO SCH (08:32)
[2016-05-28] MEDS: Ferrous Sulfate 300 MG/5 ML UDC PO SCH ×2 (08:33→16:18)
--- NOTE | 2016-05-28 10:05 | Internal Medicine Prog Note ---
Internal Medicine Subjective - Subjective Service Date: 05/28/16 Patient seen and examined:: with staff Patient is:: awake Per staff patient is:: no adverse event Internal Medicine Objective - Results Result Diagrams: 05/24/16 08:15 05/26/16 08:00 Recent Labs: Laboratory Last Values WBC 8.9 Th/cmm (4.8-10.8) D 05/24/16 08:15 RBC 3.49 Mil/cmm (3.80-5.80) L 05/24/16 08:15 Hgb 10.2 gm/dL (12.6-17.4) L 05/24/16 08:15 Hct 30.4 % (39.0-49.0) L 05/24/16 08:15 MCV 86.9 fl (80-99) 05/24/16 08:15 MCH 29.3 pg (27.0-31.0) 05/24/16 08:15 MCHC Differential 33.7 pg (28.0-36.0) 05/24/16 08:15 RDW 14.4 % (11.5-20.0) 05/24/16 08:15 Plt Count 313 Th/cmm (150-400) 05/24/16 08:15 MPV 8.9 fl 05/24/16 08:15 Neutrophils % 65.3 % (40.0-80.0) 05/24/16 08:15 Lymphocytes % 26.7 % (20.0-50.0) 05/24/16 08:15 Monocytes % 4.8 % (2.0-10.0) 05/24/16 08:15 Eosinophils % 2.5 % (0.0-5.0) 05/24/16 08:15 Basophils % 0.7 % (0.0-2.0) 05/24/16 08:15 Sodium 138 mEq/L (136-145) 05/26/16 08:00 Potassium 5.0 mEq/L (3.5-5.1) 05/26/16 08:00 Chloride 106 mEq/L (98-107) 05/26/16 08:00 Carbon Dioxide 29.6 mEq/L (21.0-31.0) 05/26/16 08:00 Anion Gap 7.4 (7.0-16.0) 05/26/16 08:00 BUN 62 mg/dL (7-25) H 05/26/16 08:00 Creatinine 1.5 mg/dL (0.7-1.3) H 05/26/16 08:00 Est GFR ( Amer) TNP 05/26/16 08:00 Est GFR (Non-Af Amer) TNP 05/26/16 08:00 BUN/Creatinine Ratio 41.3 05/26/16 08:00 Glucose 224 mg/dL (70-105) H 05/26/16 08:00 POC Glucose 221 MG/DL (70 - 105) H 05/28/16 06:48 Calcium 9.5 mg/dL (8.6-10.3) 05/26/16 08:00 Total Bilirubin 0.3 mg/dL (0.3-1.0) 05/23/16 07:45 AST 34 U/L (13-39) 05/23/16 07:45 ALT 37 U/L (7-52) 05/23/16 07:45 Alkaline Phosphatase 140 U/L (34-104) H 05/23/16 07:45 Total Protein 6.9 gm/dL (6.0-8.3) 05/23/16 07:45 Albumin 3.3 gm/dL (4.2-5.5) L 05/23/16 07:45 Globulin 3.6 gm/dL 05/23/16 07:45 Albumin/Globulin Ratio 0.9 (1.0-1.8) L 05/23/16 07:45 Lipase 16 U/L (11-82) 05/23/16 07:45 Valproic Acid < 10.0 ug/mL (50.0-100.0) L 05/23/16 07:45 - Physical Exam Vitals and I&O: Vital Signs Temp 98.8 F 05/27/16 14:00 Pulse 62 05/28/16 08:32 Resp 18 05/28/16 07:37 BP 133/72 05/28/16 08:32 Pulse Ox 97 05/28/16 07:36 Intake & Output 05/27/16 05/28/16 05/28/16 18:59 06:59 18:59 Intake Total 700 Balance 700 Weight (lbs) 124 lb 9.6 oz Intake: Oral 700 Other: # Voids 3 # Bowel Movements 0 Active Medications: Current Medications Acetaminophen (Tylenol) 650 mg PO Q4HR PRN PRN Reason: Pain (Mild) Stop: 07/02/16 21:43 Al Hydrox/Mg Hydrox/Simethicone (Maalox) 30 ml PO Q4HR PRN PRN Reason: GI DISTRESS Stop: 07/02/16 21:43 Albuterol/Ipratropium (Duoneb Neb) 3 ml HHN Q4HRT PRN PRN Reason: Wheezing Stop: 07/21/16 08:04 Last Admin: 05/22/16 11:16 Dose: 3 ml Bisacodyl (Dulcolax 10 Mg Supp) 10 mg RC DAILY PRN PRN Reason: Constipation Stop: 07/23/16 08:28 Carbidopa/Levodopa (Sinemet 25mg-100 Mg) 1 tab PO TIDWM [facility] Stop: 07/03/16 07:59 Last Admin: 05/28/16 08:34 Dose: 1 tab Docusate Sodium (Colace) 250 mg PO BID [facility] Stop: 07/22/16 12:44 Last Admin: 05/28/16 08:33 Dose: Not Given Donepezil HCl (Aricept) 10 mg PO DAILY [facility] Stop: 07/03/16 08:59 Last Admin: 05/28/16 08:32 Dose: 10 mg Famotidine (Pepcid) 20 mg PO BID [facility] Stop: 07/03/16 08:59 Last Admin: 05/28/16 08:32 Dose: 20 mg Ferrous Sulfate (Iron) 325 mg PO BID [facility] Stop: 07/03/16 08:59 Last Admin: 05/28/16 08:33 Dose: 325 mg Glipizide (Glucotrol) 5 mg PO BIDAC [facility] Stop: 07/03/16 07:29 Last Admin: 05/28/16 06:57 Dose: 5 mg Insulin Aspart (Novolog) 0 units SUBQ ACHS JASVIR PRN Reason: Protocol Stop: 07/03/16 07:29 Last Admin: 05/28/16 06:57 Dose: 2 units Losartan Potassium (Cozaar) 50 mg PO DAILY [facility] Stop: 07/03/16 08:59 Last Admin: 05/28/16 08:32 Dose: 50 mg Magnesium Hydroxide (Milk Of Magnesia) 30 ml PO HS PRN PRN Reason: Constipation Stop: 07/02/16 21:43 Ondansetron HCl (Zofran Odt) 4 mg PO Q6H PRN PRN Reason: Nausea / Vomiting Stop: 07/21/16 20:25 Last Admin: 05/22/16 21:11 Dose: 4 mg Psyllium Hydrophilic Mucilloid (Metamucil) 1 pkt PO DAILY [facility] Stop: 07/03/16 08:59 Last Admin: 05/28/16 08:34 Dose: Not Given Quetiapine Fumarate (Seroquel) 100 mg PO HS [facility] Stop: 07/05/16 20:59 Last Admin: 05/27/16 20:43 Dose: 100 mg Sodium Phosphate (Fleet Enema) 135 ml RC PRN PRN PRN Reason: Constipation Stop: 07/23/16 08:28 Last Admin: 05/24/16 10:00 Dose: 135 ml Valproate Sodium (Depakene) 250 mg PO BID JAS[facility]IR PRN Reason: Protocol Stop: 07/03/16 10:59 Last Admin: 05/28/16 08:32 Dose: 250 mg General: alert HEENT: NC/AT, PERRLA Neck: Supple Lungs: CTAB Cardiovascular: RRR, Normal S1, Normal S2, without murmur Abdomen: soft non-tender - Procedures Procedures: Procedures Procedure Code Date ENDOSC POLYPECTOMY OF LG INTEST 45.42 07/13/07 GROUP PSYCHOTHERAPY 59027 06/03/15 GROUP PSYCHOTHERAPY GZHZZZZ 06/03/15 INDIVID PSYCHOTHERAP NEC 94.39 05/27/08 INSERT INDWELLING CATH 57.94 10/29/09 LESION REMOVAL COLONOSCOPY 90932 07/13/07 OTHER GROUP THERAPY 94.44 06/23/14 PERCUTANEOUS [ENDOSCOPIC] GASTROSTOMY [PEG] 43.11 10/10/13 RECREATIONAL THERAPY 93.81 06/24/10 Internal Medicine Assmt/Plan - Assessment Assessment: Chronic RENAL FAILURE UNCONTROLLED DIABETES dementia gait instability poor po intake lung consolidation - Plan Plan: f/u bmp in am encourage fluids monitor glucose FALL PRECAUTIONS CPM Nutritional Asmnt/Malnutr-PDOC - Dietary Evaluation Malnutrition Findings (Please click <Entered> for more info): Nutritional Asmnt/Malnutrition Start: 05/07/16 09: 08 Text: Status: Complete Freq: Document 05/07/16 09:08 DMITRI (Rec: 05/07/16 09:26 DMITRI SANGEETA- FNS1) Nutritional Asmnt/Malnutrition Patient General Information Nutritional Screening Moderate Risk Screening Diagnosis Psychosis (Reason for visit) Pertinent Medical Hx/Surgical Hx Per nursing notes, DM, HTN, CVA, renal failure, dehydration, and psycho history of psychosis, alzheimer's, bipolar and dementia. Subjective Information Patient is from [facility], primarily Bengali speaking. Per nursing notes, history of becoming easily agitated and physically combative. Refusing some meds and blood sugar checks. Patient lying in bed asleep at time of visit. Current Diet Order/ Nutrition Support [facility]- 60gm puree Patient / S.O Not Indicated Pertinent Medications maalox, colace, pepcid, iron, glipizide, novolog, cozaar, MOM, metamucil Pertinent Labs No labs drawn in this visit ( only accuchecks). Blood sugar 168-299. Nutritional Hx/Data Height 5 ft 6 in Height (Calculated Centimeters) 167.6 Current Weight (lbs) 133 lb Weight (Calculated Kilograms) 60.3 Weight (Calculated Grams) 37027.8 [place] Body Weight 142lb % [place] Body Weight 93 Recent Weight Change No Weight Status Approriate GI Symptoms Food Allergies No Cultural/Ethnic/Episcopalian Belief None indicated Usual diet at home Regular Skin Integrity/Comment: Barron Us 19 Current %PO Poor (25-49%) Estimated Nutritional Goals BEE in Kcals: Using Current wt Calories/Kcals/Kg 25-30 kcal/kg Kcals Calculated 7023-6805 kcal/day Protein: Using Current wt Protein g/k gm/kg Protein Calculated 60gm/day Fluid: ml 1892-6894 ml/day Nutritional Problem 2. Problem Problem Inadequate oral intake related to Etiology possible poor appetite aeb Signs/Symptoms: meeting <50% of estimated nutrient needs 1. Problem Problem Altered nutrition related lab values related to Etiology uncontrolled hyperglycemia aeb Signs/Symptoms: accuchecks 168-299 Intervention/Recommendation Recommendations by RD Increase Calorie Intake Comments 1. MD to continue to adjust insulin regimen for optimal glycemic control. 2. Encourage oral intake of meals; provide snacks to optimize nutrient intake. Assist with meals as needed. Expected Outcomes/Goals Expected Outcomes/Goals oral intake >75% of meals, glucose normalizes 80-180 Physician Parameters for PEM Body Mass Index (BMI) 19 - 24 (Normal)
--- NOTE | 2016-05-29 03:58 | Progress Notes ---
The patient was seen and evaluated. The patient's chart was reviewed. SUBJECTIVE: Overnight staff member is reporting that the patient's mood has been stable and awaiting placement. Today on [id number] evaluation, the patient's family is present. The patient's ____ that the recent change in medication has helped him stabilize a lot. On [id number] evaluation ____ disorganized. Unable to ____ history due to the patient's severe dementia. MENTAL STATUS EXAMINATION: Withdrawn and depressed. ASSESSMENT AND PLAN: The patient is a 76-year-old male with a history of dementia with psychotic symptoms stabilizing with the current medication regimen. We will continue with primary psychiatric treatment plan and goals, which include Sinemet, Colace, Aricept, Pepcid, Seroquel 100 mg at nighttime and Depakote 250 twice a day. JOB# [id number]
[2016-05-29] MEDS: INSULIN ASPART, RECOMBINANT 100 UNITS/ML SUBQ SCH ×4 (07:11→20:50)
[2016-05-29] MEDS: Ferrous Sulfate 300 MG/5 ML UDC PO SCH ×2 (09:03→16:51)
[2016-05-29] MEDS: Multivitamin w/ Minerals Tab PO SCH (09:04)
--- NOTE | 2016-05-29 14:20 | Internal Medicine Prog Note ---
Internal Medicine Subjective - Subjective Service Date: 05/29/16 Patient seen and examined:: with staff Patient is:: awake Per staff patient is:: no adverse event Internal Medicine Objective - Results Result Diagrams: 05/24/16 08:15 05/26/16 08:00 Recent Labs: Laboratory Last Values WBC 8.9 Th/cmm (4.8-10.8) D 05/24/16 08:15 RBC 3.49 Mil/cmm (3.80-5.80) L 05/24/16 08:15 Hgb 10.2 gm/dL (12.6-17.4) L 05/24/16 08:15 Hct 30.4 % (39.0-49.0) L 05/24/16 08:15 MCV 86.9 fl (80-99) 05/24/16 08:15 MCH 29.3 pg (27.0-31.0) 05/24/16 08:15 MCHC Differential 33.7 pg (28.0-36.0) 05/24/16 08:15 RDW 14.4 % (11.5-20.0) 05/24/16 08:15 Plt Count 313 Th/cmm (150-400) 05/24/16 08:15 MPV 8.9 fl 05/24/16 08:15 Neutrophils % 65.3 % (40.0-80.0) 05/24/16 08:15 Lymphocytes % 26.7 % (20.0-50.0) 05/24/16 08:15 Monocytes % 4.8 % (2.0-10.0) 05/24/16 08:15 Eosinophils % 2.5 % (0.0-5.0) 05/24/16 08:15 Basophils % 0.7 % (0.0-2.0) 05/24/16 08:15 Sodium 138 mEq/L (136-145) 05/26/16 08:00 Potassium 5.0 mEq/L (3.5-5.1) 05/26/16 08:00 Chloride 106 mEq/L (98-107) 05/26/16 08:00 Carbon Dioxide 29.6 mEq/L (21.0-31.0) 05/26/16 08:00 Anion Gap 7.4 (7.0-16.0) 05/26/16 08:00 BUN 62 mg/dL (7-25) H 05/26/16 08:00 Creatinine 1.5 mg/dL (0.7-1.3) H 05/26/16 08:00 Est GFR ( Amer) TNP 05/26/16 08:00 Est GFR (Non-Af Amer) TNP 05/26/16 08:00 BUN/Creatinine Ratio 41.3 05/26/16 08:00 Glucose 224 mg/dL (70-105) H 05/26/16 08:00 POC Glucose 248 MG/DL (70 - 105) H 05/29/16 12:18 Calcium 9.5 mg/dL (8.6-10.3) 05/26/16 08:00 Total Bilirubin 0.3 mg/dL (0.3-1.0) 05/23/16 07:45 AST 34 U/L (13-39) 05/23/16 07:45 ALT 37 U/L (7-52) 05/23/16 07:45 Alkaline Phosphatase 140 U/L (34-104) H 05/23/16 07:45 Total Protein 6.9 gm/dL (6.0-8.3) 05/23/16 07:45 Albumin 3.3 gm/dL (4.2-5.5) L 05/23/16 07:45 Globulin 3.6 gm/dL 05/23/16 07:45 Albumin/Globulin Ratio 0.9 (1.0-1.8) L 05/23/16 07:45 Lipase 16 U/L (11-82) 05/23/16 07:45 Valproic Acid < 10.0 ug/mL (50.0-100.0) L 05/23/16 07:45 - Physical Exam Vitals and I&O: Vital Signs Temp 97.8 F 05/28/16 19:51 Pulse 73 05/29/16 09:05 Resp 18 05/28/16 20:25 BP 160/80 05/29/16 09:05 Pulse Ox 98 05/28/16 20:25 Intake & Output 05/28/16 05/29/16 05/29/16 18:59 06:59 18:59 Intake Total 780 120 Balance 780 120 Intake: Oral 780 120 Other: # Voids 3 1 # Bowel Movements 1 Active Medications: Current Medications Acetaminophen (Tylenol) 650 mg PO Q4HR PRN PRN Reason: Pain (Mild) Stop: 07/02/16 21:43 Al Hydrox/Mg Hydrox/Simethicone (Maalox) 30 ml PO Q4HR PRN PRN Reason: GI DISTRESS Stop: 07/02/16 21:43 Albuterol/Ipratropium (Duoneb Neb) 3 ml HHN Q4HRT PRN PRN Reason: Wheezing Stop: 07/21/16 08:04 Last Admin: 05/22/16 11:16 Dose: 3 ml Bisacodyl (Dulcolax 10 Mg Supp) 10 mg RC DAILY PRN PRN Reason: Constipation Stop: 07/23/16 08:28 Carbidopa/Levodopa (Sinemet 25mg-100 Mg) 1 tab PO TIDWM [facility] Stop: 07/03/16 07:59 Last Admin: 05/29/16 13:52 Dose: Not Given Docusate Sodium (Colace) 250 mg PO BID [facility] Stop: 07/22/16 12:44 Last Admin: 05/29/16 09:04 Dose: 250 mg Donepezil HCl (Aricept) 10 mg PO DAILY [facility] Stop: 07/03/16 08:59 Last Admin: 05/29/16 09:04 Dose: 10 mg Famotidine (Pepcid) 20 mg PO BID [facility] Stop: 07/03/16 08:59 Last Admin: 05/29/16 09:04 Dose: 20 mg Ferrous Sulfate (Iron) 325 mg PO BID [facility] Stop: 07/03/16 08:59 Last Admin: 05/29/16 09:03 Dose: 325 mg Glipizide (Glucotrol) 5 mg PO BIDAC [facility] Stop: 07/03/16 07:29 Last Admin: 05/29/16 07:14 Dose: Not Given Insulin Aspart (Novolog) 0 units SUBQ ACHS JASVIR PRN Reason: Protocol Stop: 07/03/16 07:29 Last Admin: 05/29/16 13:52 Dose: Not Given Losartan Potassium (Cozaar) 50 mg PO DAILY [facility] Stop: 07/03/16 08:59 Last Admin: 05/29/16 09:05 Dose: 50 mg Magnesium Hydroxide (Milk Of Magnesia) 30 ml PO HS PRN PRN Reason: Constipation Stop: 07/02/16 21:43 Ondansetron HCl (Zofran Odt) 4 mg PO Q6H PRN PRN Reason: Nausea / Vomiting Stop: 07/21/16 20:25 Last Admin: 05/22/16 21:11 Dose: 4 mg Psyllium Hydrophilic Mucilloid (Metamucil) 1 pkt PO DAILY [facility] Stop: 07/03/16 08:59 Last Admin: 05/29/16 13:52 Dose: Not Given Quetiapine Fumarate (Seroquel) 100 mg PO HS [facility] Stop: 07/05/16 20:59 Last Admin: 05/28/16 20:23 Dose: 100 mg Sodium Phosphate (Fleet Enema) 135 ml RC PRN PRN PRN Reason: Constipation Stop: 07/23/16 08:28 Last Admin: 05/24/16 10:00 Dose: 135 ml Valproate Sodium (Depakene) 250 mg PO BID JASVIR PRN Reason: Protocol Stop: 07/03/16 10:59 Last Admin: 05/29/16 09:03 Dose: 250 mg General: alert HEENT: NC/AT, PERRLA Neck: Supple Lungs: CTAB Cardiovascular: RRR, Normal S1, without murmur Abdomen: soft non-tender, non-distended Extremities: clear - Procedures Procedures: Procedures Procedure Code Date ENDOSC POLYPECTOMY OF LG INTEST 45.42 07/13/07 GROUP PSYCHOTHERAPY 02749 06/03/15 GROUP PSYCHOTHERAPY GZHZZZZ 06/03/15 INDIVID PSYCHOTHERAP NEC 94.39 05/27/08 INSERT INDWELLING CATH 57.94 10/29/09 LESION REMOVAL COLONOSCOPY 56167 07/13/07 OTHER GROUP THERAPY 94.44 06/23/14 PERCUTANEOUS [ENDOSCOPIC] GASTROSTOMY [PEG] 43.11 10/10/13 RECREATIONAL THERAPY 93.81 06/24/10 Internal Medicine Assmt/Plan - Assessment Assessment: Chronic RENAL FAILURE UNCONTROLLED DIABETES dementia gait instability poor po intake lung consolidation - Plan Plan: f/u bmp in am encourage fluids monitor glucose FALL PRECAUTIONS CPM Nutritional Asmnt/Malnutr-PDOC - Dietary Evaluation Malnutrition Findings (Please click <Entered> for more info): Nutritional Asmnt/Malnutrition Start: 05/07/16 09: 08 Text: Status: Complete Freq: Document 05/07/16 09:08 DMITRI (Rec: 05/07/16 09:26 JULIAHA RUTHERFORD- FNS1) Nutritional Asmnt/Malnutrition Patient General Information Nutritional Screening Moderate Risk Screening Diagnosis Psychosis (Reason for visit) Pertinent Medical Hx/Surgical Hx Per nursing notes, DM, HTN, CVA, renal failure, dehydration, and psycho history of psychosis, alzheimer's, bipolar and dementia. Subjective Information Patient is from [facility], primarily Portuguese speaking. Per nursing notes, history of becoming easily agitated and physically combative. Refusing some meds and blood sugar checks. Patient lying in bed asleep at time of visit. Current Diet Order/ Nutrition Support [facility]- 60gm puree Patient / S.O Not Indicated Pertinent Medications maalox, colace, pepcid, iron, glipizide, novolog, cozaar, MOM, metamucil Pertinent Labs No labs drawn in this visit ( only accuchecks). Blood sugar 168-299. Nutritional Hx/Data Height 5 ft 6 in Height (Calculated Centimeters) 167.6 Current Weight (lbs) 133 lb Weight (Calculated Kilograms) 60.3 Weight (Calculated Grams) 21434.8 [place] Body Weight 142lb % [place] Body Weight 93 Recent Weight Change No Weight Status Approriate GI Symptoms Food Allergies No Cultural/Ethnic/Worship Belief None indicated Usual diet at home Regular Skin Integrity/Comment: Barron Us 19 Current %PO Poor (25-49%) Estimated Nutritional Goals BEE in Kcals: Using Current wt Calories/Kcals/Kg 25-30 kcal/kg Kcals Calculated 5335-6451 kcal/day Protein: Using Current wt Protein g/k gm/kg Protein Calculated 60gm/day Fluid: ml 5852-4947 ml/day Nutritional Problem 2. Problem Problem Inadequate oral intake related to Etiology possible poor appetite aeb Signs/Symptoms: meeting <50% of estimated nutrient needs 1. Problem Problem Altered nutrition related lab values related to Etiology uncontrolled hyperglycemia aeb Signs/Symptoms: accuchecks 168-299 Intervention/Recommendation Recommendations by RD Increase Calorie Intake Comments 1. MD to continue to adjust insulin regimen for optimal glycemic control. 2. Encourage oral intake of meals; provide snacks to optimize nutrient intake. Assist with meals as needed. Expected Outcomes/Goals Expected Outcomes/Goals oral intake >75% of meals, glucose normalizes 80-180 Physician Parameters for PEM Body Mass Index (BMI) 19 - 24 (Normal)
--- NOTE | 2016-05-30 01:19 | Progress Notes ---
SUBJECTIVE: The patient seen, chart reviewed, discussed with staff. The patient is currently in the hospital, history of dementia with behavioral disturbances and psychosis, remains confused, disoriented, unable to participate in any self-care planning discussions. The patient seems to have improved and is stabilizing, but remains depressed, withdrawn, unable to formulate basic plan for self-care, unable to care for basic needs, currently gravely disabled. Staff noting he has been following unit rules and directions. ASSESSMENT AND PLAN: The patient remains confused, disoriented, gravely disabled. We are trying to help the patient with placement at this time as he cannot take care of himself and his symptoms are persistent and severe in regards to his confusional state. ROBERTS CHAPEL# [id number]
[2016-05-30] MEDS: INSULIN ASPART, RECOMBINANT 100 UNITS/ML SUBQ SCH ×4 (06:52→21:36)
[2016-05-30] MEDS: Multivitamin w/ Minerals Tab PO SCH (09:09)
[2016-05-30] MEDS: Ferrous Sulfate 300 MG/5 ML UDC PO SCH ×2 (09:10→17:23)
--- NOTE | 2016-05-30 12:57 | Internal Medicine Prog Note ---
Internal Medicine Subjective - Subjective Patient seen and examined:: with staff, chart reviewed Patient is:: verbal, non-interactive Per staff patient is:: no adverse event, noncompliant, confused Internal Medicine Objective - Results Result Diagrams: 05/24/16 08:15 05/26/16 08:00 Recent Labs: Laboratory Last Values WBC 8.9 Th/cmm (4.8-10.8) D 05/24/16 08:15 RBC 3.49 Mil/cmm (3.80-5.80) L 05/24/16 08:15 Hgb 10.2 gm/dL (12.6-17.4) L 05/24/16 08:15 Hct 30.4 % (39.0-49.0) L 05/24/16 08:15 MCV 86.9 fl (80-99) 05/24/16 08:15 MCH 29.3 pg (27.0-31.0) 05/24/16 08:15 MCHC Differential 33.7 pg (28.0-36.0) 05/24/16 08:15 RDW 14.4 % (11.5-20.0) 05/24/16 08:15 Plt Count 313 Th/cmm (150-400) 05/24/16 08:15 MPV 8.9 fl 05/24/16 08:15 Neutrophils % 65.3 % (40.0-80.0) 05/24/16 08:15 Lymphocytes % 26.7 % (20.0-50.0) 05/24/16 08:15 Monocytes % 4.8 % (2.0-10.0) 05/24/16 08:15 Eosinophils % 2.5 % (0.0-5.0) 05/24/16 08:15 Basophils % 0.7 % (0.0-2.0) 05/24/16 08:15 Sodium 138 mEq/L (136-145) 05/26/16 08:00 Potassium 5.0 mEq/L (3.5-5.1) 05/26/16 08:00 Chloride 106 mEq/L (98-107) 05/26/16 08:00 Carbon Dioxide 29.6 mEq/L (21.0-31.0) 05/26/16 08:00 Anion Gap 7.4 (7.0-16.0) 05/26/16 08:00 BUN 62 mg/dL (7-25) H 05/26/16 08:00 Creatinine 1.5 mg/dL (0.7-1.3) H 05/26/16 08:00 Est GFR ( Amer) TNP 05/26/16 08:00 Est GFR (Non-Af Amer) TNP 05/26/16 08:00 BUN/Creatinine Ratio 41.3 05/26/16 08:00 Glucose 224 mg/dL (70-105) H 05/26/16 08:00 POC Glucose 210 MG/DL (70 - 105) H 05/30/16 06:44 Calcium 9.5 mg/dL (8.6-10.3) 05/26/16 08:00 Total Bilirubin 0.3 mg/dL (0.3-1.0) 05/23/16 07:45 AST 34 U/L (13-39) 05/23/16 07:45 ALT 37 U/L (7-52) 05/23/16 07:45 Alkaline Phosphatase 140 U/L (34-104) H 05/23/16 07:45 Total Protein 6.9 gm/dL (6.0-8.3) 05/23/16 07:45 Albumin 3.3 gm/dL (4.2-5.5) L 05/23/16 07:45 Globulin 3.6 gm/dL 05/23/16 07:45 Albumin/Globulin Ratio 0.9 (1.0-1.8) L 05/23/16 07:45 Lipase 16 U/L (11-82) 05/23/16 07:45 Valproic Acid < 10.0 ug/mL (50.0-100.0) L 05/23/16 07:45 - Physical Exam Vitals and I&O: Vital Signs Temp 98.0 F 05/30/16 06:34 Pulse 68 05/30/16 09:42 Resp 14 05/30/16 09:42 BP 140/72 05/30/16 09:09 Pulse Ox 97 05/30/16 09:42 Intake & Output 05/29/16 05/30/16 05/30/16 18:59 06:59 18:59 Intake Total 120 Balance 120 Intake: Oral 120 Other: # Voids 1 # Bowel Movements 1 Active Medications: Current Medications Acetaminophen (Tylenol) 650 mg PO Q4HR PRN PRN Reason: Pain (Mild) Stop: 07/02/16 21:43 Al Hydrox/Mg Hydrox/Simethicone (Maalox) 30 ml PO Q4HR PRN PRN Reason: GI DISTRESS Stop: 07/02/16 21:43 Albuterol/Ipratropium (Duoneb Neb) 3 ml HHN Q4HRT PRN PRN Reason: Wheezing Stop: 07/21/16 08:04 Last Admin: 05/22/16 11:16 Dose: 3 ml Bisacodyl (Dulcolax 10 Mg Supp) 10 mg RC DAILY PRN PRN Reason: Constipation Stop: 07/23/16 08:28 Carbidopa/Levodopa (Sinemet 25mg-100 Mg) 1 tab PO TIDWM [facility] Stop: 07/03/16 07:59 Last Admin: 05/30/16 09:10 Dose: 1 tab Docusate Sodium (Colace) 250 mg PO BID [facility] Stop: 07/22/16 12:44 Last Admin: 05/30/16 09:09 Dose: 250 mg Donepezil HCl (Aricept) 10 mg PO DAILY [facility] Stop: 07/03/16 08:59 Last Admin: 05/30/16 09:09 Dose: 10 mg Famotidine (Pepcid) 20 mg PO BID [facility] Stop: 07/03/16 08:59 Last Admin: 05/30/16 09:09 Dose: 20 mg Ferrous Sulfate (Iron) 325 mg PO BID [facility] Stop: 07/03/16 08:59 Last Admin: 05/30/16 09:10 Dose: 325 mg Glipizide (Glucotrol) 5 mg PO BIDAC [facility] Stop: 07/03/16 07:29 Last Admin: 05/30/16 06:43 Dose: 5 mg Insulin Aspart (Novolog) 0 units SUBQ ACHS [facility] PRN Reason: Protocol Stop: 07/03/16 07:29 Last Admin: 05/30/16 11:54 Dose: Not Given Losartan Potassium (Cozaar) 50 mg PO DAILY [facility] Stop: 07/03/16 08:59 Last Admin: 05/30/16 09:09 Dose: 50 mg Magnesium Hydroxide (Milk Of Magnesia) 30 ml PO HS PRN PRN Reason: Constipation Stop: 07/02/16 21:43 Ondansetron HCl (Zofran Odt) 4 mg PO Q6H PRN PRN Reason: Nausea / Vomiting Stop: 07/21/16 20:25 Last Admin: 05/22/16 21:11 Dose: 4 mg Psyllium Hydrophilic Mucilloid (Metamucil) 1 pkt PO DAILY [facility] Stop: 07/03/16 08:59 Last Admin: 05/30/16 09:10 Dose: 1 pkt Quetiapine Fumarate (Seroquel) 100 mg PO HS [facility] Stop: 07/05/16 20:59 Last Admin: 05/29/16 20:15 Dose: 100 mg Sodium Phosphate (Fleet Enema) 135 ml RC PRN PRN PRN Reason: Constipation Stop: 07/23/16 08:28 Last Admin: 05/24/16 10:00 Dose: 135 ml Valproate Sodium (Depakene) 250 mg PO BID [facility] PRN Reason: Protocol Stop: 07/03/16 10:59 Last Admin: 05/30/16 09:10 Dose: 250 mg General: demented HEENT: NC/AT, PERRLA Neck: Supple, No JVD Lungs: CTAB Cardiovascular: RRR, Normal S1, Normal S2 Abdomen: soft non-tender, globular, non-distended, positive bowel sound Extremities: excoriation Neurological: no change, disorganized, unable to follow command - Procedures Procedures: Procedures Procedure Code Date ENDOSC POLYPECTOMY OF LG INTEST 45.42 07/13/07 GROUP PSYCHOTHERAPY 58490 06/03/15 GROUP PSYCHOTHERAPY GZHZZZZ 06/03/15 INDIVID PSYCHOTHERAP NEC 94.39 05/27/08 INSERT INDWELLING CATH 57.94 10/29/09 LESION REMOVAL COLONOSCOPY 20625 07/13/07 OTHER GROUP THERAPY 94.44 06/23/14 PERCUTANEOUS [ENDOSCOPIC] GASTROSTOMY [PEG] 43.11 10/10/13 RECREATIONAL THERAPY 93.81 06/24/10 Internal Medicine Assmt/Plan - Assessment Assessment: ch RENAL FAILURE DEHYDRATION UNCONTROLLED DIABETES dementia gait instability poor po intake lung consolidation - Plan Plan: cont on ada iss cont on oral dm meds dw rn continue w present care laxative addded, will review cxr Nutritional Asmnt/Malnutr-PDOC - Dietary Evaluation Malnutrition Findings (Please click <Entered> for more info): Nutritional Asmnt/Malnutrition Start: 05/07/16 09: 08 Text: Status: Complete Freq: Document 05/07/16 09:08 DMITRI (Rec: 05/07/16 09:26 DMITRI SANGEETA- FNS1) Nutritional Asmnt/Malnutrition Patient General Information Nutritional Screening Moderate Risk Screening Diagnosis Psychosis (Reason for visit) Pertinent Medical Hx/Surgical Hx Per nursing notes, DM, HTN, CVA, renal failure, dehydration, and psycho history of psychosis, alzheimer's, bipolar and dementia. Subjective Information Patient is from [facility], primarily [place]ian speaking. Per nursing notes, history of becoming easily agitated and physically combative. Refusing some meds and blood sugar checks. Patient lying in bed asleep at time of visit. Current Diet Order/ Nutrition Support [facility]- 60 pure Patient / S.O Not Indicated Pertinent Medications maalox, colace, pepcid, iron, glipizide, novolog, cozaar, MOM, metamucil Pertinent Labs No labs drawn in this visit ( only accuchecks). Blood sugar 168-299. Nutritional Hx/Data Height 1.68 m Height (Calculated Centimeters) 167.6 Current Weight (lbs) 60.328 kg Weight (Calculated Kilograms) 60.3 Weight (Calculated Grams) 92174.8 [place] Body Weight 142lb % [place] Body Weight 93 Recent Weight Change No Weight Status Approriate GI Symptoms Food Allergies No Cultural/Ethnic/Bahai Belief None indicated Usual diet at home Regular Skin Integrity/Comment: Intact, [place] 19 Current %PO Poor (25-49%) Estimated Nutritional Goals BEE in Kcals: Using Current wt Calories/Kcals/Kg 25-30 kcal/kg Kcals Calculated 8689-3163 kcal/day Protein: Using Current wt Protein g/k gm/kg Protein Calculated 60gm/day Fluid: ml 7290-6852 ml/day Nutritional Problem 2. Problem Problem Inadequate oral intake related to Etiology possible poor appetite aeb Signs/Symptoms: meeting <50% of estimated nutrient needs 1. Problem Problem Altered nutrition related lab values related to Etiology uncontrolled hyperglycemia aeb Signs/Symptoms: accuchecks 168-299 Intervention/Recommendation Recommendations by RD Increase Calorie Intake Comments 1. MD to continue to adjust insulin regimen for optimal glycemic control. 2. Encourage oral intake of meals; provide snacks to optimize nutrient intake. Assist with meals as needed. Expected Outcomes/Goals Expected Outcomes/Goals oral intake >75% of meals, glucose normalizes 80-180 Physician Parameters for PEM Body Mass Index (BMI) 19 - 24 (Normal)
[2016-05-31] MEDS: INSULIN ASPART, RECOMBINANT 100 UNITS/ML SUBQ SCH ×4 (06:38→21:12)
--- NOTE | 2016-05-31 08:37 | Progress Notes ---
Case was discussed with staff of the patient, reviewed records. I also met with his sister ____. She comes 3 days a week and help feeding him. The patient continues to be unpredictable, impulsive with poor insight. Continues to need redirection. However, he is ____ functioning, waiting on discharge plan and placement for him. It has been hard to place him, nobody is willing to take him. So far, no side effects from the medication, no sedation, no nausea, and no extrapyramidal symptoms. We will continue to work with the patient in group therapy, milieu therapy, and adjust the medication as needed. JOB# [id number]
[2016-05-31] MEDS: Ferrous Sulfate 300 MG/5 ML UDC PO SCH ×2 (09:29→16:41)
[2016-05-31] MEDS: Multivitamin w/ Minerals Tab PO SCH (09:30)
--- NOTE | 2016-05-31 14:59 | Internal Medicine Prog Note ---
Internal Medicine Subjective - Subjective Patient seen and examined:: with staff, chart reviewed Patient is:: awake, verbal, non-interactive Per staff patient is:: no episodes of fall, agitated, noncompliant, confused Internal Medicine Objective - Results Result Diagrams: 05/24/16 08:15 05/26/16 08:00 Recent Labs: Laboratory Last Values WBC 8.9 Th/cmm (4.8-10.8) D 05/24/16 08:15 RBC 3.49 Mil/cmm (3.80-5.80) L 05/24/16 08:15 Hgb 10.2 gm/dL (12.6-17.4) L 05/24/16 08:15 Hct 30.4 % (39.0-49.0) L 05/24/16 08:15 MCV 86.9 fl (80-99) 05/24/16 08:15 MCH 29.3 pg (27.0-31.0) 05/24/16 08:15 MCHC Differential 33.7 pg (28.0-36.0) 05/24/16 08:15 RDW 14.4 % (11.5-20.0) 05/24/16 08:15 Plt Count 313 Th/cmm (150-400) 05/24/16 08:15 MPV 8.9 fl 05/24/16 08:15 Neutrophils % 65.3 % (40.0-80.0) 05/24/16 08:15 Lymphocytes % 26.7 % (20.0-50.0) 05/24/16 08:15 Monocytes % 4.8 % (2.0-10.0) 05/24/16 08:15 Eosinophils % 2.5 % (0.0-5.0) 05/24/16 08:15 Basophils % 0.7 % (0.0-2.0) 05/24/16 08:15 Sodium 138 mEq/L (136-145) 05/26/16 08:00 Potassium 5.0 mEq/L (3.5-5.1) 05/26/16 08:00 Chloride 106 mEq/L (98-107) 05/26/16 08:00 Carbon Dioxide 29.6 mEq/L (21.0-31.0) 05/26/16 08:00 Anion Gap 7.4 (7.0-16.0) 05/26/16 08:00 BUN 62 mg/dL (7-25) H 05/26/16 08:00 Creatinine 1.5 mg/dL (0.7-1.3) H 05/26/16 08:00 Est GFR ( Amer) TNP 05/26/16 08:00 Est GFR (Non-Af Amer) TNP 05/26/16 08:00 BUN/Creatinine Ratio 41.3 05/26/16 08:00 Glucose 224 mg/dL (70-105) H 05/26/16 08:00 POC Glucose 139 MG/DL (70 - 105) H 05/30/16 21:27 Calcium 9.5 mg/dL (8.6-10.3) 05/26/16 08:00 Total Bilirubin 0.3 mg/dL (0.3-1.0) 05/23/16 07:45 AST 34 U/L (13-39) 05/23/16 07:45 ALT 37 U/L (7-52) 05/23/16 07:45 Alkaline Phosphatase 140 U/L (34-104) H 05/23/16 07:45 Total Protein 6.9 gm/dL (6.0-8.3) 05/23/16 07:45 Albumin 3.3 gm/dL (4.2-5.5) L 05/23/16 07:45 Globulin 3.6 gm/dL 05/23/16 07:45 Albumin/Globulin Ratio 0.9 (1.0-1.8) L 05/23/16 07:45 Lipase 16 U/L (11-82) 05/23/16 07:45 Valproic Acid < 10.0 ug/mL (50.0-100.0) L 05/23/16 07:45 - Physical Exam Vitals and I&O: Vital Signs Temp 97.5 F 05/31/16 06:46 Pulse 70 05/31/16 09:30 Resp 18 05/31/16 07:36 BP 157/80 05/31/16 09:30 Pulse Ox 97 05/31/16 07:36 Intake & Output 05/30/16 05/31/16 05/31/16 18:59 06:59 18:59 Intake Total 650 120 Balance 650 120 Intake: Oral 650 120 Other: # Voids 3 3 # Bowel Movements 1 0 Active Medications: Current Medications Acetaminophen (Tylenol) 650 mg PO Q4HR PRN PRN Reason: Pain (Mild) Stop: 07/02/16 21:43 Al Hydrox/Mg Hydrox/Simethicone (Maalox) 30 ml PO Q4HR PRN PRN Reason: GI DISTRESS Stop: 07/02/16 21:43 Albuterol/Ipratropium (Duoneb Neb) 3 ml HHN Q4HRT PRN PRN Reason: Wheezing Stop: 07/21/16 08:04 Last Admin: 05/22/16 11:16 Dose: 3 ml Bisacodyl (Dulcolax 10 Mg Supp) 10 mg RC DAILY PRN PRN Reason: Constipation Stop: 07/23/16 08:28 Carbidopa/Levodopa (Sinemet 25mg-100 Mg) 1 tab PO TIDWM [facility] Stop: 07/03/16 07:59 Last Admin: 05/31/16 13:55 Dose: Not Given Docusate Sodium (Colace) 250 mg PO BID [facility] Stop: 07/22/16 12:44 Last Admin: 05/31/16 09:30 Dose: 250 mg Donepezil HCl (Aricept) 10 mg PO DAILY [facility] Stop: 07/03/16 08:59 Last Admin: 05/31/16 09:30 Dose: 10 mg Famotidine (Pepcid) 20 mg PO BID [facility] Stop: 07/03/16 08:59 Last Admin: 05/31/16 09:30 Dose: 20 mg Ferrous Sulfate (Iron) 325 mg PO BID [facility] Stop: 07/03/16 08:59 Last Admin: 05/31/16 09:29 Dose: 325 mg Glipizide (Glucotrol) 5 mg PO BIDAC [facility] Stop: 07/03/16 07:29 Last Admin: 05/31/16 06:44 Dose: 5 mg Insulin Aspart (Novolog) 0 units SUBQ ACHS [facility] PRN Reason: Protocol Stop: 07/03/16 07:29 Last Admin: 05/31/16 14:09 Dose: Not Given Losartan Potassium (Cozaar) 50 mg PO DAILY [facility] Stop: 07/03/16 08:59 Last Admin: 05/31/16 09:30 Dose: 50 mg Magnesium Hydroxide (Milk Of Magnesia) 30 ml PO HS PRN PRN Reason: Constipation Stop: 07/02/16 21:43 Ondansetron HCl (Zofran Odt) 4 mg PO Q6H PRN PRN Reason: Nausea / Vomiting Stop: 07/21/16 20:25 Last Admin: 05/22/16 21:11 Dose: 4 mg Psyllium Hydrophilic Mucilloid (Metamucil) 1 pkt PO DAILY [facility] Stop: 07/03/16 08:59 Last Admin: 05/31/16 09:31 Dose: Not Given Quetiapine Fumarate (Seroquel) 100 mg PO HS [facility] Stop: 07/05/16 20:59 Last Admin: 05/30/16 21:02 Dose: 100 mg Sodium Phosphate (Fleet Enema) 135 ml RC PRN PRN PRN Reason: Constipation Stop: 07/23/16 08:28 Last Admin: 05/24/16 10:00 Dose: 135 ml Valproate Sodium (Depakene) 250 mg PO BID [facility] PRN Reason: Protocol Stop: 07/03/16 10:59 Last Admin: 05/31/16 09:30 Dose: 250 mg General: demented HEENT: NC/AT, PERRLA Neck: Supple, No JVD Lungs: CTAB Cardiovascular: RRR, Normal S1, Normal S2 Abdomen: soft non-tender, globular, positive bowel sound Extremities: excoriation Neurological: no change, disorganized, unable to follow command - Procedures Procedures: Procedures Procedure Code Date ENDOSC POLYPECTOMY OF LG INTEST 45.42 07/13/07 GROUP PSYCHOTHERAPY 40719 06/03/15 GROUP PSYCHOTHERAPY GZHZZZZ 06/03/15 INDIVID PSYCHOTHERAP NEC 94.39 05/27/08 INSERT INDWELLING CATH 57.94 10/29/09 LESION REMOVAL COLONOSCOPY 71941 07/13/07 OTHER GROUP THERAPY 94.44 06/23/14 PERCUTANEOUS [ENDOSCOPIC] GASTROSTOMY [PEG] 43.11 10/10/13 RECREATIONAL THERAPY 93.81 06/24/10 Internal Medicine Assmt/Plan - Assessment Assessment: ch RENAL FAILURE DEHYDRATION UNCONTROLLED DIABETES dementia gait instability poor po intake lung consolidation - Plan Plan: cont on ada iss cont on oral dm meds dw rn continue w present care laxative addded, will review cxr Nutritional Asmnt/Malnutr-PDOC - Dietary Evaluation Malnutrition Findings (Please click <Entered> for more info): Nutritional Asmnt/Malnutrition Start: 05/07/16 09: 08 Text: Status: Complete Freq: Document 05/07/16 09:08 DMITRI (Rec: 05/07/16 09:26 DMITRI SANGEETA- FNS1) Nutritional Asmnt/Malnutrition Patient General Information Nutritional Screening Moderate Risk Screening Diagnosis Psychosis (Reason for visit) Pertinent Medical Hx/Surgical Hx Per nursing notes, DM, HTN, CVA, renal failure, dehydration, and psycho history of psychosis, alzheimer's, bipolar and dementia. Subjective Information Patient is from [facility], primarily [place] speaking. Per nursing notes, history of becoming easily agitated and physically combative. Refusing some meds and blood sugar checks. Patient lying in bed asleep at time of visit. [facility] Patient / S.O Not Indicated Pertinent Medications maalox, colace, pepcid, iron, glipizide, novolog, cozaar, MOM, metamucil Pertinent Labs No labs drawn in this visit ( only accuchecks). Blood sugar 168-299. Nutritional Hx/Data Height 1.68 m Height (Calculated Centimeters) 167.6 Current Weight (lbs) 60.328 kg Weight (Calculated Kilograms) 60.3 Weight (Calculated Grams) 02399.8 [place] Body Weight 142lb % [place] Body Weight 93 Recent Weight Change No Weight Status Approriate GI Symptoms Food Allergies No Cultural/Ethnic/Baptism Belief None indicated Usual diet at home Regular Skin Integrity/Comment: Intact, [place] 19 Current %PO Poor (25-49%) Estimated Nutritional Goals BEE in Kcals: Using Current wt Calories/Kcals/Kg 25-30 kcal/kg Kcals Calculated 7937-5692 kcal/day Protein: Using Current wt Protein g/k gm/kg Protein Calculated 60gm/day Fluid: ml 8685-9250 ml/day Nutritional Problem 2. Problem Problem Inadequate oral intake related to Etiology possible poor appetite aeb Signs/Symptoms: meeting <50% of estimated nutrient needs 1. Problem Problem Altered nutrition related lab values related to Etiology uncontrolled hyperglycemia aeb Signs/Symptoms: accuchecks 168-299 Intervention/Recommendation Recommendations by RD Increase Calorie Intake Comments 1. MD to continue to adjust insulin regimen for optimal glycemic control. 2. Encourage oral intake of meals; provide snacks to optimize nutrient intake. Assist with meals as needed. Expected Outcomes/Goals Expected Outcomes/Goals oral intake >75% of meals, glucose normalizes 80-180 Physician Parameters for PEM Body Mass Index (BMI) 19 - 24 (Normal)
--- NOTE | 2016-06-01 01:39 | Progress Notes ---
Case was discussed with staff of the patient, reviewed records. The patient continues to be doing the same. He is demented, confused. He tends to be resistant to when staff tried to help with his ADLs; however, as ____ that he was taking his medications. He is fed by the staff. His sisters comes and sees him at least 3 times a week and she helps feed him. We have been having hard time placing the patient and so far no place was willing to take him. We cannot send him to the street with his dementia, unable to care for himself, so far no side effects with the medication, no sedation, no nausea, no extrapyramidal symptoms and his lab work showed high blood sugar, high BUN, low EGFR. I will be consulting Dr. Orourke regarding his abnormal lab work and we will continue to work with the patient in group therapy, milieu therapy and adjust medication as needed. JOB# [id number]
[2016-06-01] MEDS: INSULIN ASPART, RECOMBINANT 100 UNITS/ML SUBQ SCH ×4 (06:35→20:46)
[2016-06-01] MEDS: Multivitamin w/ Minerals Tab PO SCH (08:32)
[2016-06-01] MEDS: Ferrous Sulfate 300 MG/5 ML UDC PO SCH ×2 (08:33→17:22)
--- NOTE | 2016-06-01 14:40 | Internal Medicine Prog Note ---
Internal Medicine Subjective - Subjective Patient seen and examined:: with staff, chart reviewed Patient is:: awake, verbal, interactive Per staff patient is:: no adverse event, confused Internal Medicine Objective - Results Result Diagrams: 05/24/16 08:15 05/26/16 08:00 Recent Labs: Laboratory Last Values WBC 8.9 Th/cmm (4.8-10.8) D 05/24/16 08:15 RBC 3.49 Mil/cmm (3.80-5.80) L 05/24/16 08:15 Hgb 10.2 gm/dL (12.6-17.4) L 05/24/16 08:15 Hct 30.4 % (39.0-49.0) L 05/24/16 08:15 MCV 86.9 fl (80-99) 05/24/16 08:15 MCH 29.3 pg (27.0-31.0) 05/24/16 08:15 MCHC Differential 33.7 pg (28.0-36.0) 05/24/16 08:15 RDW 14.4 % (11.5-20.0) 05/24/16 08:15 Plt Count 313 Th/cmm (150-400) 05/24/16 08:15 MPV 8.9 fl 05/24/16 08:15 Neutrophils % 65.3 % (40.0-80.0) 05/24/16 08:15 Lymphocytes % 26.7 % (20.0-50.0) 05/24/16 08:15 Monocytes % 4.8 % (2.0-10.0) 05/24/16 08:15 Eosinophils % 2.5 % (0.0-5.0) 05/24/16 08:15 Basophils % 0.7 % (0.0-2.0) 05/24/16 08:15 Sodium 138 mEq/L (136-145) 05/26/16 08:00 Potassium 5.0 mEq/L (3.5-5.1) 05/26/16 08:00 Chloride 106 mEq/L (98-107) 05/26/16 08:00 Carbon Dioxide 29.6 mEq/L (21.0-31.0) 05/26/16 08:00 Anion Gap 7.4 (7.0-16.0) 05/26/16 08:00 BUN 62 mg/dL (7-25) H 05/26/16 08:00 Creatinine 1.5 mg/dL (0.7-1.3) H 05/26/16 08:00 Est GFR ( Amer) TNP 05/26/16 08:00 Est GFR (Non-Af Amer) TNP 05/26/16 08:00 BUN/Creatinine Ratio 41.3 05/26/16 08:00 Glucose 224 mg/dL (70-105) H 05/26/16 08:00 POC Glucose 304 MG/DL (70 - 105) H 06/01/16 11:50 Calcium 9.5 mg/dL (8.6-10.3) 05/26/16 08:00 Total Bilirubin 0.3 mg/dL (0.3-1.0) 05/23/16 07:45 AST 34 U/L (13-39) 05/23/16 07:45 ALT 37 U/L (7-52) 05/23/16 07:45 Alkaline Phosphatase 140 U/L (34-104) H 05/23/16 07:45 Total Protein 6.9 gm/dL (6.0-8.3) 05/23/16 07:45 Albumin 3.3 gm/dL (4.2-5.5) L 05/23/16 07:45 Globulin 3.6 gm/dL 05/23/16 07:45 Albumin/Globulin Ratio 0.9 (1.0-1.8) L 05/23/16 07:45 Lipase 16 U/L (11-82) 05/23/16 07:45 Valproic Acid < 10.0 ug/mL (50.0-100.0) L 05/23/16 07:45 - Physical Exam Vitals and I&O: Vital Signs Temp 97.4 F 06/01/16 05:24 Pulse 58 06/01/16 12:26 Resp 19 06/01/16 12:26 BP 134/68 06/01/16 08:34 Pulse Ox 99 06/01/16 05:24 Intake & Output 05/31/16 06/01/16 06/01/16 18:59 06:59 18:59 Intake Total 600 0 Balance 600 0 Intake: Oral 600 0 Other: # Voids 3 3 # Bowel Movements 1 0 Stool Characteristics Soft Formed Active Medications: Current Medications Acetaminophen (Tylenol) 650 mg PO Q4HR PRN PRN Reason: Pain (Mild) Stop: 07/02/16 21:43 Al Hydrox/Mg Hydrox/Simethicone (Maalox) 30 ml PO Q4HR PRN PRN Reason: GI DISTRESS Stop: 07/02/16 21:43 Albuterol/Ipratropium (Duoneb Neb) 3 ml HHN Q4HRT PRN PRN Reason: Wheezing Stop: 07/21/16 08:04 Last Admin: 05/22/16 11:16 Dose: 3 ml Bisacodyl (Dulcolax 10 Mg Supp) 10 mg RC DAILY PRN PRN Reason: Constipation Stop: 07/23/16 08:28 Carbidopa/Levodopa (Sinemet 25mg-100 Mg) 1 tab PO TIDWM [facility] Stop: 07/03/16 07:59 Last Admin: 06/01/16 12:19 Dose: 1 tab Docusate Sodium (Colace) 250 mg PO BID [facility] Stop: 07/22/16 12:44 Last Admin: 06/01/16 08:32 Dose: 250 mg Donepezil HCl (Aricept) 10 mg PO DAILY [facility] Stop: 07/03/16 08:59 Last Admin: 06/01/16 08:32 Dose: 10 mg Famotidine (Pepcid) 20 mg PO BID [facility] Stop: 07/03/16 08:59 Last Admin: 06/01/16 08:32 Dose: 20 mg Ferrous Sulfate (Iron) 325 mg PO BID [facility] Stop: 07/03/16 08:59 Last Admin: 06/01/16 08:33 Dose: 325 mg Glipizide (Glucotrol) 5 mg PO BIDAC [facility] Stop: 07/03/16 07:29 Last Admin: 06/01/16 06:34 Dose: Not Given Insulin Aspart (Novolog) 0 units SUBQ ACHS JASVIR PRN Reason: Protocol Stop: 07/03/16 07:29 Last Admin: 06/01/16 12:01 Dose: 6 units Losartan Potassium (Cozaar) 50 mg PO DAILY [facility] Stop: 07/03/16 08:59 Last Admin: 06/01/16 08:34 Dose: 50 mg Magnesium Hydroxide (Milk Of Magnesia) 30 ml PO HS PRN PRN Reason: Constipation Stop: 07/02/16 21:43 Ondansetron HCl (Zofran Odt) 4 mg PO Q6H PRN PRN Reason: Nausea / Vomiting Stop: 07/21/16 20:25 Last Admin: 05/22/16 21:11 Dose: 4 mg Psyllium Hydrophilic Mucilloid (Metamucil) 1 pkt PO DAILY [facility] Stop: 07/03/16 08:59 Last Admin: 06/01/16 12:20 Dose: Not Given Quetiapine Fumarate (Seroquel) 100 mg PO HS [facility] Stop: 07/05/16 20:59 Last Admin: 05/31/16 20:27 Dose: 100 mg Sodium Phosphate (Fleet Enema) 135 ml RC PRN PRN PRN Reason: Constipation Stop: 07/23/16 08:28 Last Admin: 05/24/16 10:00 Dose: 135 ml Valproate Sodium (Depakene) 250 mg PO BID JASVIR PRN Reason: Protocol Stop: 07/03/16 10:59 Last Admin: 06/01/16 08:33 Dose: 250 mg General: demented HEENT: NC/AT, PERRLA Neck: Supple, No JVD Lungs: CTAB Cardiovascular: RRR, Normal S1, Normal S2 Abdomen: soft non-tender, globular, positive bowel sound Extremities: excoriation Neurological: disorganized, unable to follow command - Procedures Procedures: Procedures Procedure Code Date ENDOSC POLYPECTOMY OF LG INTEST 45.42 07/13/07 GROUP PSYCHOTHERAPY 09766 06/03/15 GROUP PSYCHOTHERAPY GZHZZZZ 06/03/15 INDIVID PSYCHOTHERAP NEC 94.39 05/27/08 INSERT INDWELLING CATH 57.94 10/29/09 LESION REMOVAL COLONOSCOPY 18005 07/13/07 OTHER GROUP THERAPY 94.44 06/23/14 PERCUTANEOUS [ENDOSCOPIC] GASTROSTOMY [PEG] 43.11 10/10/13 RECREATIONAL THERAPY 93.81 06/24/10 Internal Medicine Assmt/Plan - Assessment Assessment: ch RENAL FAILURE DEHYDRATION UNCONTROLLED DIABETES dementia gait instability poor po intake lung consolidation - Plan Plan: cont on ada iss cont on oral dm meds dw rn continue w present care laxative addded, will review cxr Nutritional Asmnt/Malnutr-PDOC - Dietary Evaluation Malnutrition Findings (Please click <Entered> for more info): Nutritional Asmnt/Malnutrition Start: 05/07/16 09: 08 Text: Status: Complete Freq: Document 05/07/16 09:08 JULIAJenna (Rec: 05/07/16 09:26 DMITRI SANGEETA- FNS1) Nutritional Asmnt/Malnutrition Patient General Information Nutritional Screening Moderate Risk Screening Diagnosis Psychosis (Reason for visit) Pertinent Medical Hx/Surgical Hx Per nursing notes, DM, HTN, CVA, renal failure, dehydration, and psycho history of psychosis, alzheimer's, bipolar and dementia. Subjective Information Patient is from [facility], primarily [place]ian speaking. Per nursing notes, history of becoming easily agitated and physically combative. Refusing some meds and blood sugar checks. Patient lying in bed asleep at time of visit. Current Diet Order/ Nutrition Support [facility]- [facility] [place] Patient / S.O Not Indicated Pertinent Medications maalox, colace, pepcid, iron, glipizide, novolog, cozaar, MOM, metamucil Pertinent Labs No labs drawn in this visit ( only accuchecks). Blood sugar 168-299. Nutritional Hx/Data Height 1.68 m Height (Calculated Centimeters) 167.6 Current Weight (lbs) 60.328 kg Weight (Calculated Kilograms) 60.3 Weight (Calculated Grams) 70369.8 [place] Body Weight 142lb % [place] Body Weight 93 Recent Weight Change No Weight Status Approriate GI Symptoms Food Allergies No Cultural/Ethnic/B[employer]ist Belief None indicated Usual diet at home Regular Skin Integrity/Comment: Intact, [place] 19 Current %PO Poor (25-49%) Estimated Nutritional Goals BEE in Kcals: Using Current wt Calories/Kcals/Kg 25-30 kcal/kg Kcals Calculated 2148-6599 kcal/day Protein: Using Current wt Protein g/k gm/kg Protein Calculated 60gm/day Fluid: ml 5531-6876 ml/day Nutritional Problem 2. Problem Problem Inadequate oral intake related to Etiology possible poor appetite aeb Signs/Symptoms: meeting <50% of estimated nutrient needs 1. Problem Problem Altered nutrition related lab values related to Etiology uncontrolled hyperglycemia aeb Signs/Symptoms: accuchecks 168-299 Intervention/Recommendation Recommendations by RD Increase Calorie Intake Comments 1. MD to continue to adjust insulin regimen for optimal glycemic control. 2. Encourage oral intake of meals; provide snacks to optimize nutrient intake. Assist with meals as needed. Expected Outcomes/Goals Expected Outcomes/Goals oral intake >75% of meals, glucose normalizes 80-180 Physician Parameters for PEM Body Mass Index (BMI) 19 - 24 (Normal)
--- NOTE | 2016-06-02 03:12 | Progress Notes ---
Case was discussed with the staff of the patient, reviewed records. The patient continues to do with the same; continues to be resistant to care at times. However, he is sleeping better. He is fed by the staff. He is eating better. He has been compliant with the medications with no side effects, no sedation, no nausea, no extrapyramidal symptoms. He continues to be, however, unpredictable, impulsive, but that is his basic level of functioning, we are still awaiting placement for this patient. No side effects with the medications, no sedation, no nausea, no extrapyramidal symptoms. We will consider to work with the patient in group therapy and milieu therapy, adjust medications as needed. [facility]# [id number]
[2016-06-02] MEDS: INSULIN ASPART, RECOMBINANT 100 UNITS/ML SUBQ SCH ×4 (07:21→21:12)
[2016-06-02] MEDS: Ferrous Sulfate 300 MG/5 ML UDC PO SCH ×2 (09:08→18:02)
[2016-06-02] MEDS: Multivitamin w/ Minerals Tab PO SCH (09:12)
--- NOTE | 2016-06-02 21:23 | Internal Medicine Prog Note ---
Internal Medicine Subjective - Subjective Patient seen and examined:: with staff, chart reviewed Patient is:: awake, interactive Per staff patient is:: no adverse event, confused Internal Medicine Objective - Results Result Diagrams: 05/24/16 08:15 05/26/16 08:00 Recent Labs: Laboratory Last Values WBC 8.9 Th/cmm (4.8-10.8) D 05/24/16 08:15 RBC 3.49 Mil/cmm (3.80-5.80) L 05/24/16 08:15 Hgb 10.2 gm/dL (12.6-17.4) L 05/24/16 08:15 Hct 30.4 % (39.0-49.0) L 05/24/16 08:15 MCV 86.9 fl (80-99) 05/24/16 08:15 MCH 29.3 pg (27.0-31.0) 05/24/16 08:15 MCHC Differential 33.7 pg (28.0-36.0) 05/24/16 08:15 RDW 14.4 % (11.5-20.0) 05/24/16 08:15 Plt Count 313 Th/cmm (150-400) 05/24/16 08:15 MPV 8.9 fl 05/24/16 08:15 Neutrophils % 65.3 % (40.0-80.0) 05/24/16 08:15 Lymphocytes % 26.7 % (20.0-50.0) 05/24/16 08:15 Monocytes % 4.8 % (2.0-10.0) 05/24/16 08:15 Eosinophils % 2.5 % (0.0-5.0) 05/24/16 08:15 Basophils % 0.7 % (0.0-2.0) 05/24/16 08:15 Sodium 138 mEq/L (136-145) 05/26/16 08:00 Potassium 5.0 mEq/L (3.5-5.1) 05/26/16 08:00 Chloride 106 mEq/L (98-107) 05/26/16 08:00 Carbon Dioxide 29.6 mEq/L (21.0-31.0) 05/26/16 08:00 Anion Gap 7.4 (7.0-16.0) 05/26/16 08:00 BUN 62 mg/dL (7-25) H 05/26/16 08:00 Creatinine 1.5 mg/dL (0.7-1.3) H 05/26/16 08:00 Est GFR ( Amer) TNP 05/26/16 08:00 Est GFR (Non-Af Amer) TNP 05/26/16 08:00 BUN/Creatinine Ratio 41.3 05/26/16 08:00 Glucose 224 mg/dL (70-105) H 05/26/16 08:00 POC Glucose 230 MG/DL (70 - 105) H 06/02/16 20:35 Calcium 9.5 mg/dL (8.6-10.3) 05/26/16 08:00 Total Bilirubin 0.3 mg/dL (0.3-1.0) 05/23/16 07:45 AST 34 U/L (13-39) 05/23/16 07:45 ALT 37 U/L (7-52) 05/23/16 07:45 Alkaline Phosphatase 140 U/L (34-104) H 05/23/16 07:45 Total Protein 6.9 gm/dL (6.0-8.3) 05/23/16 07:45 Albumin 3.3 gm/dL (4.2-5.5) L 05/23/16 07:45 Globulin 3.6 gm/dL 05/23/16 07:45 Albumin/Globulin Ratio 0.9 (1.0-1.8) L 05/23/16 07:45 Lipase 16 U/L (11-82) 05/23/16 07:45 Valproic Acid < 10.0 ug/mL (50.0-100.0) L 05/23/16 07:45 - Physical Exam Vitals and I&O: Vital Signs Temp 97.8 F 06/02/16 14:00 Pulse 86 06/02/16 18:54 Resp 18 06/02/16 18:54 BP 126/67 06/02/16 14:00 Pulse Ox 99 06/02/16 18:54 Intake & Output 06/02/16 06/02/16 06/03/16 06:59 18:59 06:59 Intake Total 960 Balance 960 Intake: Oral 960 Other: # Voids 3 # Bowel Movements 1 Active Medications: Current Medications Acetaminophen (Tylenol) 650 mg PO Q4HR PRN PRN Reason: Pain (Mild) Stop: 07/02/16 21:43 Al Hydrox/Mg Hydrox/Simethicone (Maalox) 30 ml PO Q4HR PRN PRN Reason: GI DISTRESS Stop: 07/02/16 21:43 Albuterol/Ipratropium (Duoneb Neb) 3 ml HHN Q4HRT PRN PRN Reason: Wheezing Stop: 07/21/16 08:04 Last Admin: 05/22/16 11:16 Dose: 3 ml Bisacodyl (Dulcolax 10 Mg Supp) 10 mg RC DAILY PRN PRN Reason: Constipation Stop: 07/23/16 08:28 Carbidopa/Levodopa (Sinemet 25mg-100 Mg) 1 tab PO TIDWM [facility] Stop: 07/03/16 07:59 Last Admin: 06/02/16 18:01 Dose: 1 tab Docusate Sodium (Colace) 250 mg PO BID [facility] Stop: 07/22/16 12:44 Last Admin: 06/02/16 18:01 Dose: 250 mg Donepezil HCl (Aricept) 10 mg PO DAILY [facility] Stop: 07/03/16 08:59 Last Admin: 06/02/16 09:10 Dose: 10 mg Famotidine (Pepcid) 20 mg PO BID JAS[facility]IR Stop: 07/03/16 08:59 Last Admin: 06/02/16 18:02 Dose: 20 mg Ferrous Sulfate (Iron) 325 mg PO BID [facility]AS[facility] Stop: 07/03/16 08:59 Last Admin: 06/02/16 18:02 Dose: 325 mg Glipizide (Glucotrol) 5 mg PO BIDAC [facility] Stop: 07/03/16 07:29 Last Admin: 06/02/16 18:04 Dose: 5 mg Insulin Aspart (Novolog) 0 units SUBQ ACHS JASVIR PRN Reason: Protocol Stop: 07/03/16 07:29 Last Admin: 06/02/16 21:12 Dose: 2 units Losartan Potassium (Cozaar) 50 mg PO DAILY [facility]AS[facility] Stop: 07/03/16 08:59 Last Admin: 06/02/16 09:11 Dose: 50 mg Magnesium Hydroxide (Milk Of Magnesia) 30 ml PO HS PRN PRN Reason: Constipation Stop: 07/02/16 21:43 Ondansetron HCl (Zofran Odt) 4 mg PO Q6H PRN PRN Reason: Nausea / Vomiting Stop: 07/21/16 20:25 Last Admin: 05/22/16 21:11 Dose: 4 mg Psyllium Hydrophilic Mucilloid (Metamucil) 1 pkt PO DAILY [facility]AS[facility] Stop: 07/03/16 08:59 Last Admin: 06/02/16 09:09 Dose: 1 pkt Quetiapine Fumarate (Seroquel) 100 mg PO HS [facility]AS[facility] Stop: 07/05/16 20:59 Last Admin: 06/02/16 20:36 Dose: 100 mg Sodium Phosphate (Fleet Enema) 135 ml RC PRN PRN PRN Reason: Constipation Stop: 07/23/16 08:28 Last Admin: 05/24/16 10:00 Dose: 135 ml Valproate Sodium (Depakene) 250 mg PO BID JASVIR PRN Reason: Protocol Stop: 07/03/16 10:59 Last Admin: 06/02/16 18:02 Dose: 250 mg General: demented HEENT: NC/AT, PERRLA Neck: Supple, No JVD Lungs: CTAB Cardiovascular: RRR, Normal S1, Normal S2 Abdomen: soft non-tender, globular, positive bowel sound Extremities: excoriation Neurological: no change, unable to follow command - Procedures Procedures: Procedures Procedure Code Date ENDOSC POLYPECTOMY OF LG INTEST 45.42 07/13/07 GROUP PSYCHOTHERAPY 76807 06/03/15 GROUP PSYCHOTHERAPY GZHZZZZ 06/03/15 INDIVID PSYCHOTHERAP NEC 94.39 05/27/08 INSERT INDWELLING CATH 57.94 10/29/09 LESION REMOVAL COLONOSCOPY 28376 07/13/07 OTHER GROUP THERAPY 94.44 06/23/14 PERCUTANEOUS [ENDOSCOPIC] GASTROSTOMY [PEG] 43.11 10/10/13 RECREATIONAL THERAPY 93.81 06/24/10 Internal Medicine Assmt/Plan - Assessment Assessment: ch RENAL FAILURE DEHYDRATION UNCONTROLLED DIABETES dementia gait instability poor po intake lung consolidation - Plan Plan: cont on ada iss cont on oral dm meds dw rn continue w present care laxative addded, will review cxr Nutritional Asmnt/Malnutr-PDOC - Dietary Evaluation Malnutrition Findings (Please click <Entered> for more info): Nutritional Asmnt/Malnutrition Start: 05/07/16 09: 08 Text: Status: Complete Freq: Document 05/07/16 09:08 JULIAHA (Rec: 05/07/16 09:26 DMITRI SANGEETA- FNS1) Nutritional Asmnt/Malnutrition Patient General Information Nutritional Screening Moderate Risk Screening Diagnosis Psychosis (Reason for visit) Pertinent Medical Hx/Surgical Hx Per nursing notes, DM, HTN, CVA, renal failure, dehydration, and psycho history of psychosis, alzheimer's, bipolar and dementia. Subjective Information Patient is from [facility], primarily Bah[place]ian speaking. Per nursing notes, history of becoming easily agitated and physically combative. Refusing some meds and blood sugar checks. Patient lying in bed asleep at time of visit. Current Diet [facility]/ [facility] Patient / S.O Not Indicated Pertinent Medications maalox, colace, pepcid, iron, glipizide, novolog, cozaar, MOM, metamucil Pertinent Labs No labs drawn in this visit ( only accuchecks). Blood sugar 168-299. Nutritional Hx/Data Height 1.68 m Height (Calculated Centimeters) 167.6 Current Weight (lbs) 60.328 kg Weight (Calculated Kilograms) 60.3 Weight (Calculated Grams) 63133.8 [place] Body Weight 142lb % [place] Body Weight 93 Recent Weight Change No Weight Status Approriate GI Symptoms Food Allergies No Cultural/Ethnic/Sikh Belief None indicated Usual diet at home Regular Skin Integrity/Comment: Intact, [place] 19 Current %PO Poor (25-49%) Estimated Nutritional Goals BEE in Kcals: Using Current wt Calories/Kcals/Kg 25-30 kcal/kg Kcals Calculated 5918-9162 kcal/day Protein: Using Current wt Protein g/k gm/kg Protein Calculated 60gm/day Fluid: ml 4072-8827 ml/day Nutritional Problem 2. Problem Problem Inadequate oral intake related to Etiology possible poor appetite aeb Signs/Symptoms: meeting <50% of estimated nutrient needs 1. Problem Problem Altered nutrition related lab values related to Etiology uncontrolled hyperglycemia aeb Signs/Symptoms: accuchecks 168-299 Intervention/Recommendation Recommendations by RD Increase Calorie Intake Comments 1. MD to continue to adjust insulin regimen for optimal glycemic control. 2. Encourage oral intake of meals; provide snacks to optimize nutrient intake. Assist with meals as needed. Expected Outcomes/Goals Expected Outcomes/Goals oral intake >75% of meals, glucose normalizes 80-180 Physician Parameters for PEM Body Mass Index (BMI) 19 - 24 (Normal)
--- NOTE | 2016-06-02 23:59 | Progress Notes ---
Case was discussed with staff of the patient, reviewed records. The patient continues to be the same. He is mostly in bed, needing to help with his ADLs. He still ____care. Continues to be unpredictable, impulsive with very poor insight; however, were ready to let him go to a lesser level of care, but nobody is willing to take him in any SNF facility or detention and we will continue to work with the patient in group therapy, milieu therapy, adjust medications as needed. JOB# [id number]
[2016-06-03] MEDS: INSULIN ASPART, RECOMBINANT 100 UNITS/ML SUBQ SCH ×4 (06:55→20:59)
[2016-06-03] MEDS: Ferrous Sulfate 300 MG/5 ML UDC PO SCH ×2 (09:27→16:40)
[2016-06-03] MEDS: Multivitamin w/ Minerals Tab PO SCH (09:27)
--- NOTE | 2016-06-03 15:29 | Internal Medicine Prog Note ---
Internal Medicine Subjective - Subjective Patient seen and examined:: with staff, chart reviewed Patient is:: verbal, interactive Per staff patient is:: no adverse event, noncompliant, confused Internal Medicine Objective - Results Result Diagrams: 05/24/16 08:15 05/26/16 08:00 Recent Labs: Laboratory Last Values WBC 8.9 Th/cmm (4.8-10.8) D 05/24/16 08:15 RBC 3.49 Mil/cmm (3.80-5.80) L 05/24/16 08:15 Hgb 10.2 gm/dL (12.6-17.4) L 05/24/16 08:15 Hct 30.4 % (39.0-49.0) L 05/24/16 08:15 MCV 86.9 fl (80-99) 05/24/16 08:15 MCH 29.3 pg (27.0-31.0) 05/24/16 08:15 MCHC Differential 33.7 pg (28.0-36.0) 05/24/16 08:15 RDW 14.4 % (11.5-20.0) 05/24/16 08:15 Plt Count 313 Th/cmm (150-400) 05/24/16 08:15 MPV 8.9 fl 05/24/16 08:15 Neutrophils % 65.3 % (40.0-80.0) 05/24/16 08:15 Lymphocytes % 26.7 % (20.0-50.0) 05/24/16 08:15 Monocytes % 4.8 % (2.0-10.0) 05/24/16 08:15 Eosinophils % 2.5 % (0.0-5.0) 05/24/16 08:15 Basophils % 0.7 % (0.0-2.0) 05/24/16 08:15 Sodium 138 mEq/L (136-145) 05/26/16 08:00 Potassium 5.0 mEq/L (3.5-5.1) 05/26/16 08:00 Chloride 106 mEq/L (98-107) 05/26/16 08:00 Carbon Dioxide 29.6 mEq/L (21.0-31.0) 05/26/16 08:00 Anion Gap 7.4 (7.0-16.0) 05/26/16 08:00 BUN 62 mg/dL (7-25) H 05/26/16 08:00 Creatinine 1.5 mg/dL (0.7-1.3) H 05/26/16 08:00 Est GFR ( Amer) TNP 05/26/16 08:00 Est GFR (Non-Af Amer) TNP 05/26/16 08:00 BUN/Creatinine Ratio 41.3 05/26/16 08:00 Glucose 224 mg/dL (70-105) H 05/26/16 08:00 POC Glucose 231 MG/DL (70 - 105) H 06/03/16 06:45 Calcium 9.5 mg/dL (8.6-10.3) 05/26/16 08:00 Total Bilirubin 0.3 mg/dL (0.3-1.0) 05/23/16 07:45 AST 34 U/L (13-39) 05/23/16 07:45 ALT 37 U/L (7-52) 05/23/16 07:45 Alkaline Phosphatase 140 U/L (34-104) H 05/23/16 07:45 Total Protein 6.9 gm/dL (6.0-8.3) 05/23/16 07:45 Albumin 3.3 gm/dL (4.2-5.5) L 05/23/16 07:45 Globulin 3.6 gm/dL 05/23/16 07:45 Albumin/Globulin Ratio 0.9 (1.0-1.8) L 05/23/16 07:45 Lipase 16 U/L (11-82) 05/23/16 07:45 Valproic Acid < 10.0 ug/mL (50.0-100.0) L 05/23/16 07:45 - Physical Exam Vitals and I&O: Vital Signs Temp 97.8 F 06/02/16 14:00 Pulse 99 06/03/16 08:00 Resp 19 06/03/16 08:00 BP 126/67 06/02/16 14:00 Pulse Ox 99 06/02/16 18:54 Intake & Output 06/02/16 06/03/16 06/03/16 18:59 06:59 18:59 Intake Total 960 240 Balance 960 240 Intake: Oral 960 240 Other: # Voids 3 # Bowel Movements 1 Active Medications: Current Medications Acetaminophen (Tylenol) 650 mg PO Q4HR PRN PRN Reason: Pain (Mild) Stop: 07/02/16 21:43 Al Hydrox/Mg Hydrox/Simethicone (Maalox) 30 ml PO Q4HR PRN PRN Reason: GI DISTRESS Stop: 07/02/16 21:43 Albuterol/Ipratropium (Duoneb Neb) 3 ml HHN Q4HRT PRN PRN Reason: Wheezing Stop: 07/21/16 08:04 Last Admin: 05/22/16 11:16 Dose: 3 ml Bisacodyl (Dulcolax 10 Mg Supp) 10 mg RC DAILY PRN PRN Reason: Constipation Stop: 07/23/16 08:28 Carbidopa/Levodopa (Sinemet 25mg-100 Mg) 1 tab PO TIDWM [facility] Stop: 07/03/16 07:59 Last Admin: 06/03/16 11:57 Dose: 1 tab Docusate Sodium (Colace) 250 mg PO BID [facility] Stop: 07/22/16 12:44 Last Admin: 06/03/16 09:26 Dose: Not Given Donepezil HCl (Aricept) 10 mg PO DAILY [facility] Stop: 07/03/16 08:59 Last Admin: 06/03/16 09:26 Dose: Not Given Famotidine (Pepcid) 20 mg PO BID [facility] Stop: 07/03/16 08:59 Last Admin: 06/03/16 09:27 Dose: Not Given Ferrous Sulfate (Iron) 325 mg PO BID [facility] Stop: 07/03/16 08:59 Last Admin: 06/03/16 09:27 Dose: Not Given Glipizide (Glucotrol) 5 mg PO BIDAC [facility] Stop: 07/03/16 07:29 Last Admin: 06/03/16 06:48 Dose: 5 mg Insulin Aspart (Novolog) 0 units SUBQ ACHS JASVIR PRN Reason: Protocol Stop: 07/03/16 07:29 Last Admin: 06/03/16 11:36 Dose: 4 units Losartan Potassium (Cozaar) 50 mg PO DAILY [facility] Stop: 07/03/16 08:59 Last Admin: 06/03/16 09:27 Dose: Not Given Magnesium Hydroxide (Milk Of Magnesia) 30 ml PO HS PRN PRN Reason: Constipation Stop: 07/02/16 21:43 Ondansetron HCl (Zofran Odt) 4 mg PO Q6H PRN PRN Reason: Nausea / Vomiting Stop: 07/21/16 20:25 Last Admin: 05/22/16 21:11 Dose: 4 mg Psyllium Hydrophilic Mucilloid (Metamucil) 1 pkt PO DAILY [facility] Stop: 07/03/16 08:59 Last Admin: 06/03/16 09:27 Dose: Not Given Quetiapine Fumarate (Seroquel) 100 mg PO HS [facility] Stop: 07/05/16 20:59 Last Admin: 06/02/16 20:36 Dose: 100 mg Sodium Phosphate (Fleet Enema) 135 ml RC PRN PRN PRN Reason: Constipation Stop: 07/23/16 08:28 Last Admin: 05/24/16 10:00 Dose: 135 ml Valproate Sodium (Depakene) 250 mg PO BID [facility] PRN Reason: Protocol Stop: 07/03/16 10:59 Last Admin: 06/03/16 09:27 Dose: Not Given General: demented HEENT: NC/AT, PERRLA Neck: Supple, No JVD Lungs: CTAB Cardiovascular: RRR, Normal S1, Normal S2 Abdomen: soft non-tender, globular, positive bowel sound Extremities: excoriation, contracture Neurological: no change - Procedures Procedures: Procedures Procedure Code Date ENDOSC POLYPECTOMY OF LG INTEST 45.42 07/13/07 GROUP PSYCHOTHERAPY 44682 06/03/15 GROUP PSYCHOTHERAPY GZHZZZZ 06/03/15 INDIVID PSYCHOTHERAP NEC 94.39 05/27/08 INSERT INDWELLING CATH 57.94 10/29/09 LESION REMOVAL COLONOSCOPY 66388 07/13/07 OTHER GROUP THERAPY 94.44 06/23/14 PERCUTANEOUS [ENDOSCOPIC] GASTROSTOMY [PEG] 43.11 10/10/13 RECREATIONAL THERAPY 93.81 06/24/10 Internal Medicine Assmt/Plan - Assessment Assessment: ch RENAL FAILURE DEHYDRATION UNCONTROLLED DIABETES dementia gait instability poor po intake lung consolidation - Plan Plan: cont on ada iss cont on oral dm meds dw rn continue w present care laxative addded, will review cxr Nutritional Asmnt/Malnutr-PDOC - Dietary Evaluation Malnutrition Findings (Please click <Entered> for more info): Nutritional Asmnt/Malnutrition Start: 05/07/16 09: 08 Text: Status: Complete Freq: Document 05/07/16 09:08 DMITRI (Rec: 05/07/16 09:26 DMITRI [place]- [email or web address]) Nutritional Asmnt/Malnutrition Patient General Information Nutritional Screening Moderate Risk Screening Diagnosis Psychosis (Reason for visit) Pertinent Medical Hx/Surgical Hx Per nursing notes, DM, HTN, CVA, renal failure, dehydration, and psycho history of psychosis, alzheimer's, bipolar and dementia. Subjective Information Patient is from [facility], primarily [place] speaking. Per nursing notes, history of becoming easily agitated and physically combative. Refusing some meds and blood sugar checks. Patient lying in bed asleep at time of visit. Current Diet Order/ Nutrition Support [facility] [facility] [place] / S.O Not Indicated Pertinent Medications maalox, colace, pepcid, iron, glipizide, novolog, cozaar, MOM, metamucil Pertinent Labs No labs drawn in this visit ( only accuchecks). Blood sugar 168-299. Nutritional Hx/Data Height 1.68 m Height (Calculated Centimeters) 167.6 Current Weight (lbs) 60.328 kg Weight (Calculated Kilograms) 60.3 Weight (Calculated Grams) 32896.8 [place] Body Weight 142lb % [place] Body Weight 93 Recent Weight Change No Weight Status Approriate GI Symptoms Food Allergies No Cultural/Ethnic/Synagogue Belief None indicated Usual diet at home Regular Skin Integrity/Comment: Intact, Barron 19 Current %PO Poor (25-49%) Estimated Nutritional Goals BEE in Kcals: Using Current wt Calories/Kcals/Kg 25-30 kcal/kg Kcals Calculated 3499-9754 kcal/day Protein: Using Current wt Protein g/k gm/kg Protein Calculated 60gm/day Fluid: ml 2930-3316 ml/day Nutritional Problem 2. Problem Problem Inadequate oral intake related to Etiology possible poor appetite aeb Signs/Symptoms: meeting <50% of estimated nutrient needs 1. Problem Problem Altered nutrition related lab values related to Etiology uncontrolled hyperglycemia aeb Signs/Symptoms: accuchecks 168-299 Intervention/Recommendation Recommendations by RD Increase Calorie Intake Comments 1. MD to continue to adjust insulin regimen for optimal glycemic control. 2. Encourage oral intake of meals; provide snacks to optimize nutrient intake. Assist with meals as needed. Expected Outcomes/Goals Expected Outcomes/Goals oral intake >75% of meals, glucose normalizes 80-180 Physician Parameters for PEM Body Mass Index (BMI) 19 - 24 (Normal)
--- NOTE | 2016-06-03 23:24 | Progress Notes ---
SUBJECTIVE: The patient seen, chart reviewed, discussed with staff, I am familiar with this patient as I have seen him in the past, Dr. Mai has been seeing him over the past week, the patient is mostly in bed, needing _prompting for___ ADLs, not answering any questions, staring only blankly, unpredictable, impulsive, poor insight, he is gravely disabled. We have known where to send him, he cannot contract for safety, he cannot verbalize basic understanding of how to achieve food, clothing and retirement, very isolative and withdrawn _and___ taking his medications. No events. No aggression. No side effects. ASSESSMENT AND PLAN: The patient remains symptomatic, gravely disabled, impulsive, unpredictable, unable to provide for his basic food, clothing and retirement. We will continue to monitor closely given the severity of the patient's symptoms, he is not safe for discharge at this time. JOB# [id number] DENICE
[2016-06-04] MEDS: INSULIN ASPART, RECOMBINANT 100 UNITS/ML SUBQ SCH ×4 (06:44→20:50)
[2016-06-04] MEDS: Ferrous Sulfate 300 MG/5 ML UDC PO SCH ×2 (08:10→16:31)
[2016-06-04] MEDS: Multivitamin w/ Minerals Tab PO SCH (08:11)
--- NOTE | 2016-06-04 20:27 | Progress Notes ---
SUBJECTIVE: The patient was seen, chart reviewed, and discussed with staff. The patient remains resistive to care, mostly in bed, not answering most questions, unpredictable, impulsive, poor insight, gravely disabled, unable to verbalize a plan for basic food, clothing, and senior living, too confused, no evidence of aggression. No side effects of medications, eating with prompting, ADLs with prompting. ASSESSMENT: The patient remains symptomatic, resistive to care, gravely disabled, unpredictable, unable to formulate a basic plan for food, clothing, and senior living. PLAN: We will continue to monitor at this time. Given the severity of the patient's symptoms, she is not safe for discharge. [facility]# [id number]
--- NOTE | 2016-06-04 21:44 | Internal Medicine Prog Note ---
Internal Medicine Subjective - Subjective Patient seen and examined:: with staff, chart reviewed Patient is:: awake, non-verbal, non-interactive Per staff patient is:: no adverse event, confused Internal Medicine Objective - Results Result Diagrams: 05/24/16 08:15 05/26/16 08:00 Recent Labs: Laboratory Last Values WBC 8.9 Th/cmm (4.8-10.8) D 05/24/16 08:15 RBC 3.49 Mil/cmm (3.80-5.80) L 05/24/16 08:15 Hgb 10.2 gm/dL (12.6-17.4) L 05/24/16 08:15 Hct 30.4 % (39.0-49.0) L 05/24/16 08:15 MCV 86.9 fl (80-99) 05/24/16 08:15 MCH 29.3 pg (27.0-31.0) 05/24/16 08:15 MCHC Differential 33.7 pg (28.0-36.0) 05/24/16 08:15 RDW 14.4 % (11.5-20.0) 05/24/16 08:15 Plt Count 313 Th/cmm (150-400) 05/24/16 08:15 MPV 8.9 fl 05/24/16 08:15 Neutrophils % 65.3 % (40.0-80.0) 05/24/16 08:15 Lymphocytes % 26.7 % (20.0-50.0) 05/24/16 08:15 Monocytes % 4.8 % (2.0-10.0) 05/24/16 08:15 Eosinophils % 2.5 % (0.0-5.0) 05/24/16 08:15 Basophils % 0.7 % (0.0-2.0) 05/24/16 08:15 Sodium 138 mEq/L (136-145) 05/26/16 08:00 Potassium 5.0 mEq/L (3.5-5.1) 05/26/16 08:00 Chloride 106 mEq/L (98-107) 05/26/16 08:00 Carbon Dioxide 29.6 mEq/L (21.0-31.0) 05/26/16 08:00 Anion Gap 7.4 (7.0-16.0) 05/26/16 08:00 BUN 62 mg/dL (7-25) H 05/26/16 08:00 Creatinine 1.5 mg/dL (0.7-1.3) H 05/26/16 08:00 Est GFR ( Amer) TNP 05/26/16 08:00 Est GFR (Non-Af Amer) TNP 05/26/16 08:00 BUN/Creatinine Ratio 41.3 05/26/16 08:00 Glucose 224 mg/dL (70-105) H 05/26/16 08:00 POC Glucose 265 MG/DL (70 - 105) H 06/04/16 20:34 Calcium 9.5 mg/dL (8.6-10.3) 05/26/16 08:00 Total Bilirubin 0.3 mg/dL (0.3-1.0) 05/23/16 07:45 AST 34 U/L (13-39) 05/23/16 07:45 ALT 37 U/L (7-52) 05/23/16 07:45 Alkaline Phosphatase 140 U/L (34-104) H 05/23/16 07:45 Total Protein 6.9 gm/dL (6.0-8.3) 05/23/16 07:45 Albumin 3.3 gm/dL (4.2-5.5) L 05/23/16 07:45 Globulin 3.6 gm/dL 05/23/16 07:45 Albumin/Globulin Ratio 0.9 (1.0-1.8) L 05/23/16 07:45 Lipase 16 U/L (11-82) 05/23/16 07:45 Valproic Acid < 10.0 ug/mL (50.0-100.0) L 05/23/16 07:45 - Physical Exam Vitals and I&O: Vital Signs Temp 98.0 F 06/04/16 14:00 Pulse 71 06/04/16 20:44 Resp 20 06/04/16 20:44 BP 129/69 06/04/16 14:00 Pulse Ox 99 06/04/16 20:44 Intake & Output 06/04/16 06/04/16 06/05/16 06:59 18:59 06:59 Intake Total 700 Balance 700 Intake: Oral 700 Other: # Voids 1 3 # Bowel Movements 0 Active Medications: Current Medications Acetaminophen (Tylenol) 650 mg PO Q4HR PRN PRN Reason: Pain (Mild) Stop: 07/02/16 21:43 Al Hydrox/Mg Hydrox/Simethicone (Maalox) 30 ml PO Q4HR PRN PRN Reason: GI DISTRESS Stop: 07/02/16 21:43 Albuterol/Ipratropium (Duoneb Neb) 3 ml HHN Q4HRT PRN PRN Reason: Wheezing Stop: 07/21/16 08:04 Last Admin: 05/22/16 11:16 Dose: 3 ml Bisacodyl (Dulcolax 10 Mg Supp) 10 mg RC DAILY PRN PRN Reason: Constipation Stop: 07/23/16 08:28 Carbidopa/Levodopa (Sinemet 25mg-100 Mg) 1 tab PO TIDWM [facility] Stop: 07/03/16 07:59 Last Admin: 06/04/16 16:31 Dose: 1 tab Docusate Sodium (Colace) 250 mg PO BID [facility] Stop: 07/22/16 12:44 Last Admin: 06/04/16 16:31 Dose: 250 mg Donepezil HCl (Aricept) 10 mg PO DAILY [facility] Stop: 07/03/16 08:59 Last Admin: 06/04/16 08:11 Dose: 10 mg Famotidine (Pepcid) 20 mg PO BID [facility] Stop: 07/03/16 08:59 Last Admin: 06/04/16 16:31 Dose: 20 mg Ferrous Sulfate (Iron) 325 mg PO BID [facility] Stop: 07/03/16 08:59 Last Admin: 06/04/16 16:31 Dose: 325 mg Glipizide (Glucotrol) 5 mg PO BIDAC [facility] Stop: 07/03/16 07:29 Last Admin: 06/04/16 16:31 Dose: 5 mg Insulin Aspart (Novolog) 0 units SUBQ ACHS JASVIR PRN Reason: Protocol Stop: 07/03/16 07:29 Last Admin: 06/04/16 20:50 Dose: 4 units Losartan Potassium (Cozaar) 50 mg PO DAILY [facility] Stop: 07/03/16 08:59 Last Admin: 06/04/16 08:12 Dose: 50 mg Magnesium Hydroxide (Milk Of Magnesia) 30 ml PO HS PRN PRN Reason: Constipation Stop: 07/02/16 21:43 Ondansetron HCl (Zofran Odt) 4 mg PO Q6H PRN PRN Reason: Nausea / Vomiting Stop: 07/21/16 20:25 Last Admin: 05/22/16 21:11 Dose: 4 mg Psyllium Hydrophilic Mucilloid (Metamucil) 1 pkt PO DAILY [facility] Stop: 07/03/16 08:59 Last Admin: 06/04/16 08:14 Dose: Not Given Quetiapine Fumarate (Seroquel) 100 mg PO HS [facility] Stop: 07/05/16 20:59 Last Admin: 06/04/16 20:47 Dose: 100 mg Sodium Phosphate (Fleet Enema) 135 ml RC PRN PRN PRN Reason: Constipation Stop: 07/23/16 08:28 Last Admin: 05/24/16 10:00 Dose: 135 ml Valproate Sodium (Depakene) 250 mg PO BID [facility] PRN Reason: Protocol Stop: 07/03/16 10:59 Last Admin: 06/04/16 16:31 Dose: 250 mg General: demented HEENT: NC/AT, PERRLA Neck: Supple Lungs: CTAB Cardiovascular: RRR, Normal S1, Normal S2 Abdomen: soft non-tender, globular, positive bowel sound Extremities: excoriation Neurological: no change, disorganized - Procedures Procedures: Procedures Procedure Code Date ENDOSC POLYPECTOMY OF LG INTEST 45.42 07/13/07 GROUP PSYCHOTHERAPY 85738 06/03/15 GROUP PSYCHOTHERAPY GZHZZZZ 06/03/15 INDIVID PSYCHOTHERAP NEC 94.39 05/27/08 INSERT INDWELLING CATH 57.94 10/29/09 LESION REMOVAL COLONOSCOPY 07640 07/13/07 OTHER GROUP THERAPY 94.44 06/23/14 PERCUTANEOUS [ENDOSCOPIC] GASTROSTOMY [PEG] 43.11 10/10/13 RECREATIONAL THERAPY 93.81 06/24/10 Internal Medicine Assmt/Plan - Assessment Assessment: ch RENAL FAILURE DEHYDRATION UNCONTROLLED DIABETES dementia gait instability poor po intake lung consolidation - Plan Plan: cont on ada iss cont on oral dm meds dw rn continue w present care laxative addded, will review cxr Nutritional Asmnt/Malnutr-PDOC - Dietary Evaluation Malnutrition Findings (Please click <Entered> for more info): Nutritional Asmnt/Malnutrition Start: 05/07/16 09: 08 Text: Status: Complete Freq: Document 05/07/16 09:08 JULIAHA (Rec: 05/07/16 09:26 DMITRI SANGEETA- FNS1) Nutritional Asmnt/Malnutrition Patient General Information Nutritional Screening Moderate Risk Screening Diagnosis Psychosis (Reason for visit) Pertinent Medical Hx/Surgical Hx Per nursing notes, DM, HTN, CVA, renal failure, dehydration, and psycho history of psychosis, alzheimer's, bipolar and dementia. Subjective Information Patient is from [facility], primarily [place] speaking. Per nursing notes, history of becoming easily agitated and physically combative. Refusing some meds and blood sugar checks. Patient lying in bed asleep at time of visit. Current Diet Order/ [facility] Patient / S.O Not Indicated Pertinent Medications maalox, colace, pepcid, iron, glipizide, novolog, cozaar, MOM, metamucil Pertinent Labs No labs drawn in this visit ( only accuchecks). Blood sugar 168-299. Nutritional Hx/Data Height 1.68 m Height (Calculated Centimeters) 167.6 Current Weight (lbs) 60.328 kg Weight (Calculated Kilograms) 60.3 Weight (Calculated Grams) 87729.8 [place] Body Weight 142lb % [place] Body Weight 93 Recent Weight Change No Weight Status Approriate GI Symptoms Food Allergies No Cultural/Ethnic/Rastafari Belief None indicated Usual diet at home Regular Skin Integrity/Comment: [place] 19 Current %PO Poor (25-49%) Estimated Nutritional Goals BEE in Kcals: Using Current wt Calories/Kcals/Kg 25-30 kcal/kg Kcals Calculated 9379-9283 kcal/day Protein: Using Current wt Protein g/k gm/kg Protein Calculated 60gm/day Fluid: ml 6216-1862 ml/day Nutritional Problem 2. Problem Problem Inadequate oral intake related to Etiology possible poor appetite aeb Signs/Symptoms: meeting <50% of estimated nutrient needs 1. Problem Problem Altered nutrition related lab values related to Etiology uncontrolled hyperglycemia aeb Signs/Symptoms: accuchecks 168-299 Intervention/Recommendation Recommendations by RD Increase Calorie Intake Comments 1. MD to continue to adjust insulin regimen for optimal glycemic control. 2. Encourage oral intake of meals; provide snacks to optimize nutrient intake. Assist with meals as needed. Expected Outcomes/Goals Expected Outcomes/Goals oral intake >75% of meals, glucose normalizes 80-180 Physician Parameters for PEM Body Mass Index (BMI) 19 - 24 (Normal)
[2016-06-05] MEDS: INSULIN ASPART, RECOMBINANT 100 UNITS/ML SUBQ SCH ×4 (06:48→20:23)
[2016-06-05] MEDS: Ferrous Sulfate 300 MG/5 ML UDC PO SCH ×2 (08:57→16:34)
[2016-06-05] MEDS: Multivitamin w/ Minerals Tab PO SCH (08:57)
--- NOTE | 2016-06-05 20:15 | Internal Medicine Prog Note ---
Internal Medicine Subjective - Subjective Patient seen and examined:: with staff, chart reviewed Patient is:: verbal, interactive Per staff patient is:: no adverse event, noncompliant, confused Internal Medicine Objective - Results Result Diagrams: 05/24/16 08:15 05/26/16 08:00 Recent Labs: Laboratory Last Values WBC 8.9 Th/cmm (4.8-10.8) D 05/24/16 08:15 RBC 3.49 Mil/cmm (3.80-5.80) L 05/24/16 08:15 Hgb 10.2 gm/dL (12.6-17.4) L 05/24/16 08:15 Hct 30.4 % (39.0-49.0) L 05/24/16 08:15 MCV 86.9 fl (80-99) 05/24/16 08:15 MCH 29.3 pg (27.0-31.0) 05/24/16 08:15 MCHC Differential 33.7 pg (28.0-36.0) 05/24/16 08:15 RDW 14.4 % (11.5-20.0) 05/24/16 08:15 Plt Count 313 Th/cmm (150-400) 05/24/16 08:15 MPV 8.9 fl 05/24/16 08:15 Neutrophils % 65.3 % (40.0-80.0) 05/24/16 08:15 Lymphocytes % 26.7 % (20.0-50.0) 05/24/16 08:15 Monocytes % 4.8 % (2.0-10.0) 05/24/16 08:15 Eosinophils % 2.5 % (0.0-5.0) 05/24/16 08:15 Basophils % 0.7 % (0.0-2.0) 05/24/16 08:15 Sodium 138 mEq/L (136-145) 05/26/16 08:00 Potassium 5.0 mEq/L (3.5-5.1) 05/26/16 08:00 Chloride 106 mEq/L (98-107) 05/26/16 08:00 Carbon Dioxide 29.6 mEq/L (21.0-31.0) 05/26/16 08:00 Anion Gap 7.4 (7.0-16.0) 05/26/16 08:00 BUN 62 mg/dL (7-25) H 05/26/16 08:00 Creatinine 1.5 mg/dL (0.7-1.3) H 05/26/16 08:00 Est GFR ( Amer) TNP 05/26/16 08:00 Est GFR (Non-Af Amer) TNP 05/26/16 08:00 BUN/Creatinine Ratio 41.3 05/26/16 08:00 Glucose 224 mg/dL (70-105) H 05/26/16 08:00 POC Glucose 376 MG/DL (70 - 105) H 06/05/16 19:53 Calcium 9.5 mg/dL (8.6-10.3) 05/26/16 08:00 Total Bilirubin 0.3 mg/dL (0.3-1.0) 05/23/16 07:45 AST 34 U/L (13-39) 05/23/16 07:45 ALT 37 U/L (7-52) 05/23/16 07:45 Alkaline Phosphatase 140 U/L (34-104) H 05/23/16 07:45 Total Protein 6.9 gm/dL (6.0-8.3) 05/23/16 07:45 Albumin 3.3 gm/dL (4.2-5.5) L 05/23/16 07:45 Globulin 3.6 gm/dL 05/23/16 07:45 Albumin/Globulin Ratio 0.9 (1.0-1.8) L 05/23/16 07:45 Lipase 16 U/L (11-82) 05/23/16 07:45 Valproic Acid < 10.0 ug/mL (50.0-100.0) L 05/23/16 07:45 - Physical Exam Vitals and I&O: Vital Signs Temp 97.5 F 06/05/16 20:02 Pulse 71 06/05/16 20:02 Resp 19 06/05/16 20:02 BP 141/59 06/05/16 20:02 Pulse Ox 97 06/05/16 20:02 Intake & Output 06/05/16 06/05/16 06/06/16 06:59 18:59 06:59 Intake Total 0 700 120 Balance 0 700 120 Intake: Oral 0 700 120 Other: # Voids 3 3 3 # Bowel Movements 0 0 0 Active Medications: Current Medications Acetaminophen (Tylenol) 650 mg PO Q4HR PRN PRN Reason: Pain (Mild) Stop: 07/02/16 21:43 Al Hydrox/Mg Hydrox/Simethicone (Maalox) 30 ml PO Q4HR PRN PRN Reason: GI DISTRESS Stop: 07/02/16 21:43 Albuterol/Ipratropium (Duoneb Neb) 3 ml HHN Q4HRT PRN PRN Reason: Wheezing Stop: 07/21/16 08:04 Last Admin: 05/22/16 11:16 Dose: 3 ml Bisacodyl (Dulcolax 10 Mg Supp) 10 mg RC DAILY PRN PRN Reason: Constipation Stop: 07/23/16 08:28 Carbidopa/Levodopa (Sinemet 25mg-100 Mg) 1 tab PO TIDWM [facility] Stop: 07/03/16 07:59 Last Admin: 06/05/16 16:34 Dose: 1 tab Docusate Sodium (Colace) 250 mg PO BID [facility] Stop: 07/22/16 12:44 Last Admin: 06/05/16 16:34 Dose: 250 mg Donepezil HCl (Aricept) 10 mg PO DAILY J[facility] Stop: 07/03/16 08:59 Last Admin: 06/05/16 08:57 Dose: 10 mg Famotidine (Pepcid) 20 mg PO BID [facility] Stop: 07/03/16 08:59 Last Admin: 06/05/16 16:35 Dose: 20 mg Ferrous Sulfate (Iron) 325 mg PO BID [facility] Stop: 07/03/16 08:59 Last Admin: 06/05/16 16:34 Dose: 325 mg Glipizide (Glucotrol) 5 mg PO BIDAC [facility] Stop: 07/03/16 07:29 Last Admin: 06/05/16 16:34 Dose: 5 mg Insulin Aspart (Novolog) 0 units SUBQ ACHS JASVIR PRN Reason: Protocol Stop: 07/03/16 07:29 Last Admin: 06/05/16 17:07 Dose: 4 units Losartan Potassium (Cozaar) 50 mg PO DAILY JAS[facility]IR Stop: 07/03/16 08:59 Last Admin: 06/05/16 08:57 Dose: 50 mg Magnesium Hydroxide (Milk Of Magnesia) 30 ml PO HS PRN PRN Reason: Constipation Stop: 07/02/16 21:43 Ondansetron HCl (Zofran Odt) 4 mg PO Q6H PRN PRN Reason: Nausea / Vomiting Stop: 07/21/16 20:25 Last Admin: 05/22/16 21:11 Dose: 4 mg Psyllium Hydrophilic Mucilloid (Metamucil) 1 pkt PO DAILY JAS[facility] Stop: 07/03/16 08:59 Last Admin: 06/05/16 08:58 Dose: Not Given Quetiapine Fumarate (Seroquel) 100 mg PO HS [facility] Stop: 07/05/16 20:59 Last Admin: 06/04/16 20:47 Dose: 100 mg Sodium Phosphate (Fleet Enema) 135 ml RC PRN PRN PRN Reason: Constipation Stop: 07/23/16 08:28 Last Admin: 05/24/16 10:00 Dose: 135 ml Valproate Sodium (Depakene) 250 mg PO BID JAS[facility]IR PRN Reason: Protocol Stop: 07/03/16 10:59 Last Admin: 06/05/16 16:34 Dose: 250 mg General: demented HEENT: NC/AT, PERRLA Neck: Supple, No JVD Lungs: CTAB Cardiovascular: RRR, Normal S1, Normal S2 Abdomen: soft non-tender, globular, positive bowel sound Extremities: excoriation Neurological: no change - Procedures Procedures: Procedures Procedure Code Date ENDOSC POLYPECTOMY OF LG INTEST 45.42 07/13/07 GROUP PSYCHOTHERAPY 05508 06/03/15 GROUP PSYCHOTHERAPY GZHZZZZ 06/03/15 INDIVID PSYCHOTHERAP NEC 94.39 05/27/08 INSERT INDWELLING CATH 57.94 10/29/09 LESION REMOVAL COLONOSCOPY 77217 07/13/07 OTHER GROUP THERAPY 94.44 06/23/14 PERCUTANEOUS [ENDOSCOPIC] GASTROSTOMY [PEG] 43.11 10/10/13 RECREATIONAL THERAPY 93.81 06/24/10 Internal Medicine Assmt/Plan - Assessment Assessment: ch RENAL FAILURE DEHYDRATION UNCONTROLLED DIABETES dementia gait instability poor po intake lung consolidation - Plan Plan: cont on ada iss cont on oral dm meds dw rn continue w present care laxative addded, will review cxr Nutritional Asmnt/Malnutr-PDOC - Dietary Evaluation Malnutrition Findings (Please click <Entered> for more info): Nutritional Asmnt/Malnutrition Start: 05/07/16 09: 08 Text: Status: Complete Freq: Document 05/07/16 09:08 DMITRI (Rec: 05/07/16 09:26 DMITRI [place]- FNS1) Nutritional Asmnt/Malnutrition Patient General Information Nutritional Screening Moderate Risk Screening Diagnosis Psychosis (Reason for visit) Pertinent Medical Hx/Surgical Hx Per nursing notes, DM, HTN, CVA, renal failure, dehydration, and psycho history of psychosis, alzheimer's, bipolar and dementia. Subjective Information Patient is from [facility], primarily [place] speaking. Per nursing notes, history of becoming easily agitated and physically combative. Refusing some meds and blood sugar checks. Patient lying in bed asleep at time of visit. Current Diet Order/ Nutrition Support [facility]- [facility] [place] Patient / S.O Not Indicated Pertinent Medications maalox, colace, pepcid, iron, glipizide, novolog, cozaar, MOM, metamucil Pertinent Labs No labs drawn in this visit ( only accuchecks). Blood sugar 168-299. Nutritional Hx/Data Height 1.68 m Height (Calculated Centimeters) 167.6 Current Weight (lbs) 60.328 kg Weight (Calculated Kilograms) 60.3 Weight (Calculated Grams) 98072.8 [place] Body Weight 142lb % [place] Body Weight 93 Recent Weight Change No Weight Status Approriate GI Symptoms Food Allergies No Cultural/Ethnic/Methodist Belief None indicated Usual diet at home Regular Skin Integrity/Comment: Intact, Barron 19 Current %PO Poor (25-49%) Estimated Nutritional Goals BEE in Kcals: Using Current wt Calories/Kcals/Kg 25-30 kcal/kg Kcals Calculated 2810-3974 kcal/day Protein: Using Current wt Protein g/k gm/kg Protein Calculated 60gm/day Fluid: ml 1631-2051 ml/day Nutritional Problem 2. Problem Problem Inadequate oral intake related to Etiology possible poor appetite aeb Signs/Symptoms: meeting <50% of estimated nutrient needs 1. Problem Problem Altered nutrition related lab values related to Etiology uncontrolled hyperglycemia aeb Signs/Symptoms: accuchecks 168-299 Intervention/Recommendation Recommendations by RD Increase Calorie Intake Comments 1. MD to continue to adjust insulin regimen for optimal glycemic control. 2. Encourage oral intake of meals; provide snacks to optimize nutrient intake. Assist with meals as needed. Expected Outcomes/Goals Expected Outcomes/Goals oral intake >75% of meals, glucose normalizes 80-180 Physician Parameters for PEM Body Mass Index (BMI) 19 - 24 (Normal)
--- NOTE | 2016-06-06 02:46 | Progress Notes ---
SUBJECTIVE: The patient was seen, chart reviewed, discussed with staff. The patient is not answering any questions, remains resistive to care, mostly on bed, isolative, unpredictable, impulsive, unable to verbalize a basic plan for food, clothing, and long-term, confused, aggressive at times. Medications were reviewed. Labs were reviewed. No side effects. Eating with prompting, ADLs with prompting. ASSESSMENT: The patient remains symptomatic, resistive to care, not answering any questions; concerns for his ability to __provide__ for basic food, clothing , and long-term. PLAN: Continue to monitor, continue to titrate medications. Due to the severity of his symptoms, he is not safe for discharge. [facility]# [id number] DENICE
[2016-06-06] MEDS: INSULIN ASPART, RECOMBINANT 100 UNITS/ML SUBQ SCH ×4 (06:38→20:39)
[2016-06-06] MEDS: Multivitamin w/ Minerals Tab PO SCH (08:21)
[2016-06-06] MEDS: Ferrous Sulfate 300 MG/5 ML UDC PO SCH ×2 (08:21→16:18)
--- NOTE | 2016-06-06 20:20 | Internal Medicine Prog Note ---
Internal Medicine Subjective - Subjective Patient seen and examined:: with staff, chart reviewed Patient is:: awake, verbal, interactive Per staff patient is:: no adverse event, noncompliant, confused Internal Medicine Objective - Results Result Diagrams: 05/24/16 08:15 05/26/16 08:00 Recent Labs: Laboratory Last Values WBC 8.9 Th/cmm (4.8-10.8) D 05/24/16 08:15 RBC 3.49 Mil/cmm (3.80-5.80) L 05/24/16 08:15 Hgb 10.2 gm/dL (12.6-17.4) L 05/24/16 08:15 Hct 30.4 % (39.0-49.0) L 05/24/16 08:15 MCV 86.9 fl (80-99) 05/24/16 08:15 MCH 29.3 pg (27.0-31.0) 05/24/16 08:15 MCHC Differential 33.7 pg (28.0-36.0) 05/24/16 08:15 RDW 14.4 % (11.5-20.0) 05/24/16 08:15 Plt Count 313 Th/cmm (150-400) 05/24/16 08:15 MPV 8.9 fl 05/24/16 08:15 Neutrophils % 65.3 % (40.0-80.0) 05/24/16 08:15 Lymphocytes % 26.7 % (20.0-50.0) 05/24/16 08:15 Monocytes % 4.8 % (2.0-10.0) 05/24/16 08:15 Eosinophils % 2.5 % (0.0-5.0) 05/24/16 08:15 Basophils % 0.7 % (0.0-2.0) 05/24/16 08:15 Sodium 138 mEq/L (136-145) 05/26/16 08:00 Potassium 5.0 mEq/L (3.5-5.1) 05/26/16 08:00 Chloride 106 mEq/L (98-107) 05/26/16 08:00 Carbon Dioxide 29.6 mEq/L (21.0-31.0) 05/26/16 08:00 Anion Gap 7.4 (7.0-16.0) 05/26/16 08:00 BUN 62 mg/dL (7-25) H 05/26/16 08:00 Creatinine 1.5 mg/dL (0.7-1.3) H 05/26/16 08:00 Est GFR ( Amer) TNP 05/26/16 08:00 Est GFR (Non-Af Amer) TNP 05/26/16 08:00 BUN/Creatinine Ratio 41.3 05/26/16 08:00 Glucose 224 mg/dL (70-105) H 05/26/16 08:00 POC Glucose 207 MG/DL (70 - 105) H 06/06/16 06:26 Calcium 9.5 mg/dL (8.6-10.3) 05/26/16 08:00 Total Bilirubin 0.3 mg/dL (0.3-1.0) 05/23/16 07:45 AST 34 U/L (13-39) 05/23/16 07:45 ALT 37 U/L (7-52) 05/23/16 07:45 Alkaline Phosphatase 140 U/L (34-104) H 05/23/16 07:45 Total Protein 6.9 gm/dL (6.0-8.3) 05/23/16 07:45 Albumin 3.3 gm/dL (4.2-5.5) L 05/23/16 07:45 Globulin 3.6 gm/dL 05/23/16 07:45 Albumin/Globulin Ratio 0.9 (1.0-1.8) L 05/23/16 07:45 Lipase 16 U/L (11-82) 05/23/16 07:45 Valproic Acid < 10.0 ug/mL (50.0-100.0) L 05/23/16 07:45 - Physical Exam Vitals and I&O: Vital Signs Temp 98.6 F 06/06/16 19:54 Pulse 78 06/06/16 20:17 Resp 20 06/06/16 20:17 BP 136/64 06/06/16 19:54 Pulse Ox 99 06/06/16 20:17 Intake & Output 06/06/16 06/06/16 06/07/16 06:59 18:59 06:59 Intake Total 120 720 240 Balance 120 720 240 Intake: Oral 120 720 240 Other: # Voids 1 4 1 # Bowel Movements 0 2 Active Medications: Current Medications Acetaminophen (Tylenol) 650 mg PO Q4HR PRN PRN Reason: Pain (Mild) Stop: 07/02/16 21:43 Al Hydrox/Mg Hydrox/Simethicone (Maalox) 30 ml PO Q4HR PRN PRN Reason: GI DISTRESS Stop: 07/02/16 21:43 Albuterol/Ipratropium (Duoneb Neb) 3 ml HHN Q4HRT PRN PRN Reason: Wheezing Stop: 07/21/16 08:04 Last Admin: 05/22/16 11:16 Dose: 3 ml Bisacodyl (Dulcolax 10 Mg Supp) 10 mg RC DAILY PRN PRN Reason: Constipation Stop: 07/23/16 08:28 Carbidopa/Levodopa (Sinemet 25mg-100 Mg) 1 tab PO TIDWM [facility] Stop: 07/03/16 07:59 Last Admin: 06/06/16 16:19 Dose: 1 tab Docusate Sodium (Colace) 250 mg PO BID [facility] Stop: 07/22/16 12:44 Last Admin: 06/06/16 16:18 Dose: 250 mg Donepezil HCl (Aricept) 10 mg PO DAILY [facility] Stop: 07/03/16 08:59 Last Admin: 06/06/16 08:21 Dose: 10 mg Famotidine (Pepcid) 20 mg PO BID [facility] Stop: 07/03/16 08:59 Last Admin: 06/06/16 16:19 Dose: 20 mg Ferrous Sulfate (Iron) 325 mg PO BID [facility] Stop: 07/03/16 08:59 Last Admin: 06/06/16 16:18 Dose: 325 mg Glipizide (Glucotrol) 5 mg PO BIDAC [facility] Stop: 07/03/16 07:29 Last Admin: 06/06/16 16:19 Dose: 5 mg Insulin Aspart (Novolog) 0 units SUBQ ACHS JASVIR PRN Reason: Protocol Stop: 07/03/16 07:29 Last Admin: 06/06/16 17:23 Dose: 8 units Losartan Potassium (Cozaar) 50 mg PO DAILY [facility] Stop: 07/03/16 08:59 Last Admin: 06/06/16 08:21 Dose: 50 mg Magnesium Hydroxide (Milk Of Magnesia) 30 ml PO HS PRN PRN Reason: Constipation Stop: 07/02/16 21:43 Ondansetron HCl (Zofran Odt) 4 mg PO Q6H PRN PRN Reason: Nausea / Vomiting Stop: 07/21/16 20:25 Last Admin: 05/22/16 21:11 Dose: 4 mg Psyllium Hydrophilic Mucilloid (Metamucil) 1 pkt PO DAILY [facility] Stop: 07/03/16 08:59 Last Admin: 06/06/16 09:49 Dose: Not Given Quetiapine Fumarate (Seroquel) 100 mg PO HS [facility] Stop: 07/05/16 20:59 Last Admin: 06/05/16 20:23 Dose: 100 mg Sodium Phosphate (Fleet Enema) 135 ml RC PRN PRN PRN Reason: Constipation Stop: 07/23/16 08:28 Last Admin: 05/24/16 10:00 Dose: 135 ml Valproate Sodium (Depakene) 250 mg PO BID [facility]AS[facility]IR PRN Reason: Protocol Stop: 07/03/16 10:59 Last Admin: 06/06/16 16:18 Dose: 250 mg General: demented HEENT: NC/AT, PERRLA Neck: Supple, No JVD Lungs: CTAB Cardiovascular: RRR, Normal S1 Abdomen: soft non-tender, globular, positive bowel sound Extremities: excoriation Neurological: no change, unable to follow command - Procedures Procedures: Procedures Procedure Code Date ENDOSC POLYPECTOMY OF LG INTEST 45.42 07/13/07 GROUP PSYCHOTHERAPY 56860 06/03/15 GROUP PSYCHOTHERAPY GZHZZZZ 06/03/15 INDIVID PSYCHOTHERAP NEC 94.39 05/27/08 INSERT INDWELLING CATH 57.94 10/29/09 LESION REMOVAL COLONOSCOPY 30144 07/13/07 OTHER GROUP THERAPY 94.44 06/23/14 PERCUTANEOUS [ENDOSCOPIC] GASTROSTOMY [PEG] 43.11 10/10/13 RECREATIONAL THERAPY 93.81 06/24/10 Internal Medicine Assmt/Plan - Assessment Assessment: ch RENAL FAILURE DEHYDRATION UNCONTROLLED DIABETES dementia gait instability poor po intake lung consolidation - Plan Plan: cont on ada iss cont on oral dm meds dw rn continue w present care laxative addded, will review cxr Nutritional Asmnt/Malnutr-PDOC - Dietary Evaluation Malnutrition Findings (Please click <Entered> for more info): Nutritional Asmnt/Malnutrition Start: 05/07/16 09: 08 Text: Status: Complete Freq: Document 05/07/16 09:08 JULIAJenna (Rec: 05/07/16 09:26 DMITRI SANGEETA- FNS1) Nutritional Asmnt/Malnutrition Patient General Information Nutritional Screening Moderate Risk Screening Diagnosis Psychosis (Reason for visit) Pertinent Medical Hx/Surgical Hx Per nursing notes, DM, HTN, CVA, renal failure, dehydration, and psycho history of psychosis, alzheimer's, bipolar and dementia. Subjective Information Patient is from [facility], primarily [place] speaking. Per nursing notes, history of becoming easily agitated and physically combative. Refusing some meds and blood sugar checks. Patient lying in bed asleep at time of visit. Current Diet Order/ Nutrition Support [facility] [place] Patient / S.O Not Indicated Pertinent Medications maalox, colace, pepcid, iron, glipizide, novolog, cozaar, MOM, metamucil Pertinent Labs No labs drawn in this visit ( only accuchecks). Blood sugar 168-299. Nutritional Hx/Data Height 1.68 m Height (Calculated Centimeters) 167.6 Current Weight (lbs) 60.328 kg Weight (Calculated Kilograms) 60.3 Weight (Calculated Grams) 83744.8 [place] Body Weight 142lb % [place] Body Weight 93 Recent Weight Change No Weight Status Approriate GI Symptoms Food Allergies No Cultural/Ethnic/[employer]ist Belief None indicated Usual diet at home Regular Skin Integrity/Comment: Intact, [place] 19 Current %PO Poor (25-49%) Estimated Nutritional Goals BEE in Kcals: Using Current wt Calories/Kcals/Kg 25-30 kcal/kg Kcals Calculated 6839-4978 kcal/day Protein: Using Current wt Protein g/k gm/kg Protein Calculated 60gm/day Fluid: ml 2211-5417 ml/day Nutritional Problem 2. Problem Problem Inadequate oral intake related to Etiology possible poor appetite aeb Signs/Symptoms: meeting <50% of estimated nutrient needs 1. Problem Problem Altered nutrition related lab values related to Etiology uncontrolled hyperglycemia aeb Signs/Symptoms: accuchecks 168-299 Intervention/Recommendation Recommendations by RD Increase Calorie Intake Comments 1. MD to continue to adjust insulin regimen for optimal glycemic control. 2. Encourage oral intake of meals; provide snacks to optimize nutrient intake. Assist with meals as needed. Expected Outcomes/Goals Expected Outcomes/Goals oral intake >75% of meals, glucose normalizes 80-180 Physician Parameters for PEM Body Mass Index (BMI) 19 - 24 (Normal)
--- NOTE | 2016-06-07 00:26 | Progress Notes ---
DATE: 06/06/2016 Case was discussed with staff of the patient, reviewed records. The patient continues to need placement. Continues to still have poor insight. Continues to be unable to make safe plan for self-care, demented, confused, and needing redirection. No side effects with the medication, no sedation, and no nausea. We will continue to work with the patient in group therapy, milieu therapy, and adjust the medication as needed. Awaiting placement. JOB# [id number]
[2016-06-07] MEDS: INSULIN ASPART, RECOMBINANT 100 UNITS/ML SUBQ SCH ×4 (06:43→20:45)
[2016-06-07] MEDS: Ferrous Sulfate 300 MG/5 ML UDC PO SCH ×2 (08:36→16:41)
[2016-06-07] MEDS: Multivitamin w/ Minerals Tab PO SCH (08:37)
--- NOTE | 2016-06-07 13:03 | Internal Medicine Prog Note ---
Internal Medicine Subjective - Subjective Patient seen and examined:: with staff, chart reviewed Patient is:: awake, verbal, interactive Per staff patient is:: no adverse event, no episodes of fall, confused Internal Medicine Objective - Results Result Diagrams: 05/24/16 08:15 05/26/16 08:00 Recent Labs: Laboratory Last Values WBC 8.9 Th/cmm (4.8-10.8) D 05/24/16 08:15 RBC 3.49 Mil/cmm (3.80-5.80) L 05/24/16 08:15 Hgb 10.2 gm/dL (12.6-17.4) L 05/24/16 08:15 Hct 30.4 % (39.0-49.0) L 05/24/16 08:15 MCV 86.9 fl (80-99) 05/24/16 08:15 MCH 29.3 pg (27.0-31.0) 05/24/16 08:15 MCHC Differential 33.7 pg (28.0-36.0) 05/24/16 08:15 RDW 14.4 % (11.5-20.0) 05/24/16 08:15 Plt Count 313 Th/cmm (150-400) 05/24/16 08:15 MPV 8.9 fl 05/24/16 08:15 Neutrophils % 65.3 % (40.0-80.0) 05/24/16 08:15 Lymphocytes % 26.7 % (20.0-50.0) 05/24/16 08:15 Monocytes % 4.8 % (2.0-10.0) 05/24/16 08:15 Eosinophils % 2.5 % (0.0-5.0) 05/24/16 08:15 Basophils % 0.7 % (0.0-2.0) 05/24/16 08:15 Sodium 138 mEq/L (136-145) 05/26/16 08:00 Potassium 5.0 mEq/L (3.5-5.1) 05/26/16 08:00 Chloride 106 mEq/L (98-107) 05/26/16 08:00 Carbon Dioxide 29.6 mEq/L (21.0-31.0) 05/26/16 08:00 Anion Gap 7.4 (7.0-16.0) 05/26/16 08:00 BUN 62 mg/dL (7-25) H 05/26/16 08:00 Creatinine 1.5 mg/dL (0.7-1.3) H 05/26/16 08:00 Est GFR ( Amer) TNP 05/26/16 08:00 Est GFR (Non-Af Amer) TNP 05/26/16 08:00 BUN/Creatinine Ratio 41.3 05/26/16 08:00 Glucose 224 mg/dL (70-105) H 05/26/16 08:00 POC Glucose 190 MG/DL (70 - 105) H 06/06/16 20:17 Calcium 9.5 mg/dL (8.6-10.3) 05/26/16 08:00 Total Bilirubin 0.3 mg/dL (0.3-1.0) 05/23/16 07:45 AST 34 U/L (13-39) 05/23/16 07:45 ALT 37 U/L (7-52) 05/23/16 07:45 Alkaline Phosphatase 140 U/L (34-104) H 05/23/16 07:45 Total Protein 6.9 gm/dL (6.0-8.3) 05/23/16 07:45 Albumin 3.3 gm/dL (4.2-5.5) L 05/23/16 07:45 Globulin 3.6 gm/dL 05/23/16 07:45 Albumin/Globulin Ratio 0.9 (1.0-1.8) L 05/23/16 07:45 Lipase 16 U/L (11-82) 05/23/16 07:45 Valproic Acid < 10.0 ug/mL (50.0-100.0) L 05/23/16 07:45 - Physical Exam Vitals and I&O: Vital Signs Temp 98.1 F 06/07/16 05:57 Pulse 87 06/07/16 08:37 Resp 20 06/07/16 07:05 BP 127/65 06/07/16 08:37 Pulse Ox 97 06/07/16 07:05 Intake & Output 06/06/16 06/07/16 06/07/16 18:59 06:59 18:59 Intake Total 720 240 Balance 720 240 Intake: Oral 720 240 Other: # Voids 4 1 # Bowel Movements 2 0 Active Medications: Current Medications Acetaminophen (Tylenol) 650 mg PO Q4HR PRN PRN Reason: Pain (Mild) Stop: 07/02/16 21:43 Al Hydrox/Mg Hydrox/Simethicone (Maalox) 30 ml PO Q4HR PRN PRN Reason: GI DISTRESS Stop: 07/02/16 21:43 Albuterol/Ipratropium (Duoneb Neb) 3 ml HHN Q4HRT PRN PRN Reason: Wheezing Stop: 07/21/16 08:04 Last Admin: 05/22/16 11:16 Dose: 3 ml Bisacodyl (Dulcolax 10 Mg Supp) 10 mg RC DAILY PRN PRN Reason: Constipation Stop: 07/23/16 08:28 Carbidopa/Levodopa (Sinemet 25mg-100 Mg) 1 tab PO TIDWM [facility] Stop: 07/03/16 07:59 Last Admin: 06/07/16 08:37 Dose: 1 tab Docusate Sodium (Colace) 250 mg PO BID [facility] Stop: 07/22/16 12:44 Last Admin: 06/07/16 08:37 Dose: 250 mg Donepezil HCl (Aricept) 10 mg PO DAILY [facility] Stop: 07/03/16 08:59 Last Admin: 06/07/16 08:37 Dose: 10 mg Famotidine (Pepcid) 20 mg PO BID [facility] Stop: 07/03/16 08:59 Last Admin: 06/07/16 08:37 Dose: 20 mg Ferrous Sulfate (Iron) 325 mg PO BID [facility] Stop: 07/03/16 08:59 Last Admin: 06/07/16 08:36 Dose: 325 mg Glipizide (Glucotrol) 5 mg PO BIDAC [facility] Stop: 07/03/16 07:29 Last Admin: 06/07/16 06:42 Dose: Not Given Insulin Aspart (Novolog) 0 units SUBQ ACHS JASVIR PRN Reason: Protocol Stop: 07/03/16 07:29 Last Admin: 06/07/16 06:43 Dose: Not Given Losartan Potassium (Cozaar) 50 mg PO DAILY [facility] Stop: 07/03/16 08:59 Last Admin: 06/07/16 08:37 Dose: 50 mg Magnesium Hydroxide (Milk Of Magnesia) 30 ml PO HS PRN PRN Reason: Constipation Stop: 07/02/16 21:43 Ondansetron HCl (Zofran Odt) 4 mg PO Q6H PRN PRN Reason: Nausea / Vomiting Stop: 07/21/16 20:25 Last Admin: 05/22/16 21:11 Dose: 4 mg Psyllium Hydrophilic Mucilloid (Metamucil) 1 pkt PO DAILY [facility] Stop: 07/03/16 08:59 Last Admin: 06/07/16 08:38 Dose: Not Given Quetiapine Fumarate (Seroquel) 100 mg PO HS [facility] Stop: 07/05/16 20:59 Last Admin: 06/06/16 20:39 Dose: 100 mg Sodium Phosphate (Fleet Enema) 135 ml RC PRN PRN PRN Reason: Constipation Stop: 07/23/16 08:28 Last Admin: 05/24/16 10:00 Dose: 135 ml Valproate Sodium (Depakene) 250 mg PO BID JASVIR PRN Reason: Protocol Stop: 07/03/16 10:59 Last Admin: 06/07/16 08:36 Dose: 250 mg General: demented HEENT: NC/AT, PERRLA Neck: Supple, No JVD Lungs: CTAB Cardiovascular: RRR, Normal S1, Normal S2 Abdomen: soft non-tender, globular Extremities: excoriation, contracture Neurological: no change, disorganized, unable to follow command - Procedures Procedures: Procedures Procedure Code Date ENDOSC POLYPECTOMY OF LG INTEST 45.42 07/13/07 GROUP PSYCHOTHERAPY 73391 06/03/15 GROUP PSYCHOTHERAPY GZHZZZZ 06/03/15 INDIVID PSYCHOTHERAP NEC 94.39 05/27/08 INSERT INDWELLING CATH 57.94 10/29/09 LESION REMOVAL COLONOSCOPY 42623 07/13/07 OTHER GROUP THERAPY 94.44 06/23/14 PERCUTANEOUS [ENDOSCOPIC] GASTROSTOMY [PEG] 43.11 10/10/13 RECREATIONAL THERAPY 93.81 06/24/10 Internal Medicine Assmt/Plan - Assessment Assessment: ch RENAL FAILURE DEHYDRATION UNCONTROLLED DIABETES dementia gait instability poor po intake lung consolidation - Plan Plan: cont on ada iss cont on oral dm meds dw rn continue w present care laxative addded, will review cxr Nutritional Asmnt/Malnutr-PDOC - Dietary Evaluation Malnutrition Findings (Please click <Entered> for more info): Nutritional Asmnt/Malnutrition Start: 05/07/16 09: 08 Text: Status: Complete Freq: Document 05/07/16 09:08 JULIAHA (Rec: 05/07/16 09:26 DMITRI SANGEETA- FNS1) Nutritional Asmnt/Malnutrition Patient General Information Nutritional Screening Moderate Risk Screening Diagnosis Psychosis (Reason for visit) Pertinent Medical Hx/Surgical Hx Per nursing notes, DM, HTN, CVA, renal failure, dehydration, and psycho history of psychosis, alzheimer's, bipolar and dementia. Subjective Information Patient is from [facility], primarily [place] speaking. Per nursing notes, history of becoming easily agitated and physically combative. Refusing some meds and blood sugar checks. Patient lying in bed asleep at time of visit. Current Diet Order/ Nutrition Support [facility]- 60 pure Patient / S.O Not Indicated Pertinent Medications maalox, colace, pepcid, iron, glipizide, novolog, cozaar, MOM, metamucil Pertinent Labs No labs drawn in this visit ( only accuchecks). Blood sugar 168-299. Nutritional Hx/Data Height 1.68 m Height (Calculated Centimeters) 167.6 Current Weight (lbs) 60.328 kg Weight (Calculated Kilograms) 60.3 Weight (Calculated Grams) 95284.8 [place] Body Weight 142lb % [place] Body Weight 93 Recent Weight Change No Weight Status Approriate GI Symptoms Food Allergies No Cultural/Ethnic/Sikh Belief None indicated Usual diet at home Regular Skin Integrity/Comment: Intact, [place] 19 Current %PO Poor (25-49%) Estimated Nutritional Goals BEE in Kcals: Using Current wt Calories/Kcals/Kg 25-30 kcal/kg Kcals Calculated 8692-9471 kcal/day Protein: Using Current wt Protein g/k gm/kg Protein Calculated 60gm/day Fluid: ml 3741-9550 ml/day Nutritional Problem 2. Problem Problem Inadequate oral intake related to Etiology possible poor appetite aeb Signs/Symptoms: meeting <50% of estimated nutrient needs 1. Problem Problem Altered nutrition related lab values related to Etiology uncontrolled hyperglycemia aeb Signs/Symptoms: accuchecks 168-299 Intervention/Recommendation Recommendations by RD Increase Calorie Intake Comments 1. MD to continue to adjust insulin regimen for optimal glycemic control. 2. Encourage oral intake of meals; provide snacks to optimize nutrient intake. Assist with meals as needed. Expected Outcomes/Goals Expected Outcomes/Goals oral intake >75% of meals, glucose normalizes 80-180 Physician Parameters for PEM Body Mass Index (BMI) 19 - 24 (Normal)
--- NOTE | 2016-06-08 03:03 | Progress Notes ---
DATE: 06/07/2016 Case was discussed with staff of the patient. The patient continues to be in the ____. He needs help with all his ADLs and help with feeding. He continues to await placement. He is demented, confused, and unable to care for his ADLs. Unable to make safe plan for self-care. No side effects with the medication, no sedation, no nausea, and no extrapyramidal symptoms. We will continue the patient in group therapy, milieu therapy, and adjust medication as needed. JOB# [id number]
[2016-06-08] MEDS: INSULIN ASPART, RECOMBINANT 100 UNITS/ML SUBQ SCH ×5 (06:36→20:18)
[2016-06-08] MEDS: Ferrous Sulfate 300 MG/5 ML UDC PO SCH ×2 (09:29→17:22)
[2016-06-08] MEDS: Multivitamin w/ Minerals Tab PO SCH (09:29)
--- NOTE | 2016-06-08 15:22 | Internal Medicine Prog Note ---
Internal Medicine Subjective - Subjective Patient seen and examined:: with staff, chart reviewed Patient is:: awake, verbal, interactive Per staff patient is:: no adverse event, confused Internal Medicine Objective - Results Result Diagrams: 05/24/16 08:15 05/26/16 08:00 Recent Labs: Laboratory Last Values WBC 8.9 Th/cmm (4.8-10.8) D 05/24/16 08:15 RBC 3.49 Mil/cmm (3.80-5.80) L 05/24/16 08:15 Hgb 10.2 gm/dL (12.6-17.4) L 05/24/16 08:15 Hct 30.4 % (39.0-49.0) L 05/24/16 08:15 MCV 86.9 fl (80-99) 05/24/16 08:15 MCH 29.3 pg (27.0-31.0) 05/24/16 08:15 MCHC Differential 33.7 pg (28.0-36.0) 05/24/16 08:15 RDW 14.4 % (11.5-20.0) 05/24/16 08:15 Plt Count 313 Th/cmm (150-400) 05/24/16 08:15 MPV 8.9 fl 05/24/16 08:15 Neutrophils % 65.3 % (40.0-80.0) 05/24/16 08:15 Lymphocytes % 26.7 % (20.0-50.0) 05/24/16 08:15 Monocytes % 4.8 % (2.0-10.0) 05/24/16 08:15 Eosinophils % 2.5 % (0.0-5.0) 05/24/16 08:15 Basophils % 0.7 % (0.0-2.0) 05/24/16 08:15 Sodium 138 mEq/L (136-145) 05/26/16 08:00 Potassium 5.0 mEq/L (3.5-5.1) 05/26/16 08:00 Chloride 106 mEq/L (98-107) 05/26/16 08:00 Carbon Dioxide 29.6 mEq/L (21.0-31.0) 05/26/16 08:00 Anion Gap 7.4 (7.0-16.0) 05/26/16 08:00 BUN 62 mg/dL (7-25) H 05/26/16 08:00 Creatinine 1.5 mg/dL (0.7-1.3) H 05/26/16 08:00 Est GFR ( Amer) TNP 05/26/16 08:00 Est GFR (Non-Af Amer) TNP 05/26/16 08:00 BUN/Creatinine Ratio 41.3 05/26/16 08:00 Glucose 224 mg/dL (70-105) H 05/26/16 08:00 POC Glucose 201 MG/DL (70 - 105) H 06/08/16 11:28 Calcium 9.5 mg/dL (8.6-10.3) 05/26/16 08:00 Total Bilirubin 0.3 mg/dL (0.3-1.0) 05/23/16 07:45 AST 34 U/L (13-39) 05/23/16 07:45 ALT 37 U/L (7-52) 05/23/16 07:45 Alkaline Phosphatase 140 U/L (34-104) H 05/23/16 07:45 Total Protein 6.9 gm/dL (6.0-8.3) 05/23/16 07:45 Albumin 3.3 gm/dL (4.2-5.5) L 05/23/16 07:45 Globulin 3.6 gm/dL 05/23/16 07:45 Albumin/Globulin Ratio 0.9 (1.0-1.8) L 05/23/16 07:45 Lipase 16 U/L (11-82) 05/23/16 07:45 Valproic Acid < 10.0 ug/mL (50.0-100.0) L 05/23/16 07:45 - Physical Exam Vitals and I&O: Vital Signs Temp 97.4 F 06/08/16 06:15 Pulse 73 06/08/16 09:28 Resp 18 06/08/16 06:15 BP 158/85 06/08/16 09:28 Pulse Ox 99 06/08/16 06:15 Intake & Output 06/07/16 06/08/16 06/08/16 18:59 06:59 18:59 Intake Total 800 240 Balance 800 240 Intake: Oral 800 240 Other: # Voids 4 3 # Bowel Movements 1 0 Stool Characteristics Formed Active Medications: Current Medications Acetaminophen (Tylenol) 650 mg PO Q4HR PRN PRN Reason: Pain (Mild) Stop: 07/02/16 21:43 Al Hydrox/Mg Hydrox/Simethicone (Maalox) 30 ml PO Q4HR PRN PRN Reason: GI DISTRESS Stop: 07/02/16 21:43 Albuterol/Ipratropium (Duoneb Neb) 3 ml HHN Q4HRT PRN PRN Reason: Wheezing Stop: 07/21/16 08:04 Last Admin: 05/22/16 11:16 Dose: 3 ml Bisacodyl (Dulcolax 10 Mg Supp) 10 mg RC DAILY PRN PRN Reason: Constipation Stop: 07/23/16 08:28 Carbidopa/Levodopa (Sinemet 25mg-100 Mg) 1 tab PO TIDWM [facility] Stop: 07/03/16 07:59 Last Admin: 06/08/16 12:09 Dose: Not Given Docusate Sodium (Colace) 250 mg PO BID [facility] Stop: 07/22/16 12:44 Last Admin: 06/08/16 09:29 Dose: Not Given Donepezil HCl (Aricept) 10 mg PO DAILY [facility] Stop: 07/03/16 08:59 Last Admin: 06/08/16 09:31 Dose: 10 mg Famotidine (Pepcid) 20 mg PO BID [facility] Stop: 07/03/16 08:59 Last Admin: 06/08/16 09:30 Dose: 20 mg Ferrous Sulfate (Iron) 325 mg PO BID [facility] Stop: 07/03/16 08:59 Last Admin: 06/08/16 09:29 Dose: 325 mg Glipizide (Glucotrol) 5 mg PO BIDAC [facility] Stop: 07/03/16 07:29 Last Admin: 06/08/16 06:41 Dose: 5 mg Insulin Aspart (Novolog) 0 units SUBQ ACHS JASVIR PRN Reason: Protocol Stop: 07/03/16 07:29 Last Admin: 06/08/16 11:50 Dose: Not Given Losartan Potassium (Cozaar) 50 mg PO DAILY [facility] Stop: 07/03/16 08:59 Last Admin: 06/08/16 09:28 Dose: 50 mg Magnesium Hydroxide (Milk Of Magnesia) 30 ml PO HS PRN PRN Reason: Constipation Stop: 07/02/16 21:43 Ondansetron HCl (Zofran Odt) 4 mg PO Q6H PRN PRN Reason: Nausea / Vomiting Stop: 07/21/16 20:25 Last Admin: 05/22/16 21:11 Dose: 4 mg Psyllium Hydrophilic Mucilloid (Metamucil) 1 pkt PO DAILY [facility] Stop: 07/03/16 08:59 Last Admin: 06/08/16 09:30 Dose: Not Given Quetiapine Fumarate (Seroquel) 100 mg PO HS [facility]AS[facility] Stop: 07/05/16 20:59 Last Admin: 06/07/16 20:40 Dose: 100 mg Sodium Phosphate (Fleet Enema) 135 ml RC PRN PRN PRN Reason: Constipation Stop: 07/23/16 08:28 Last Admin: 05/24/16 10:00 Dose: 135 ml Valproate Sodium (Depakene) 250 mg PO BID JASVIR PRN Reason: Protocol Stop: 07/03/16 10:59 Last Admin: 06/08/16 09:30 Dose: 250 mg General: demented HEENT: NC/AT, PERRLA Neck: Supple, No JVD Lungs: CTAB Cardiovascular: RRR, Normal S1, Normal S2 Abdomen: soft non-tender, globular Extremities: excoriation, contracture Neurological: no change - Procedures Procedures: Procedures Procedure Code Date ENDOSC POLYPECTOMY OF LG INTEST 45.42 07/13/07 GROUP PSYCHOTHERAPY 40523 06/03/15 GROUP PSYCHOTHERAPY GZHZZZZ 06/03/15 INDIVID PSYCHOTHERAP NEC 94.39 05/27/08 INSERT INDWELLING CATH 57.94 10/29/09 LESION REMOVAL COLONOSCOPY 11713 07/13/07 OTHER GROUP THERAPY 94.44 06/23/14 PERCUTANEOUS [ENDOSCOPIC] GASTROSTOMY [PEG] 43.11 10/10/13 RECREATIONAL THERAPY 93.81 06/24/10 Internal Medicine Assmt/Plan - Assessment Assessment: ch RENAL FAILURE DEHYDRATION UNCONTROLLED DIABETES dementia gait instability poor po intake lung consolidation - Plan Plan: cont on ada iss cont on oral dm meds dw rn continue w present care laxative addded, will review cxr Nutritional Asmnt/Malnutr-PDOC - Dietary Evaluation Malnutrition Findings (Please click <Entered> for more info): Nutritional Asmnt/Malnutrition Start: 05/07/16 09: 08 Text: Status: Complete Freq: Document 05/07/16 09:08 JULIAHA (Rec: 05/07/16 09:26 DMITRI SANGEETA- FNS1) Nutritional Asmnt/Malnutrition Patient General Information Nutritional Screening Moderate Risk Screening Diagnosis Psychosis (Reason for visit) Pertinent Medical Hx/Surgical Hx Per nursing notes, DM, HTN, CVA, renal failure, dehydration, and psycho history of psychosis, alzheimer's, bipolar and dementia. Subjective Information Patient is from [facility], primarily [place] speaking. Per nursing notes, history of becoming easily agitated and physically combative. Refusing some meds and blood sugar checks. Patient lying in bed asleep at time of visit. [facility] Patient / S.O Not Indicated Pertinent Medications maalox, colace, pepcid, iron, glipizide, novolog, cozaar, MOM, metamucil Pertinent Labs No labs drawn in this visit ( only accuchecks). Blood sugar 168-299. Nutritional Hx/Data Height 1.68 m Height (Calculated Centimeters) 167.6 Current Weight (lbs) 60.328 kg Weight (Calculated Kilograms) 60.3 Weight (Calculated Grams) 26875.8 [place] Body Weight 142lb % [place] Body Weight 93 Recent Weight Change No Weight Status Approriate GI Symptoms Food Allergies No Cultural/Ethnic/Faith Belief None indicated Usual diet at home Regular Skin Integrity/Comment: Intact, [place] 19 Current %PO Poor (25-49%) Estimated Nutritional Goals BEE in Kcals: Using Current wt Calories/Kcals/Kg 25-30 kcal/kg Kcals Calculated 9673-1950 kcal/day Protein: Using Current wt Protein g/k gm/kg Protein Calculated 60gm/day Fluid: ml 6159-0152 ml/day Nutritional Problem 2. Problem Problem Inadequate oral intake related to Etiology possible poor appetite aeb Signs/Symptoms: meeting <50% of estimated nutrient needs 1. Problem Problem Altered nutrition related lab values related to Etiology uncontrolled hyperglycemia aeb Signs/Symptoms: accuchecks 168-299 Intervention/Recommendation Recommendations by RD Increase Calorie Intake Comments 1. MD to continue to adjust insulin regimen for optimal glycemic control. 2. Encourage oral intake of meals; provide snacks to optimize nutrient intake. Assist with meals as needed. Expected Outcomes/Goals Expected Outcomes/Goals oral intake >75% of meals, glucose normalizes 80-180 Physician Parameters for PEM Body Mass Index (BMI) 19 - 24 (Normal)
--- NOTE | 2016-06-09 01:56 | Progress Notes ---
DATE: 06/08/2016 Case was discussed with staff of the patient, reviewed records. The patient continues to be awaiting placement. He is acting the same way. He needs total care. He is demented, confused, and has poor insight. He is compliant with the medication with no side effects, no sedation, no nausea, and no extrapyramidal symptoms. We will continue to work with the patient in group therapy, milieu therapy, and adjust the medications as needed. JOB# [id number]
[2016-06-09] MEDS: INSULIN ASPART, RECOMBINANT 100 UNITS/ML SUBQ SCH ×4 (08:03→20:57)
[2016-06-09] MEDS: Ferrous Sulfate 300 MG/5 ML UDC PO SCH ×2 (10:00→17:44)
[2016-06-09] MEDS: Multivitamin w/ Minerals Tab PO SCH (10:16)
--- NOTE | 2016-06-09 13:49 | Internal Medicine Prog Note ---
Internal Medicine Subjective - Subjective Patient seen and examined:: with staff, chart reviewed Patient is:: awake, verbal Per staff patient is:: no adverse event, no episodes of fall, confused Internal Medicine Objective - Results Result Diagrams: 05/24/16 08:15 05/26/16 08:00 Recent Labs: Laboratory Last Values WBC 8.9 Th/cmm (4.8-10.8) D 05/24/16 08:15 RBC 3.49 Mil/cmm (3.80-5.80) L 05/24/16 08:15 Hgb 10.2 gm/dL (12.6-17.4) L 05/24/16 08:15 Hct 30.4 % (39.0-49.0) L 05/24/16 08:15 MCV 86.9 fl (80-99) 05/24/16 08:15 MCH 29.3 pg (27.0-31.0) 05/24/16 08:15 MCHC Differential 33.7 pg (28.0-36.0) 05/24/16 08:15 RDW 14.4 % (11.5-20.0) 05/24/16 08:15 Plt Count 313 Th/cmm (150-400) 05/24/16 08:15 MPV 8.9 fl 05/24/16 08:15 Neutrophils % 65.3 % (40.0-80.0) 05/24/16 08:15 Lymphocytes % 26.7 % (20.0-50.0) 05/24/16 08:15 Monocytes % 4.8 % (2.0-10.0) 05/24/16 08:15 Eosinophils % 2.5 % (0.0-5.0) 05/24/16 08:15 Basophils % 0.7 % (0.0-2.0) 05/24/16 08:15 Sodium 138 mEq/L (136-145) 05/26/16 08:00 Potassium 5.0 mEq/L (3.5-5.1) 05/26/16 08:00 Chloride 106 mEq/L (98-107) 05/26/16 08:00 Carbon Dioxide 29.6 mEq/L (21.0-31.0) 05/26/16 08:00 Anion Gap 7.4 (7.0-16.0) 05/26/16 08:00 BUN 62 mg/dL (7-25) H 05/26/16 08:00 Creatinine 1.5 mg/dL (0.7-1.3) H 05/26/16 08:00 Est GFR ( Amer) TNP 05/26/16 08:00 Est GFR (Non-Af Amer) TNP 05/26/16 08:00 BUN/Creatinine Ratio 41.3 05/26/16 08:00 Glucose 224 mg/dL (70-105) H 05/26/16 08:00 POC Glucose 180 MG/DL (70 - 105) H 06/09/16 06:07 Calcium 9.5 mg/dL (8.6-10.3) 05/26/16 08:00 Total Bilirubin 0.3 mg/dL (0.3-1.0) 05/23/16 07:45 AST 34 U/L (13-39) 05/23/16 07:45 ALT 37 U/L (7-52) 05/23/16 07:45 Alkaline Phosphatase 140 U/L (34-104) H 05/23/16 07:45 Total Protein 6.9 gm/dL (6.0-8.3) 05/23/16 07:45 Albumin 3.3 gm/dL (4.2-5.5) L 05/23/16 07:45 Globulin 3.6 gm/dL 05/23/16 07:45 Albumin/Globulin Ratio 0.9 (1.0-1.8) L 05/23/16 07:45 Lipase 16 U/L (11-82) 05/23/16 07:45 Valproic Acid < 10.0 ug/mL (50.0-100.0) L 05/23/16 07:45 - Physical Exam Vitals and I&O: Vital Signs Temp 97.4 F 06/09/16 07:25 Pulse 68 06/09/16 08:27 Resp 20 06/09/16 08:27 BP 176/78 06/09/16 07:25 Pulse Ox 98 06/09/16 08:27 Intake & Output 06/08/16 06/09/16 06/09/16 18:59 06:59 18:59 Intake Total 1400 Balance 1400 Weight (lbs) 57.107 kg Intake: Oral 1400 Other: # Voids 4 2 # Bowel Movements 0 Active Medications: Current Medications Acetaminophen (Tylenol) 650 mg PO Q4HR PRN PRN Reason: Pain (Mild) Stop: 07/02/16 21:43 Al Hydrox/Mg Hydrox/Simethicone (Maalox) 30 ml PO Q4HR PRN PRN Reason: GI DISTRESS Stop: 07/02/16 21:43 Albuterol/Ipratropium (Duoneb Neb) 3 ml HHN Q4HRT PRN PRN Reason: Wheezing Stop: 07/21/16 08:04 Last Admin: 05/22/16 11:16 Dose: 3 ml Bisacodyl (Dulcolax 10 Mg Supp) 10 mg RC DAILY PRN PRN Reason: Constipation Stop: 07/23/16 08:28 Carbidopa/Levodopa (Sinemet 25mg-100 Mg) 1 tab PO TIDWM [facility] Stop: 07/03/16 07:59 Last Admin: 06/09/16 09:00 Dose: Not Given Docusate Sodium (Colace) 250 mg PO BID [facility] Stop: 08/08/16 16:59 Donepezil HCl (Aricept) 10 mg PO DAILY [facility] Stop: 07/03/16 08:59 Last Admin: 06/09/16 10:00 Dose: Not Given Famotidine (Pepcid) 20 mg PO BID [facility] Stop: 07/03/16 08:59 Last Admin: 06/09/16 10:00 Dose: Not Given Ferrous Sulfate (Iron) 325 mg PO BID [facility] Stop: 07/03/16 08:59 Last Admin: 06/09/16 10:00 Dose: Not Given Glipizide (Glucotrol) 5 mg PO BIDAC [facility] Stop: 07/03/16 07:29 Last Admin: 06/09/16 06:53 Dose: 5 mg Insulin Aspart (Novolog) 0 units SUBQ ACHS JASVIR PRN Reason: Protocol Stop: 07/03/16 07:29 Last Admin: 06/09/16 11:53 Dose: Not Given Losartan Potassium (Cozaar) 50 mg PO DAILY [facility] Stop: 07/03/16 08:59 Last Admin: 06/09/16 10:00 Dose: Not Given Magnesium Hydroxide (Milk Of Magnesia) 30 ml PO HS PRN PRN Reason: Constipation Stop: 07/02/16 21:43 Ondansetron HCl (Zofran Odt) 4 mg PO Q6H PRN PRN Reason: Nausea / Vomiting Stop: 07/21/16 20:25 Last Admin: 05/22/16 21:11 Dose: 4 mg Psyllium Hydrophilic Mucilloid (Metamucil) 1 pkt PO DAILY [facility] Stop: 07/03/16 08:59 Last Admin: 06/09/16 10:16 Dose: Not Given Quetiapine Fumarate (Seroquel) 100 mg PO HS [facility] Stop: 07/05/16 20:59 Last Admin: 06/08/16 20:14 Dose: 100 mg Sodium Phosphate (Fleet Enema) 135 ml RC PRN PRN PRN Reason: Constipation Stop: 07/23/16 08:28 Last Admin: 05/24/16 10:00 Dose: 135 ml Valproate Sodium (Depakene) 250 mg PO BID [facility] PRN Reason: Protocol Stop: 07/03/16 10:59 Last Admin: 06/09/16 10:00 Dose: Not Given General: demented HEENT: NC/AT, PERRLA Neck: Supple, No JVD Lungs: CTAB Cardiovascular: RRR, Normal S1, Normal S2 Abdomen: soft non-tender, globular, positive bowel sound Extremities: excoriation Neurological: no change - Procedures Procedures: Procedures Procedure Code Date ENDOSC POLYPECTOMY OF LG INTEST 45.42 07/13/07 GROUP PSYCHOTHERAPY 76841 06/03/15 GROUP PSYCHOTHERAPY GZHZZZZ 06/03/15 INDIVID PSYCHOTHERAP NEC 94.39 05/27/08 INSERT INDWELLING CATH 57.94 10/29/09 LESION REMOVAL COLONOSCOPY 08304 07/13/07 OTHER GROUP THERAPY 94.44 06/23/14 PERCUTANEOUS [ENDOSCOPIC] GASTROSTOMY [PEG] 43.11 10/10/13 RECREATIONAL THERAPY 93.81 06/24/10 Internal Medicine Assmt/Plan - Assessment Assessment: ch RENAL FAILURE DEHYDRATION UNCONTROLLED DIABETES dementia gait instability poor po intake lung consolidation - Plan Plan: cont on ada iss cont on oral dm meds dw rn continue w present care laxative addded, will review cxr Nutritional Asmnt/Malnutr-PDOC - Dietary Evaluation Malnutrition Findings (Please click <Entered> for more info): Nutritional Asmnt/Malnutrition Start: 05/07/16 09: 08 Text: Status: Complete Freq: Document 05/07/16 09:08 TAWANNAANGELIQUEHA (Rec: 05/07/16 09:26 DMITRI SANGEETA- FNS1) Nutritional Asmnt/Malnutrition Patient General Information Nutritional Screening Moderate Risk Screening Diagnosis Psychosis (Reason for visit) Pertinent Medical Hx/Surgical Hx Per nursing notes, DM, HTN, CVA, renal failure, dehydration, and psycho history of psychosis, alzheimer's, bipolar and dementia. Subjective Information Patient is from [facility], primarily Chinese speaking. Per nursing notes, history of becoming easily agitated and physically combative. Refusing some meds and blood sugar checks. Patient lying in bed asleep at time of visit. Current Diet [facility]/ [facility] / S.O Not Indicated Pertinent Medications maalox, colace, pepcid, iron, glipizide, novolog, cozaar, MOM, metamucil Pertinent Labs No labs drawn in this visit ( only accuchecks). Blood sugar 168-299. Nutritional Hx/Data Height 1.68 m Height (Calculated Centimeters) 167.6 Current Weight (lbs) 60.328 kg Weight (Calculated Kilograms) 60.3 Weight (Calculated Grams) 39917.8 [place] Body Weight 142lb % [place] Body Weight 93 Recent Weight Change No Weight Status Approriate GI Symptoms Food Allergies No Cultural/Ethnic/[employer] Belief None indicated Usual diet at home Regular Skin Integrity/Comment: Intact, Barron 19 Current %PO Poor (25-49%) Estimated Nutritional Goals BEE in Kcals: Using Current wt Calories/Kcals/Kg 25-30 kcal/kg Kcals Calculated 1710-2096 kcal/day Protein: Using Current wt Protein g/k gm/kg Protein Calculated 60gm/day Fluid: ml 5525-1261 ml/day Nutritional Problem 2. Problem Problem Inadequate oral intake related to Etiology possible poor appetite aeb Signs/Symptoms: meeting <50% of estimated nutrient needs 1. Problem Problem Altered nutrition related lab values related to Etiology uncontrolled hyperglycemia aeb Signs/Symptoms: accuchecks 168-299 Intervention/Recommendation Recommendations by RD Increase Calorie Intake Comments 1. MD to continue to adjust insulin regimen for optimal glycemic control. 2. Encourage oral intake of meals; provide snacks to optimize nutrient intake. Assist with meals as needed. Expected Outcomes/Goals Expected Outcomes/Goals oral intake >75% of meals, glucose normalizes 80-180 Physician Parameters for PEM Body Mass Index (BMI) 19 - 24 (Normal)
--- NOTE | 2016-06-10 03:51 | Progress Notes ---
DATE: 06/09/2016 Case was discussed with staff of the patient, reviewed records. The patient continues to be unpredictable, impulsive, and continues to have poor insight, unable to make safe plan for self-care. He is waiting for placement. So far, this is his basic level of functioning and so we will continue to work with the patient in group therapy, milieu therapy, and adjust the medications as needed. [facility]# [id number]
[2016-06-10] MEDS: INSULIN ASPART, RECOMBINANT 100 UNITS/ML SUBQ SCH ×4 (07:02→20:44)
[2016-06-10] MEDS: Ferrous Sulfate 300 MG/5 ML UDC PO SCH ×2 (08:52→17:12)
[2016-06-10] MEDS: Multivitamin w/ Minerals Tab PO SCH (08:52)
--- NOTE | 2016-06-10 13:21 | Internal Medicine Prog Note ---
Internal Medicine Subjective - Subjective Patient seen and examined:: with staff, chart reviewed Patient is:: awake, verbal, interactive Per staff patient is:: no adverse event, noncompliant, confused Internal Medicine Objective - Results Result Diagrams: 05/24/16 08:15 05/26/16 08:00 Recent Labs: Laboratory Last Values WBC 8.9 Th/cmm (4.8-10.8) D 05/24/16 08:15 RBC 3.49 Mil/cmm (3.80-5.80) L 05/24/16 08:15 Hgb 10.2 gm/dL (12.6-17.4) L 05/24/16 08:15 Hct 30.4 % (39.0-49.0) L 05/24/16 08:15 MCV 86.9 fl (80-99) 05/24/16 08:15 MCH 29.3 pg (27.0-31.0) 05/24/16 08:15 MCHC Differential 33.7 pg (28.0-36.0) 05/24/16 08:15 RDW 14.4 % (11.5-20.0) 05/24/16 08:15 Plt Count 313 Th/cmm (150-400) 05/24/16 08:15 MPV 8.9 fl 05/24/16 08:15 Neutrophils % 65.3 % (40.0-80.0) 05/24/16 08:15 Lymphocytes % 26.7 % (20.0-50.0) 05/24/16 08:15 Monocytes % 4.8 % (2.0-10.0) 05/24/16 08:15 Eosinophils % 2.5 % (0.0-5.0) 05/24/16 08:15 Basophils % 0.7 % (0.0-2.0) 05/24/16 08:15 Sodium 138 mEq/L (136-145) 05/26/16 08:00 Potassium 5.0 mEq/L (3.5-5.1) 05/26/16 08:00 Chloride 106 mEq/L (98-107) 05/26/16 08:00 Carbon Dioxide 29.6 mEq/L (21.0-31.0) 05/26/16 08:00 Anion Gap 7.4 (7.0-16.0) 05/26/16 08:00 BUN 62 mg/dL (7-25) H 05/26/16 08:00 Creatinine 1.5 mg/dL (0.7-1.3) H 05/26/16 08:00 Est GFR ( Amer) TNP 05/26/16 08:00 Est GFR (Non-Af Amer) TNP 05/26/16 08:00 BUN/Creatinine Ratio 41.3 05/26/16 08:00 Glucose 224 mg/dL (70-105) H 05/26/16 08:00 POC Glucose 233 MG/DL (70 - 105) H 06/10/16 11:24 Calcium 9.5 mg/dL (8.6-10.3) 05/26/16 08:00 Total Bilirubin 0.3 mg/dL (0.3-1.0) 05/23/16 07:45 AST 34 U/L (13-39) 05/23/16 07:45 ALT 37 U/L (7-52) 05/23/16 07:45 Alkaline Phosphatase 140 U/L (34-104) H 05/23/16 07:45 Total Protein 6.9 gm/dL (6.0-8.3) 05/23/16 07:45 Albumin 3.3 gm/dL (4.2-5.5) L 05/23/16 07:45 Globulin 3.6 gm/dL 05/23/16 07:45 Albumin/Globulin Ratio 0.9 (1.0-1.8) L 05/23/16 07:45 Lipase 16 U/L (11-82) 05/23/16 07:45 Valproic Acid < 10.0 ug/mL (50.0-100.0) L 05/23/16 07:45 - Physical Exam Vitals and I&O: Vital Signs Temp 98.6 F 06/10/16 07:04 Pulse 81 06/10/16 08:54 Resp 19 06/10/16 07:04 BP 170/83 06/10/16 08:54 Pulse Ox 97 06/10/16 07:04 Intake & Output 06/09/16 06/10/16 06/10/16 18:59 06:59 18:59 Intake Total 1600 Balance 1600 Intake: Oral 1600 Other: # Voids 4 2 # Bowel Movements 0 Active Medications: Current Medications Acetaminophen (Tylenol) 650 mg PO Q4HR PRN PRN Reason: Pain (Mild) Stop: 07/02/16 21:43 Al Hydrox/Mg Hydrox/Simethicone (Maalox) 30 ml PO Q4HR PRN PRN Reason: GI DISTRESS Stop: 07/02/16 21:43 Albuterol/Ipratropium (Duoneb Neb) 3 ml HHN Q4HRT PRN PRN Reason: Wheezing Stop: 07/21/16 08:04 Last Admin: 05/22/16 11:16 Dose: 3 ml Bisacodyl (Dulcolax 10 Mg Supp) 10 mg RC DAILY PRN PRN Reason: Constipation Stop: 07/23/16 08:28 Carbidopa/Levodopa (Sinemet 25mg-100 Mg) 1 tab PO TIDWM [facility] Stop: 07/03/16 07:59 Last Admin: 06/10/16 08:52 Dose: 1 tab Docusate Sodium (Colace) 250 mg PO BID [facility] Stop: 08/08/16 16:59 Last Admin: 06/10/16 08:52 Dose: 250 mg Donepezil HCl (Aricept) 10 mg PO DAILY [facility] Stop: 07/03/16 08:59 Last Admin: 06/10/16 08:52 Dose: 10 mg Famotidine (Pepcid) 20 mg PO BID [facility] Stop: 07/03/16 08:59 Last Admin: 06/10/16 08:52 Dose: 20 mg Ferrous Sulfate (Iron) 325 mg PO BID [facility] Stop: 07/03/16 08:59 Last Admin: 06/10/16 08:52 Dose: 325 mg Glipizide (Glucotrol) 5 mg PO BIDAC [facility] Stop: 07/03/16 07:29 Last Admin: 06/10/16 07:51 Dose: Not Given Insulin Aspart (Novolog) 0 units SUBQ ACHS JASVIR PRN Reason: Protocol Stop: 07/03/16 07:29 Last Admin: 06/10/16 11:39 Dose: 2 units Losartan Potassium (Cozaar) 50 mg PO DAILY [facility] Stop: 07/03/16 08:59 Last Admin: 06/10/16 08:54 Dose: 50 mg Magnesium Hydroxide (Milk Of Magnesia) 30 ml PO HS PRN PRN Reason: Constipation Stop: 07/02/16 21:43 Ondansetron HCl (Zofran Odt) 4 mg PO Q6H PRN PRN Reason: Nausea / Vomiting Stop: 07/21/16 20:25 Last Admin: 05/22/16 21:11 Dose: 4 mg Psyllium Hydrophilic Mucilloid (Metamucil) 1 pkt PO DAILY [facility] Stop: 07/03/16 08:59 Last Admin: 06/10/16 09:19 Dose: Not Given Quetiapine Fumarate (Seroquel) 100 mg PO HS [facility] Stop: 07/05/16 20:59 Last Admin: 06/09/16 20:52 Dose: 100 mg Sodium Phosphate (Fleet Enema) 135 ml RC PRN PRN PRN Reason: Constipation Stop: 07/23/16 08:28 Last Admin: 05/24/16 10:00 Dose: 135 ml Valproate Sodium (Depakene) 250 mg PO BID [facility] PRN Reason: Protocol Stop: 07/03/16 10:59 Last Admin: 06/10/16 08:52 Dose: 250 mg General: demented HEENT: NC/AT, PERRLA Neck: Supple, No JVD Lungs: CTAB Cardiovascular: RRR, Normal S1, Normal S2 Abdomen: soft non-tender, globular Extremities: excoriation, contracture Neurological: no change - Procedures Procedures: Procedures Procedure Code Date ENDOSC POLYPECTOMY OF LG INTEST 45.42 07/13/07 GROUP PSYCHOTHERAPY 83863 06/03/15 GROUP PSYCHOTHERAPY GZHZZZZ 06/03/15 INDIVID PSYCHOTHERAP NEC 94.39 05/27/08 INSERT INDWELLING CATH 57.94 10/29/09 LESION REMOVAL COLONOSCOPY 99099 07/13/07 OTHER GROUP THERAPY 94.44 06/23/14 PERCUTANEOUS [ENDOSCOPIC] GASTROSTOMY [PEG] 43.11 10/10/13 RECREATIONAL THERAPY 93.81 06/24/10 Internal Medicine Assmt/Plan - Assessment Assessment: ch RENAL FAILURE DEHYDRATION UNCONTROLLED DIABETES dementia gait instability poor po intake lung consolidation - Plan Plan: cont on ada iss cont on oral dm meds dw rn continue w present care laxative addded, will review cxr Nutritional Asmnt/Malnutr-PDOC - Dietary Evaluation Malnutrition Findings (Please click <Entered> for more info): Nutritional Asmnt/Malnutrition Start: 03/11/17 09: 08 Text: Status: Complete Freq: Document 05/07/16 09:08 JULIAJenna (Rec: 05/07/16 09:26 DMITRI SANGEETA- FNS1) Nutritional Asmnt/Malnutrition Patient General Information Nutritional Screening Moderate Risk Screening Diagnosis Psychosis (Reason for visit) Pertinent Medical Hx/Surgical Hx Per nursing notes, DM, HTN, CVA, renal failure, dehydration, and psycho history of psychosis, alzheimer's, bipolar and dementia. Subjective Information Patient is from [facility], primarily Khmer speaking. Per nursing notes, history of becoming easily agitated and physically combative. Refusing some meds and blood sugar checks. Patient lying in bed asleep at time of visit. Current Diet [facility]/ [facility] Patient / S.O Not Indicated Pertinent Medications maalox, colace, pepcid, iron, glipizide, novolog, cozaar, MOM, metamucil Pertinent Labs No labs drawn in this visit ( only accuchecks). Blood sugar 168-299. Nutritional Hx/Data Height 1.68 m Height (Calculated Centimeters) 167.6 Current Weight (lbs) 60.328 kg Weight (Calculated Kilograms) 60.3 Weight (Calculated Grams) 38966.8 [place] Body Weight 142lb % [place] Body Weight 93 Recent Weight Change No Weight Status Approriate GI Symptoms Food Allergies No Cultural/Ethnic/Faith Belief None indicated Usual diet at home Regular Skin Integrity/Comment: [place] Barron 19 Current %PO Poor (25-49%) Estimated Nutritional Goals BEE in Kcals: Using Current wt Calories/Kcals/Kg 25-30 kcal/kg Kcals Calculated 3224-2698 kcal/day Protein: Using Current wt Protein g/k gm/kg Protein Calculated 60gm/day Fluid: ml 9304-4051 ml/day Nutritional Problem 2. Problem Problem Inadequate oral intake related to Etiology possible poor appetite aeb Signs/Symptoms: meeting <50% of estimated nutrient needs 1. Problem Problem Altered nutrition related lab values related to Etiology uncontrolled hyperglycemia aeb Signs/Symptoms: accuchecks 168-299 Intervention/Recommendation Recommendations by RD Increase Calorie Intake Comments 1. MD to continue to adjust insulin regimen for optimal glycemic control. 2. Encourage oral intake of meals; provide snacks to optimize nutrient intake. Assist with meals as needed. Expected Outcomes/Goals Expected Outcomes/Goals oral intake >75% of meals, glucose normalizes 80-180 Physician Parameters for PEM Body Mass Index (BMI) 19 - 24 (Normal)
--- NOTE | 2016-06-11 05:38 | Progress Notes ---
DATE: 06/10/2016 Case was discussed with staff of the patient, reviewed the records. The patient continues to do the same. He stays in bed. His sister ____ him three times a day and she feeds him when she comes. He is fed by staff otherwise. Unable to care for his ADLs, demented, and confused. He needs total care. So far, no side effects with medication, no sedation, no nausea, and no extrapyramidal symptoms. I will continue to work with the patient in group therapy, milieu therapy, and adjust medication as needed. JOB# [id number]
[2016-06-11] MEDS: INSULIN ASPART, RECOMBINANT 100 UNITS/ML SUBQ SCH ×4 (06:31→20:45)
[2016-06-11] MEDS: Ferrous Sulfate 300 MG/5 ML UDC PO SCH ×2 (08:52→16:57)
[2016-06-11] MEDS: Multivitamin w/ Minerals Tab PO SCH (08:53)
--- NOTE | 2016-06-11 16:52 | Internal Medicine Prog Note ---
Internal Medicine Subjective - Subjective Patient seen and examined:: with staff, chart reviewed Patient is:: awake, verbal, interactive Per staff patient is:: no adverse event, confused Internal Medicine Objective - Results Result Diagrams: 05/24/16 08:15 05/26/16 08:00 Recent Labs: Laboratory Last Values WBC 8.9 Th/cmm (4.8-10.8) D 05/24/16 08:15 RBC 3.49 Mil/cmm (3.80-5.80) L 05/24/16 08:15 Hgb 10.2 gm/dL (12.6-17.4) L 05/24/16 08:15 Hct 30.4 % (39.0-49.0) L 05/24/16 08:15 MCV 86.9 fl (80-99) 05/24/16 08:15 MCH 29.3 pg (27.0-31.0) 05/24/16 08:15 MCHC Differential 33.7 pg (28.0-36.0) 05/24/16 08:15 RDW 14.4 % (11.5-20.0) 05/24/16 08:15 Plt Count 313 Th/cmm (150-400) 05/24/16 08:15 MPV 8.9 fl 05/24/16 08:15 Neutrophils % 65.3 % (40.0-80.0) 05/24/16 08:15 Lymphocytes % 26.7 % (20.0-50.0) 05/24/16 08:15 Monocytes % 4.8 % (2.0-10.0) 05/24/16 08:15 Eosinophils % 2.5 % (0.0-5.0) 05/24/16 08:15 Basophils % 0.7 % (0.0-2.0) 05/24/16 08:15 Sodium 138 mEq/L (136-145) 05/26/16 08:00 Potassium 5.0 mEq/L (3.5-5.1) 05/26/16 08:00 Chloride 106 mEq/L (98-107) 05/26/16 08:00 Carbon Dioxide 29.6 mEq/L (21.0-31.0) 05/26/16 08:00 Anion Gap 7.4 (7.0-16.0) 05/26/16 08:00 BUN 62 mg/dL (7-25) H 05/26/16 08:00 Creatinine 1.5 mg/dL (0.7-1.3) H 05/26/16 08:00 Est GFR ( Amer) TNP 05/26/16 08:00 Est GFR (Non-Af Amer) TNP 05/26/16 08:00 BUN/Creatinine Ratio 41.3 05/26/16 08:00 Glucose 224 mg/dL (70-105) H 05/26/16 08:00 POC Glucose 230 MG/DL (70 - 105) H 06/11/16 11:41 Calcium 9.5 mg/dL (8.6-10.3) 05/26/16 08:00 Total Bilirubin 0.3 mg/dL (0.3-1.0) 05/23/16 07:45 AST 34 U/L (13-39) 05/23/16 07:45 ALT 37 U/L (7-52) 05/23/16 07:45 Alkaline Phosphatase 140 U/L (34-104) H 05/23/16 07:45 Total Protein 6.9 gm/dL (6.0-8.3) 05/23/16 07:45 Albumin 3.3 gm/dL (4.2-5.5) L 05/23/16 07:45 Globulin 3.6 gm/dL 05/23/16 07:45 Albumin/Globulin Ratio 0.9 (1.0-1.8) L 05/23/16 07:45 Lipase 16 U/L (11-82) 05/23/16 07:45 Valproic Acid < 10.0 ug/mL (50.0-100.0) L 05/23/16 07:45 - Physical Exam Vitals and I&O: Vital Signs Temp 98.2 F 06/11/16 14:45 Pulse 61 06/11/16 14:45 Resp 20 06/11/16 14:45 BP 124/79 06/11/16 14:45 Pulse Ox 97 06/11/16 14:45 Intake & Output 06/10/16 06/11/16 06/11/16 18:59 06:59 18:59 Intake Total 960 Balance 960 Intake: Oral 960 Other: # Voids 3 2 # Bowel Movements 0 Active Medications: Current Medications Acetaminophen (Tylenol) 650 mg PO Q4HR PRN PRN Reason: Pain (Mild) Stop: 07/02/16 21:43 Al Hydrox/Mg Hydrox/Simethicone (Maalox) 30 ml PO Q4HR PRN PRN Reason: GI DISTRESS Stop: 07/02/16 21:43 Albuterol/Ipratropium (Duoneb Neb) 3 ml HHN Q4HRT PRN PRN Reason: Wheezing Stop: 07/21/16 08:04 Last Admin: 05/22/16 11:16 Dose: 3 ml Atenolol (Tenormin) 25 mg PO DAILY [facility] Stop: 08/09/16 13:29 Last Admin: 06/11/16 08:52 Dose: 25 mg Bisacodyl (Dulcolax 10 Mg Supp) 10 mg RC DAILY PRN PRN Reason: Constipation Stop: 07/23/16 08:28 Carbidopa/Levodopa (Sinemet 25mg-100 Mg) 1 tab PO TIDWM [facility] Stop: 07/03/16 07:59 Last Admin: 06/11/16 12:57 Dose: Not Given Clonidine HCl (Catapres) 0.1 mg PO Q6HR PRN PRN Reason: SBP GREATER THAN 160 Stop: 08/09/16 13:19 Docusate Sodium (Colace) 250 mg PO BID [facility] Stop: 08/08/16 16:59 Last Admin: 06/11/16 08:52 Dose: 250 mg Donepezil HCl (Aricept) 10 mg PO DAILY [facility] Stop: 07/03/16 08:59 Last Admin: 06/11/16 08:52 Dose: 10 mg Famotidine (Pepcid) 20 mg PO BID [facility] Stop: 07/03/16 08:59 Last Admin: 06/11/16 08:52 Dose: 20 mg Ferrous Sulfate (Iron) 325 mg PO BID [facility] Stop: 07/03/16 08:59 Last Admin: 06/11/16 08:52 Dose: Not Given Glipizide (Glucotrol) [facility] Stop: 07/03/16 07:29 Last Admin: 06/11/16 06:59 Dose: Not Given Insulin Aspart (Novolog) 0 units SUBQ ACHS [facility] PRN Reason: Protocol Stop: 07/03/16 07:29 Last Admin: 06/11/16 16:50 Dose: Not Given Losartan Potassium (Cozaar) 50 mg PO DAILY [facility] Stop: 07/03/16 08:59 Last Admin: 06/11/16 08:52 Dose: 50 mg Magnesium Hydroxide (Milk Of Magnesia) 30 ml PO HS PRN PRN Reason: Constipation Stop: 07/02/16 21:43 Ondansetron HCl (Zofran Odt) 4 mg PO Q6H PRN PRN Reason: Nausea / Vomiting Stop: 07/21/16 20:25 Last Admin: 05/22/16 21:11 Dose: 4 mg Psyllium Hydrophilic Mucilloid (Metamucil) 1 pkt PO DAILY [facility] Stop: 07/03/16 08:59 Last Admin: 06/11/16 08:53 Dose: Not Given Quetiapine Fumarate (Seroquel) 100 mg PO HS [facility] Stop: 07/05/16 20:59 Last Admin: 06/10/16 20:44 Dose: 100 mg Sodium Phosphate (Fleet Enema) 135 ml RC PRN PRN PRN Reason: Constipation Stop: 07/23/16 08:28 Last Admin: 05/24/16 10:00 Dose: 135 ml Valproate Sodium (Depakene) 250 mg PO BID [facility] PRN Reason: Protocol Stop: 07/03/16 10:59 Last Admin: 06/11/16 08:52 Dose: 250 mg General: demented HEENT: NC/AT, PERRLA Neck: Supple, No JVD Lungs: CTAB Cardiovascular: RRR, Normal S1, Normal S2 Abdomen: globular, positive bowel sound Extremities: excoriation Neurological: no change - Procedures Procedures: Procedures Procedure Code Date ENDOSC POLYPECTOMY OF LG INTEST 45.42 07/13/07 GROUP PSYCHOTHERAPY 17594 06/03/15 GROUP PSYCHOTHERAPY GZHZZZZ 06/03/15 INDIVID PSYCHOTHERAP NEC 94.39 05/27/08 INSERT INDWELLING CATH 57.94 10/29/09 LESION REMOVAL COLONOSCOPY 66549 07/13/07 OTHER GROUP THERAPY 94.44 06/23/14 PERCUTANEOUS [ENDOSCOPIC] GASTROSTOMY [PEG] 43.11 10/10/13 RECREATIONAL THERAPY 93.81 06/24/10 Internal Medicine Assmt/Plan - Assessment Assessment: ch RENAL FAILURE DEHYDRATION UNCONTROLLED DIABETES dementia gait instability poor po intake lung consolidation - Plan Plan: cont on ada iss cont on oral dm meds dw rn continue w present care laxative addded, will review cxr Nutritional Asmnt/Malnutr-PDOC - Dietary Evaluation Malnutrition Findings (Please click <Entered> for more info): Nutritional Asmnt/Malnutrition Start: 05/07/16 09: 08 Text: Status: Complete Freq: Document 05/07/16 09:08 DMITRI (Rec: 05/07/16 09:26 DMITRI [place]- FNS1) Nutritional Asmnt/Malnutrition Patient General Information Nutritional Screening Moderate Risk Screening Diagnosis Psychosis (Reason for visit) Pertinent Medical Hx/Surgical Hx Per nursing notes, DM, HTN, CVA, renal failure, dehydration, and psycho history of psychosis, alzheimer's, bipolar and dementia. Subjective Information Patient is from [facility], primarily [place]i speaking. Per nursing notes, history of becoming easily agitated and physically combative. Refusing some meds and blood sugar checks. Patient lying in bed asleep at time of visit. Current Diet Order/ Nutrition Support [facility] [place] S[place] Not Indicated Pertinent Medications maalox, colace, pepcid, iron, glipizide, novolog, cozaar, MOM, metamucil Pertinent Labs No labs drawn in this visit ( only accuchecks). Blood sugar 168-299. Nutritional Hx/Data Height 1.68 m Height (Calculated Centimeters) 167.6 Current Weight (lbs) 60.328 kg Weight (Calculated Kilograms) 60.3 Weight (Calculated Grams) 99827.8 [place] Body Weight 142lb % [place] Body Weight 93 Recent Weight Change No Weight Status Approriate GI Symptoms Food Allergies No Cultural/Ethnic/Zoroastrianism Belief None indicated Usual diet at home Regular Skin Integrity/Comment: [place], Barron 19 Current %PO Poor (25-49%) Estimated Nutritional Goals BEE in Kcals: Using Current wt Calories/Kcals/Kg 25-30 kcal/kg Kcals Calculated 8830-2456 kcal/day Protein: Using Current wt Protein g/k gm/kg Protein Calculated 60gm/day Fluid: ml 4442-7034 ml/day Nutritional Problem 2. Problem Problem Inadequate oral intake related to Etiology possible poor appetite aeb Signs/Symptoms: meeting <50% of estimated nutrient needs 1. Problem Problem Altered nutrition related lab values related to Etiology uncontrolled hyperglycemia aeb Signs/Symptoms: accuchecks 168-299 Intervention/Recommendation Recommendations by RD Increase Calorie Intake Comments 1. MD to continue to adjust insulin regimen for optimal glycemic control. 2. Encourage oral intake of meals; provide snacks to optimize nutrient intake. Assist with meals as needed. Expected Outcomes/Goals Expected Outcomes/Goals oral intake >75% of meals, glucose normalizes 80-180 Physician Parameters for PEM Body Mass Index (BMI) 19 - 24 (Normal)
--- NOTE | 2016-06-11 21:38 | Progress Notes ---
DATE: 06/11/2016 Case was discussed with staff of the patient, reviewed records. The patient continues to do the same. He is in bed most of the time. He is impulsive and unpredictable. However, he is going to a prison if anyone accepts him. So far, nobody to accept him. He is at basic level of function and there is lot ____ we can do for him. He is not acting out. He sleeps well. He is fed by staff and his sister whenever she comes. No side effects for the medication, no sedation, no nausea, and no extrapyramidal symptoms. We will continue to work with the patient in group therapy, milieu therapy, and adjust medication as needed. JOB# [id number]
[2016-06-12] MEDS: INSULIN ASPART, RECOMBINANT 100 UNITS/ML SUBQ SCH ×4 (06:45→21:11)
[2016-06-12] MEDS: Ferrous Sulfate 300 MG/5 ML UDC PO SCH ×2 (08:51→17:18)
[2016-06-12] MEDS: Multivitamin w/ Minerals Tab PO SCH (08:52)
--- NOTE | 2016-06-12 21:47 | Internal Medicine Prog Note ---
Internal Medicine Subjective - Subjective Patient seen and examined:: with staff, chart reviewed Patient is:: awake, verbal, interactive Per staff patient is:: no adverse event, confused Internal Medicine Objective - Results Result Diagrams: 05/24/16 08:15 05/26/16 08:00 Recent Labs: Laboratory Last Values WBC 8.9 Th/cmm (4.8-10.8) D 05/24/16 08:15 RBC 3.49 Mil/cmm (3.80-5.80) L 05/24/16 08:15 Hgb 10.2 gm/dL (12.6-17.4) L 05/24/16 08:15 Hct 30.4 % (39.0-49.0) L 05/24/16 08:15 MCV 86.9 fl (80-99) 05/24/16 08:15 MCH 29.3 pg (27.0-31.0) 05/24/16 08:15 MCHC Differential 33.7 pg (28.0-36.0) 05/24/16 08:15 RDW 14.4 % (11.5-20.0) 05/24/16 08:15 Plt Count 313 Th/cmm (150-400) 05/24/16 08:15 MPV 8.9 fl 05/24/16 08:15 Neutrophils % 65.3 % (40.0-80.0) 05/24/16 08:15 Lymphocytes % 26.7 % (20.0-50.0) 05/24/16 08:15 Monocytes % 4.8 % (2.0-10.0) 05/24/16 08:15 Eosinophils % 2.5 % (0.0-5.0) 05/24/16 08:15 Basophils % 0.7 % (0.0-2.0) 05/24/16 08:15 Sodium 138 mEq/L (136-145) 05/26/16 08:00 Potassium 5.0 mEq/L (3.5-5.1) 05/26/16 08:00 Chloride 106 mEq/L (98-107) 05/26/16 08:00 Carbon Dioxide 29.6 mEq/L (21.0-31.0) 05/26/16 08:00 Anion Gap 7.4 (7.0-16.0) 05/26/16 08:00 BUN 62 mg/dL (7-25) H 05/26/16 08:00 Creatinine 1.5 mg/dL (0.7-1.3) H 05/26/16 08:00 Est GFR ( Amer) TNP 05/26/16 08:00 Est GFR (Non-Af Amer) TNP 05/26/16 08:00 BUN/Creatinine Ratio 41.3 05/26/16 08:00 Glucose 224 mg/dL (70-105) H 05/26/16 08:00 POC Glucose 139 MG/DL (70 - 105) H 06/12/16 20:12 Calcium 9.5 mg/dL (8.6-10.3) 05/26/16 08:00 Total Bilirubin 0.3 mg/dL (0.3-1.0) 05/23/16 07:45 AST 34 U/L (13-39) 05/23/16 07:45 ALT 37 U/L (7-52) 05/23/16 07:45 Alkaline Phosphatase 140 U/L (34-104) H 05/23/16 07:45 Total Protein 6.9 gm/dL (6.0-8.3) 05/23/16 07:45 Albumin 3.3 gm/dL (4.2-5.5) L 05/23/16 07:45 Globulin 3.6 gm/dL 05/23/16 07:45 Albumin/Globulin Ratio 0.9 (1.0-1.8) L 05/23/16 07:45 Lipase 16 U/L (11-82) 05/23/16 07:45 Valproic Acid < 10.0 ug/mL (50.0-100.0) L 05/23/16 07:45 - Physical Exam Vitals and I&O: Vital Signs Temp 98.1 F 06/12/16 19:49 Pulse 57 06/12/16 19:49 Resp 19 06/12/16 19:49 BP 156/74 06/12/16 19:49 Pulse Ox 96 06/12/16 19:49 Intake & Output 06/12/16 06/12/16 06/13/16 06:59 18:59 06:59 Intake Total 240 850 120 Balance 240 850 120 Intake: Oral 240 850 120 Other: # Voids 1 4 1 # Bowel Movements 2 Active Medications: Current Medications Acetaminophen (Tylenol) 650 mg PO Q4HR PRN PRN Reason: Pain (Mild) Stop: 07/02/16 21:43 Al Hydrox/Mg Hydrox/Simethicone (Maalox) 30 ml PO Q4HR PRN PRN Reason: GI DISTRESS Stop: 07/02/16 21:43 Albuterol/Ipratropium (Duoneb Neb) 3 ml HHN Q4HRT PRN PRN Reason: Wheezing Stop: 07/21/16 08:04 Last Admin: 05/22/16 11:16 Dose: 3 ml Atenolol (Tenormin) 25 mg PO DAILY [facility] Stop: 08/09/16 13:29 Last Admin: 06/12/16 08:52 Dose: 25 mg Bisacodyl (Dulcolax 10 Mg Supp) 10 mg RC DAILY PRN PRN Reason: Constipation Stop: 07/23/16 08:28 Carbidopa/Levodopa (Sinemet 25mg-100 Mg) 1 tab PO TIDWM [facility] Stop: 07/03/16 07:59 Last Admin: 06/12/16 17:18 Dose: 1 tab Clonidine HCl (Catapres) 0.1 mg PO Q6HR PRN PRN Reason: SBP GREATER THAN 160 Stop: 08/09/16 13:19 Docusate Sodium (Colace) 250 mg PO BID [facility] Stop: 08/08/16 16:59 Last Admin: 06/12/16 08:52 Dose: 250 mg Donepezil HCl (Aricept) 10 mg PO DAILY [facility] Stop: 07/03/16 08:59 Last Admin: 06/12/16 08:52 Dose: 10 mg Famotidine (Pepcid) 20 mg PO BID [facility] Stop: 07/03/16 08:59 Last Admin: 06/12/16 17:18 Dose: 20 mg Ferrous Sulfate (Iron) 325 mg PO BID [facility] Stop: 07/03/16 08:59 Last Admin: 06/12/16 17:18 Dose: 325 mg [facility] Stop: 07/03/16 07:29 Last Admin: 06/12/16 06:42 Dose: 5 mg Insulin Aspart (Novolog) 0 units SUBQ ACHS [facility]AS[facility]IR PRN Reason: Protocol Stop: 07/03/16 07:29 Last Admin: 06/12/16 21:11 Dose: Not Given Losartan Potassium (Cozaar) 50 mg PO DAILY [facility] Stop: 07/03/16 08:59 Last Admin: 06/12/16 08:53 Dose: 50 mg Magnesium Hydroxide (Milk Of Magnesia) 30 ml PO HS PRN PRN Reason: Constipation Stop: 07/02/16 21:43 Ondansetron HCl (Zofran Odt) 4 mg PO Q6H PRN PRN Reason: Nausea / Vomiting Stop: 07/21/16 20:25 Last Admin: 05/22/16 21:11 Dose: 4 mg Psyllium Hydrophilic Mucilloid (Metamucil) 1 pkt PO DAILY [facility] Stop: 07/03/16 08:59 Last Admin: 06/12/16 08:53 Dose: Not Given Quetiapine Fumarate (Seroquel) 100 mg PO HS [facility] Stop: 07/05/16 20:59 Last Admin: 06/12/16 21:10 Dose: 100 mg Sodium Phosphate (Fleet Enema) 135 ml RC PRN PRN PRN Reason: Constipation Stop: 07/23/16 08:28 Last Admin: 05/24/16 10:00 Dose: 135 ml Valproate Sodium (Depakene) 250 mg PO BID [facility] PRN Reason: Protocol Stop: 07/03/16 10:59 Last Admin: 06/12/16 17:19 Dose: 250 mg General: demented HEENT: NC/AT, PERRLA Neck: Supple, No JVD Lungs: CTAB Cardiovascular: RRR, Normal S1, Normal S2 Abdomen: soft non-tender, globular, positive bowel sound Extremities: excoriation - Procedures Procedures: Procedures Procedure Code Date ENDOSC POLYPECTOMY OF LG INTEST 45.42 07/13/07 GROUP PSYCHOTHERAPY 32402 06/03/15 GROUP PSYCHOTHERAPY GZHZZZZ 06/03/15 INDIVID PSYCHOTHERAP NEC 94.39 05/27/08 INSERT INDWELLING CATH 57.94 10/29/09 LESION REMOVAL COLONOSCOPY 40326 07/13/07 OTHER GROUP THERAPY 94.44 06/23/14 PERCUTANEOUS [ENDOSCOPIC] GASTROSTOMY [PEG] 43.11 10/10/13 RECREATIONAL THERAPY 93.81 06/24/10 Internal Medicine Assmt/Plan - Assessment Assessment: ch RENAL FAILURE DEHYDRATION UNCONTROLLED DIABETES dementia gait instability poor po intake lung consolidation - Plan Plan: cont on ada iss cont on oral dm meds dw rn continue w present care laxative addded, will review cxr Nutritional Asmnt/Malnutr-PDOC - Dietary Evaluation Malnutrition Findings (Please click <Entered> for more info): Nutritional Asmnt/Malnutrition Start: 05/07/16 09: 08 Text: Status: Complete Freq: Document 05/07/16 09:08 DMITRI (Rec: 05/07/16 09:26 MMMILTON R[place]HERFORD- FNS1) Nutritional Asmnt/Malnutrition Patient General Information Nutritional Screening Moderate Risk Screening Diagnosis Psychosis (Reason for visit) Pertinent Medical Hx/Surgical Hx Per nursing notes, DM, HTN, CVA, renal failure, dehydration, and psycho history of psychosis, alzheimer's, bipolar and dementia. Subjective Information Patient is from [facility], primarily [place] speaking. Per nursing notes, history of becoming easily agitated and physically combative. Refusing some meds and blood sugar checks. Patient lying in bed asleep at time of visit. Current Diet Order/ Nutrition Support [facility]- [facility] pure Patient / S.O Not Indicated Pertinent Medications maalox, colace, pepcid, iron, glipizide, novolog, cozaar, MOM, metamucil Pertinent Labs No labs drawn in this visit ( only accuchecks). Blood sugar 168-299. Nutritional Hx/Data Height 1.68 m Height (Calculated Centimeters) 167.6 Current Weight (lbs) 60.328 kg Weight (Calculated Kilograms) 60.3 Weight (Calculated Grams) 00756.8 [place] Body Weight 142lb % [place] Body Weight 93 Recent Weight Change No Weight Status Approriate GI Symptoms Food Allergies No Cultural/Ethnic/Scientology Belief None indicated Usual diet at home Regular Skin Integrity/Comment: Intact, [place] 19 Current %PO Poor (25-49%) Estimated Nutritional Goals BEE in Kcals: Using Current wt Calories/Kcals/Kg 25-30 kcal/kg Kcals Calculated 0572-3411 kcal/day Protein: Using Current wt Protein g/k gm/kg Protein Calculated 60gm/day Fluid: ml 8131-7368 ml/day Nutritional Problem 2. Problem Problem Inadequate oral intake related to Etiology possible poor appetite aeb Signs/Symptoms: meeting <50% of estimated nutrient needs 1. Problem Problem Altered nutrition related lab values related to Etiology uncontrolled hyperglycemia aeb Signs/Symptoms: accuchecks 168-299 Intervention/Recommendation Recommendations by RD Increase Calorie Intake Comments 1. MD to continue to adjust insulin regimen for optimal glycemic control. 2. Encourage oral intake of meals; provide snacks to optimize nutrient intake. Assist with meals as needed. Expected Outcomes/Goals Expected Outcomes/Goals oral intake >75% of meals, glucose normalizes 80-180 Physician Parameters for PEM Body Mass Index (BMI) 19 - 24 (Normal)
--- NOTE | 2016-06-13 04:36 | Progress Notes ---
DATE: 06/12/2016 Case was discussed with staff of the patient, reviewed records. The patient continues to isolate himself; however, he is bedridden in general. He needs help with his ADLs. Sleeping well, eating well. Still has episodes of agitation and irritable, but he responds well to redirection. No side effects with the medication. No sedation, no nausea and no extrapyramidal symptoms. Working on placement for this patient. He sleeps well. He is fed by staff. ____ the patient in group therapy, milieu therapy and adjust medications. JOB# [id number]
[2016-06-13] MEDS: INSULIN ASPART, RECOMBINANT 100 UNITS/ML SUBQ SCH ×4 (06:40→20:56)
[2016-06-13] MEDS: Ferrous Sulfate 300 MG/5 ML UDC PO SCH ×2 (08:48→17:16)
[2016-06-13] MEDS: Multivitamin w/ Minerals Tab PO SCH (08:49)
--- NOTE | 2016-06-13 12:33 | Internal Medicine Prog Note ---
Internal Medicine Subjective - Subjective Patient seen and examined:: with staff, chart reviewed Patient is:: awake, verbal, non-interactive Per staff patient is:: no adverse event, confused Internal Medicine Objective - Results Result Diagrams: 05/24/16 08:15 05/26/16 08:00 Recent Labs: Laboratory Last Values WBC 8.9 Th/cmm (4.8-10.8) D 05/24/16 08:15 RBC 3.49 Mil/cmm (3.80-5.80) L 05/24/16 08:15 Hgb 10.2 gm/dL (12.6-17.4) L 05/24/16 08:15 Hct 30.4 % (39.0-49.0) L 05/24/16 08:15 MCV 86.9 fl (80-99) 05/24/16 08:15 MCH 29.3 pg (27.0-31.0) 05/24/16 08:15 MCHC Differential 33.7 pg (28.0-36.0) 05/24/16 08:15 RDW 14.4 % (11.5-20.0) 05/24/16 08:15 Plt Count 313 Th/cmm (150-400) 05/24/16 08:15 MPV 8.9 fl 05/24/16 08:15 Neutrophils % 65.3 % (40.0-80.0) 05/24/16 08:15 Lymphocytes % 26.7 % (20.0-50.0) 05/24/16 08:15 Monocytes % 4.8 % (2.0-10.0) 05/24/16 08:15 Eosinophils % 2.5 % (0.0-5.0) 05/24/16 08:15 Basophils % 0.7 % (0.0-2.0) 05/24/16 08:15 Sodium 138 mEq/L (136-145) 05/26/16 08:00 Potassium 5.0 mEq/L (3.5-5.1) 05/26/16 08:00 Chloride 106 mEq/L (98-107) 05/26/16 08:00 Carbon Dioxide 29.6 mEq/L (21.0-31.0) 05/26/16 08:00 Anion Gap 7.4 (7.0-16.0) 05/26/16 08:00 BUN 62 mg/dL (7-25) H 05/26/16 08:00 Creatinine 1.5 mg/dL (0.7-1.3) H 05/26/16 08:00 Est GFR ( Amer) TNP 05/26/16 08:00 Est GFR (Non-Af Amer) TNP 05/26/16 08:00 BUN/Creatinine Ratio 41.3 05/26/16 08:00 Glucose 224 mg/dL (70-105) H 05/26/16 08:00 POC Glucose 217 MG/DL (70 - 105) H 06/13/16 06:16 Calcium 9.5 mg/dL (8.6-10.3) 05/26/16 08:00 Total Bilirubin 0.3 mg/dL (0.3-1.0) 05/23/16 07:45 AST 34 U/L (13-39) 05/23/16 07:45 ALT 37 U/L (7-52) 05/23/16 07:45 Alkaline Phosphatase 140 U/L (34-104) H 05/23/16 07:45 Total Protein 6.9 gm/dL (6.0-8.3) 05/23/16 07:45 Albumin 3.3 gm/dL (4.2-5.5) L 05/23/16 07:45 Globulin 3.6 gm/dL 05/23/16 07:45 Albumin/Globulin Ratio 0.9 (1.0-1.8) L 05/23/16 07:45 Lipase 16 U/L (11-82) 05/23/16 07:45 Valproic Acid < 10.0 ug/mL (50.0-100.0) L 05/23/16 07:45 - Physical Exam Vitals and I&O: Vital Signs Temp 98.1 F 06/13/16 05:58 Pulse 61 06/13/16 08:49 Resp 19 06/13/16 05:58 BP 171/70 06/13/16 08:49 Pulse Ox 98 06/13/16 05:58 Intake & Output 06/12/16 06/13/16 06/13/16 18:59 06:59 18:59 Intake Total 850 120 Balance 850 120 Intake: Oral 850 120 Other: # Voids 4 1 # Bowel Movements 2 0 Active Medications: Current Medications Acetaminophen (Tylenol) 650 mg PO Q4HR PRN PRN Reason: Pain (Mild) Stop: 07/02/16 21:43 Al Hydrox/Mg Hydrox/Simethicone (Maalox) 30 ml PO Q4HR PRN PRN Reason: GI DISTRESS Stop: 07/02/16 21:43 Albuterol/Ipratropium (Duoneb Neb) 3 ml HHN Q4HRT PRN PRN Reason: Wheezing Stop: 07/21/16 08:04 Last Admin: 05/22/16 11:16 Dose: 3 ml Atenolol (Tenormin) 25 mg PO DAILY [facility] Stop: 08/09/16 13:29 Last Admin: 06/13/16 08:49 Dose: 25 mg Bisacodyl (Dulcolax 10 Mg Supp) 10 mg RC DAILY PRN PRN Reason: Constipation Stop: 07/23/16 08:28 Carbidopa/Levodopa (Sinemet 25mg-100 Mg) 1 tab PO TIDWM [facility] Stop: 07/03/16 07:59 Last Admin: 06/13/16 08:50 Dose: 1 tab Clonidine HCl (Catapres) 0.1 mg PO Q6HR PRN PRN Reason: SBP GREATER THAN 160 Stop: 08/09/16 13:19 Docusate Sodium (Colace) 250 mg PO BID [facility] Stop: 08/08/16 16:59 Last Admin: 06/13/16 08:48 Dose: 250 mg Donepezil HCl (Aricept) 10 mg PO DAILY [facility] Stop: 07/03/16 08:59 Last Admin: 06/13/16 08:49 Dose: 10 mg Famotidine (Pepcid) 20 mg PO BID [facility] Stop: 07/03/16 08:59 Last Admin: 06/13/16 08:49 Dose: 20 mg Ferrous Sulfate (Iron) 325 mg PO BID [facility] Stop: 07/03/16 08:59 Last Admin: 06/13/16 08:48 Dose: 325 mg [facility] Stop: 07/03/16 07:29 Last Admin: 06/13/16 06:40 Dose: 5 mg Insulin Aspart (Novolog) 0 units SUBQ ACHS JASVIR PRN Reason: Protocol Stop: 07/03/16 07:29 Last Admin: 06/13/16 06:40 Dose: 2 units Losartan Potassium (Cozaar) 50 mg PO DAILY [facility] Stop: 07/03/16 08:59 Last Admin: 06/13/16 08:48 Dose: 50 mg Magnesium Hydroxide (Milk Of Magnesia) 30 ml PO HS PRN PRN Reason: Constipation Stop: 07/02/16 21:43 Ondansetron HCl (Zofran Odt) 4 mg PO Q6H PRN PRN Reason: Nausea / Vomiting Stop: 07/21/16 20:25 Last Admin: 05/22/16 21:11 Dose: 4 mg Psyllium Hydrophilic Mucilloid (Metamucil) 1 pkt PO DAILY [facility] Stop: 07/03/16 08:59 Last Admin: 06/12/16 08:53 Dose: Not Given Quetiapine Fumarate (Seroquel) 100 mg PO HS [facility] Stop: 07/05/16 20:59 Last Admin: 06/12/16 21:10 Dose: 100 mg Sodium Phosphate (Fleet Enema) 135 ml RC PRN PRN PRN Reason: Constipation Stop: 07/23/16 08:28 Last Admin: 05/24/16 10:00 Dose: 135 ml Valproate Sodium (Depakene) 250 mg PO BID [facility] PRN Reason: Protocol Stop: 07/03/16 10:59 Last Admin: 06/13/16 08:48 Dose: 250 mg General: demented HEENT: NC/AT, PERRLA Neck: Supple Lungs: CTAB Cardiovascular: RRR, Normal S1, Normal S2 Abdomen: soft non-tender, globular, positive bowel sound Extremities: excoriation, contracture Neurological: no change, disorganized - Procedures Procedures: Procedures Procedure Code Date ENDOSC POLYPECTOMY OF LG INTEST 45.42 07/13/07 GROUP PSYCHOTHERAPY 84295 06/03/15 GROUP PSYCHOTHERAPY GZHZZZZ 06/03/15 INDIVID PSYCHOTHERAP NEC 94.39 05/27/08 INSERT INDWELLING CATH 57.94 10/29/09 LESION REMOVAL COLONOSCOPY 97873 07/13/07 OTHER GROUP THERAPY 94.44 06/23/14 PERCUTANEOUS [ENDOSCOPIC] GASTROSTOMY [PEG] 43.11 10/10/13 RECREATIONAL THERAPY 93.81 06/24/10 Internal Medicine Assmt/Plan - Assessment Assessment: ch RENAL FAILURE DEHYDRATION UNCONTROLLED DIABETES dementia gait instability poor po intake lung consolidation - Plan Plan: cont on ada iss cont on oral dm meds dw rn continue w present care laxative addded, will review cxr Nutritional Asmnt/Malnutr-PDOC - Dietary Evaluation Malnutrition Findings (Please click <Entered> for more info): Nutritional Asmnt/Malnutrition Start: 05/07/16 09: 08 Text: Status: Complete Freq: Document 05/07/16 09:08 DMITRI (Rec: 05/07/16 09:26 [facility]- FNS1) Nutritional Asmnt/Malnutrition Patient General Information Nutritional Screening Moderate Risk Screening Diagnosis Psychosis (Reason for visit) Pertinent Medical Hx/Surgical Hx Per nursing notes, DM, HTN, CVA, renal failure, dehydration, and psycho history of psychosis, alzheimer's, bipolar and dementia. Subjective Information Patient is from [facility], primarily [place] speaking. Per nursing notes, history of becoming easily agitated and physically combative. Refusing some meds and blood sugar checks. Patient lying in bed asleep at time of visit. Current Diet Order/ Nutrition Support [facility]- 60 pure Patient / S.O Not Indicated Pertinent Medications maalox, colace, pepcid, iron, glipizide, novolog, cozaar, MOM, metamucil Pertinent Labs No labs drawn in this visit ( only accuchecks). Blood sugar 168-299. Nutritional Hx/Data Height 1.68 m Height (Calculated Centimeters) 167.6 Current Weight (lbs) 60.328 kg Weight (Calculated Kilograms) 60.3 Weight (Calculated Grams) 22067.8 [place] Body Weight 142lb % [place] Body Weight 93 Recent Weight Change No Weight Status Approriate GI Symptoms Food Allergies No Cultural/Ethnic/Yarsanism Belief None indicated Usual diet at home Regular Skin Integrity/Comment: Intact, [place] 19 Current %PO Poor (25-49%) Estimated Nutritional Goals BEE in Kcals: Using Current wt Calories/Kcals/Kg 25-30 kcal/kg Kcals Calculated 1185-2307 kcal/day Protein: Using Current wt Protein g/k gm/kg Protein Calculated 60gm/day Fluid: ml 2409-4475 ml/day Nutritional Problem 2. Problem Problem Inadequate oral intake related to Etiology possible poor appetite aeb Signs/Symptoms: meeting <50% of estimated nutrient needs 1. Problem Problem Altered nutrition related lab values related to Etiology uncontrolled hyperglycemia aeb Signs/Symptoms: accuchecks 168-299 Intervention/Recommendation Recommendations by RD Increase Calorie Intake Comments 1. MD to continue to adjust insulin regimen for optimal glycemic control. 2. Encourage oral intake of meals; provide snacks to optimize nutrient intake. Assist with meals as needed. Expected Outcomes/Goals Expected Outcomes/Goals oral intake >75% of meals, glucose normalizes 80-180 Physician Parameters for PEM Body Mass Index (BMI) 19 - 24 (Normal)
--- NOTE | 2016-06-14 05:58 | Progress Notes ---
DATE: 06/13/2016 Case discussed with staff of the patient, reviewed records. The patient continues to stay in bed mostly, he does not participate in much activity, fed by the staff, sleeping well, he need care with all his ADLs, unpredictable, impulsive, needing redirection, needing placement. So far, been unable to place him, nobody is willing to accept him because of his history and so far, no side effects with the medication, no sedation, no nausea, no extrapyramidal symptoms. We will continue to work with the patient in group therapy, milieu therapy, adjust medication as needed. JOB# [id number]
[2016-06-14] MEDS: INSULIN ASPART, RECOMBINANT 100 UNITS/ML SUBQ SCH ×4 (06:46→20:45)
[2016-06-14] MEDS: Ferrous Sulfate 300 MG/5 ML UDC PO SCH ×2 (08:25→16:42)
[2016-06-14] MEDS: Multivitamin w/ Minerals Tab PO SCH (08:26)
--- NOTE | 2016-06-14 15:14 | Internal Medicine Prog Note ---
Internal Medicine Subjective - Subjective Patient seen and examined:: with staff, chart reviewed Patient is:: awake, verbal, interactive Per staff patient is:: no adverse event, no episodes of fall, confused Internal Medicine Objective - Results Result Diagrams: 05/24/16 08:15 05/26/16 08:00 Recent Labs: Laboratory Last Values WBC 8.9 Th/cmm (4.8-10.8) D 05/24/16 08:15 RBC 3.49 Mil/cmm (3.80-5.80) L 05/24/16 08:15 Hgb 10.2 gm/dL (12.6-17.4) L 05/24/16 08:15 Hct 30.4 % (39.0-49.0) L 05/24/16 08:15 MCV 86.9 fl (80-99) 05/24/16 08:15 MCH 29.3 pg (27.0-31.0) 05/24/16 08:15 MCHC Differential 33.7 pg (28.0-36.0) 05/24/16 08:15 RDW 14.4 % (11.5-20.0) 05/24/16 08:15 Plt Count 313 Th/cmm (150-400) 05/24/16 08:15 MPV 8.9 fl 05/24/16 08:15 Neutrophils % 65.3 % (40.0-80.0) 05/24/16 08:15 Lymphocytes % 26.7 % (20.0-50.0) 05/24/16 08:15 Monocytes % 4.8 % (2.0-10.0) 05/24/16 08:15 Eosinophils % 2.5 % (0.0-5.0) 05/24/16 08:15 Basophils % 0.7 % (0.0-2.0) 05/24/16 08:15 Sodium 138 mEq/L (136-145) 05/26/16 08:00 Potassium 5.0 mEq/L (3.5-5.1) 05/26/16 08:00 Chloride 106 mEq/L (98-107) 05/26/16 08:00 Carbon Dioxide 29.6 mEq/L (21.0-31.0) 05/26/16 08:00 Anion Gap 7.4 (7.0-16.0) 05/26/16 08:00 BUN 62 mg/dL (7-25) H 05/26/16 08:00 Creatinine 1.5 mg/dL (0.7-1.3) H 05/26/16 08:00 Est GFR ( Amer) TNP 05/26/16 08:00 Est GFR (Non-Af Amer) TNP 05/26/16 08:00 BUN/Creatinine Ratio 41.3 05/26/16 08:00 Glucose 224 mg/dL (70-105) H 05/26/16 08:00 POC Glucose 281 MG/DL (70 - 105) H 06/14/16 11:28 Calcium 9.5 mg/dL (8.6-10.3) 05/26/16 08:00 Total Bilirubin 0.3 mg/dL (0.3-1.0) 05/23/16 07:45 AST 34 U/L (13-39) 05/23/16 07:45 ALT 37 U/L (7-52) 05/23/16 07:45 Alkaline Phosphatase 140 U/L (34-104) H 05/23/16 07:45 Total Protein 6.9 gm/dL (6.0-8.3) 05/23/16 07:45 Albumin 3.3 gm/dL (4.2-5.5) L 05/23/16 07:45 Globulin 3.6 gm/dL 05/23/16 07:45 Albumin/Globulin Ratio 0.9 (1.0-1.8) L 05/23/16 07:45 Lipase 16 U/L (11-82) 05/23/16 07:45 Valproic Acid < 10.0 ug/mL (50.0-100.0) L 05/23/16 07:45 - Physical Exam Vitals and I&O: Vital Signs Temp 98.2 F 06/14/16 06:11 Pulse 62 06/14/16 08:26 Resp 18 06/14/16 08:00 BP 164/91 06/14/16 08:26 Pulse Ox 97 06/14/16 08:00 Intake & Output 06/13/16 06/14/16 06/14/16 18:59 06:59 18:59 Intake Total 1200 Balance 1200 Intake: Oral 1200 Other: # Voids 4 1 # Bowel Movements 0 0 Active Medications: Current Medications Acetaminophen (Tylenol) 650 mg PO Q4HR PRN PRN Reason: Pain (Mild) Stop: 07/02/16 21:43 Al Hydrox/Mg Hydrox/Simethicone (Maalox) 30 ml PO Q4HR PRN PRN Reason: GI DISTRESS Stop: 07/02/16 21:43 Albuterol/Ipratropium (Duoneb Neb) 3 ml HHN Q4HRT PRN PRN Reason: Wheezing Stop: 07/21/16 08:04 Last Admin: 05/22/16 11:16 Dose: 3 ml Atenolol (Tenormin) 25 mg PO DAILY [facility] Stop: 08/09/16 13:29 Last Admin: 06/14/16 08:26 Dose: 25 mg Bisacodyl (Dulcolax 10 Mg Supp) 10 mg RC DAILY PRN PRN Reason: Constipation Stop: 07/23/16 08:28 Carbidopa/Levodopa (Sinemet 25mg-100 Mg) 1 tab PO TIDWM [facility] Stop: 07/03/16 07:59 Last Admin: 06/14/16 08:27 Dose: 1 tab Clonidine HCl (Catapres) 0.1 mg PO Q6HR PRN PRN Reason: SBP GREATER THAN 160 Stop: 08/09/16 13:19 Docusate Sodium (Colace) 250 mg PO BID [facility] Stop: 08/08/16 16:59 Last Admin: 06/14/16 08:27 Dose: 250 mg Donepezil HCl (Aricept) 10 mg PO DAILY [facility] Stop: 07/03/16 08:59 Last Admin: 06/14/16 08:27 Dose: 10 mg Famotidine (Pepcid) 20 mg PO BID [facility] Stop: 07/03/16 08:59 Last Admin: 06/14/16 08:27 Dose: 20 mg Ferrous Sulfate (Iron) 325 mg PO BID [facility] Stop: 07/03/16 08:59 Last Admin: 06/14/16 08:25 Dose: 325 mg [facility] Stop: 07/03/16 07:29 Last Admin: 06/14/16 06:39 Dose: 5 mg Insulin Aspart (Novolog) 0 units SUBQ ACHS JASVIR PRN Reason: Protocol Stop: 07/03/16 07:29 Last Admin: 06/14/16 06:46 Dose: Not Given Losartan Potassium (Cozaar) 50 mg PO DAILY [facility] Stop: 07/03/16 08:59 Last Admin: 06/14/16 08:26 Dose: 50 mg Magnesium Hydroxide (Milk Of Magnesia) 30 ml PO HS PRN PRN Reason: Constipation Stop: 07/02/16 21:43 Ondansetron HCl (Zofran Odt) 4 mg PO Q6H PRN PRN Reason: Nausea / Vomiting Stop: 07/21/16 20:25 Last Admin: 05/22/16 21:11 Dose: 4 mg Psyllium Hydrophilic Mucilloid (Metamucil) 1 pkt PO DAILY [facility] Stop: 07/03/16 08:59 Last Admin: 06/14/16 08:27 Dose: Not Given Quetiapine Fumarate (Seroquel) 100 mg PO HS [facility] Stop: 07/05/16 20:59 Last Admin: 06/13/16 20:58 Dose: 100 mg Sodium Phosphate (Fleet Enema) 135 ml RC PRN PRN PRN Reason: Constipation Stop: 07/23/16 08:28 Last Admin: 05/24/16 10:00 Dose: 135 ml Valproate Sodium (Depakene) 250 mg PO BID [facility] PRN Reason: Protocol Stop: 07/03/16 10:59 Last Admin: 06/14/16 08:25 Dose: 250 mg General: demented HEENT: NC/AT, PERRLA Neck: Supple, No JVD Lungs: CTAB Cardiovascular: RRR, Normal S1, Normal S2 Abdomen: soft non-tender, globular, positive bowel sound Extremities: excoriation, contracture Neurological: no change, unable to follow command - Procedures Procedures: Procedures Procedure Code Date ENDOSC POLYPECTOMY OF LG INTEST 45.42 07/13/07 GROUP PSYCHOTHERAPY 16131 06/03/15 GROUP PSYCHOTHERAPY GZHZZZZ 06/03/15 INDIVID PSYCHOTHERAP NEC 94.39 05/27/08 INSERT INDWELLING CATH 57.94 10/29/09 LESION REMOVAL COLONOSCOPY 37074 07/13/07 OTHER GROUP THERAPY 94.44 06/23/14 PERCUTANEOUS [ENDOSCOPIC] GASTROSTOMY [PEG] 43.11 10/10/13 RECREATIONAL THERAPY 93.81 06/24/10 Internal Medicine Assmt/Plan - Assessment Assessment: ch RENAL FAILURE DEHYDRATION UNCONTROLLED DIABETES dementia gait instability poor po intake lung consolidation - Plan Plan: cont on ada iss cont on oral dm meds dw rn continue w present care laxative addded, will review cxr Nutritional Asmnt/Malnutr-PDOC - Dietary Evaluation Malnutrition Findings (Please click <Entered> for more info): Nutritional Asmnt/Malnutrition Start: 05/07/16 09: 08 Text: Status: Complete Freq: Document 05/07/16 09:08 DMITRI (Rec: 05/07/16 09:26 [facility]MM[facility]- FNS1) Nutritional Asmnt/Malnutrition Patient General Information Nutritional Screening Moderate Risk Screening Diagnosis Psychosis (Reason for visit) Pertinent Medical Hx/Surgical Hx Per nursing notes, DM, HTN, CVA, renal failure, dehydration, and psycho history of psychosis, alzheimer's, bipolar and dementia. Subjective Information Patient is from [facility], primarily [place] speaking. Per nursing notes, history of becoming easily agitated and physically combative. Refusing some meds and blood sugar checks. Patient lying in bed asleep at time of visit. Current Diet Order/ Nutrition Support [facility] [place]- 60gm puree Patient / S.O Not Indicated Pertinent Medications maalox, colace, pepcid, iron, glipizide, novolog, cozaar, MOM, metamucil Pertinent Labs No labs drawn in this visit ( only accuchecks). Blood sugar 168-299. Nutritional Hx/Data Height 1.68 m Height (Calculated Centimeters) 167.6 Current Weight (lbs) 60.328 kg Weight (Calculated Kilograms) 60.3 Weight (Calculated Grams) 26682.8 [place] Body Weight 142lb % [place] Body Weight 93 Recent Weight Change No Weight Status Approriate GI Symptoms Food Allergies No Cultural/Ethnic/Temple Belief None indicated Usual diet at home Regular Skin Integrity/Comment: [place], [place] 19 Current %PO Poor (25-49%) Estimated Nutritional Goals BEE in Kcals: Using Current wt Calories/Kcals/Kg 25-30 kcal/kg Kcals Calculated 1374-3886 kcal/day Protein: Using Current wt Protein g/k gm/kg Protein Calculated 60gm/day Fluid: ml 8860-8872 ml/day Nutritional Problem 2. Problem Problem Inadequate oral intake related to Etiology possible poor appetite aeb Signs/Symptoms: meeting <50% of estimated nutrient needs 1. Problem Problem Altered nutrition related lab values related to Etiology uncontrolled hyperglycemia aeb Signs/Symptoms: accuchecks 168-299 Intervention/Recommendation Recommendations by RD Increase Calorie Intake Comments 1. MD to continue to adjust insulin regimen for optimal glycemic control. 2. Encourage oral intake of meals; provide snacks to optimize nutrient intake. Assist with meals as needed. Expected Outcomes/Goals Expected Outcomes/Goals oral intake >75% of meals, glucose normalizes 80-180 Physician Parameters for PEM Body Mass Index (BMI) 19 - 24 (Normal)
--- NOTE | 2016-06-15 06:09 | Progress Notes ---
DATE: 06/14/2016 Case discussed with staff of the patient, reviewed records. The patient is out in the dining room. He is calm, cooperative, but confused, unable to carrying out conversation, no acting out behavior, sleeping well, eating well, said by the staff. No side effects for the medication, no sedation, no nausea and awaiting placement for this patient and we will continue to work with the patient in group therapy, milieu therapy, adjust the medication as needed. He does have a lab work showing no MRSA isolated and the rest of his lab work has been reviewed. JOB# [id number]
[2016-06-15] MEDS: INSULIN ASPART, RECOMBINANT 100 UNITS/ML SUBQ SCH ×4 (06:34→20:44)
[2016-06-15] MEDS: Ferrous Sulfate 300 MG/5 ML UDC PO SCH ×2 (08:11→16:51)
[2016-06-15] MEDS: Multivitamin w/ Minerals Tab PO SCH ×2 (08:12→08:25)
--- NOTE | 2016-06-15 13:22 | Internal Medicine Prog Note ---
Internal Medicine Subjective - Subjective Patient seen and examined:: with staff, chart reviewed Patient is:: awake, verbal, interactive, sun chair Per staff patient is:: no adverse event, poor oral intake, other (eats what family brings) Internal Medicine Objective - Results Result Diagrams: 05/24/16 08:15 05/26/16 08:00 Recent Labs: Laboratory Last Values WBC 8.9 Th/cmm (4.8-10.8) D 05/24/16 08:15 RBC 3.49 Mil/cmm (3.80-5.80) L 05/24/16 08:15 Hgb 10.2 gm/dL (12.6-17.4) L 05/24/16 08:15 Hct 30.4 % (39.0-49.0) L 05/24/16 08:15 MCV 86.9 fl (80-99) 05/24/16 08:15 MCH 29.3 pg (27.0-31.0) 05/24/16 08:15 MCHC Differential 33.7 pg (28.0-36.0) 05/24/16 08:15 RDW 14.4 % (11.5-20.0) 05/24/16 08:15 Plt Count 313 Th/cmm (150-400) 05/24/16 08:15 MPV 8.9 fl 05/24/16 08:15 Neutrophils % 65.3 % (40.0-80.0) 05/24/16 08:15 Lymphocytes % 26.7 % (20.0-50.0) 05/24/16 08:15 Monocytes % 4.8 % (2.0-10.0) 05/24/16 08:15 Eosinophils % 2.5 % (0.0-5.0) 05/24/16 08:15 Basophils % 0.7 % (0.0-2.0) 05/24/16 08:15 Sodium 138 mEq/L (136-145) 05/26/16 08:00 Potassium 5.0 mEq/L (3.5-5.1) 05/26/16 08:00 Chloride 106 mEq/L (98-107) 05/26/16 08:00 Carbon Dioxide 29.6 mEq/L (21.0-31.0) 05/26/16 08:00 Anion Gap 7.4 (7.0-16.0) 05/26/16 08:00 BUN 62 mg/dL (7-25) H 05/26/16 08:00 Creatinine 1.5 mg/dL (0.7-1.3) H 05/26/16 08:00 Est GFR ( Amer) TNP 05/26/16 08:00 Est GFR (Non-Af Amer) TNP 05/26/16 08:00 BUN/Creatinine Ratio 41.3 05/26/16 08:00 Glucose 224 mg/dL (70-105) H 05/26/16 08:00 POC Glucose 200 MG/DL (70 - 105) H 06/15/16 06:19 Calcium 9.5 mg/dL (8.6-10.3) 05/26/16 08:00 Total Bilirubin 0.3 mg/dL (0.3-1.0) 05/23/16 07:45 AST 34 U/L (13-39) 05/23/16 07:45 ALT 37 U/L (7-52) 05/23/16 07:45 Alkaline Phosphatase 140 U/L (34-104) H 05/23/16 07:45 Total Protein 6.9 gm/dL (6.0-8.3) 05/23/16 07:45 Albumin 3.3 gm/dL (4.2-5.5) L 05/23/16 07:45 Globulin 3.6 gm/dL 05/23/16 07:45 Albumin/Globulin Ratio 0.9 (1.0-1.8) L 05/23/16 07:45 Lipase 16 U/L (11-82) 05/23/16 07:45 Valproic Acid < 10.0 ug/mL (50.0-100.0) L 05/23/16 07:45 - Physical Exam Vitals and I&O: Vital Signs Temp 97.4 F 06/15/16 06:12 Pulse 67 06/15/16 08:13 Resp 18 06/15/16 07:28 BP 118/73 06/15/16 08:13 Pulse Ox 100 06/15/16 07:28 Intake & Output 06/14/16 06/15/16 06/15/16 18:59 06:59 18:59 Intake Total 700 120 Balance 700 120 Intake: Oral 700 120 Other: # Voids 3 3 # Bowel Movements 0 Stool Characteristics Formed Black Active Medications: Current Medications Acetaminophen (Tylenol) 650 mg PO Q4HR PRN PRN Reason: Pain (Mild) Stop: 07/02/16 21:43 Al Hydrox/Mg Hydrox/Simethicone (Maalox) 30 ml PO Q4HR PRN PRN Reason: GI DISTRESS Stop: 07/02/16 21:43 Albuterol/Ipratropium (Duoneb Neb) 3 ml HHN Q4HRT PRN PRN Reason: Wheezing Stop: 07/21/16 08:04 Last Admin: 05/22/16 11:16 Dose: 3 ml Atenolol (Tenormin) 25 mg PO DAILY [facility] Stop: 08/09/16 13:29 Last Admin: 06/15/16 08:13 Dose: Not Given Bisacodyl (Dulcolax 10 Mg Supp) 10 mg RC DAILY PRN PRN Reason: Constipation Stop: 07/23/16 08:28 Carbidopa/Levodopa (Sinemet 25mg-100 Mg) 1 tab PO TIDWM [facility] Stop: 07/03/16 07:59 Last Admin: 06/15/16 11:50 Dose: 1 tab Clonidine HCl (Catapres) 0.1 mg PO Q6HR PRN PRN Reason: SBP GREATER THAN 160 Stop: 08/09/16 13:19 Docusate Sodium (Colace) 250 mg PO BID [facility] Stop: 08/08/16 16:59 Last Admin: 06/15/16 08:26 Dose: Not Given Donepezil HCl (Aricept) 10 mg PO DAILY [facility] Stop: 07/03/16 08:59 Last Admin: 06/15/16 08:26 Dose: Not Given Famotidine (Pepcid) 20 mg PO BID [facility] Stop: 07/03/16 08:59 Last Admin: 06/15/16 08:26 Dose: Not Given Ferrous Sulfate (Iron) 325 mg PO BID [facility] Stop: 07/03/16 08:59 Last Admin: 06/15/16 08:11 Dose: 325 mg Glipizide (Glucotrol) 5 mg PO BIDAC [facility] Stop: 07/03/16 07:29 Last Admin: 06/15/16 06:34 Dose: 5 mg Insulin Aspart (Novolog) 0 units SUBQ ACHS [facility] PRN Reason: Protocol Stop: 07/03/16 07:29 Last Admin: 06/15/16 11:06 Dose: Not Given Losartan Potassium (Cozaar) 50 mg PO DAILY [facility] Stop: 07/03/16 08:59 Last Admin: 06/15/16 08:12 Dose: Not Given Magnesium Hydroxide (Milk Of Magnesia) 30 ml PO HS PRN PRN Reason: Constipation Stop: 07/02/16 21:43 Ondansetron HCl (Zofran Odt) 4 mg PO Q6H PRN PRN Reason: Nausea / Vomiting Stop: 07/21/16 20:25 Last Admin: 05/22/16 21:11 Dose: 4 mg Psyllium Hydrophilic Mucilloid (Metamucil) 1 pkt PO DAILY [facility] Stop: 07/03/16 08:59 Last Admin: 06/15/16 08:14 Dose: Not Given Quetiapine Fumarate (Seroquel) 100 mg PO HS [facility] Stop: 07/05/16 20:59 Last Admin: 06/14/16 20:44 Dose: 100 mg Sodium Phosphate (Fleet Enema) 135 ml RC PRN PRN PRN Reason: Constipation Stop: 07/23/16 08:28 Last Admin: 05/24/16 10:00 Dose: 135 ml Valproate Sodium (Depakene) 250 mg PO BID [facility] PRN Reason: Protocol Stop: 07/03/16 10:59 Last Admin: 06/15/16 08:12 Dose: 250 mg General: demented HEENT: NC/AT, PERRLA Neck: Supple, No JVD Lungs: CTAB Cardiovascular: RRR, Normal S1, Normal S2 Abdomen: soft non-tender, globular, positive bowel sound Extremities: excoriation, contracture Neurological: no change, disorganized, unable to follow command - Procedures Procedures: Procedures Procedure Code Date ENDOSC POLYPECTOMY OF LG INTEST 45.42 07/13/07 GROUP PSYCHOTHERAPY 85258 06/03/15 GROUP PSYCHOTHERAPY GZHZZZZ 06/03/15 INDIVID PSYCHOTHERAP NEC 94.39 05/27/08 INSERT INDWELLING CATH 57.94 10/29/09 LESION REMOVAL COLONOSCOPY 08476 07/13/07 OTHER GROUP THERAPY 94.44 06/23/14 PERCUTANEOUS [ENDOSCOPIC] GASTROSTOMY [PEG] 43.11 10/10/13 RECREATIONAL THERAPY 93.81 04/28/11 Internal Medicine Assmt/Plan - Assessment Assessment: ch RENAL FAILURE DEHYDRATION UNCONTROLLED DIABETES dementia gait instability poor po intake lung consolidation - Plan Plan: cont on ada iss cont on oral dm meds dw rn continue w present care laxative addded, will review cxr Nutritional Asmnt/Malnutr-PDOC - Dietary Evaluation Malnutrition Findings (Please click <Entered> for more info): Nutritional Asmnt/Malnutrition Start: 05/07/16 09: 08 Text: Status: Complete Freq: Document 05/07/16 09:08 DMITRI (Rec: 05/07/16 09:26 MMULHA RUTHERFORD- FNS1) Nutritional Asmnt/Malnutrition Patient General Information Nutritional Screening Moderate Risk Screening Diagnosis Psychosis (Reason for visit) Pertinent Medical Hx/Surgical Hx Per nursing notes, DM, HTN, CVA, renal failure, dehydration, and psycho history of psychosis, alzheimer's, bipolar and dementia. Subjective Information Patient is from [facility], primarily [place] speaking. Per nursing notes, history of becoming easily agitated and physically combative. Refusing some meds and blood sugar checks. Patient lying in bed asleep at time of visit. Current Diet Order/ Nutrition Support CCHO- 60gm puree Patient / S.O Not Indicated Pertinent Medications maalox, colace, pepcid, iron, glipizide, novolog, cozaar, MOM, metamucil Pertinent Labs No labs drawn in this visit ( only accuchecks). Blood sugar 168-299. Nutritional Hx/Data Height 1.68 m Height (Calculated Centimeters) 167.6 Current Weight (lbs) 60.328 kg Weight (Calculated Kilograms) 60.3 Weight (Calculated Grams) 23821.8 [place] Body Weight 142lb % [place] Body Weight 93 Recent Weight Change No Weight Status Approriate GI Symptoms Food Allergies No Cultural/Ethnic/Muslim Belief None indicated Usual diet at home Regular Skin Integrity/Comment: [place] 19 Current %PO Poor (25-49%) Estimated Nutritional Goals BEE in Kcals: Using Current wt Calories/Kcals/Kg 25-30 kcal/kg Kcals Calculated 2505-5513 kcal/day Protein: Using Current wt Protein g/k gm/kg Protein Calculated 60gm/day Fluid: ml 3904-2491 ml/day Nutritional Problem 2. Problem Problem Inadequate oral intake related to Etiology possible poor appetite aeb Signs/Symptoms: meeting <50% of estimated nutrient needs 1. Problem Problem Altered nutrition related lab values related to Etiology uncontrolled hyperglycemia aeb Signs/Symptoms: accuchecks 168-299 Intervention/Recommendation Recommendations by RD Increase Calorie Intake Comments 1. MD to continue to adjust insulin regimen for optimal glycemic control. 2. Encourage oral intake of meals; provide snacks to optimize nutrient intake. Assist with meals as needed. Expected Outcomes/Goals Expected Outcomes/Goals oral intake >75% of meals, glucose normalizes 80-180 Physician Parameters for PEM Body Mass Index (BMI) 19 - 24 (Normal)
--- NOTE | 2016-06-16 04:29 | Progress Notes ---
DATE: 06/15/2016 Case was discussed with staff of the patient, reviewed records. The patient is awaiting placement, continues to have poor insight, impulsive, demented, confused, unpredictable, impulsive, needing redirection. He is sleeping well, eating well. No need to be fed by the staff. The patient's sister____ come, visit him very often, help to feed him and no side effects with the medication, no sedation, no nausea and we will continue to work with the patient in group therapy, milieu therapy, adjust the medication as needed. JOB# [id number]
[2016-06-16] MEDS: INSULIN ASPART, RECOMBINANT 100 UNITS/ML SUBQ SCH ×4 (06:43→20:22)
[2016-06-16] MEDS: Multivitamin w/ Minerals Tab PO SCH (08:45)
[2016-06-16] MEDS: Ferrous Sulfate 300 MG/5 ML UDC PO SCH ×2 (08:45→16:51)
--- NOTE | 2016-06-16 13:29 | Internal Medicine Prog Note ---
Internal Medicine Subjective - Subjective Patient seen and examined:: with staff, chart reviewed Patient is:: asleep, non-verbal Per staff patient is:: no adverse event, noncompliant, confused Internal Medicine Objective - Results Result Diagrams: 05/24/16 08:15 05/26/16 08:00 Recent Labs: Laboratory Last Values WBC 8.9 Th/cmm (4.8-10.8) D 05/24/16 08:15 RBC 3.49 Mil/cmm (3.80-5.80) L 05/24/16 08:15 Hgb 10.2 gm/dL (12.6-17.4) L 05/24/16 08:15 Hct 30.4 % (39.0-49.0) L 05/24/16 08:15 MCV 86.9 fl (80-99) 05/24/16 08:15 MCH 29.3 pg (27.0-31.0) 05/24/16 08:15 MCHC Differential 33.7 pg (28.0-36.0) 05/24/16 08:15 RDW 14.4 % (11.5-20.0) 05/24/16 08:15 Plt Count 313 Th/cmm (150-400) 05/24/16 08:15 MPV 8.9 fl 05/24/16 08:15 Neutrophils % 65.3 % (40.0-80.0) 05/24/16 08:15 Lymphocytes % 26.7 % (20.0-50.0) 05/24/16 08:15 Monocytes % 4.8 % (2.0-10.0) 05/24/16 08:15 Eosinophils % 2.5 % (0.0-5.0) 05/24/16 08:15 Basophils % 0.7 % (0.0-2.0) 05/24/16 08:15 Sodium 138 mEq/L (136-145) 05/26/16 08:00 Potassium 5.0 mEq/L (3.5-5.1) 05/26/16 08:00 Chloride 106 mEq/L (98-107) 05/26/16 08:00 Carbon Dioxide 29.6 mEq/L (21.0-31.0) 05/26/16 08:00 Anion Gap 7.4 (7.0-16.0) 05/26/16 08:00 BUN 62 mg/dL (7-25) H 05/26/16 08:00 Creatinine 1.5 mg/dL (0.7-1.3) H 05/26/16 08:00 Est GFR ( Amer) TNP 05/26/16 08:00 Est GFR (Non-Af Amer) TNP 05/26/16 08:00 BUN/Creatinine Ratio 41.3 05/26/16 08:00 Glucose 224 mg/dL (70-105) H 05/26/16 08:00 POC Glucose 268 MG/DL (70 - 105) H 06/16/16 11:14 Calcium 9.5 mg/dL (8.6-10.3) 05/26/16 08:00 Total Bilirubin 0.3 mg/dL (0.3-1.0) 05/23/16 07:45 AST 34 U/L (13-39) 05/23/16 07:45 ALT 37 U/L (7-52) 05/23/16 07:45 Alkaline Phosphatase 140 U/L (34-104) H 05/23/16 07:45 Total Protein 6.9 gm/dL (6.0-8.3) 05/23/16 07:45 Albumin 3.3 gm/dL (4.2-5.5) L 05/23/16 07:45 Globulin 3.6 gm/dL 05/23/16 07:45 Albumin/Globulin Ratio 0.9 (1.0-1.8) L 05/23/16 07:45 Lipase 16 U/L (11-82) 05/23/16 07:45 Valproic Acid < 10.0 ug/mL (50.0-100.0) L 05/23/16 07:45 - Physical Exam Vitals and I&O: Vital Signs Temp 97.6 F 06/15/16 14:00 Pulse 62 06/16/16 07:28 Resp 18 06/16/16 07:29 BP 116/71 06/15/16 14:00 Pulse Ox 98 06/16/16 07:28 Intake & Output 06/15/16 06/16/16 06/16/16 18:59 06:59 18:59 Intake Total 700 Balance 700 Intake: Oral 700 Other: # Voids 3 # Bowel Movements 1 Active Medications: Current Medications Acetaminophen (Tylenol) 650 mg PO Q4HR PRN PRN Reason: Pain (Mild) Stop: 07/02/16 21:43 Al Hydrox/Mg Hydrox/Simethicone (Maalox) 30 ml PO Q4HR PRN PRN Reason: GI DISTRESS Stop: 07/02/16 21:43 Albuterol/Ipratropium (Duoneb Neb) 3 ml HHN Q4HRT PRN PRN Reason: Wheezing Stop: 07/21/16 08:04 Last Admin: 05/22/16 11:16 Dose: 3 ml Atenolol (Tenormin) 25 mg PO DAILY [facility] Stop: 08/09/16 13:29 Last Admin: 06/16/16 08:47 Dose: Not Given Bisacodyl (Dulcolax 10 Mg Supp) 10 mg RC DAILY PRN PRN Reason: Constipation Stop: 07/23/16 08:28 Carbidopa/Levodopa (Sinemet 25mg-100 Mg) 1 tab PO TIDWM [facility] Stop: 07/03/16 07:59 Last Admin: 06/16/16 12:16 Dose: 1 tab Clonidine HCl (Catapres) 0.1 mg PO Q6HR PRN PRN Reason: SBP GREATER THAN 160 Stop: 08/09/16 13:19 Docusate Sodium (Colace) 250 mg PO BID [facility] Stop: 08/08/16 16:59 Last Admin: 06/16/16 08:45 Dose: 250 mg Donepezil HCl (Aricept) 10 mg PO DAILY [facility] Stop: 07/03/16 08:59 Last Admin: 06/16/16 08:45 Dose: 10 mg Famotidine (Pepcid) 20 mg PO BID [facility] Stop: 07/03/16 08:59 Last Admin: 06/16/16 08:45 Dose: 20 mg Ferrous Sulfate (Iron) 325 mg PO BID [facility] Stop: 07/03/16 08:59 Last Admin: 06/16/16 08:45 Dose: 325 mg [facility]: 07/03/16 07:29 Last Admin: 06/16/16 06:40 Dose: Not Given Insulin Aspart (Novolog) 0 units SUBQ ACHS [facility] PRN Reason: Protocol Stop: 07/03/16 07:29 Last Admin: 06/16/16 12:15 Dose: 4 units Losartan Potassium (Cozaar) 50 mg PO DAILY [facility] Stop: 07/03/16 08:59 Last Admin: 06/16/16 08:46 Dose: Not Given Magnesium Hydroxide (Milk Of Magnesia) 30 ml PO HS PRN PRN Reason: Constipation Stop: 07/02/16 21:43 Ondansetron HCl (Zofran Odt) 4 mg PO Q6H PRN PRN Reason: Nausea / Vomiting Stop: 07/21/16 20:25 Last Admin: 05/22/16 21:11 Dose: 4 mg Psyllium Hydrophilic Mucilloid (Metamucil) 1 pkt PO DAILY [facility] Stop: 07/03/16 08:59 Last Admin: 06/16/16 08:47 Dose: Not Given Quetiapine Fumarate (Seroquel) 100 mg PO HS [facility] Stop: 07/05/16 20:59 Last Admin: 06/15/16 20:42 Dose: 100 mg Sodium Phosphate (Fleet Enema) 135 ml RC PRN PRN PRN Reason: Constipation Stop: 07/23/16 08:28 Last Admin: 05/24/16 10:00 Dose: 135 ml Valproate Sodium (Depakene) 250 mg PO BID [facility] PRN Reason: Protocol Stop: 07/03/16 10:59 Last Admin: 06/16/16 08:45 Dose: 250 mg General: demented HEENT: NC/AT, PERRLA Neck: Supple, No JVD Lungs: CTAB Cardiovascular: RRR, Normal S1, Normal S2 Abdomen: soft non-tender, globular Extremities: excoriation, contracture Neurological: no change - Procedures Procedures: Procedures Procedure Code Date ENDOSC POLYPECTOMY OF LG INTEST 45.42 07/13/07 GROUP PSYCHOTHERAPY 80913 06/03/15 GROUP PSYCHOTHERAPY GZHZZZZ 06/03/15 INDIVID PSYCHOTHERAP NEC 94.39 05/27/08 INSERT INDWELLING CATH 57.94 10/29/09 LESION REMOVAL COLONOSCOPY 27224 07/13/07 OTHER GROUP THERAPY 94.44 06/23/14 PERCUTANEOUS [ENDOSCOPIC] GASTROSTOMY [PEG] 43.11 10/10/13 RECREATIONAL THERAPY 93.81 06/24/10 Internal Medicine Assmt/Plan - Assessment Assessment: ch RENAL FAILURE DEHYDRATION UNCONTROLLED DIABETES dementia gait instability poor po intake lung consolidation - Plan Plan: cont on ada iss cont on oral dm meds dw rn continue w present care laxative addded, will review cxr Nutritional Asmnt/Malnutr-PDOC - Dietary Evaluation Malnutrition Findings (Please click <Entered> for more info): Nutritional Asmnt/Malnutrition Start: 05/07/16 09: 08 Text: Status: Complete Freq: Document 05/07/16 09:08 DMITRI (Rec: 05/07/16 09:26 MMMILTON RUTHERFORD- FNS1) Nutritional Asmnt/Malnutrition Patient General Information Nutritional Screening Moderate Risk Screening Diagnosis Psychosis (Reason for visit) Pertinent Medical Hx/Surgical Hx Per nursing notes, DM, HTN, CVA, renal failure, dehydration, and psycho history of psychosis, alzheimer's, bipolar and dementia. Subjective Information Patient is from [facility], primarily [place] speaking. Per nursing notes, history of becoming easily agitated and physically combative. Refusing some meds and blood sugar checks. Patient lying in bed asleep at time of visit. Current Diet Order/ Nutrition Support [facility] [place] Patient / S.O Not Indicated Pertinent Medications maalox, colace, pepcid, iron, glipizide, novolog, cozaar, MOM, metamucil Pertinent Labs No labs drawn in this visit ( only accuchecks). Blood sugar 168-299. Nutritional Hx/Data Height 1.68 m Height (Calculated Centimeters) 167.6 Current Weight (lbs) 60.328 kg Weight (Calculated Kilograms) 60.3 Weight (Calculated Grams) 41069.8 [place] Body Weight 142lb % [place] Body Weight 93 Recent Weight Change No Weight Status Approriate GI Symptoms Food Allergies No Cultural/Ethnic/Christian Belief None indicated Usual diet at home Regular Skin Integrity/Comment: Intact, [place] 19 Current %PO Poor (25-49%) Estimated Nutritional Goals BEE in Kcals: Using Current wt Calories/Kcals/Kg 25-30 kcal/kg Kcals Calculated 0188-0475 kcal/day Protein: Using Current wt Protein g/k gm/kg Protein Calculated 60gm/day Fluid: ml 6584-5430 ml/day Nutritional Problem 2. Problem Problem Inadequate oral intake related to Etiology possible poor appetite aeb Signs/Symptoms: meeting <50% of estimated nutrient needs 1. Problem Problem Altered nutrition related lab values related to Etiology uncontrolled hyperglycemia aeb Signs/Symptoms: accuchecks 168-299 Intervention/Recommendation Recommendations by RD Increase Calorie Intake Comments 1. MD to continue to adjust insulin regimen for optimal glycemic control. 2. Encourage oral intake of meals; provide snacks to optimize nutrient intake. Assist with meals as needed. Expected Outcomes/Goals Expected Outcomes/Goals oral intake >75% of meals, glucose normalizes 80-180 Physician Parameters for PEM Body Mass Index (BMI) 19 - 24 (Normal)
--- NOTE | 2016-06-17 04:54 | Progress Notes ---
DATE: 06/16/2016 Case was discussed with staff of the patient, reviewed records. The patient has been acting aggressive, irritable. He is impulsive, demented, confused and needing redirection, was still waiting on placement for this patient. He so far is compliant with the medication with no side effects, no sedation and no nausea. The staff had hard time trying to find a place for this patient, so he continues to be aggressive. I will try to increase his Seroquel dose. I will give him one day more before doing that. He is on 100 mg at bedtime. He is on Depakote 250 mg twice a day. We will continue to work with the patient in group therapy, milieu therapy and adjust medication as needed. JOB# [id number]
[2016-06-17] MEDS: INSULIN ASPART, RECOMBINANT 100 UNITS/ML SUBQ SCH ×4 (06:51→20:47)
[2016-06-17] MEDS: Multivitamin w/ Minerals Tab PO SCH (08:55)
[2016-06-17] MEDS: Ferrous Sulfate 300 MG/5 ML UDC PO SCH ×2 (08:55→17:07)
--- NOTE | 2016-06-17 13:21 | Internal Medicine Prog Note ---
Internal Medicine Subjective - Subjective Patient seen and examined:: with staff, chart reviewed Patient is:: awake, verbal, interactive Per staff patient is:: no adverse event, noncompliant, confused Internal Medicine Objective - Results Result Diagrams: 05/24/16 08:15 05/26/16 08:00 Recent Labs: Laboratory Last Values WBC 8.9 Th/cmm (4.8-10.8) D 05/24/16 08:15 RBC 3.49 Mil/cmm (3.80-5.80) L 05/24/16 08:15 Hgb 10.2 gm/dL (12.6-17.4) L 05/24/16 08:15 Hct 30.4 % (39.0-49.0) L 05/24/16 08:15 MCV 86.9 fl (80-99) 05/24/16 08:15 MCH 29.3 pg (27.0-31.0) 05/24/16 08:15 MCHC Differential 33.7 pg (28.0-36.0) 05/24/16 08:15 RDW 14.4 % (11.5-20.0) 05/24/16 08:15 Plt Count 313 Th/cmm (150-400) 05/24/16 08:15 MPV 8.9 fl 05/24/16 08:15 Neutrophils % 65.3 % (40.0-80.0) 05/24/16 08:15 Lymphocytes % 26.7 % (20.0-50.0) 05/24/16 08:15 Monocytes % 4.8 % (2.0-10.0) 05/24/16 08:15 Eosinophils % 2.5 % (0.0-5.0) 05/24/16 08:15 Basophils % 0.7 % (0.0-2.0) 05/24/16 08:15 Sodium 138 mEq/L (136-145) 05/26/16 08:00 Potassium 5.0 mEq/L (3.5-5.1) 05/26/16 08:00 Chloride 106 mEq/L (98-107) 05/26/16 08:00 Carbon Dioxide 29.6 mEq/L (21.0-31.0) 05/26/16 08:00 Anion Gap 7.4 (7.0-16.0) 05/26/16 08:00 BUN 62 mg/dL (7-25) H 05/26/16 08:00 Creatinine 1.5 mg/dL (0.7-1.3) H 05/26/16 08:00 Est GFR ( Amer) TNP 05/26/16 08:00 Est GFR (Non-Af Amer) TNP 05/26/16 08:00 BUN/Creatinine Ratio 41.3 05/26/16 08:00 Glucose 224 mg/dL (70-105) H 05/26/16 08:00 POC Glucose 312 MG/DL (70 - 105) H 06/17/16 11:14 Calcium 9.5 mg/dL (8.6-10.3) 05/26/16 08:00 Total Bilirubin 0.3 mg/dL (0.3-1.0) 05/23/16 07:45 AST 34 U/L (13-39) 05/23/16 07:45 ALT 37 U/L (7-52) 05/23/16 07:45 Alkaline Phosphatase 140 U/L (34-104) H 05/23/16 07:45 Total Protein 6.9 gm/dL (6.0-8.3) 05/23/16 07:45 Albumin 3.3 gm/dL (4.2-5.5) L 05/23/16 07:45 Globulin 3.6 gm/dL 05/23/16 07:45 Albumin/Globulin Ratio 0.9 (1.0-1.8) L 05/23/16 07:45 Lipase 16 U/L (11-82) 05/23/16 07:45 Valproic Acid < 10.0 ug/mL (50.0-100.0) L 05/23/16 07:45 - Physical Exam Vitals and I&O: Vital Signs Temp 96.4 F 06/17/16 07:07 Pulse 65 06/17/16 08:56 Resp 18 06/17/16 07:30 BP 156/84 06/17/16 08:56 Pulse Ox 98 06/17/16 07:30 Intake & Output 06/16/16 06/17/16 06/17/16 18:59 06:59 18:59 Intake Total 1200 Balance 1200 Intake: Oral 1200 Other: # Voids 2 Active Medications: Current Medications Acetaminophen (Tylenol) 650 mg PO Q4HR PRN PRN Reason: Pain (Mild) Stop: 07/02/16 21:43 Al Hydrox/Mg Hydrox/Simethicone (Maalox) 30 ml PO Q4HR PRN PRN Reason: GI DISTRESS Stop: 07/02/16 21:43 Albuterol/Ipratropium (Duoneb Neb) 3 ml HHN Q4HRT PRN PRN Reason: Wheezing Stop: 07/21/16 08:04 Last Admin: 05/22/16 11:16 Dose: 3 ml Atenolol (Tenormin) 25 mg PO DAILY [facility] Stop: 08/09/16 13:29 Last Admin: 06/17/16 08:56 Dose: 25 mg Bisacodyl (Dulcolax 10 Mg Supp) 10 mg RC DAILY PRN PRN Reason: Constipation Stop: 07/23/16 08:28 Carbidopa/Levodopa (Sinemet 25mg-100 Mg) 1 tab PO TIDWM [facility] Stop: 07/03/16 07:59 Last Admin: 06/17/16 12:18 Dose: 1 tab Clonidine HCl (Catapres) 0.1 mg PO Q6HR PRN PRN Reason: SBP GREATER THAN 160 Stop: 08/09/16 13:19 Docusate Sodium (Colace) 250 mg PO BID [facility] Stop: 08/08/16 16:59 Last Admin: 06/17/16 08:55 Dose: 250 mg Donepezil HCl (Aricept) 10 mg PO DAILY [facility] Stop: 07/03/16 08:59 Last Admin: 06/17/16 08:55 Dose: 10 mg Famotidine (Pepcid) 20 mg PO BID [facility] Stop: 07/03/16 08:59 Last Admin: 06/17/16 08:55 Dose: 20 mg Ferrous Sulfate (Iron) 325 mg PO BID [facility] Stop: 07/03/16 08:59 Last Admin: 06/17/16 08:55 Dose: 325 mg [facility] Stop: 07/03/16 07:29 Last Admin: 06/17/16 06:39 Dose: Not Given Insulin Aspart (Novolog) 0 units SUBQ ACHS JASVIR PRN Reason: Protocol Stop: 07/03/16 07:29 Last Admin: 06/17/16 11:25 Dose: 6 units Losartan Potassium (Cozaar) 50 mg PO DAILY [facility] Stop: 07/03/16 08:59 Last Admin: 06/17/16 08:55 Dose: 50 mg Magnesium Hydroxide (Milk Of Magnesia) 30 ml PO HS PRN PRN Reason: Constipation Stop: 07/02/16 21:43 Ondansetron HCl (Zofran Odt) 4 mg PO Q6H PRN PRN Reason: Nausea / Vomiting Stop: 07/21/16 20:25 Last Admin: 05/22/16 21:11 Dose: 4 mg Psyllium Hydrophilic Mucilloid (Metamucil) 1 pkt PO DAILY [facility] Stop: 07/03/16 08:59 Last Admin: 06/17/16 08:56 Dose: Not Given Quetiapine Fumarate (Seroquel) 100 mg PO HS [facility] Stop: 07/05/16 20:59 Last Admin: 06/16/16 20:21 Dose: 100 mg Sodium Phosphate (Fleet Enema) 135 ml RC PRN PRN PRN Reason: Constipation Stop: 07/23/16 08:28 Last Admin: 05/24/16 10:00 Dose: 135 ml Valproate Sodium (Depakene) 250 mg PO BID JASVIR PRN Reason: Protocol Stop: 07/03/16 10:59 Last Admin: 06/17/16 08:55 Dose: 250 mg General: demented HEENT: NC/AT, PERRLA Neck: Supple, No JVD Lungs: CTAB, congested Cardiovascular: RRR, Normal S1, Normal S2 Abdomen: soft non-tender, globular, distended Extremities: excoriation, contracture Neurological: disorganized - Procedures Procedures: Procedures Procedure Code Date ENDOSC POLYPECTOMY OF LG INTEST 45.42 07/13/07 GROUP PSYCHOTHERAPY 68490 06/03/15 GROUP PSYCHOTHERAPY GZHZZZZ 06/03/15 INDIVID PSYCHOTHERAP NEC 94.39 05/27/08 INSERT INDWELLING CATH 57.94 10/29/09 LESION REMOVAL COLONOSCOPY 93239 07/13/07 OTHER GROUP THERAPY 94.44 06/23/14 PERCUTANEOUS [ENDOSCOPIC] GASTROSTOMY [PEG] 43.11 10/10/13 RECREATIONAL THERAPY 93.81 06/24/10 Internal Medicine Assmt/Plan - Assessment Assessment: ch RENAL FAILURE DEHYDRATION UNCONTROLLED DIABETES dementia gait instability poor po intake lung consolidation - Plan Plan: cont on ada iss cont on oral dm meds dw rn continue w present care laxative addded, will review cxr Nutritional Asmnt/Malnutr-PDOC - Dietary Evaluation Malnutrition Findings (Please click <Entered> for more info): Nutritional Asmnt/Malnutrition Start: 05/07/16 09: 08 Text: Status: Complete Freq: Document 05/07/16 09:08 DMITRI (Rec: 05/07/16 09:26 MMMILTON RUTHERFORD- FNS1) Nutritional Asmnt/Malnutrition Patient General Information Nutritional Screening Moderate Risk Screening Diagnosis Psychosis (Reason for visit) Pertinent Medical Hx/Surgical Hx Per nursing notes, DM, HTN, CVA, renal failure, dehydration, and psycho history of psychosis, alzheimer's, bipolar and dementia. Subjective Information Patient is from [facility], primarily Maltese speaking. Per nursing notes, history of becoming easily agitated and physically combative. Refusing some meds and blood sugar checks. Patient lying in bed asleep at time of visit. Current Diet Order/ Nutrition Support [facility]- 60 pure Patient / S.O Not Indicated Pertinent Medications maalox, colace, pepcid, iron, glipizide, novolog, cozaar, MOM, metamucil Pertinent Labs No labs drawn in this visit ( only accuchecks). Blood sugar 168-299. Nutritional Hx/Data Height 1.68 m Height (Calculated Centimeters) 167.6 Current Weight (lbs) 60.328 kg Weight (Calculated Kilograms) 60.3 Weight (Calculated Grams) 74061.8 [place] Body Weight 142lb % [place] Body Weight 93 Recent Weight Change No Weight Status Approriate GI Symptoms Food Allergies No Cultural/Ethnic/Jewish Belief None indicated Usual diet at home Regular Skin Integrity/Comment: Intact, [place] 19 Current %PO Poor (25-49%) Estimated Nutritional Goals BEE in Kcals: Using Current wt Calories/Kcals/Kg 25-30 kcal/kg Kcals Calculated 8407-9850 kcal/day Protein: Using Current wt Protein g/k gm/kg Protein Calculated 60gm/day Fluid: ml 6272-1777 ml/day Nutritional Problem 2. Problem Problem Inadequate oral intake related to Etiology possible poor appetite aeb Signs/Symptoms: meeting <50% of estimated nutrient needs 1. Problem Problem Altered nutrition related lab values related to Etiology uncontrolled hyperglycemia aeb Signs/Symptoms: accuchecks 168-299 Intervention/Recommendation Recommendations by RD Increase Calorie Intake Comments 1. MD to continue to adjust insulin regimen for optimal glycemic control. 2. Encourage oral intake of meals; provide snacks to optimize nutrient intake. Assist with meals as needed. Expected Outcomes/Goals Expected Outcomes/Goals oral intake >75% of meals, glucose normalizes 80-180 Physician Parameters for PEM Body Mass Index (BMI) 19 - 24 (Normal)
--- NOTE | 2016-06-18 01:05 | Progress Notes ---
DATE: 06/17/2016 Case was discussed with staff of the patient, reviewed records. The patient continues to do the same. He is demented, confused, unable to make safe plan for self-care, unpredictable, impulsive, needing redirection, working on placement for this patient and I think this is his basic level of function, I am not sure if we can do more for him. No side effects with the medication, no sedation, no nausea, no extrapyramidal symptoms. We will continue outpatient group therapy, milieu therapy, adjust medication as needed. JOB# [id number]
[2016-06-18] MEDS: INSULIN ASPART, RECOMBINANT 100 UNITS/ML SUBQ SCH ×4 (06:36→20:45)
[2016-06-18] MEDS: Ferrous Sulfate 300 MG/5 ML UDC PO SCH ×2 (09:27→16:58)
[2016-06-18] MEDS: Multivitamin w/ Minerals Tab PO SCH (09:37)
--- NOTE | 2016-06-18 20:53 | Internal Medicine Prog Note ---
Internal Medicine Subjective - Subjective Patient seen and examined:: with staff, chart reviewed Patient is:: awake, non-verbal, sun chair Per staff patient is:: no adverse event, confused Internal Medicine Objective - Results Result Diagrams: 05/24/16 08:15 05/26/16 08:00 Recent Labs: Laboratory Last Values WBC 8.9 Th/cmm (4.8-10.8) D 05/24/16 08:15 RBC 3.49 Mil/cmm (3.80-5.80) L 05/24/16 08:15 Hgb 10.2 gm/dL (12.6-17.4) L 05/24/16 08:15 Hct 30.4 % (39.0-49.0) L 05/24/16 08:15 MCV 86.9 fl (80-99) 05/24/16 08:15 MCH 29.3 pg (27.0-31.0) 05/24/16 08:15 MCHC Differential 33.7 pg (28.0-36.0) 05/24/16 08:15 RDW 14.4 % (11.5-20.0) 05/24/16 08:15 Plt Count 313 Th/cmm (150-400) 05/24/16 08:15 MPV 8.9 fl 05/24/16 08:15 Neutrophils % 65.3 % (40.0-80.0) 05/24/16 08:15 Lymphocytes % 26.7 % (20.0-50.0) 05/24/16 08:15 Monocytes % 4.8 % (2.0-10.0) 05/24/16 08:15 Eosinophils % 2.5 % (0.0-5.0) 05/24/16 08:15 Basophils % 0.7 % (0.0-2.0) 05/24/16 08:15 Sodium 138 mEq/L (136-145) 05/26/16 08:00 Potassium 5.0 mEq/L (3.5-5.1) 05/26/16 08:00 Chloride 106 mEq/L (98-107) 05/26/16 08:00 Carbon Dioxide 29.6 mEq/L (21.0-31.0) 05/26/16 08:00 Anion Gap 7.4 (7.0-16.0) 05/26/16 08:00 BUN 62 mg/dL (7-25) H 05/26/16 08:00 Creatinine 1.5 mg/dL (0.7-1.3) H 05/26/16 08:00 Est GFR ( Amer) TNP 05/26/16 08:00 Est GFR (Non-Af Amer) TNP 05/26/16 08:00 BUN/Creatinine Ratio 41.3 05/26/16 08:00 Glucose 224 mg/dL (70-105) H 05/26/16 08:00 POC Glucose 230 MG/DL (70 - 105) H 06/18/16 20:29 Calcium 9.5 mg/dL (8.6-10.3) 05/26/16 08:00 Total Bilirubin 0.3 mg/dL (0.3-1.0) 05/23/16 07:45 AST 34 U/L (13-39) 05/23/16 07:45 ALT 37 U/L (7-52) 05/23/16 07:45 Alkaline Phosphatase 140 U/L (34-104) H 05/23/16 07:45 Total Protein 6.9 gm/dL (6.0-8.3) 05/23/16 07:45 Albumin 3.3 gm/dL (4.2-5.5) L 05/23/16 07:45 Globulin 3.6 gm/dL 05/23/16 07:45 Albumin/Globulin Ratio 0.9 (1.0-1.8) L 05/23/16 07:45 Lipase 16 U/L (11-82) 05/23/16 07:45 Valproic Acid < 10.0 ug/mL (50.0-100.0) L 05/23/16 07:45 - Physical Exam Vitals and I&O: Vital Signs Temp 98 F 06/18/16 14:00 Pulse 67 06/18/16 19:43 Resp 20 06/18/16 19:43 BP 114/61 06/18/16 14:00 Pulse Ox 100 06/18/16 19:43 Intake & Output 06/18/16 06/18/16 06/19/16 06:59 18:59 06:59 Intake Total 240 2920 Balance 240 2920 Intake: Oral 240 2920 Other: # Voids 1 4 # Bowel Movements 0 Active Medications: Current Medications Acetaminophen (Tylenol) 650 mg PO Q4HR PRN PRN Reason: Pain (Mild) Stop: 07/02/16 21:43 Last Admin: 06/18/16 12:27 Dose: 650 mg Al Hydrox/Mg Hydrox/Simethicone (Maalox) 30 ml PO Q4HR PRN PRN Reason: GI DISTRESS Stop: 07/02/16 21:43 Albuterol/Ipratropium (Duoneb Neb) 3 ml HHN Q4HRT PRN PRN Reason: Wheezing Stop: 07/21/16 08:04 Last Admin: 05/22/16 11:16 Dose: 3 ml Atenolol (Tenormin) 25 mg PO DAILY [facility] Stop: 08/09/16 13:29 Last Admin: 06/18/16 09:37 Dose: 25 mg Bisacodyl (Dulcolax 10 Mg Supp) 10 mg RC DAILY PRN PRN Reason: Constipation Stop: 07/23/16 08:28 Carbidopa/Levodopa (Sinemet 25mg-100 Mg) 1 tab PO TIDWM [facility] Stop: 07/03/16 07:59 Last Admin: 06/18/16 16:58 Dose: 1 tab Clonidine HCl (Catapres) 0.1 mg PO Q6HR PRN PRN Reason: SBP GREATER THAN 160 Stop: 08/09/16 13:19 Last Admin: 06/18/16 07:00 Dose: 0.1 mg Docusate Sodium (Colace) 250 mg PO BID [facility] Stop: 08/08/16 16:59 Last Admin: 06/18/16 16:58 Dose: 250 mg Donepezil HCl (Aricept) 10 mg PO DAILY [facility] Stop: 07/03/16 08:59 Last Admin: 06/18/16 09:37 Dose: 10 mg Famotidine (Pepcid) 20 mg PO BID [facility] Stop: 07/03/16 08:59 Last Admin: 06/18/16 16:59 Dose: 20 mg Ferrous Sulfate (Iron) 325 mg PO BID [facility] Stop: 07/03/16 08:59 Last Admin: 06/18/16 16:58 Dose: 325 mg [facility] Stop: 07/03/16 07:29 Last Admin: 06/18/16 16:58 Dose: 5 mg Insulin Aspart (Novolog) 0 units SUBQ ACHS JASVIR PRN Reason: Protocol Stop: 07/03/16 07:29 Last Admin: 06/18/16 20:45 Dose: 2 units Losartan Potassium (Cozaar) 50 mg PO DAILY [facility] Stop: 07/03/16 08:59 Last Admin: 06/18/16 09:37 Dose: 50 mg Magnesium Hydroxide (Milk Of Magnesia) 30 ml PO HS PRN PRN Reason: Constipation Stop: 07/02/16 21:43 Ondansetron HCl (Zofran Odt) 4 mg PO Q6H PRN PRN Reason: Nausea / Vomiting Stop: 07/21/16 20:25 Last Admin: 05/22/16 21:11 Dose: 4 mg Psyllium Hydrophilic Mucilloid (Metamucil) 1 pkt PO DAILY [facility] Stop: 07/03/16 08:59 Last Admin: 06/18/16 09:27 Dose: 1 pkt Quetiapine Fumarate (Seroquel) 100 mg PO HS [facility] Stop: 07/05/16 20:59 Last Admin: 06/18/16 20:26 Dose: 100 mg Sodium Phosphate (Fleet Enema) 135 ml RC PRN PRN PRN Reason: Constipation Stop: 07/23/16 08:28 Last Admin: 05/24/16 10:00 Dose: 135 ml Valproate Sodium (Depakene) 250 mg PO TID JASVIR PRN Reason: Protocol Stop: 08/17/16 13:59 Last Admin: 06/18/16 20:26 Dose: 250 mg General: demented HEENT: NC/AT, PERRLA Neck: Supple, No JVD Lungs: CTAB Cardiovascular: RRR, Normal S1, Normal S2 Abdomen: soft non-tender, globular, non-distended, positive bowel sound Extremities: excoriation, contracture Neurological: lethargic, unable to follow command - Procedures Procedures: Procedures Procedure Code Date ENDOSC POLYPECTOMY OF LG INTEST 45.42 07/13/07 GROUP PSYCHOTHERAPY 33903 06/03/15 GROUP PSYCHOTHERAPY GZHZZZZ 06/03/15 INDIVID PSYCHOTHERAP NEC 94.39 05/27/08 INSERT INDWELLING CATH 57.94 10/29/09 LESION REMOVAL COLONOSCOPY 62143 07/13/07 OTHER GROUP THERAPY 94.44 06/23/14 PERCUTANEOUS [ENDOSCOPIC] GASTROSTOMY [PEG] 43.11 10/10/13 RECREATIONAL THERAPY 93.81 06/24/10 Internal Medicine Assmt/Plan - Assessment Assessment: ch RENAL FAILURE DEHYDRATION UNCONTROLLED DIABETES dementia gait instability poor po intake lung consolidation - Plan Plan: cont on ada iss cont on oral dm meds dw rn continue w present care laxative addded, will review cxr Nutritional Asmnt/Malnutr-PDOC - Dietary Evaluation Malnutrition Findings (Please click <Entered> for more info): Nutritional Asmnt/Malnutrition Start: 05/07/16 09: 08 Text: Status: Complete Freq: Document 05/07/16 09:08 DMITRI (Rec: 05/07/16 09:26 DMITRI R[place]HERFORD- FNS1) Nutritional Asmnt/Malnutrition Patient General Information Nutritional Screening Moderate Risk Screening Diagnosis Psychosis (Reason for visit) Pertinent Medical Hx/Surgical Hx Per nursing notes, DM, HTN, CVA, renal failure, dehydration, and psycho history of psychosis, alzheimer's, bipolar and dementia. Subjective Information Patient is from [facility] primarily [place] speaking. Per nursing notes, history of becoming easily agitated and physically combative. Refusing some meds and blood sugar checks. Patient lying in bed asleep at time of visit. Current Diet Order/ Nutrition Support [facility] [place] / S.O Not Indicated Pertinent Medications maalox, colace, pepcid, iron, glipizide, novolog, cozaar, MOM, metamucil Pertinent Labs No labs drawn in this visit ( only accuchecks). Blood sugar 168-299. Nutritional Hx/Data Height 1.68 m Height (Calculated Centimeters) 167.6 Current Weight (lbs) 60.328 kg Weight (Calculated Kilograms) 60.3 Weight (Calculated Grams) 16281.8 [place] Body Weight 142lb % [place] Body Weight 93 Recent Weight Change No Weight Status Approriate GI Symptoms Food Allergies No Cultural/Ethnic/Sabianism Belief None indicated Usual diet at home Regular Skin Integrity/Comment: [place], [place] 19 Current %PO Poor (25-49%) Estimated Nutritional Goals BEE in Kcals: Using Current wt Calories/Kcals/Kg 25-30 kcal/kg Kcals Calculated 9220-1296 kcal/day Protein: Using Current wt Protein g/k gm/kg Protein Calculated 60gm/day Fluid: ml 6848-3826 ml/day Nutritional Problem 2. Problem Problem Inadequate oral intake related to Etiology possible poor appetite aeb Signs/Symptoms: meeting <50% of estimated nutrient needs 1. Problem Problem Altered nutrition related lab values related to Etiology uncontrolled hyperglycemia aeb Signs/Symptoms: accuchecks 168-299 Intervention/Recommendation Recommendations by RD Increase Calorie Intake Comments 1. MD to continue to adjust insulin regimen for optimal glycemic control. 2. Encourage oral intake of meals; provide snacks to optimize nutrient intake. Assist with meals as needed. Expected Outcomes/Goals Expected Outcomes/Goals oral intake >75% of meals, glucose normalizes 80-180 Physician Parameters for PEM Body Mass Index (BMI) 19 - 24 (Normal)
--- NOTE | 2016-06-18 23:54 | Progress Notes ---
DATE: 06/18/2016 Case was discussed with staff of the patient, reviewed records. The patient is still awaiting placement. He is sometimes having episodes where he gets agitated, but I think this is his basic level of functioning. He is unpredictable, impulsive. He is compliant with the medication with no side effects, no sedation, no nausea, no extrapyramidal symptoms. He is on Aricept 10 mg at bedtime, Seroquel 100 mg at bedtime, Depakote 250 twice a day with no side effects, no sedation, no nausea, no extrapyramidal symptoms. I will be increasing his Depakote dose because of his episodes of agitation, and we will continue to work with the patient in group therapy, milieu therapy, adjust the medication as needed. JOB# [id number]
[2016-06-19] MEDS: INSULIN ASPART, RECOMBINANT 100 UNITS/ML SUBQ SCH ×4 (06:33→20:50)
[2016-06-19] MEDS: Ferrous Sulfate 300 MG/5 ML UDC PO SCH ×2 (09:05→17:50)
[2016-06-19] MEDS: Multivitamin w/ Minerals Tab PO SCH (09:05)
--- NOTE | 2016-06-19 15:35 | Internal Medicine Prog Note ---
Internal Medicine Subjective - Subjective Patient seen and examined:: with staff, chart reviewed Patient is:: awake, non-verbal, non-interactive Per staff patient is:: no episodes of fall, noncompliant, confused Internal Medicine Objective - Results Result Diagrams: 05/24/16 08:15 05/26/16 08:00 Recent Labs: Laboratory Last Values WBC 8.9 Th/cmm (4.8-10.8) D 05/24/16 08:15 RBC 3.49 Mil/cmm (3.80-5.80) L 05/24/16 08:15 Hgb 10.2 gm/dL (12.6-17.4) L 05/24/16 08:15 Hct 30.4 % (39.0-49.0) L 05/24/16 08:15 MCV 86.9 fl (80-99) 05/24/16 08:15 MCH 29.3 pg (27.0-31.0) 05/24/16 08:15 MCHC Differential 33.7 pg (28.0-36.0) 05/24/16 08:15 RDW 14.4 % (11.5-20.0) 05/24/16 08:15 Plt Count 313 Th/cmm (150-400) 05/24/16 08:15 MPV 8.9 fl 05/24/16 08:15 Neutrophils % 65.3 % (40.0-80.0) 05/24/16 08:15 Lymphocytes % 26.7 % (20.0-50.0) 05/24/16 08:15 Monocytes % 4.8 % (2.0-10.0) 05/24/16 08:15 Eosinophils % 2.5 % (0.0-5.0) 05/24/16 08:15 Basophils % 0.7 % (0.0-2.0) 05/24/16 08:15 Sodium 138 mEq/L (136-145) 05/26/16 08:00 Potassium 5.0 mEq/L (3.5-5.1) 05/26/16 08:00 Chloride 106 mEq/L (98-107) 05/26/16 08:00 Carbon Dioxide 29.6 mEq/L (21.0-31.0) 05/26/16 08:00 Anion Gap 7.4 (7.0-16.0) 05/26/16 08:00 BUN 62 mg/dL (7-25) H 05/26/16 08:00 Creatinine 1.5 mg/dL (0.7-1.3) H 05/26/16 08:00 Est GFR ( Amer) TNP 05/26/16 08:00 Est GFR (Non-Af Amer) TNP 05/26/16 08:00 BUN/Creatinine Ratio 41.3 05/26/16 08:00 Glucose 224 mg/dL (70-105) H 05/26/16 08:00 POC Glucose 383 MG/DL (70 - 105) H 06/19/16 11:35 Calcium 9.5 mg/dL (8.6-10.3) 05/26/16 08:00 Total Bilirubin 0.3 mg/dL (0.3-1.0) 05/23/16 07:45 AST 34 U/L (13-39) 05/23/16 07:45 ALT 37 U/L (7-52) 05/23/16 07:45 Alkaline Phosphatase 140 U/L (34-104) H 05/23/16 07:45 Total Protein 6.9 gm/dL (6.0-8.3) 05/23/16 07:45 Albumin 3.3 gm/dL (4.2-5.5) L 05/23/16 07:45 Globulin 3.6 gm/dL 05/23/16 07:45 Albumin/Globulin Ratio 0.9 (1.0-1.8) L 05/23/16 07:45 Lipase 16 U/L (11-82) 05/23/16 07:45 Valproic Acid < 10.0 ug/mL (50.0-100.0) L 05/23/16 07:45 - Physical Exam Vitals and I&O: Vital Signs Temp 97.4 F 06/19/16 14:00 Pulse 65 06/19/16 14:00 Resp 18 06/19/16 14:00 BP 143/75 06/19/16 14:00 Pulse Ox 95 06/19/16 14:00 Intake & Output 06/18/16 06/19/16 06/19/16 18:59 06:59 18:59 Intake Total 2920 0 Balance 2920 0 Intake: Oral 2920 0 Other: # Voids 4 3 # Bowel Movements 0 0 Active Medications: Current Medications Acetaminophen (Tylenol) 650 mg PO Q4HR PRN PRN Reason: Pain (Mild) Stop: 07/02/16 21:43 Last Admin: 06/18/16 12:27 Dose: 650 mg Al Hydrox/Mg Hydrox/Simethicone (Maalox) 30 ml PO Q4HR PRN PRN Reason: GI DISTRESS Stop: 07/02/16 21:43 Albuterol/Ipratropium (Duoneb Neb) 3 ml HHN Q4HRT PRN PRN Reason: Wheezing Stop: 07/21/16 08:04 Last Admin: 05/22/16 11:16 Dose: 3 ml Atenolol (Tenormin) 25 mg PO DAILY [facility] Stop: 08/09/16 13:29 Last Admin: 06/19/16 08:09 Dose: Not Given Bisacodyl (Dulcolax 10 Mg Supp) 10 mg RC DAILY PRN PRN Reason: Constipation Stop: 07/23/16 08:28 Carbidopa/Levodopa (Sinemet 25mg-100 Mg) 1 tab PO TIDWM [facility] Stop: 07/03/16 07:59 Last Admin: 06/19/16 13:01 Dose: 1 tab Clonidine HCl (Catapres) 0.1 mg PO Q6HR PRN PRN Reason: SBP GREATER THAN 160 Stop: 08/09/16 13:19 Last Admin: 06/18/16 07:00 Dose: 0.1 mg Docusate Sodium (Colace) 250 mg PO BID [facility] Stop: 08/08/16 16:59 Last Admin: 06/19/16 09:05 Dose: Not Given Donepezil HCl (Aricept) 10 mg PO DAILY [facility] Stop: 07/03/16 08:59 Last Admin: 06/19/16 09:05 Dose: Not Given Famotidine (Pepcid) 20 mg PO BID [facility] Stop: 07/03/16 08:59 Last Admin: 06/19/16 09:05 Dose: Not Given Ferrous Sulfate (Iron) 325 mg PO BID [facility] Stop: 07/03/16 08:59 Last Admin: 06/19/16 09:05 Dose: Not Given [facility] Stop: 07/03/16 07:29 Last Admin: 06/19/16 06:33 Dose: 5 mg Insulin Aspart (Novolog) 0 units SUBQ ACHS JASVIR PRN Reason: Protocol Stop: 07/03/16 07:29 Last Admin: 06/19/16 11:38 Dose: 8 units Losartan Potassium (Cozaar) 50 mg PO DAILY JASVIR Stop: 07/03/16 08:59 Last Admin: 06/19/16 08:09 Dose: Not Given Magnesium Hydroxide (Milk Of Magnesia) 30 ml PO HS PRN PRN Reason: Constipation Stop: 07/02/16 21:43 Ondansetron HCl (Zofran Odt) 4 mg PO Q6H PRN PRN Reason: Nausea / Vomiting Stop: 07/21/16 20:25 Last Admin: 05/22/16 21:11 Dose: 4 mg Psyllium Hydrophilic Mucilloid (Metamucil) 1 pkt PO DAILY [facility] Stop: 07/03/16 08:59 Last Admin: 06/19/16 09:06 Dose: Not Given Quetiapine Fumarate (Seroquel) 100 mg PO HS [facility] Stop: 07/05/16 20:59 Last Admin: 06/18/16 20:45 Dose: Not Given Sodium Phosphate (Fleet Enema) 135 ml RC PRN PRN PRN Reason: Constipation Stop: 07/23/16 08:28 Last Admin: 05/24/16 10:00 Dose: 135 ml Valproate Sodium (Depakene) 250 mg PO TID JASVIR PRN Reason: Protocol Stop: 08/17/16 13:59 Last Admin: 06/19/16 15:04 Dose: Not Given General: demented HEENT: NC/AT, PERRLA Neck: Supple, No JVD Lungs: CTAB Cardiovascular: RRR, Normal S1, Normal S2 Abdomen: soft non-tender, globular, positive bowel sound Extremities: excoriation, contracture Neurological: no change - Procedures Procedures: Procedures Procedure Code Date ENDOSC POLYPECTOMY OF LG INTEST 45.42 07/13/07 GROUP PSYCHOTHERAPY 89374 06/03/15 GROUP PSYCHOTHERAPY GZHZZZZ 06/03/15 INDIVID PSYCHOTHERAP NEC 94.39 05/27/08 INSERT INDWELLING CATH 57.94 10/29/09 LESION REMOVAL COLONOSCOPY 15465 07/13/07 OTHER GROUP THERAPY 94.44 06/23/14 PERCUTANEOUS [ENDOSCOPIC] GASTROSTOMY [PEG] 43.11 10/10/13 RECREATIONAL THERAPY 93.81 06/24/10 Internal Medicine Assmt/Plan - Assessment Assessment: ch RENAL FAILURE DEHYDRATION UNCONTROLLED DIABETES dementia gait instability poor po intake lung consolidation - Plan Plan: cont on ada iss cont on oral dm meds dw rn continue w present care laxative addded, will review cxr Nutritional Asmnt/Malnutr-PDOC - Dietary Evaluation Malnutrition Findings (Please click <Entered> for more info): Nutritional Asmnt/Malnutrition Start: 05/07/16 09: 08 Text: Status: Complete Freq: Document 05/07/16 09:08 DMITRI (Rec: 05/07/16 09:26 MMULHA RUTHERFORD- FNS1) Nutritional Asmnt/Malnutrition Patient General Information Nutritional Screening Moderate Risk Screening Diagnosis Psychosis (Reason for visit) Pertinent Medical Hx/Surgical Hx Per nursing notes, DM, HTN, CVA, renal failure, dehydration, and psycho history of psychosis, alzheimer's, bipolar and dementia. Subjective Information Patient is from [facility], primarily Turk[place] speaking. Per nursing notes, history of becoming easily agitated and physically combative. Refusing some meds and blood sugar checks. Patient lying in bed asleep at time of visit. Current Diet Order/ Nutrition Support [facility]- 60gm puree Patient / S.O Not Indicated Pertinent Medications maalox, colace, pepcid, iron, glipizide, novolog, cozaar, MOM, metamucil Pertinent Labs No labs drawn in this visit ( only accuchecks). Blood sugar 168-299. Nutritional Hx/Data Height 1.68 m Height (Calculated Centimeters) 167.6 Current Weight (lbs) 60.328 kg Weight (Calculated Kilograms) 60.3 Weight (Calculated Grams) 66579.8 [place] Body Weight 142lb % [place] Body Weight 93 Recent Weight Change No Weight Status Approriate GI Symptoms Food Allergies No Cultural/Ethnic/Congregational Belief None indicated Usual diet at home Regular Skin Integrity/Comment: Intact, Bar[place] 19 Current %PO Poor (25-49%) Estimated Nutritional Goals BEE in Kcals: Using Current wt Calories/Kcals/Kg 25-30 kcal/kg Kcals Calculated 6149-2734 kcal/day Protein: Using Current wt Protein g/k gm/kg Protein Calculated 60gm/day Fluid: ml 3776-6668 ml/day Nutritional Problem 2. Problem Problem Inadequate oral intake related to Etiology possible poor appetite aeb Signs/Symptoms: meeting <50% of estimated nutrient needs 1. Problem Problem Altered nutrition related lab values related to Etiology uncontrolled hyperglycemia aeb Signs/Symptoms: accuchecks 168-299 Intervention/Recommendation Recommendations by RD Increase Calorie Intake Comments 1. MD to continue to adjust insulin regimen for optimal glycemic control. 2. Encourage oral intake of meals; provide snacks to optimize nutrient intake. Assist with meals as needed. Expected Outcomes/Goals Expected Outcomes/Goals oral intake >75% of meals, glucose normalizes 80-180 Physician Parameters for PEM Body Mass Index (BMI) 19 - 24 (Normal)
--- NOTE | 2016-06-20 04:35 | Progress Notes ---
DATE: 06/19/2016 Case was discussed with staff of the patient, reviewed records. The patient continues to have episodes where he refuses his medication; however, I did increase his Depakote yesterday. He is unpredictable, impulsive, needing redirection, demented, confused, and probably this is his basic level of functioning, awaiting placement for this patient, no side effects with the medication, no sedation, and no nausea. We will continue to work with the patient in group therapy, milieu therapy, and adjust medication as needed. JOB# [id number]
[2016-06-20] MEDS: INSULIN ASPART, RECOMBINANT 100 UNITS/ML SUBQ SCH ×4 (07:09→21:22)
[2016-06-20] MEDS: Multivitamin w/ Minerals Tab PO SCH (09:13)
[2016-06-20] MEDS: Ferrous Sulfate 300 MG/5 ML UDC PO SCH ×2 (09:14→16:42)
--- NOTE | 2016-06-20 15:27 | Internal Medicine Prog Note ---
Internal Medicine Subjective - Subjective Patient seen and examined:: with staff, chart reviewed Patient is:: awake, verbal, interactive Per staff patient is:: no adverse event, noncompliant, confused Internal Medicine Objective - Results Result Diagrams: 05/24/16 08:15 05/26/16 08:00 Recent Labs: Laboratory Last Values WBC 8.9 Th/cmm (4.8-10.8) D 05/24/16 08:15 RBC 3.49 Mil/cmm (3.80-5.80) L 05/24/16 08:15 Hgb 10.2 gm/dL (12.6-17.4) L 05/24/16 08:15 Hct 30.4 % (39.0-49.0) L 05/24/16 08:15 MCV 86.9 fl (80-99) 05/24/16 08:15 MCH 29.3 pg (27.0-31.0) 05/24/16 08:15 MCHC Differential 33.7 pg (28.0-36.0) 05/24/16 08:15 RDW 14.4 % (11.5-20.0) 05/24/16 08:15 Plt Count 313 Th/cmm (150-400) 05/24/16 08:15 MPV 8.9 fl 05/24/16 08:15 Neutrophils % 65.3 % (40.0-80.0) 05/24/16 08:15 Lymphocytes % 26.7 % (20.0-50.0) 05/24/16 08:15 Monocytes % 4.8 % (2.0-10.0) 05/24/16 08:15 Eosinophils % 2.5 % (0.0-5.0) 05/24/16 08:15 Basophils % 0.7 % (0.0-2.0) 05/24/16 08:15 Sodium 138 mEq/L (136-145) 05/26/16 08:00 Potassium 5.0 mEq/L (3.5-5.1) 05/26/16 08:00 Chloride 106 mEq/L (98-107) 05/26/16 08:00 Carbon Dioxide 29.6 mEq/L (21.0-31.0) 05/26/16 08:00 Anion Gap 7.4 (7.0-16.0) 05/26/16 08:00 BUN 62 mg/dL (7-25) H 05/26/16 08:00 Creatinine 1.5 mg/dL (0.7-1.3) H 05/26/16 08:00 Est GFR ( Amer) TNP 05/26/16 08:00 Est GFR (Non-Af Amer) TNP 05/26/16 08:00 BUN/Creatinine Ratio 41.3 05/26/16 08:00 Glucose 224 mg/dL (70-105) H 05/26/16 08:00 POC Glucose 272 MG/DL (70 - 105) H 06/20/16 11:48 Calcium 9.5 mg/dL (8.6-10.3) 05/26/16 08:00 Total Bilirubin 0.3 mg/dL (0.3-1.0) 05/23/16 07:45 AST 34 U/L (13-39) 05/23/16 07:45 ALT 37 U/L (7-52) 05/23/16 07:45 Alkaline Phosphatase 140 U/L (34-104) H 05/23/16 07:45 Total Protein 6.9 gm/dL (6.0-8.3) 05/23/16 07:45 Albumin 3.3 gm/dL (4.2-5.5) L 05/23/16 07:45 Globulin 3.6 gm/dL 05/23/16 07:45 Albumin/Globulin Ratio 0.9 (1.0-1.8) L 05/23/16 07:45 Lipase 16 U/L (11-82) 05/23/16 07:45 Valproic Acid < 10.0 ug/mL (50.0-100.0) L 05/23/16 07:45 - Physical Exam Vitals and I&O: Vital Signs Temp 97.8 F 06/20/16 14:02 Pulse 90 06/20/16 14:02 Resp 20 06/20/16 14:02 BP 140/81 06/20/16 14:02 Pulse Ox 96 06/20/16 14:02 Intake & Output 06/19/16 06/20/16 06/20/16 18:59 06:59 18:59 Intake Total 2400 120 Balance 2400 120 Intake: Oral 2400 120 Other: # Voids 4 3 # Bowel Movements 1 Stool Characteristics Soft Black Active Medications: Current Medications Acetaminophen (Tylenol) 650 mg PO Q4HR PRN PRN Reason: Pain (Mild) Stop: 07/02/16 21:43 Last Admin: 06/18/16 12:27 Dose: 650 mg Al Hydrox/Mg Hydrox/Simethicone (Maalox) 30 ml PO Q4HR PRN PRN Reason: GI DISTRESS Stop: 07/02/16 21:43 Albuterol/Ipratropium (Duoneb Neb) 3 ml HHN Q4HRT PRN PRN Reason: Wheezing Stop: 07/21/16 08:04 Last Admin: 05/22/16 11:16 Dose: 3 ml Atenolol (Tenormin) 25 mg PO DAILY [facility] Stop: 08/09/16 13:29 Last Admin: 06/20/16 09:14 Dose: Not Given Bisacodyl (Dulcolax 10 Mg Supp) 10 mg RC DAILY PRN PRN Reason: Constipation Stop: 07/23/16 08:28 Carbidopa/Levodopa (Sinemet 25mg-100 Mg) 1 tab PO TIDWM REPLACED [facility] Stop: 07/03/16 07:59 Last Admin: 06/20/16 12:36 Dose: 1 tab Clonidine HCl (Catapres) 0.1 mg PO Q6HR PRN PRN Reason: SBP GREATER THAN 160 Stop: 08/09/16 13:19 Last Admin: 06/18/16 07:00 Dose: 0.1 mg Docusate Sodium (Colace) 250 mg PO BID [facility] Stop: 08/08/16 16:59 Last Admin: 06/20/16 09:14 Dose: Not Given Donepezil HCl (Aricept) 10 mg PO DAILY [facility] Stop: 07/03/16 08:59 Last Admin: 06/20/16 09:17 Dose: 10 mg Famotidine (Pepcid) 20 mg PO BID [facility] Stop: 07/03/16 08:59 Last Admin: 06/20/16 09:14 Dose: Not Given Ferrous Sulfate (Iron) 325 mg PO BID [facility] Stop: 07/03/16 08:59 Last Admin: 06/20/16 09:14 Dose: Not Given [facility] Stop: 07/03/16 07:29 Last Admin: 06/20/16 06:49 Dose: 5 mg Insulin Aspart (Novolog) 0 units SUBQ ACHS JASVIR PRN Reason: Protocol Stop: 07/03/16 07:29 Last Admin: 06/20/16 11:55 Dose: 4 units Losartan Potassium (Cozaar) 50 mg PO DAILY [facility] Stop: 07/03/16 08:59 Last Admin: 06/20/16 09:14 Dose: Not Given Magnesium Hydroxide (Milk Of Magnesia) 30 ml PO HS PRN PRN Reason: Constipation Stop: 07/02/16 21:43 Ondansetron HCl (Zofran Odt) 4 mg PO Q6H PRN PRN Reason: Nausea / Vomiting Stop: 07/21/16 20:25 Last Admin: 05/22/16 21:11 Dose: 4 mg Psyllium Hydrophilic Mucilloid (Metamucil) 1 pkt PO DAILY [facility] Stop: 07/03/16 08:59 Last Admin: 06/20/16 09:13 Dose: Not Given Quetiapine Fumarate (Seroquel) 100 mg PO HS REPL[facility] BY [facility] Stop: 07/05/16 20:59 Last Admin: 06/19/16 20:30 Dose: 100 mg Sodium Phosphate (Fleet Enema) 135 ml RC PRN PRN PRN Reason: Constipation Stop: 07/23/16 08:28 Last Admin: 05/24/16 10:00 Dose: 135 ml Valproate Sodium (Depakene) 250 mg PO TID JASVIR PRN Reason: Protocol Stop: 08/17/16 13:59 Last Admin: 06/20/16 14:48 Dose: 250 mg General: demented HEENT: NC/AT, PERRLA Neck: Supple, No JVD Lungs: CTAB Cardiovascular: RRR, Normal S1, Normal S2 Abdomen: soft non-tender, positive bowel sound Extremities: excoriation Neurological: no change - Procedures Procedures: Procedures Procedure Code Date ENDOSC POLYPECTOMY OF LG INTEST 45.42 07/13/07 GROUP PSYCHOTHERAPY 52746 06/03/15 GROUP PSYCHOTHERAPY GZHZZZZ 06/03/15 INDIVID PSYCHOTHERAP NEC 94.39 05/27/08 INSERT INDWELLING CATH 57.94 10/29/09 LESION REMOVAL COLONOSCOPY 23665 07/13/07 OTHER GROUP THERAPY 94.44 06/23/14 PERCUTANEOUS [ENDOSCOPIC] GASTROSTOMY [PEG] 43.11 10/10/13 RECREATIONAL THERAPY 93.81 06/24/10 Internal Medicine Assmt/Plan - Assessment Assessment: ch RENAL FAILURE DEHYDRATION UNCONTROLLED DIABETES dementia gait instability poor po intake lung consolidation - Plan Plan: cont on ada iss cont on oral dm meds dw rn continue w present care laxative addded, will review cxr Nutritional Asmnt/Malnutr-PDOC - Dietary Evaluation Malnutrition Findings (Please click <Entered> for more info): Nutritional Asmnt/Malnutrition Start: 05/07/16 09: 08 Text: Status: Complete Freq: Document 05/07/16 09:08 MMMILTON (Rec: 05/07/16 09:26 MMULHA RUTHERFORD- FNS1) Nutritional Asmnt/Malnutrition Patient General Information Nutritional Screening Moderate Risk Screening Diagnosis Psychosis (Reason for visit) Pertinent Medical Hx/Surgical Hx Per nursing notes, DM, HTN, CVA, renal failure, dehydration, and psycho history of psychosis, alzheimer's, bipolar and dementia. Subjective Information Patient is from [facility], primarily [place] speaking. Per nursing notes, history of becoming easily agitated and physically combative. Refusing some meds and blood sugar checks. Patient lying in bed asleep at time of visit. Current Diet Order/ Nutrition Support [facility]- 60gm puree Patient / S.O Not Indicated Pertinent Medications maalox, colace, pepcid, iron, glipizide, novolog, cozaar, MOM, metamucil Pertinent Labs No labs drawn in this visit ( only accuchecks). Blood sugar 168-299. Nutritional Hx/Data Height 1.68 m Height (Calculated Centimeters) 167.6 Current Weight (lbs) 60.328 kg Weight (Calculated Kilograms) 60.3 Weight (Calculated Grams) 37370.8 [place] Body Weight 142lb % [place] Body Weight 93 Recent Weight Change No Weight Status Approriate GI Symptoms Food Allergies No Cultural/Ethnic/Pent[employer]alism Belief None indicated Usual diet at home Regular Skin Integrity/Comment: [place] 19 Current %PO Poor (25-49%) Estimated Nutritional Goals BEE in Kcals: Using Current wt Calories/Kcals/Kg 25-30 kcal/kg Kcals Calculated 4521-0075 kcal/day Protein: Using Current wt Protein g/k gm/kg Protein Calculated 60gm/day Fluid: ml 6409-1007 ml/day Nutritional Problem 2. Problem Problem Inadequate oral intake related to Etiology possible poor appetite aeb Signs/Symptoms: meeting <50% of estimated nutrient needs 1. Problem Problem Altered nutrition related lab values related to Etiology uncontrolled hyperglycemia aeb Signs/Symptoms: accuchecks 168-299 Intervention/Recommendation Recommendations by RD Increase Calorie Intake Comments 1. MD to continue to adjust insulin regimen for optimal glycemic control. 2. Encourage oral intake of meals; provide snacks to optimize nutrient intake. Assist with meals as needed. Expected Outcomes/Goals Expected Outcomes/Goals oral intake >75% of meals, glucose normalizes 80-180 Physician Parameters for PEM Body Mass Index (BMI) 19 - 24 (Normal)
--- NOTE | 2016-06-21 03:49 | Progress Notes ---
DATE: 06/20/2016 Case was discussed with staff of the patient, reviewed records. The patient supposedly was accepted at [facility]. The patient continues to be, however, demented, confused, unable to make safe plan for self-care. Sleeping well, eating well. No side effects with the medication, no sedation, no nausea, no extrapyramidal symptoms and we will continue to work with the patient in group therapy, milieu therapy, adjust medication as needed. JOB# [id number]
[2016-06-21] MEDS: INSULIN ASPART, RECOMBINANT 100 UNITS/ML SUBQ SCH ×4 (06:49→21:07)
[2016-06-21] MEDS: Ferrous Sulfate 300 MG/5 ML UDC PO SCH ×2 (09:22→17:03)
[2016-06-21] MEDS: Multivitamin w/ Minerals Tab PO SCH (09:22)
--- NOTE | 2016-06-21 14:48 | Internal Medicine Prog Note ---
Internal Medicine Subjective - Subjective Patient seen and examined:: with staff, chart reviewed Patient is:: awake, verbal, interactive Per staff patient is:: no adverse event, confused Internal Medicine Objective - Results Result Diagrams: 05/24/16 08:15 05/26/16 08:00 Recent Labs: Laboratory Last Values WBC 8.9 Th/cmm (4.8-10.8) D 05/24/16 08:15 RBC 3.49 Mil/cmm (3.80-5.80) L 05/24/16 08:15 Hgb 10.2 gm/dL (12.6-17.4) L 05/24/16 08:15 Hct 30.4 % (39.0-49.0) L 05/24/16 08:15 MCV 86.9 fl (80-99) 05/24/16 08:15 MCH 29.3 pg (27.0-31.0) 05/24/16 08:15 MCHC Differential 33.7 pg (28.0-36.0) 05/24/16 08:15 RDW 14.4 % (11.5-20.0) 05/24/16 08:15 Plt Count 313 Th/cmm (150-400) 05/24/16 08:15 MPV 8.9 fl 05/24/16 08:15 Neutrophils % 65.3 % (40.0-80.0) 05/24/16 08:15 Lymphocytes % 26.7 % (20.0-50.0) 05/24/16 08:15 Monocytes % 4.8 % (2.0-10.0) 05/24/16 08:15 Eosinophils % 2.5 % (0.0-5.0) 05/24/16 08:15 Basophils % 0.7 % (0.0-2.0) 05/24/16 08:15 Sodium 138 mEq/L (136-145) 05/26/16 08:00 Potassium 5.0 mEq/L (3.5-5.1) 05/26/16 08:00 Chloride 106 mEq/L (98-107) 05/26/16 08:00 Carbon Dioxide 29.6 mEq/L (21.0-31.0) 05/26/16 08:00 Anion Gap 7.4 (7.0-16.0) 05/26/16 08:00 BUN 62 mg/dL (7-25) H 05/26/16 08:00 Creatinine 1.5 mg/dL (0.7-1.3) H 05/26/16 08:00 Est GFR ( Amer) TNP 05/26/16 08:00 Est GFR (Non-Af Amer) TNP 05/26/16 08:00 BUN/Creatinine Ratio 41.3 05/26/16 08:00 Glucose 224 mg/dL (70-105) H 05/26/16 08:00 POC Glucose 356 MG/DL (70 - 105) H 06/21/16 11:38 Calcium 9.5 mg/dL (8.6-10.3) 05/26/16 08:00 Total Bilirubin 0.3 mg/dL (0.3-1.0) 05/23/16 07:45 AST 34 U/L (13-39) 05/23/16 07:45 ALT 37 U/L (7-52) 05/23/16 07:45 Alkaline Phosphatase 140 U/L (34-104) H 05/23/16 07:45 Total Protein 6.9 gm/dL (6.0-8.3) 05/23/16 07:45 Albumin 3.3 gm/dL (4.2-5.5) L 05/23/16 07:45 Globulin 3.6 gm/dL 05/23/16 07:45 Albumin/Globulin Ratio 0.9 (1.0-1.8) L 05/23/16 07:45 Lipase 16 U/L (11-82) 05/23/16 07:45 Valproic Acid 37.7 ug/mL (50.0-100.0) L 06/21/16 12:30 - Physical Exam Vitals and I&O: Vital Signs Temp 98.4 F 06/20/16 20:21 Pulse 95 06/21/16 09:56 Resp 18 06/21/16 08:00 BP 134/63 06/21/16 09:56 Pulse Ox 99 06/21/16 07:21 Intake & Output 06/20/16 06/21/16 06/21/16 18:59 06:59 18:59 Intake Total 800 120 Balance 800 120 Intake: Oral 800 120 Other: # Voids 3 1 # Bowel Movements 1 1 Stool Characteristics Soft Soft Soft Black Black Black Active Medications: Current Medications Acetaminophen (Tylenol) 650 mg PO Q4HR PRN PRN Reason: Pain (Mild) Stop: 07/02/16 21:43 Last Admin: 06/18/16 12:27 Dose: 650 mg Al Hydrox/Mg Hydrox/Simethicone (Maalox) 30 ml PO Q4HR PRN PRN Reason: GI DISTRESS Stop: 07/02/16 21:43 Albuterol/Ipratropium (Duoneb Neb) 3 ml HHN Q4HRT PRN PRN Reason: Wheezing Stop: 07/21/16 08:04 Last Admin: 05/22/16 11:16 Dose: 3 ml Atenolol (Tenormin) 25 mg PO DAILY [facility] Stop: 08/09/16 13:29 Last Admin: 06/21/16 09:56 Dose: 25 mg Bisacodyl (Dulcolax 10 Mg Supp) 10 mg RC DAILY PRN PRN Reason: Constipation Stop: 07/23/16 08:28 Carbidopa/Levodopa (Sinemet 25mg-100 Mg) 1 tab PO TIDWM [facility] Stop: 07/03/16 07:59 Last Admin: 06/21/16 11:36 Dose: 1 tab Clonidine HCl (Catapres) 0.1 mg PO Q6HR PRN PRN Reason: SBP GREATER THAN 160 Stop: 08/09/16 13:19 Last Admin: 06/18/16 07:00 Dose: 0.1 mg Docusate Sodium (Colace) 250 mg PO BID [facility] Stop: 08/08/16 16:59 Last Admin: 06/21/16 09:22 Dose: Not Given Donepezil HCl (Aricept) 10 mg PO DAILY [facility] Stop: 07/03/16 08:59 Last Admin: 06/21/16 09:55 Dose: 10 mg Famotidine (Pepcid) 20 mg PO BID [facility] Stop: 07/03/16 08:59 Last Admin: 06/21/16 09:55 Dose: 20 mg Ferrous Sulfate (Iron) 325 mg PO BID [facility] Stop: 07/03/16 08:59 Last Admin: 06/21/16 09:22 Dose: Not Given [facility]) [facility] Stop: 07/03/16 07:29 Last Admin: 06/21/16 06:49 Dose: Not Given Insulin Aspart (Novolog) 0 units SUBQ ACHS JASVIR PRN Reason: Protocol Stop: 07/03/16 07:29 Last Admin: 06/21/16 11:40 Dose: 8 units Losartan Potassium (Cozaar) 50 mg PO DAILY [facility] Stop: 07/03/16 08:59 Last Admin: 06/21/16 09:56 Dose: 50 mg Magnesium Hydroxide (Milk Of Magnesia) 30 ml PO HS PRN PRN Reason: Constipation Stop: 07/02/16 21:43 Ondansetron HCl (Zofran Odt) 4 mg PO Q6H PRN PRN Reason: Nausea / Vomiting Stop: 07/21/16 20:25 Last Admin: 05/22/16 21:11 Dose: 4 mg Psyllium Hydrophilic Mucilloid (Metamucil) 1 pkt PO DAILY [facility] Stop: 07/03/16 08:59 Last Admin: 06/21/16 09:23 Dose: Not Given Quetiapine Fumarate (Seroquel) 100 mg PO HS [facility] Stop: 07/05/16 20:59 Last Admin: 06/20/16 21:23 Dose: 100 mg Sodium Phosphate (Fleet Enema) 135 ml RC PRN PRN PRN Reason: Constipation Stop: 07/23/16 08:28 Last Admin: 05/24/16 10:00 Dose: 135 ml Valproate Sodium (Depakene) 250 mg PO TID JASVIR PRN Reason: Protocol Stop: 08/17/16 13:59 Last Admin: 06/21/16 14:13 Dose: 250 mg General: demented HEENT: NC/AT, PERRLA Neck: Supple, No JVD Lungs: CTAB Cardiovascular: RRR, Normal S1, Normal S2 Abdomen: soft non-tender, globular, positive bowel sound Extremities: excoriation Neurological: no change - Procedures Procedures: Procedures Procedure Code Date ENDOSC POLYPECTOMY OF LG INTEST 45.42 07/13/07 GROUP PSYCHOTHERAPY 35290 06/03/15 GROUP PSYCHOTHERAPY GZHZZZZ 06/03/15 INDIVID PSYCHOTHERAP NEC 94.39 05/27/08 INSERT INDWELLING CATH 57.94 10/29/09 LESION REMOVAL COLONOSCOPY 18220 07/13/07 OTHER GROUP THERAPY 94.44 06/23/14 PERCUTANEOUS [ENDOSCOPIC] GASTROSTOMY [PEG] 43.11 10/10/13 RECREATIONAL THERAPY 93.81 06/24/10 Internal Medicine Assmt/Plan - Assessment Assessment: ch RENAL FAILURE DEHYDRATION UNCONTROLLED DIABETES dementia gait instability poor po intake lung consolidation - Plan Plan: cont on ada iss cont on oral dm meds dw rn continue w present care laxative addded, will review cxr Nutritional Asmnt/Malnutr-PDOC - Dietary Evaluation Malnutrition Findings (Please click <Entered> for more info): Nutritional Asmnt/Malnutrition Start: 05/07/16 09: 08 Text: Status: Complete Freq: Document 05/07/16 09:08 DMITRI (Rec: 05/07/16 09:26 MMULHA RUTHERFORD- FNS1) Nutritional Asmnt/Malnutrition Patient General Information Nutritional Screening Moderate Risk Screening Diagnosis Psychosis (Reason for visit) Pertinent Medical Hx/Surgical Hx Per nursing notes, DM, HTN, CVA, renal failure, dehydration, and psycho history of psychosis, alzheimer's, bipolar and dementia. Subjective Information Patient is from [facility], primarily [place]ive[place] speaking. Per nursing notes, history of becoming easily agitated and physically combative. Refusing some meds and blood sugar checks. Patient lying in bed asleep at time of visit. Current Diet Order/ Nutrition [facility] puree Patient / S.O Not Indicated Pertinent Medications maalox, colace, pepcid, iron, glipizide, novolog, cozaar, MOM, metamucil Pertinent Labs No labs drawn in this visit ( only accuchecks). Blood sugar 168-299. Nutritional Hx/Data Height 1.68 m Height (Calculated Centimeters) 167.6 Current Weight (lbs) 60.328 kg Weight (Calculated Kilograms) 60.3 Weight (Calculated Grams) 50461.8 [place] Body Weight 142lb % Herman Body Weight 93 Recent Weight Change No Weight Status Approriate GI Symptoms Food Allergies No Cultural/Ethnic/Sikhism Belief None indicated Usual diet at home Regular Skin Integrity/Comment: Barron sU 19 Current %PO Poor (25-49%) Estimated Nutritional Goals BEE in Kcals: Using Current wt Calories/Kcals/Kg 25-30 kcal/kg Kcals Calculated 7259-6857 kcal/day Protein: Using Current wt Protein g/k gm/kg Protein Calculated 60gm/day Fluid: ml 9261-4944 ml/day Nutritional Problem 2. Problem Problem Inadequate oral intake related to Etiology possible poor appetite aeb Signs/Symptoms: meeting <50% of estimated nutrient needs 1. Problem Problem Altered nutrition related lab values related to Etiology uncontrolled hyperglycemia aeb Signs/Symptoms: accuchecks 168-299 Intervention/Recommendation Recommendations by RD Increase Calorie Intake Comments 1. MD to continue to adjust insulin regimen for optimal glycemic control. 2. Encourage oral intake of meals; provide snacks to optimize nutrient intake. Assist with meals as needed. Expected Outcomes/Goals Expected Outcomes/Goals oral intake >75% of meals, glucose normalizes 80-180 Physician Parameters for PEM Body Mass Index (BMI) 19 - 24 (Normal)
--- NOTE | 2016-06-22 03:06 | Progress Notes ---
DATE: 06/21/2016 Case was discussed with staff of the patient, reviewed records. The patient continues to be demented, confused, continues to be unable to make safe plan for self-care. Sleeping well and eating well. He continues to need redirection. We are still having hard time placing the patient. I did increase his Depakote today and I will be checking his Depakote level. Again as it was very low previously, so far we have been very unsuccessful in finding any placement for him. Nobody will take him. We will continue . No side effect for the medication, no sedation, and no extrapyramidal symptoms. We will continue to work with the patient in group therapy, milieu therapy, and adjust the medication as needed. JOB# [id number]
[2016-06-22] MEDS: INSULIN ASPART, RECOMBINANT 100 UNITS/ML SUBQ SCH ×4 (06:38→21:11)
[2016-06-22] MEDS: Multivitamin w/ Minerals Tab PO SCH (10:15)
[2016-06-22] MEDS: Ferrous Sulfate 300 MG/5 ML UDC PO SCH ×2 (10:15→17:01)
--- NOTE | 2016-06-22 15:26 | Internal Medicine Prog Note ---
Internal Medicine Subjective - Subjective Patient seen and examined:: with staff, chart reviewed Patient is:: awake, verbal, interactive Per staff patient is:: no adverse event, noncompliant, confused Internal Medicine Objective - Results Result Diagrams: 05/24/16 08:15 05/26/16 08:00 Recent Labs: Laboratory Last Values WBC 8.9 Th/cmm (4.8-10.8) D 05/24/16 08:15 RBC 3.49 Mil/cmm (3.80-5.80) L 05/24/16 08:15 Hgb 10.2 gm/dL (12.6-17.4) L 05/24/16 08:15 Hct 30.4 % (39.0-49.0) L 05/24/16 08:15 MCV 86.9 fl (80-99) 05/24/16 08:15 MCH 29.3 pg (27.0-31.0) 05/24/16 08:15 MCHC Differential 33.7 pg (28.0-36.0) 05/24/16 08:15 RDW 14.4 % (11.5-20.0) 05/24/16 08:15 Plt Count 313 Th/cmm (150-400) 05/24/16 08:15 MPV 8.9 fl 05/24/16 08:15 Neutrophils % 65.3 % (40.0-80.0) 05/24/16 08:15 Lymphocytes % 26.7 % (20.0-50.0) 05/24/16 08:15 Monocytes % 4.8 % (2.0-10.0) 05/24/16 08:15 Eosinophils % 2.5 % (0.0-5.0) 05/24/16 08:15 Basophils % 0.7 % (0.0-2.0) 05/24/16 08:15 Sodium 138 mEq/L (136-145) 05/26/16 08:00 Potassium 5.0 mEq/L (3.5-5.1) 05/26/16 08:00 Chloride 106 mEq/L (98-107) 05/26/16 08:00 Carbon Dioxide 29.6 mEq/L (21.0-31.0) 05/26/16 08:00 Anion Gap 7.4 (7.0-16.0) 05/26/16 08:00 BUN 62 mg/dL (7-25) H 05/26/16 08:00 Creatinine 1.5 mg/dL (0.7-1.3) H 05/26/16 08:00 Est GFR ( Amer) TNP 05/26/16 08:00 Est GFR (Non-Af Amer) TNP 05/26/16 08:00 BUN/Creatinine Ratio 41.3 05/26/16 08:00 Glucose 224 mg/dL (70-105) H 05/26/16 08:00 POC Glucose 328 MG/DL (70 - 105) H 06/22/16 11:45 Calcium 9.5 mg/dL (8.6-10.3) 05/26/16 08:00 Total Bilirubin 0.3 mg/dL (0.3-1.0) 05/23/16 07:45 AST 34 U/L (13-39) 05/23/16 07:45 ALT 37 U/L (7-52) 05/23/16 07:45 Alkaline Phosphatase 140 U/L (34-104) H 05/23/16 07:45 Total Protein 6.9 gm/dL (6.0-8.3) 05/23/16 07:45 Albumin 3.3 gm/dL (4.2-5.5) L 05/23/16 07:45 Globulin 3.6 gm/dL 05/23/16 07:45 Albumin/Globulin Ratio 0.9 (1.0-1.8) L 05/23/16 07:45 Lipase 16 U/L (11-82) 05/23/16 07:45 Valproic Acid 37.7 ug/mL (50.0-100.0) L 06/21/16 12:30 - Physical Exam Vitals and I&O: Vital Signs Temp 97.9 F 06/22/16 06:28 Pulse 50 06/22/16 09:59 Resp 18 06/22/16 08:00 BP 113/65 06/22/16 09:59 Pulse Ox 100 06/22/16 07:35 Intake & Output 06/21/16 06/22/16 06/22/16 18:59 06:59 18:59 Intake Total 1600 120 Balance 1600 120 Intake: Oral 1600 120 Other: # Voids 4 4 # Bowel Movements 3 0 Stool Characteristics Soft Soft Soft Black Black Black Active Medications: Current Medications Acetaminophen (Tylenol) 650 mg PO Q4HR PRN PRN Reason: Pain (Mild) Stop: 07/02/16 21:43 Last Admin: 06/18/16 12:27 Dose: 650 mg Al Hydrox/Mg Hydrox/Simethicone (Maalox) 30 ml PO Q4HR PRN PRN Reason: GI DISTRESS Stop: 07/02/16 21:43 Albuterol/Ipratropium (Duoneb Neb) 3 ml HHN Q4HRT PRN PRN Reason: Wheezing Stop: 07/21/16 08:04 Last Admin: 05/22/16 11:16 Dose: 3 ml Atenolol (Tenormin) 25 mg PO DAILY [facility] Stop: 08/09/16 13:29 Last Admin: 06/22/16 09:58 Dose: Not Given Bisacodyl (Dulcolax 10 Mg Supp) 10 mg RC DAILY PRN PRN Reason: Constipation Stop: 07/23/16 08:28 Carbidopa/Levodopa (Sinemet 25mg-100 Mg) 1 tab PO TIDWM [facility] Stop: 07/03/16 07:59 Last Admin: 06/22/16 14:13 Dose: Not Given Clonidine HCl (Catapres) 0.1 mg PO Q6HR PRN PRN Reason: SBP GREATER THAN 160 Stop: 08/09/16 13:19 Last Admin: 06/22/16 06:50 Dose: 0.1 mg Docusate Sodium (Colace) 250 mg PO BID [facility] Stop: 08/08/16 16:59 Last Admin: 06/22/16 10:15 Dose: Not Given Donepezil HCl (Aricept) 10 mg PO DAILY [facility] Stop: 07/03/16 08:59 Last Admin: 06/22/16 10:15 Dose: 10 mg Famotidine (Pepcid) 20 mg PO BID [facility] Stop: 07/03/16 08:59 Last Admin: 06/22/16 10:15 Dose: 20 mg Ferrous Sulfate (Iron) 325 mg PO BID [facility] Stop: 07/03/16 08:59 Last Admin: 06/22/16 10:15 Dose: Not Given [facility]) [facility] Stop: 07/03/16 07:29 Last Admin: 06/22/16 06:39 Dose: 5 mg Insulin Aspart (Novolog) 0 units SUBQ ACHS JASVIR PRN Reason: Protocol Stop: 07/03/16 07:29 Last Admin: 06/22/16 12:03 Dose: 6 units Losartan Potassium (Cozaar) 50 mg PO DAILY [facility] Stop: 07/03/16 08:59 Last Admin: 06/22/16 09:59 Dose: Not Given Magnesium Hydroxide (Milk Of Magnesia) 30 ml PO HS PRN PRN Reason: Constipation Stop: 07/02/16 21:43 Ondansetron HCl (Zofran Odt) 4 mg PO Q6H PRN PRN Reason: Nausea / Vomiting Stop: 07/21/16 20:25 Last Admin: 05/22/16 21:11 Dose: 4 mg Psyllium Hydrophilic Mucilloid (Metamucil) 1 pkt PO DAILY [facility] Stop: 07/03/16 08:59 Last Admin: 06/22/16 09:59 Dose: Not Given Quetiapine Fumarate (Seroquel) 100 mg PO HS [facility] Stop: 07/05/16 20:59 Last Admin: 06/21/16 21:02 Dose: 100 mg Sodium Phosphate (Fleet Enema) 135 ml RC PRN PRN PRN Reason: Constipation Stop: 07/23/16 08:28 Last Admin: 05/24/16 10:00 Dose: 135 ml Valproate Sodium (Depakene) 250 mg PO TID JASVIR PRN Reason: Protocol Stop: 08/17/16 13:59 Last Admin: 06/22/16 15:01 Dose: 250 mg General: demented HEENT: NC/AT, PERRLA Neck: Supple Lungs: CTAB Cardiovascular: RRR, Normal S1, Normal S2 Abdomen: soft non-tender, globular, positive bowel sound Extremities: excoriation, contracture Neurological: no change - Procedures Procedures: Procedures Procedure Code Date ENDOSC POLYPECTOMY OF LG INTEST 45.42 07/13/07 GROUP PSYCHOTHERAPY 13885 06/03/15 GROUP PSYCHOTHERAPY GZHZZZZ 06/03/15 INDIVID PSYCHOTHERAP NEC 94.39 05/27/08 INSERT INDWELLING CATH 57.94 10/29/09 LESION REMOVAL COLONOSCOPY 56991 07/13/07 OTHER GROUP THERAPY 94.44 04/27/15 PERCUTANEOUS [ENDOSCOPIC] GASTROSTOMY [PEG] 43.11 10/10/13 RECREATIONAL THERAPY 93.81 06/24/10 Internal Medicine Assmt/Plan - Assessment Assessment: ch RENAL FAILURE DEHYDRATION UNCONTROLLED DIABETES dementia gait instability poor po intake lung consolidation - Plan Plan: cont on ada iss cont on oral dm meds dw rn continue w present care laxative addded, will review cxr Nutritional Asmnt/Malnutr-PDOC - Dietary Evaluation Malnutrition Findings (Please click <Entered> for more info): Nutritional Asmnt/Malnutrition Start: 05/07/16 09: 08 Text: Status: Complete Freq: Document 05/07/16 09:08 DMITRI (Rec: 05/07/16 09:26 MMULHA RUTHERFORD- FNS1) Nutritional Asmnt/Malnutrition Patient General Information Nutritional Screening Moderate Risk Screening Diagnosis Psychosis (Reason for visit) Pertinent Medical Hx/Surgical Hx Per nursing notes, DM, HTN, CVA, renal failure, dehydration, and psycho history of psychosis, alzheimer's, bipolar and dementia. Subjective Information Patient is from [facility], primarily Mont[place]gr[place] speaking. Per nursing notes, history of becoming easily agitated and physically combative. Refusing some meds and blood sugar checks. Patient lying in bed asleep at time of visit. Current Diet [facility]/ [facility] Patient / S.O Not Indicated Pertinent Medications maalox, colace, pepcid, iron, glipizide, novolog, cozaar, MOM, metamucil Pertinent Labs No labs drawn in this visit ( only accuchecks). Blood sugar 168-299. Nutritional Hx/Data Height 1.68 m Height (Calculated Centimeters) 167.6 Current Weight (lbs) 60.328 kg Weight (Calculated Kilograms) 60.3 Weight (Calculated Grams) 65828.8 [place] Body Weight 142lb % [place] Body Weight 93 Recent Weight Change No Weight Status Approriate GI Symptoms Food Allergies No Cultural/Ethnic/Buddhist Belief None indicated Usual diet at home Regular Skin Integrity/Comment: Barron Us 19 Current %PO Poor (25-49%) Estimated Nutritional Goals BEE in Kcals: Using Current wt Calories/Kcals/Kg 25-30 kcal/kg Kcals Calculated 1076-9921 kcal/day Protein: Using Current wt Protein g/k gm/kg Protein Calculated 60gm/day Fluid: ml 7452-0415 ml/day Nutritional Problem 2. Problem Problem Inadequate oral intake related to Etiology possible poor appetite aeb Signs/Symptoms: meeting <50% of estimated nutrient needs 1. Problem Problem Altered nutrition related lab values related to Etiology uncontrolled hyperglycemia aeb Signs/Symptoms: accuchecks 168-299 Intervention/Recommendation Recommendations by RD Increase Calorie Intake Comments 1. MD to continue to adjust insulin regimen for optimal glycemic control. 2. Encourage oral intake of meals; provide snacks to optimize nutrient intake. Assist with meals as needed. Expected Outcomes/Goals Expected Outcomes/Goals oral intake >75% of meals, glucose normalizes 80-180 Physician Parameters for PEM Body Mass Index (BMI) 19 - 24 (Normal)
--- NOTE | 2016-06-23 02:58 | Progress Notes ---
DATE: 06/22/2016 The case was discussed with staff of the patient, reviewed records. The patient continues ____ awaiting placement ____ very hard to find a placement for him. He continues to need full care, continues to need redirection. He has been unpredictable as always and because of his dementia and confusion, he has episodes where he gets easily irritable, but in general, he is doing better. He is at his basic level of function, awaiting placement. I did increase his Depakote level and his Depakote level is pending and it came back at 37.7, which is better than before and we will continue to work with the patient in group therapy, milieu therapy and adjust medication as needed. JOB# [id number]
[2016-06-23] MEDS: INSULIN ASPART, RECOMBINANT 100 UNITS/ML SUBQ SCH ×4 (06:29→20:00)
[2016-06-23] MEDS: Ferrous Sulfate 300 MG/5 ML UDC PO SCH ×3 (09:15→17:48)
[2016-06-23] MEDS: Multivitamin w/ Minerals Tab PO SCH (10:47)
--- NOTE | 2016-06-23 19:57 | Internal Medicine Prog Note ---
Internal Medicine Subjective - Subjective Patient seen and examined:: with staff, chart reviewed Patient is:: awake, verbal, interactive Per staff patient is:: no adverse event, no episodes of fall, confused Internal Medicine Objective - Results Result Diagrams: 05/24/16 08:15 05/26/16 08:00 Recent Labs: Laboratory Last Values WBC 8.9 Th/cmm (4.8-10.8) D 05/24/16 08:15 RBC 3.49 Mil/cmm (3.80-5.80) L 05/24/16 08:15 Hgb 10.2 gm/dL (12.6-17.4) L 05/24/16 08:15 Hct 30.4 % (39.0-49.0) L 05/24/16 08:15 MCV 86.9 fl (80-99) 05/24/16 08:15 MCH 29.3 pg (27.0-31.0) 05/24/16 08:15 MCHC Differential 33.7 pg (28.0-36.0) 05/24/16 08:15 RDW 14.4 % (11.5-20.0) 05/24/16 08:15 Plt Count 313 Th/cmm (150-400) 05/24/16 08:15 MPV 8.9 fl 05/24/16 08:15 Neutrophils % 65.3 % (40.0-80.0) 05/24/16 08:15 Lymphocytes % 26.7 % (20.0-50.0) 05/24/16 08:15 Monocytes % 4.8 % (2.0-10.0) 05/24/16 08:15 Eosinophils % 2.5 % (0.0-5.0) 05/24/16 08:15 Basophils % 0.7 % (0.0-2.0) 05/24/16 08:15 Sodium 138 mEq/L (136-145) 05/26/16 08:00 Potassium 5.0 mEq/L (3.5-5.1) 05/26/16 08:00 Chloride 106 mEq/L (98-107) 05/26/16 08:00 Carbon Dioxide 29.6 mEq/L (21.0-31.0) 05/26/16 08:00 Anion Gap 7.4 (7.0-16.0) 05/26/16 08:00 BUN 62 mg/dL (7-25) H 05/26/16 08:00 Creatinine 1.5 mg/dL (0.7-1.3) H 05/26/16 08:00 Est GFR ( Amer) TNP 05/26/16 08:00 Est GFR (Non-Af Amer) TNP 05/26/16 08:00 BUN/Creatinine Ratio 41.3 05/26/16 08:00 Glucose 224 mg/dL (70-105) H 05/26/16 08:00 POC Glucose 200 MG/DL (70 - 105) H 06/23/16 19:50 Calcium 9.5 mg/dL (8.6-10.3) 05/26/16 08:00 Total Bilirubin 0.3 mg/dL (0.3-1.0) 05/23/16 07:45 AST 34 U/L (13-39) 05/23/16 07:45 ALT 37 U/L (7-52) 05/23/16 07:45 Alkaline Phosphatase 140 U/L (34-104) H 05/23/16 07:45 Total Protein 6.9 gm/dL (6.0-8.3) 05/23/16 07:45 Albumin 3.3 gm/dL (4.2-5.5) L 05/23/16 07:45 Globulin 3.6 gm/dL 05/23/16 07:45 Albumin/Globulin Ratio 0.9 (1.0-1.8) L 05/23/16 07:45 Lipase 16 U/L (11-82) 05/23/16 07:45 Valproic Acid 37.7 ug/mL (50.0-100.0) L 06/21/16 12:30 - Physical Exam Vitals and I&O: Vital Signs Temp 97.4 F 06/23/16 14:00 Pulse 51 06/23/16 15:15 Resp 20 06/23/16 14:00 BP 129/64 06/23/16 15:15 Pulse Ox 96 06/23/16 14:00 Intake & Output 06/23/16 06/23/16 06/24/16 06:59 18:59 06:59 Intake Total 1000 Balance 1000 Intake: Oral 1000 Other: # Voids 3 # Bowel Movements 1 Active Medications: Current Medications Acetaminophen (Tylenol) 650 mg PO Q4HR PRN PRN Reason: Pain (Mild) Stop: 07/02/16 21:43 Last Admin: 06/18/16 12:27 Dose: 650 mg Al Hydrox/Mg Hydrox/Simethicone (Maalox) 30 ml PO Q4HR PRN PRN Reason: GI DISTRESS Stop: 07/02/16 21:43 Albuterol/Ipratropium (Duoneb Neb) 3 ml HHN Q4HRT PRN PRN Reason: Wheezing Stop: 07/21/16 08:04 Last Admin: 05/22/16 11:16 Dose: 3 ml Atenolol (Tenormin) 25 mg PO DAILY [facility] Stop: 08/09/16 13:29 Last Admin: 06/23/16 08:46 Dose: 25 mg Bisacodyl (Dulcolax 10 Mg Supp) 10 mg RC DAILY PRN PRN Reason: Constipation Stop: 07/23/16 08:28 Carbidopa/Levodopa (Sinemet 25mg-100 Mg) 1 tab PO TIDWM [facility] Stop: 07/03/16 07:59 Last Admin: 06/23/16 17:47 Dose: 1 tab Clonidine HCl (Catapres) 0.1 mg PO Q6HR PRN PRN Reason: SBP GREATER THAN 160 Stop: 08/09/16 13:19 Last Admin: 06/22/16 06:50 Dose: 0.1 mg Docusate Sodium (Colace) 250 mg PO BID [facility] Stop: 08/08/16 16:59 Last Admin: 06/23/16 17:47 Dose: 250 mg Donepezil HCl (Aricept) 10 mg PO DAILY [facility] Stop: 07/03/16 08:59 Last Admin: 06/23/16 08:47 Dose: 10 mg Famotidine (Pepcid) 20 mg PO BID [facility] Stop: 07/03/16 08:59 Last Admin: 06/23/16 17:47 Dose: 20 mg Ferrous Sulfate (Iron) 325 mg PO BID [facility] Stop: 07/03/16 08:59 Last Admin: 06/23/16 17:48 Dose: 325 mg Glipizide (Glucotrol) 5 mg PO BIDAC [facility] Stop: 07/03/16 07:29 Last Admin: 06/23/16 17:46 Dose: 5 mg Insulin Aspart (Novolog) 0 units SUBQ ACHS JASVIR PRN Reason: Protocol Stop: 07/03/16 07:29 Last Admin: 06/23/16 17:46 Dose: 4 units Losartan Potassium (Cozaar) 50 mg PO DAILY [facility] Stop: 07/03/16 08:59 Last Admin: 06/23/16 15:15 Dose: Not Given Magnesium Hydroxide (Milk Of Magnesia) 30 ml PO HS PRN PRN Reason: Constipation Stop: 07/02/16 21:43 Ondansetron HCl (Zofran Odt) 4 mg PO Q6H PRN PRN Reason: Nausea / Vomiting Stop: 07/21/16 20:25 Last Admin: 05/22/16 21:11 Dose: 4 mg Psyllium Hydrophilic Mucilloid (Metamucil) 1 pkt PO DAILY [facility] Stop: 07/03/16 08:59 Last Admin: 06/23/16 12:09 Dose: Not Given Quetiapine Fumarate (Seroquel) 100 mg PO HS [facility] Stop: 07/05/16 20:59 Last Admin: 06/22/16 20:37 Dose: 100 mg Sodium Phosphate (Fleet Enema) 135 ml RC PRN PRN PRN Reason: Constipation Stop: 07/23/16 08:28 Last Admin: 05/24/16 10:00 Dose: 135 ml Valproate Sodium (Depakene) 250 mg PO TID [facility] PRN Reason: Protocol Stop: 08/17/16 13:59 Last Admin: 06/23/16 13:52 Dose: 250 mg General: demented, bilateral temporal wasting HEENT: NC/AT, PERRLA Neck: Supple, No JVD Lungs: CTAB Cardiovascular: RRR, Normal S1, Normal S2 Abdomen: soft non-tender, globular, distended Extremities: excoriation Neurological: no change, disorganized - Procedures Procedures: Procedures Procedure Code Date ENDOSC POLYPECTOMY OF LG INTEST 45.42 07/13/07 GROUP PSYCHOTHERAPY 62835 06/03/15 GROUP PSYCHOTHERAPY GZHZZZZ 06/03/15 INDIVID PSYCHOTHERAP NEC 94.39 05/27/08 INSERT INDWELLING CATH 57.94 10/29/09 LESION REMOVAL COLONOSCOPY 57755 07/13/07 OTHER GROUP THERAPY 94.44 06/23/14 PERCUTANEOUS [ENDOSCOPIC] GASTROSTOMY [PEG] 43.11 10/10/13 RECREATIONAL THERAPY 93.81 06/24/10 Internal Medicine Assmt/Plan - Assessment Assessment: ch RENAL FAILURE DEHYDRATION UNCONTROLLED DIABETES dementia gait instability poor po intake lung consolidation - Plan Plan: cont on ada iss cont on oral dm meds dw rn continue w present care laxative addded, will review cxr Nutritional Asmnt/Malnutr-PDOC - Dietary Evaluation Malnutrition Findings (Please click <Entered> for more info): Nutritional Asmnt/Malnutrition Start: 05/07/16 09: 08 Text: Status: Complete Freq: Document 05/07/16 09:08 DMITRI (Rec: 05/07/16 09:26 MMULHA RUTHERFORD- FNS1) Nutritional Asmnt/Malnutrition Patient General Information Nutritional Screening Moderate Risk Screening Diagnosis Psychosis (Reason for visit) Pertinent Medical Hx/Surgical Hx Per nursing notes, DM, HTN, CVA, renal failure, dehydration, and psycho history of psychosis, alzheimer's, bipolar and dementia. Subjective Information Patient is from [facility], primarily [place] speaking. Per nursing notes, history of becoming easily agitated and physically combative. Refusing some meds and blood sugar checks. Patient lying in bed asleep at time of visit. Current Diet [facility]/ [facility] Patient / S.O Not Indicated Pertinent Medications maalox, colace, pepcid, iron, glipizide, novolog, cozaar, MOM, metamucil Pertinent Labs No labs drawn in this visit ( only accuchecks). Blood sugar 168-299. Nutritional Hx/Data Height 1.68 m Height (Calculated Centimeters) 167.6 Current Weight (lbs) 60.328 kg Weight (Calculated Kilograms) 60.3 Weight (Calculated Grams) 51350.8 [place] Body Weight 142lb % [place] Body Weight 93 Recent Weight Change No Weight Status Approriate GI Symptoms Food Allergies No Cultural/Ethnic/Zoroastrianism Belief None indicated Usual diet at home Regular Skin Integrity/Comment: Barron Us 19 Current %PO Poor (25-49%) Estimated Nutritional Goals BEE in Kcals: Using Current wt Calories/Kcals/Kg 25-30 kcal/kg Kcals Calculated 6612-6424 kcal/day Protein: Using Current wt Protein g/k gm/kg Protein Calculated 60gm/day Fluid: ml 4321-9680 ml/day Nutritional Problem 2. Problem Problem Inadequate oral intake related to Etiology possible poor appetite aeb Signs/Symptoms: meeting <50% of estimated nutrient needs 1. Problem Problem Altered nutrition related lab values related to Etiology uncontrolled hyperglycemia aeb Signs/Symptoms: accuchecks 168-299 Intervention/Recommendation Recommendations by RD Increase Calorie Intake Comments 1. MD to continue to adjust insulin regimen for optimal glycemic control. 2. Encourage oral intake of meals; provide snacks to optimize nutrient intake. Assist with meals as needed. Expected Outcomes/Goals Expected Outcomes/Goals oral intake >75% of meals, glucose normalizes 80-180 Physician Parameters for PEM Body Mass Index (BMI) 19 - 24 (Normal)
--- NOTE | 2016-06-23 23:33 | Progress Notes ---
DATE: 06/23/2016 Case was discussed with staff of the patient. The patient continues to do the same. He continues to be demented, confused, unpredictable, impulsive, continues to need redirection and continues to be unable to make safe plan for self-care. Sleeping well, eating well. No side effects with the medication, no sedation, no nausea and no extrapyramidal symptoms. I did increase Depakote level that seemed to have helped decrease his outburst episode and thus will continue outpatient group therapy, milieu therapy and adjust medications as needed. JOB# [id number]
[2016-06-24] MEDS: INSULIN ASPART, RECOMBINANT 100 UNITS/ML SUBQ SCH ×4 (06:41→21:34)
[2016-06-24] MEDS: Multivitamin w/ Minerals Tab PO SCH (08:35)
[2016-06-24] MEDS: Ferrous Sulfate 300 MG/5 ML UDC PO SCH ×2 (08:35→16:39)
--- NOTE | 2016-06-24 15:34 | Internal Medicine Prog Note ---
Internal Medicine Subjective - Subjective Patient seen and examined:: with staff, chart reviewed Patient is:: awake, verbal, interactive Per staff patient is:: no adverse event, no episodes of fall, confused Internal Medicine Objective - Results Result Diagrams: 05/24/16 08:15 05/26/16 08:00 Recent Labs: Laboratory Last Values WBC 8.9 Th/cmm (4.8-10.8) D 05/24/16 08:15 RBC 3.49 Mil/cmm (3.80-5.80) L 05/24/16 08:15 Hgb 10.2 gm/dL (12.6-17.4) L 05/24/16 08:15 Hct 30.4 % (39.0-49.0) L 05/24/16 08:15 MCV 86.9 fl (80-99) 05/24/16 08:15 MCH 29.3 pg (27.0-31.0) 05/24/16 08:15 MCHC Differential 33.7 pg (28.0-36.0) 05/24/16 08:15 RDW 14.4 % (11.5-20.0) 05/24/16 08:15 Plt Count 313 Th/cmm (150-400) 05/24/16 08:15 MPV 8.9 fl 05/24/16 08:15 Neutrophils % 65.3 % (40.0-80.0) 05/24/16 08:15 Lymphocytes % 26.7 % (20.0-50.0) 05/24/16 08:15 Monocytes % 4.8 % (2.0-10.0) 05/24/16 08:15 Eosinophils % 2.5 % (0.0-5.0) 05/24/16 08:15 Basophils % 0.7 % (0.0-2.0) 05/24/16 08:15 Sodium 138 mEq/L (136-145) 05/26/16 08:00 Potassium 5.0 mEq/L (3.5-5.1) 05/26/16 08:00 Chloride 106 mEq/L (98-107) 05/26/16 08:00 Carbon Dioxide 29.6 mEq/L (21.0-31.0) 05/26/16 08:00 Anion Gap 7.4 (7.0-16.0) 05/26/16 08:00 BUN 62 mg/dL (7-25) H 05/26/16 08:00 Creatinine 1.5 mg/dL (0.7-1.3) H 05/26/16 08:00 Est GFR ( Amer) TNP 05/26/16 08:00 Est GFR (Non-Af Amer) TNP 05/26/16 08:00 BUN/Creatinine Ratio 41.3 05/26/16 08:00 Glucose 224 mg/dL (70-105) H 05/26/16 08:00 POC Glucose 211 MG/DL (70 - 105) H 06/24/16 06:04 Calcium 9.5 mg/dL (8.6-10.3) 05/26/16 08:00 Total Bilirubin 0.3 mg/dL (0.3-1.0) 05/23/16 07:45 AST 34 U/L (13-39) 05/23/16 07:45 ALT 37 U/L (7-52) 05/23/16 07:45 Alkaline Phosphatase 140 U/L (34-104) H 05/23/16 07:45 Total Protein 6.9 gm/dL (6.0-8.3) 05/23/16 07:45 Albumin 3.3 gm/dL (4.2-5.5) L 05/23/16 07:45 Globulin 3.6 gm/dL 05/23/16 07:45 Albumin/Globulin Ratio 0.9 (1.0-1.8) L 05/23/16 07:45 Lipase 16 U/L (11-82) 05/23/16 07:45 Valproic Acid 37.7 ug/mL (50.0-100.0) L 06/21/16 12:30 - Physical Exam Vitals and I&O: Vital Signs Temp 97.6 F 06/24/16 14:00 Pulse 59 06/24/16 14:00 Resp 20 06/24/16 14:00 BP 151/67 06/24/16 14:00 Pulse Ox 98 06/24/16 14:00 Intake & Output 06/23/16 06/24/16 06/24/16 18:59 06:59 18:59 Intake Total 1000 Balance 1000 Intake: Oral 1000 Other: # Voids 3 # Bowel Movements 1 Active Medications: Current Medications Acetaminophen (Tylenol) 650 mg PO Q4HR PRN PRN Reason: Pain (Mild) Stop: 07/02/16 21:43 Last Admin: 06/18/16 12:27 Dose: 650 mg Al Hydrox/Mg Hydrox/Simethicone (Maalox) 30 ml PO Q4HR PRN PRN Reason: GI DISTRESS Stop: 07/02/16 21:43 Albuterol/Ipratropium (Duoneb Neb) 3 ml HHN Q4HRT PRN PRN Reason: Wheezing Stop: 07/21/16 08:04 Last Admin: 05/22/16 11:16 Dose: 3 ml Atenolol (Tenormin) 25 mg PO DAILY [facility] Stop: 08/09/16 13:29 Last Admin: 06/24/16 08:39 Dose: 25 mg Bisacodyl (Dulcolax 10 Mg Supp) 10 mg RC DAILY PRN PRN Reason: Constipation Stop: 07/23/16 08:28 Carbidopa/Levodopa (Sinemet 25mg-100 Mg) 1 tab PO TIDWM [facility] Stop: 07/03/16 07:59 Last Admin: 06/24/16 13:00 Dose: 1 tab Clonidine HCl (Catapres) 0.1 mg PO Q6HR PRN PRN Reason: SBP GREATER THAN 160 Stop: 08/09/16 13:19 Last Admin: 06/22/16 06:50 Dose: 0.1 mg Docusate Sodium (Colace) 250 mg PO BID [facility] Stop: 08/08/16 16:59 Last Admin: 06/24/16 08:35 Dose: 250 mg Donepezil HCl (Aricept) 10 mg PO DAILY [facility] Stop: 07/03/16 08:59 Last Admin: 06/24/16 08:36 Dose: 10 mg Famotidine (Pepcid) 20 mg PO BID [facility] Stop: 07/03/16 08:59 Last Admin: 06/24/16 08:35 Dose: 20 mg Ferrous Sulfate (Iron) 325 mg PO BID [facility] Stop: 07/03/16 08:59 Last Admin: 06/24/16 08:35 Dose: 325 mg Glipizide (Glucotrol) 5 mg PO BIDAC [facility] Stop: 07/03/16 07:29 Last Admin: 06/24/16 06:36 Dose: Not Given Insulin Aspart (Novolog) 0 units SUBQ ACHS JASVIR PRN Reason: Protocol Stop: 07/03/16 07:29 Last Admin: 06/24/16 11:27 Dose: 2 units Losartan Potassium (Cozaar) 50 mg PO DAILY [facility] Stop: 07/03/16 08:59 Last Admin: 06/24/16 08:36 Dose: 50 mg Magnesium Hydroxide (Milk Of Magnesia) 30 ml PO HS PRN PRN Reason: Constipation Stop: 07/02/16 21:43 Miscellaneous (Clinical Monitoring) 1 ea MC DAILY PRN PRN Reason: RENAL Stop: 08/23/16 12:04 Ondansetron HCl (Zofran Odt) 4 mg PO Q6H PRN PRN Reason: Nausea / Vomiting Stop: 07/21/16 20:25 Last Admin: 05/22/16 21:11 Dose: 4 mg Psyllium Hydrophilic Mucilloid (Metamucil) 1 pkt PO DAILY [facility] Stop: 07/03/16 08:59 Last Admin: 06/24/16 08:55 Dose: Not Given Quetiapine Fumarate (Seroquel) 100 mg PO HS [facility] Stop: 07/05/16 20:59 Last Admin: 06/23/16 20:08 Dose: 100 mg Sodium Phosphate (Fleet Enema) 135 ml RC PRN PRN PRN Reason: Constipation Stop: 07/23/16 08:28 Last Admin: 05/24/16 10:00 Dose: 135 ml Valproate Sodium (Depakene) 250 mg PO TID [facility] PRN Reason: Protocol Stop: 08/17/16 13:59 Last Admin: 06/24/16 08:35 Dose: 250 mg General: demented HEENT: NC/AT, PERRLA Neck: Supple, No JVD Lungs: CTAB Cardiovascular: RRR, Normal S1, Normal S2 Abdomen: soft non-tender, globular, positive bowel sound Extremities: excoriation Neurological: no change - Procedures Procedures: Procedures Procedure Code Date ENDOSC POLYPECTOMY OF LG INTEST 45.42 07/13/07 GROUP PSYCHOTHERAPY 47468 06/03/15 GROUP PSYCHOTHERAPY GZHZZZZ 06/03/15 INDIVID PSYCHOTHERAP NEC 94.39 05/27/08 INSERT INDWELLING CATH 57.94 10/29/09 LESION REMOVAL COLONOSCOPY 88532 07/13/07 OTHER GROUP THERAPY 94.44 06/23/14 PERCUTANEOUS [ENDOSCOPIC] GASTROSTOMY [PEG] 43.11 10/10/13 RECREATIONAL THERAPY 93.81 06/24/10 Internal Medicine Assmt/Plan - Assessment Assessment: ch RENAL FAILURE DEHYDRATION UNCONTROLLED DIABETES dementia gait instability poor po intake lung consolidation - Plan Plan: cont on ada iss cont on oral dm meds dw rn continue w present care laxative addded, will review cxr Nutritional Asmnt/Malnutr-PDOC - Dietary Evaluation Malnutrition Findings (Please click <Entered> for more info): Nutritional Asmnt/Malnutrition Start: 05/07/16 09: 08 Text: Status: Complete Freq: Document 05/07/16 09:08 DMITRI (Rec: 05/07/16 09:26 DMITRI RUTHERFORD- FNS1) Nutritional Asmnt/Malnutrition Patient General Information Nutritional Screening Moderate Risk Screening Diagnosis Psychosis (Reason for visit) Pertinent Medical Hx/Surgical Hx Per nursing notes, DM, HTN, CVA, renal failure, dehydration, and psycho history of psychosis, alzheimer's, bipolar and dementia. Subjective Information Patient is from [facility], primarily [place] speaking. Per nursing notes, history of becoming easily agitated and physically combative. Refusing some meds and blood sugar checks. Patient lying in bed asleep at time of visit. Current Diet Order/ Nutrition Support [facility] [place] Patient / S.O Not Indicated Pertinent Medications maalox, colace, pepcid, iron, glipizide, novolog, cozaar, MOM, metamucil Pertinent Labs No labs drawn in this visit ( only accuchecks). Blood sugar 168-299. Nutritional Hx/Data Height 1.68 m Height (Calculated Centimeters) 167.6 Current Weight (lbs) 60.328 kg Weight (Calculated Kilograms) 60.3 Weight (Calculated Grams) 22000.8 [place] Body Weight 142lb % [place] Body Weight 93 Recent Weight Change No Weight Status Approriate GI Symptoms Food Allergies No Cultural/Ethnic/Mandaen Belief None indicated Usual diet at home Regular Skin Integrity/Comment: Barron Us 19 Current %PO Poor (25-49%) Estimated Nutritional Goals BEE in Kcals: Using Current wt Calories/Kcals/Kg 25-30 kcal/kg Kcals Calculated 1986-8328 kcal/day Protein: Using Current wt Protein g/k gm/kg Protein Calculated 60gm/day Fluid: ml 1068-8042 ml/day Nutritional Problem 2. Problem Problem Inadequate oral intake related to Etiology possible poor appetite aeb Signs/Symptoms: meeting <50% of estimated nutrient needs 1. Problem Problem Altered nutrition related lab values related to Etiology uncontrolled hyperglycemia aeb Signs/Symptoms: accuchecks 168-299 Intervention/Recommendation Recommendations by RD Increase Calorie Intake Comments 1. MD to continue to adjust insulin regimen for optimal glycemic control. 2. Encourage oral intake of meals; provide snacks to optimize nutrient intake. Assist with meals as needed. Expected Outcomes/Goals Expected Outcomes/Goals oral intake >75% of meals, glucose normalizes 80-180 Physician Parameters for PEM Body Mass Index (BMI) 19 - 24 (Normal)
--- NOTE | 2016-06-25 04:46 | Progress Notes ---
DATE: 06/24/2016 Case was discussed with staff of the patient, reviewed records. The patient continues to have poor insight, continues to be unpredictable, impulsive, needing redirection. Continues to have poor insight, unable to make safe plan for self-care, demented, confused. No side effects with the medication, no sedation, no nausea, no extrapyramidal symptoms. We will continue to work with the patient in group therapy, milieu therapy, and adjust the medication as needed. JOB# [id number]
[2016-06-25] MEDS: INSULIN ASPART, RECOMBINANT 100 UNITS/ML SUBQ SCH ×4 (06:50→21:01)
[2016-06-25] MEDS: Ferrous Sulfate 300 MG/5 ML UDC PO SCH ×2 (08:49→16:38)
[2016-06-25] MEDS: Multivitamin w/ Minerals Tab PO SCH (08:49)
--- NOTE | 2016-06-25 21:50 | Internal Medicine Prog Note ---
Internal Medicine Subjective - Subjective Patient seen and examined:: with staff, chart reviewed Patient is:: awake, verbal, interactive Per staff patient is:: no adverse event, confused Internal Medicine Objective - Results Result Diagrams: 05/24/16 08:15 05/26/16 08:00 Recent Labs: Laboratory Last Values WBC 8.9 Th/cmm (4.8-10.8) D 05/24/16 08:15 RBC 3.49 Mil/cmm (3.80-5.80) L 05/24/16 08:15 Hgb 10.2 gm/dL (12.6-17.4) L 05/24/16 08:15 Hct 30.4 % (39.0-49.0) L 05/24/16 08:15 MCV 86.9 fl (80-99) 05/24/16 08:15 MCH 29.3 pg (27.0-31.0) 05/24/16 08:15 MCHC Differential 33.7 pg (28.0-36.0) 05/24/16 08:15 RDW 14.4 % (11.5-20.0) 05/24/16 08:15 Plt Count 313 Th/cmm (150-400) 05/24/16 08:15 MPV 8.9 fl 05/24/16 08:15 Neutrophils % 65.3 % (40.0-80.0) 05/24/16 08:15 Lymphocytes % 26.7 % (20.0-50.0) 05/24/16 08:15 Monocytes % 4.8 % (2.0-10.0) 05/24/16 08:15 Eosinophils % 2.5 % (0.0-5.0) 05/24/16 08:15 Basophils % 0.7 % (0.0-2.0) 05/24/16 08:15 Sodium 138 mEq/L (136-145) 05/26/16 08:00 Potassium 5.0 mEq/L (3.5-5.1) 05/26/16 08:00 Chloride 106 mEq/L (98-107) 05/26/16 08:00 Carbon Dioxide 29.6 mEq/L (21.0-31.0) 05/26/16 08:00 Anion Gap 7.4 (7.0-16.0) 05/26/16 08:00 BUN 62 mg/dL (7-25) H 05/26/16 08:00 Creatinine 1.5 mg/dL (0.7-1.3) H 05/26/16 08:00 Est GFR ( Amer) TNP 05/26/16 08:00 Est GFR (Non-Af Amer) TNP 05/26/16 08:00 BUN/Creatinine Ratio 41.3 05/26/16 08:00 Glucose 224 mg/dL (70-105) H 05/26/16 08:00 POC Glucose 235 MG/DL (70 - 105) H 06/25/16 20:09 Calcium 9.5 mg/dL (8.6-10.3) 05/26/16 08:00 Total Bilirubin 0.3 mg/dL (0.3-1.0) 05/23/16 07:45 AST 34 U/L (13-39) 05/23/16 07:45 ALT 37 U/L (7-52) 05/23/16 07:45 Alkaline Phosphatase 140 U/L (34-104) H 05/23/16 07:45 Total Protein 6.9 gm/dL (6.0-8.3) 05/23/16 07:45 Albumin 3.3 gm/dL (4.2-5.5) L 05/23/16 07:45 Globulin 3.6 gm/dL 05/23/16 07:45 Albumin/Globulin Ratio 0.9 (1.0-1.8) L 05/23/16 07:45 Lipase 16 U/L (11-82) 05/23/16 07:45 Valproic Acid 37.7 ug/mL (50.0-100.0) L 06/21/16 12:30 - Physical Exam Vitals and I&O: Vital Signs Temp 98.2 F 06/25/16 20:08 Pulse 66 06/25/16 20:08 Resp 19 06/25/16 20:08 BP 137/62 06/25/16 20:08 Pulse Ox 96 06/25/16 20:08 Intake & Output 06/25/16 06/25/16 06/26/16 06:59 18:59 06:59 Intake Total 950 120 Balance 950 120 Intake: Oral 950 120 Other: # Voids 4 1 # Bowel Movements 2 Active Medications: Current Medications Acetaminophen (Tylenol) 650 mg PO Q4HR PRN PRN Reason: Pain (Mild) Stop: 07/02/16 21:43 Last Admin: 06/18/16 12:27 Dose: 650 mg Al Hydrox/Mg Hydrox/Simethicone (Maalox) 30 ml PO Q4HR PRN PRN Reason: GI DISTRESS Stop: 07/02/16 21:43 Albuterol/Ipratropium (Duoneb Neb) 3 ml HHN Q4HRT PRN PRN Reason: Wheezing Stop: 07/21/16 08:04 Last Admin: 05/22/16 11:16 Dose: 3 ml Atenolol (Tenormin) 25 mg PO DAILY [facility] Stop: 08/09/16 13:29 Last Admin: 06/25/16 08:49 Dose: 25 mg Bisacodyl (Dulcolax 10 Mg Supp) 10 mg RC DAILY PRN PRN Reason: Constipation Stop: 07/23/16 08:28 Carbidopa/Levodopa (Sinemet 25mg-100 Mg) 1 tab PO TIDWM [facility] Stop: 07/03/16 07:59 Last Admin: 06/25/16 16:38 Dose: 1 tab Clonidine HCl (Catapres) 0.1 mg PO Q6HR PRN PRN Reason: SBP GREATER THAN 160 Stop: 08/09/16 13:19 Last Admin: 06/22/16 06:50 Dose: 0.1 mg Docusate Sodium (Colace) 250 mg PO BID [facility] Stop: 08/08/16 16:59 Last Admin: 06/25/16 16:38 Dose: 250 mg Donepezil HCl (Aricept) 10 mg PO DAILY [facility] Stop: 07/03/16 08:59 Last Admin: 06/25/16 08:49 Dose: 10 mg Famotidine (Pepcid) 20 mg PO BID [facility] Stop: 07/03/16 08:59 Last Admin: 06/25/16 16:38 Dose: 20 mg Ferrous Sulfate (Iron) 325 mg PO BID [facility] Stop: 07/03/16 08:59 Last Admin: 06/25/16 16:38 Dose: 325 mg Glipizide (Glucotrol) 5 mg PO BIDAC [facility] Stop: 07/03/16 07:29 Last Admin: 06/25/16 16:38 Dose: 5 mg Insulin Aspart (Novolog) 0 units SUBQ ACHS JASVIR PRN Reason: Protocol Stop: 07/03/16 07:29 Last Admin: 06/25/16 21:01 Dose: 2 units Losartan Potassium (Cozaar) 50 mg PO DAILY [facility] Stop: 07/03/16 08:59 Last Admin: 06/25/16 08:51 Dose: 50 mg Magnesium Hydroxide (Milk Of Magnesia) 30 ml PO HS PRN PRN Reason: Constipation Stop: 07/02/16 21:43 Miscellaneous (Clinical Monitoring) 1 ea MC DAILY PRN PRN Reason: RENAL Stop: 08/23/16 12:04 Ondansetron HCl (Zofran Odt) 4 mg PO Q6H PRN PRN Reason: Nausea / Vomiting Stop: 07/21/16 20:25 Last Admin: 05/22/16 21:11 Dose: 4 mg Psyllium Hydrophilic Mucilloid (Metamucil) 1 pkt PO DAILY [facility] Stop: 07/03/16 08:59 Last Admin: 06/25/16 08:49 Dose: Not Given Quetiapine Fumarate (Seroquel) 100 mg PO HS [facility] Stop: 07/05/16 20:59 Last Admin: 06/25/16 21:01 Dose: 100 mg Sodium Phosphate (Fleet Enema) 135 ml RC PRN PRN PRN Reason: Constipation Stop: 07/23/16 08:28 Last Admin: 05/24/16 10:00 Dose: 135 ml Valproate Sodium (Depakene) 250 mg PO TID [facility] PRN Reason: Protocol Stop: 08/17/16 13:59 Last Admin: 06/25/16 21:02 Dose: 250 mg General: demented, bilateral temporal wasting HEENT: NC/AT, PERRLA Neck: Supple Lungs: CTAB Cardiovascular: RRR, Normal S1, Normal S2 Abdomen: soft non-tender, globular, positive bowel sound Extremities: excoriation Neurological: no change - Procedures Procedures: Procedures Procedure Code Date ENDOSC POLYPECTOMY OF LG INTEST 45.42 07/13/07 GROUP PSYCHOTHERAPY 65067 06/03/15 GROUP PSYCHOTHERAPY GZHZZZZ 06/03/15 INDIVID PSYCHOTHERAP NEC 94.39 05/27/08 INSERT INDWELLING CATH 57.94 10/29/09 LESION REMOVAL COLONOSCOPY 47599 07/13/07 OTHER GROUP THERAPY 94.44 06/23/14 PERCUTANEOUS [ENDOSCOPIC] GASTROSTOMY [PEG] 43.11 10/10/13 RECREATIONAL THERAPY 93.81 06/24/10 Internal Medicine Assmt/Plan - Assessment Assessment: ch RENAL FAILURE DEHYDRATION UNCONTROLLED DIABETES dementia gait instability poor po intake lung consolidation - Plan Plan: cont on ada iss cont on oral dm meds dw rn continue w present care laxative addded, will review cxr Nutritional Asmnt/Malnutr-PDOC - Dietary Evaluation Malnutrition Findings (Please click <Entered> for more info): Nutritional Asmnt/Malnutrition Start: 05/07/16 09: 08 Text: Status: Complete Freq: Document 05/07/16 09:08 DMITRI (Rec: 05/07/16 09:26 DMITRI [place]- FNS1) Nutritional Asmnt/Malnutrition Patient General Information Nutritional Screening Moderate Risk Screening Diagnosis Psychosis (Reason for visit) Pertinent Medical Hx/Surgical Hx Per nursing notes, DM, HTN, CVA, renal failure, dehydration, and psycho history of psychosis, alzheimer's, bipolar and dementia. Subjective Information Patient is from [facility] primarily Turkmen speaking. Per nursing notes, history of becoming easily agitated and physically combative. Refusing some meds and blood sugar checks. Patient lying in bed asleep at time of visit. Current Diet Order/ Nutrition Support [facility] [place] S.[place] Not Indicated Pertinent Medications maalox, colace, pepcid, iron, glipizide, novolog, cozaar, MOM, metamucil Pertinent Labs No labs drawn in this visit ( only accuchecks). Blood sugar 168-299. Nutritional Hx/Data Height 1.68 m Height (Calculated Centimeters) 167.6 Current Weight (lbs) 60.328 kg Weight (Calculated Kilograms) 60.3 Weight (Calculated Grams) 94615.8 [place] Body Weight 142lb % [place] Body Weight 93 Recent Weight Change No Weight Status Approriate GI Symptoms Food Allergies No Cultural/Ethnic/Taoism Belief None indicated Usual diet at home Regular Skin Integrity/Comment: AbebaBarron 19 Current %PO Poor (25-49%) Estimated Nutritional Goals BEE in Kcals: Using Current wt Calories/Kcals/Kg 25-30 kcal/kg Kcals Calculated 7930-1775 kcal/day Protein: Using Current wt Protein g/k gm/kg Protein Calculated 60gm/day Fluid: ml 3369-1600 ml/day Nutritional Problem 2. Problem Problem Inadequate oral intake related to Etiology possible poor appetite aeb Signs/Symptoms: meeting <50% of estimated nutrient needs 1. Problem Problem Altered nutrition related lab values related to Etiology uncontrolled hyperglycemia aeb Signs/Symptoms: accuchecks 168-299 Intervention/Recommendation Recommendations by RD Increase Calorie Intake Comments 1. MD to continue to adjust insulin regimen for optimal glycemic control. 2. Encourage oral intake of meals; provide snacks to optimize nutrient intake. Assist with meals as needed. Expected Outcomes/Goals Expected Outcomes/Goals oral intake >75% of meals, glucose normalizes 80-180 Physician Parameters for PEM Body Mass Index (BMI) 19 - 24 (Normal)
[2016-06-26] MEDS: INSULIN ASPART, RECOMBINANT 100 UNITS/ML SUBQ SCH ×4 (06:36→21:15)
--- NOTE | 2016-06-26 08:18 | Progress Notes ---
DATE: 06/25/[address] Mai. SUBJECTIVE: The patient was seen and evaluated. The patient's chart reviewed. The patient is a 76-year-old male who nursing staff reported that the patient continues to present easily destructible. He continues to be preoccupied with voices that he hears ____ he used to get a lot of irritability. On [id number] evaluation, the patient is extremely irritable. He is observed to be talking to himself and when discussing what is experienced that the patient becomes very irritable. MENTAL STATUS EXAMINATION: Responding to internal stimuli, disorganized, and psychotic. ASSESSMENT AND PLAN: The patient is a 76-year-old male who continues to present disorganized, psychotic, and responding to internal stimuli. We will continue monitoring and evaluating. We will continue with primary psychiatric treatment plan and goals, which include Seroquel 100 mg at nighttime and Depakote 250 three times a today, and donepezil at 10 mg. No side effects were observed or endorsed. JOB# [id number]
[2016-06-26] MEDS: Multivitamin w/ Minerals Tab PO SCH (09:14)
[2016-06-26] MEDS: Ferrous Sulfate 300 MG/5 ML UDC PO SCH ×2 (09:14→17:06)
--- NOTE | 2016-06-26 21:24 | Internal Medicine Prog Note ---
Internal Medicine Subjective - Subjective Patient seen and examined:: with staff Patient is:: awake, verbal, interactive Per staff patient is:: no adverse event, confused Internal Medicine Objective - Results Result Diagrams: 05/24/16 08:15 05/26/16 08:00 Recent Labs: Laboratory Last Values WBC 8.9 Th/cmm (4.8-10.8) D 05/24/16 08:15 RBC 3.49 Mil/cmm (3.80-5.80) L 05/24/16 08:15 Hgb 10.2 gm/dL (12.6-17.4) L 05/24/16 08:15 Hct 30.4 % (39.0-49.0) L 05/24/16 08:15 MCV 86.9 fl (80-99) 05/24/16 08:15 MCH 29.3 pg (27.0-31.0) 05/24/16 08:15 MCHC Differential 33.7 pg (28.0-36.0) 05/24/16 08:15 RDW 14.4 % (11.5-20.0) 05/24/16 08:15 Plt Count 313 Th/cmm (150-400) 05/24/16 08:15 MPV 8.9 fl 05/24/16 08:15 Neutrophils % 65.3 % (40.0-80.0) 05/24/16 08:15 Lymphocytes % 26.7 % (20.0-50.0) 05/24/16 08:15 Monocytes % 4.8 % (2.0-10.0) 05/24/16 08:15 Eosinophils % 2.5 % (0.0-5.0) 05/24/16 08:15 Basophils % 0.7 % (0.0-2.0) 05/24/16 08:15 Sodium 138 mEq/L (136-145) 05/26/16 08:00 Potassium 5.0 mEq/L (3.5-5.1) 05/26/16 08:00 Chloride 106 mEq/L (98-107) 05/26/16 08:00 Carbon Dioxide 29.6 mEq/L (21.0-31.0) 05/26/16 08:00 Anion Gap 7.4 (7.0-16.0) 05/26/16 08:00 BUN 62 mg/dL (7-25) H 05/26/16 08:00 Creatinine 1.5 mg/dL (0.7-1.3) H 05/26/16 08:00 Est GFR ( Amer) TNP 05/26/16 08:00 Est GFR (Non-Af Amer) TNP 05/26/16 08:00 BUN/Creatinine Ratio 41.3 05/26/16 08:00 Glucose 224 mg/dL (70-105) H 05/26/16 08:00 POC Glucose 200 MG/DL (70 - 105) H 06/26/16 20:09 Calcium 9.5 mg/dL (8.6-10.3) 05/26/16 08:00 Total Bilirubin 0.3 mg/dL (0.3-1.0) 05/23/16 07:45 AST 34 U/L (13-39) 05/23/16 07:45 ALT 37 U/L (7-52) 05/23/16 07:45 Alkaline Phosphatase 140 U/L (34-104) H 05/23/16 07:45 Total Protein 6.9 gm/dL (6.0-8.3) 05/23/16 07:45 Albumin 3.3 gm/dL (4.2-5.5) L 05/23/16 07:45 Globulin 3.6 gm/dL 05/23/16 07:45 Albumin/Globulin Ratio 0.9 (1.0-1.8) L 05/23/16 07:45 Lipase 16 U/L (11-82) 05/23/16 07:45 Valproic Acid 37.7 ug/mL (50.0-100.0) L 06/21/16 12:30 - Physical Exam Vitals and I&O: Vital Signs Temp 97.6 F 06/26/16 20:13 Pulse 69 06/26/16 20:13 Resp 18 06/26/16 20:13 BP 136/73 06/26/16 20:13 Pulse Ox 98 06/26/16 20:13 Intake & Output 06/26/16 06/26/16 06/27/16 06:59 18:59 06:59 Intake Total 120 1100 120 Balance 120 1100 120 Intake: Oral 120 1100 120 Other: # Voids 1 4 1 # Bowel Movements 1 Active Medications: Current Medications Acetaminophen (Tylenol) 650 mg PO Q4HR PRN PRN Reason: Pain (Mild) Stop: 07/02/16 21:43 Last Admin: 06/18/16 12:27 Dose: 650 mg Al Hydrox/Mg Hydrox/Simethicone (Maalox) 30 ml PO Q4HR PRN PRN Reason: GI DISTRESS Stop: 07/02/16 21:43 Albuterol/Ipratropium (Duoneb Neb) 3 ml HHN Q4HRT PRN PRN Reason: Wheezing Stop: 07/21/16 08:04 Last Admin: 05/22/16 11:16 Dose: 3 ml Atenolol (Tenormin) 25 mg PO DAILY [facility] Stop: 08/09/16 13:29 Last Admin: 06/26/16 09:15 Dose: Not Given Bisacodyl (Dulcolax 10 Mg Supp) 10 mg RC DAILY PRN PRN Reason: Constipation Stop: 07/23/16 08:28 Carbidopa/Levodopa (Sinemet 25mg-100 Mg) 1 tab PO TIDWM [facility] Stop: 07/03/16 07:59 Last Admin: 06/26/16 17:06 Dose: 1 tab Clonidine HCl (Catapres) 0.1 mg PO Q6HR PRN PRN Reason: SBP GREATER THAN 160 Stop: 08/09/16 13:19 Last Admin: 06/22/16 06:50 Dose: 0.1 mg Docusate Sodium (Colace) 250 mg PO BID [facility] Stop: 08/08/16 16:59 Last Admin: 06/26/16 17:06 Dose: 250 mg Donepezil HCl (Aricept) 10 mg PO DAILY [facility] Stop: 07/03/16 08:59 Last Admin: 06/26/16 09:14 Dose: 10 mg Famotidine (Pepcid) 20 mg PO BID [facility] Stop: 07/03/16 08:59 Last Admin: 06/26/16 17:06 Dose: 20 mg Ferrous Sulfate (Iron) 325 mg PO BID [facility] Stop: 07/03/16 08:59 Last Admin: 06/26/16 17:06 Dose: 325 mg Glipizide (Glucotrol) 5 mg PO BIDAC [facility] Stop: 07/03/16 07:29 Last Admin: 06/26/16 17:06 Dose: 5 mg Insulin Aspart (Novolog) 0 units SUBQ ACHS JASVIR PRN Reason: Protocol Stop: 07/03/16 07:29 Last Admin: 06/26/16 21:15 Dose: Not Given Losartan Potassium (Cozaar) 50 mg PO DAILY [facility] Stop: 07/03/16 08:59 Last Admin: 06/26/16 09:15 Dose: Not Given Magnesium Hydroxide (Milk Of Magnesia) 30 ml PO HS PRN PRN Reason: Constipation Stop: 07/02/16 21:43 Miscellaneous (Clinical Monitoring) 1 ea MC DAILY PRN PRN Reason: RENAL Stop: 08/23/16 12:04 Ondansetron HCl (Zofran Odt) 4 mg PO Q6H PRN PRN Reason: Nausea / Vomiting Stop: 07/21/16 20:25 Last Admin: 05/22/16 21:11 Dose: 4 mg Psyllium Hydrophilic Mucilloid (Metamucil) 1 pkt PO DAILY [facility] Stop: 07/03/16 08:59 Last Admin: 06/26/16 13:19 Dose: Not Given Quetiapine Fumarate (Seroquel) 100 mg PO HS [facility] Stop: 07/05/16 20:59 Last Admin: 06/26/16 21:15 Dose: 100 mg Sodium Phosphate (Fleet Enema) 135 ml RC PRN PRN PRN Reason: Constipation Stop: 07/23/16 08:28 Last Admin: 05/24/16 10:00 Dose: 135 ml Valproate Sodium (Depakene) 250 mg PO TID [facility]AS[facility]IR PRN Reason: Protocol Stop: 08/17/16 13:59 Last Admin: 06/26/16 21:15 Dose: 250 mg General: demented HEENT: NC/AT, PERRLA Neck: Supple Lungs: CTAB Cardiovascular: RRR, Normal S1, Normal S2 Abdomen: soft non-tender, globular, distended, positive bowel sound Extremities: excoriation Neurological: no change - Procedures Procedures: Procedures Procedure Code Date ENDOSC POLYPECTOMY OF LG INTEST 45.42 07/13/07 GROUP PSYCHOTHERAPY 62744 06/03/15 GROUP PSYCHOTHERAPY GZHZZZZ 06/03/15 INDIVID PSYCHOTHERAP NEC 94.39 05/27/08 INSERT INDWELLING CATH 57.94 10/29/09 LESION REMOVAL COLONOSCOPY 71031 07/13/07 OTHER GROUP THERAPY 94.44 06/23/14 PERCUTANEOUS [ENDOSCOPIC] GASTROSTOMY [PEG] 43.11 10/10/13 RECREATIONAL THERAPY 93.81 06/24/10 Internal Medicine Assmt/Plan - Assessment Assessment: ch RENAL FAILURE DEHYDRATION UNCONTROLLED DIABETES dementia gait instability poor po intake lung consolidation - Plan Plan: cont on ada iss cont on oral dm meds dw rn continue w present care laxative addded, will review cxr Nutritional Asmnt/Malnutr-PDOC - Dietary Evaluation Malnutrition Findings (Please click <Entered> for more info): Nutritional Asmnt/Malnutrition Start: 05/07/16 09: 08 Text: Status: Complete Freq: Document 05/07/16 09:08 DMITRI (Rec: 05/07/16 09:26 DMITRI [place]- FNS1) Nutritional Asmnt/Malnutrition Patient General Information Nutritional Screening Moderate Risk Screening Diagnosis Psychosis (Reason for visit) Pertinent Medical Hx/Surgical Hx Per nursing notes, DM, HTN, CVA, renal failure, dehydration, and psycho history of psychosis, alzheimer's, bipolar and dementia. Subjective Information Patient is from [facility], primarily [place] speaking. Per nursing notes, history of becoming easily agitated and physically combative. Refusing some meds and blood sugar checks. Patient lying in bed asleep at time of visit. Current Diet Order/ Nutrition Support [facility] [place] / S.O Not Indicated Pertinent Medications maalox, colace, pepcid, iron, glipizide, novolog, cozaar, MOM, metamucil Pertinent Labs No labs drawn in this visit ( only accuchecks). Blood sugar 168-299. Nutritional Hx/Data Height 1.68 m Height (Calculated Centimeters) 167.6 Current Weight (lbs) 60.328 kg Weight (Calculated Kilograms) 60.3 Weight (Calculated Grams) 72776.8 [place] Body Weight 142lb % [place] Body Weight 93 Recent Weight Change No Weight Status Approriate GI Symptoms Food Allergies No Cultural/Ethnic/Yazidism Belief None indicated Usual diet at home Regular Skin Integrity/Comment: AbebaBarron 19 Current %PO Poor (25-49%) Estimated Nutritional Goals BEE in Kcals: Using Current wt Calories/Kcals/Kg 25-30 kcal/kg Kcals Calculated 2061-6738 kcal/day Protein: Using Current wt Protein g/k gm/kg Protein Calculated 60gm/day Fluid: ml 1819-0430 ml/day Nutritional Problem 2. Problem Problem Inadequate oral intake related to Etiology possible poor appetite aeb Signs/Symptoms: meeting <50% of estimated nutrient needs 1. Problem Problem Altered nutrition related lab values related to Etiology uncontrolled hyperglycemia aeb Signs/Symptoms: accuchecks 168-299 Intervention/Recommendation Recommendations by RD Increase Calorie Intake Comments 1. MD to continue to adjust insulin regimen for optimal glycemic control. 2. Encourage oral intake of meals; provide snacks to optimize nutrient intake. Assist with meals as needed. Expected Outcomes/Goals Expected Outcomes/Goals oral intake >75% of meals, glucose normalizes 80-180 Physician Parameters for PEM Body Mass Index (BMI) 19 - 24 (Normal)
--- NOTE | 2016-06-26 22:58 | Progress Notes ---
DATE: 06/26/2016 SUBJECTIVE: The patient was seen and the patient chart reviewed. Overnight, the staff reported, the patient is little more stabilized. No side effects of the medications reported. He is sleeping well and ____ [id number] evaluation. The patient is slightly withdrawn, but no complications and no side effects of the medications. MENTAL STATUS EXAMINATION: Stable. ASSESSMENT AND PLAN: This is a 76-year-old male who is currently awaiting placement. No acute events overnight. We will continue monitoring and evaluating and continue with primary psychiatrist treatment and plan and goals, which includes Seroquel, Depakote and donepezil. JOB# [id number]
[2016-06-27] MEDS: INSULIN ASPART, RECOMBINANT 100 UNITS/ML SUBQ SCH ×4 (06:32→20:53)
[2016-06-27] MEDS: Multivitamin w/ Minerals Tab PO SCH (08:53)
[2016-06-27] MEDS: Ferrous Sulfate 300 MG/5 ML UDC PO SCH ×2 (08:54→16:22)
--- NOTE | 2016-06-27 15:40 | Internal Medicine Prog Note ---
Internal Medicine Subjective - Subjective Patient seen and examined:: with staff, chart reviewed Patient is:: awake, verbal, non-interactive Per staff patient is:: no adverse event, noncompliant, confused Internal Medicine Objective - Results Result Diagrams: 05/24/16 08:15 05/26/16 08:00 Recent Labs: Laboratory Last Values WBC 8.9 Th/cmm (4.8-10.8) D 05/24/16 08:15 RBC 3.49 Mil/cmm (3.80-5.80) L 05/24/16 08:15 Hgb 10.2 gm/dL (12.6-17.4) L 05/24/16 08:15 Hct 30.4 % (39.0-49.0) L 05/24/16 08:15 MCV 86.9 fl (80-99) 05/24/16 08:15 MCH 29.3 pg (27.0-31.0) 05/24/16 08:15 MCHC Differential 33.7 pg (28.0-36.0) 05/24/16 08:15 RDW 14.4 % (11.5-20.0) 05/24/16 08:15 Plt Count 313 Th/cmm (150-400) 05/24/16 08:15 MPV 8.9 fl 05/24/16 08:15 Neutrophils % 65.3 % (40.0-80.0) 05/24/16 08:15 Lymphocytes % 26.7 % (20.0-50.0) 05/24/16 08:15 Monocytes % 4.8 % (2.0-10.0) 05/24/16 08:15 Eosinophils % 2.5 % (0.0-5.0) 05/24/16 08:15 Basophils % 0.7 % (0.0-2.0) 05/24/16 08:15 Sodium 138 mEq/L (136-145) 05/26/16 08:00 Potassium 5.0 mEq/L (3.5-5.1) 05/26/16 08:00 Chloride 106 mEq/L (98-107) 05/26/16 08:00 Carbon Dioxide 29.6 mEq/L (21.0-31.0) 05/26/16 08:00 Anion Gap 7.4 (7.0-16.0) 05/26/16 08:00 BUN 62 mg/dL (7-25) H 05/26/16 08:00 Creatinine 1.5 mg/dL (0.7-1.3) H 05/26/16 08:00 Est GFR ( Amer) TNP 05/26/16 08:00 Est GFR (Non-Af Amer) TNP 05/26/16 08:00 BUN/Creatinine Ratio 41.3 05/26/16 08:00 Glucose 224 mg/dL (70-105) H 05/26/16 08:00 POC Glucose 243 MG/DL (70 - 105) H 06/27/16 11:33 Calcium 9.5 mg/dL (8.6-10.3) 05/26/16 08:00 Total Bilirubin 0.3 mg/dL (0.3-1.0) 05/23/16 07:45 AST 34 U/L (13-39) 05/23/16 07:45 ALT 37 U/L (7-52) 05/23/16 07:45 Alkaline Phosphatase 140 U/L (34-104) H 05/23/16 07:45 Total Protein 6.9 gm/dL (6.0-8.3) 05/23/16 07:45 Albumin 3.3 gm/dL (4.2-5.5) L 05/23/16 07:45 Globulin 3.6 gm/dL 05/23/16 07:45 Albumin/Globulin Ratio 0.9 (1.0-1.8) L 05/23/16 07:45 Lipase 16 U/L (11-82) 05/23/16 07:45 Valproic Acid 37.7 ug/mL (50.0-100.0) L 06/21/16 12:30 - Physical Exam Vitals and I&O: Vital Signs Temp 98.0 F 06/27/16 06:08 Pulse 68 06/27/16 08:53 Resp 16 06/27/16 07:05 BP 189/83 06/27/16 08:53 Pulse Ox 99 06/27/16 07:05 Intake & Output 06/26/16 06/27/16 06/27/16 18:59 06:59 18:59 Intake Total 1100 120 Balance 1100 120 Intake: Oral 1100 120 Other: # Voids 4 1 # Bowel Movements 1 0 Active Medications: Current Medications Acetaminophen (Tylenol) 650 mg PO Q4HR PRN PRN Reason: Pain (Mild) Stop: 07/02/16 21:43 Last Admin: 06/18/16 12:27 Dose: 650 mg Al Hydrox/Mg Hydrox/Simethicone (Maalox) 30 ml PO Q4HR PRN PRN Reason: GI DISTRESS Stop: 07/02/16 21:43 Albuterol/Ipratropium (Duoneb Neb) 3 ml HHN Q4HRT PRN PRN Reason: Wheezing Stop: 07/21/16 08:04 Last Admin: 05/22/16 11:16 Dose: 3 ml Atenolol (Tenormin) 25 mg PO DAILY [facility] Stop: 08/09/16 13:29 Last Admin: 06/27/16 08:53 Dose: 25 mg Bisacodyl (Dulcolax 10 Mg Supp) 10 mg RC DAILY PRN PRN Reason: Constipation Stop: 07/23/16 08:28 Carbidopa/Levodopa (Sinemet 25mg-100 Mg) 1 tab PO TIDWM [facility] Stop: 07/03/16 07:59 Last Admin: 06/27/16 14:04 Dose: 1 tab Clonidine HCl (Catapres) 0.1 mg PO Q6HR PRN PRN Reason: SBP GREATER THAN 160 Stop: 08/09/16 13:19 Last Admin: 06/22/16 06:50 Dose: 0.1 mg Docusate Sodium (Colace) 250 mg PO BID [facility] Stop: 08/08/16 16:59 Last Admin: 06/27/16 08:53 Dose: 250 mg Donepezil HCl (Aricept) 10 mg PO DAILY [facility] Stop: 07/03/16 08:59 Last Admin: 06/27/16 08:54 Dose: 10 mg Famotidine (Pepcid) 20 mg PO BID [facility] Stop: 07/03/16 08:59 Last Admin: 06/27/16 08:52 Dose: 20 mg Ferrous Sulfate (Iron) 325 mg PO BID [facility] Stop: 07/03/16 08:59 Last Admin: 06/27/16 08:54 Dose: 325 mg [facility] Stop: 07/03/16 07:29 Last Admin: 06/27/16 06:32 Dose: 5 mg Insulin Aspart (Novolog) 0 units SUBQ ACHS [facility] PRN Reason: Protocol Stop: 07/03/16 07:29 Last Admin: 06/27/16 06:32 Dose: Not Given Losartan Potassium (Cozaar) 50 mg PO DAILY [facility] Stop: 07/03/16 08:59 Last Admin: 06/27/16 08:53 Dose: 50 mg Magnesium Hydroxide (Milk Of Magnesia) 30 ml PO HS PRN PRN Reason: Constipation Stop: 07/02/16 21:43 Miscellaneous (Clinical Monitoring) 1 ea MC DAILY PRN PRN Reason: RENAL Stop: 08/23/16 12:04 Ondansetron HCl (Zofran Odt) 4 mg PO Q6H PRN PRN Reason: Nausea / Vomiting Stop: 07/21/16 20:25 Last Admin: 05/22/16 21:11 Dose: 4 mg Psyllium Hydrophilic Mucilloid (Metamucil) 1 pkt PO DAILY [facility] Stop: 07/03/16 08:59 Last Admin: 06/27/16 08:54 Dose: Not Given Quetiapine Fumarate (Seroquel) 100 mg PO HS [facility] Stop: 07/05/16 20:59 Last Admin: 06/26/16 21:15 Dose: 100 mg Sodium Phosphate (Fleet Enema) 135 ml RC PRN PRN PRN Reason: Constipation Stop: 07/23/16 08:28 Last Admin: 05/24/16 10:00 Dose: 135 ml Valproate Sodium (Depakene) 250 mg PO TID [facility] PRN Reason: Protocol Stop: 08/17/16 13:59 Last Admin: 06/27/16 14:04 Dose: 250 mg General: demented HEENT: NC/AT, PERRLA Neck: Supple, No JVD Lungs: CTAB Cardiovascular: RRR, Normal S1, Normal S2 Abdomen: soft non-tender, globular Extremities: excoriation, contracture Neurological: no change - Procedures Procedures: Procedures Procedure Code Date ENDOSC POLYPECTOMY OF LG INTEST 45.42 07/13/07 GROUP PSYCHOTHERAPY 35572 06/03/15 GROUP PSYCHOTHERAPY GZHZZZZ 06/03/15 INDIVID PSYCHOTHERAP NEC 94.39 05/27/08 INSERT INDWELLING CATH 57.94 10/29/09 LESION REMOVAL COLONOSCOPY 64733 07/13/07 OTHER GROUP THERAPY 94.44 06/23/14 PERCUTANEOUS [ENDOSCOPIC] GASTROSTOMY [PEG] 43.11 10/10/13 RECREATIONAL THERAPY 93.81 06/24/10 Internal Medicine Assmt/Plan - Assessment Assessment: ch RENAL FAILURE DEHYDRATION UNCONTROLLED DIABETES dementia gait instability poor po intake lung consolidation - Plan Plan: cont on ada iss cont on oral dm meds dw rn continue w present care laxative addded, will review cxr Nutritional Asmnt/Malnutr-PDOC - Dietary Evaluation Malnutrition Findings (Please click <Entered> for more info): Nutritional Asmnt/Malnutrition Start: 05/07/16 09: 08 Text: Status: Complete Freq: Document 05/07/16 09:08 DMITRI (Rec: 05/07/16 09:26 MMMILTON R[place]HER[place]- FNS1) Nutritional Asmnt/Malnutrition Patient General Information Nutritional Screening Moderate Risk Screening Diagnosis Psychosis (Reason for visit) Pertinent Medical Hx/Surgical Hx Per nursing notes, DM, HTN, CVA, renal failure, dehydration, and psycho history of psychosis, alzheimer's, bipolar and dementia. Subjective Information Patient is from [facility], primarily Frisian speaking. Per nursing notes, history of becoming easily agitated and physically combative. Refusing some meds and blood sugar checks. Patient lying in bed asleep at time of visit. Current Diet Order/ Nutrition Support [facility]- [facility] [place] Patient / S.O Not Indicated Pertinent Medications maalox, colace, pepcid, iron, glipizide, novolog, cozaar, MOM, metamucil Pertinent Labs No labs drawn in this visit ( only accuchecks). Blood sugar 168-299. Nutritional Hx/Data Height 1.68 m Height (Calculated Centimeters) 167.6 Current Weight (lbs) 60.328 kg Weight (Calculated Kilograms) 60.3 Weight (Calculated Grams) 39789.8 [place] Body Weight 142lb % [place] Body Weight 93 Recent Weight Change No Weight Status Approriate GI Symptoms Food Allergies No Cultural/Ethnic/Hoahaoism Belief None indicated Usual diet at home Regular Skin Integrity/Comment: Intact, [place] 19 Current %PO Poor (25-49%) Estimated Nutritional Goals BEE in Kcals: Using Current wt Calories/Kcals/Kg 25-30 kcal/kg Kcals Calculated 0106-6124 kcal/day Protein: Using Current wt Protein g/k gm/kg Protein Calculated 60gm/day Fluid: ml 5939-1234 ml/day Nutritional Problem 2. Problem Problem Inadequate oral intake related to Etiology possible poor appetite aeb Signs/Symptoms: meeting <50% of estimated nutrient needs 1. Problem Problem Altered nutrition related lab values related to Etiology uncontrolled hyperglycemia aeb Signs/Symptoms: accuchecks 168-299 Intervention/Recommendation Recommendations by RD Increase Calorie Intake Comments 1. MD to continue to adjust insulin regimen for optimal glycemic control. 2. Encourage oral intake of meals; provide snacks to optimize nutrient intake. Assist with meals as needed. Expected Outcomes/Goals Expected Outcomes/Goals oral intake >75% of meals, glucose normalizes 80-180 Physician Parameters for PEM Body Mass Index (BMI) 19 - 24 (Normal)
[2016-06-28] MEDS: INSULIN ASPART, RECOMBINANT 100 UNITS/ML SUBQ SCH ×4 (06:41→20:27)
[2016-06-28] MEDS: Ferrous Sulfate 300 MG/5 ML UDC PO SCH ×2 (09:04→17:07)
[2016-06-28] MEDS: Multivitamin w/ Minerals Tab PO SCH (09:05)
--- NOTE | 2016-06-28 11:29 | Progress Notes ---
DATE: 06/27/2016 Case was discussed with staff of the patient, reviewed records. The patient is still awaiting placement. He is still unpredictable. He is still impulsive, demented, confused, unable to take care of himself. He is compliant with the medication, no side effects, no sedation, no nausea. Still waiting for a place to accept him, and we will continue to work with the patient in group therapy, milieu therapy, and adjust the medications as needed. JOB# [id number]
--- NOTE | 2016-06-28 22:58 | Internal Medicine Prog Note ---
Internal Medicine Subjective - Subjective Patient seen and examined:: with staff, chart reviewed Patient is:: awake, verbal, interactive, sun chair Per staff patient is:: no adverse event, confused Internal Medicine Objective - Results Result Diagrams: 05/24/16 08:15 05/26/16 08:00 Recent Labs: Laboratory Last Values WBC 8.9 Th/cmm (4.8-10.8) D 05/24/16 08:15 RBC 3.49 Mil/cmm (3.80-5.80) L 05/24/16 08:15 Hgb 10.2 gm/dL (12.6-17.4) L 05/24/16 08:15 Hct 30.4 % (39.0-49.0) L 05/24/16 08:15 MCV 86.9 fl (80-99) 05/24/16 08:15 MCH 29.3 pg (27.0-31.0) 05/24/16 08:15 MCHC Differential 33.7 pg (28.0-36.0) 05/24/16 08:15 RDW 14.4 % (11.5-20.0) 05/24/16 08:15 Plt Count 313 Th/cmm (150-400) 05/24/16 08:15 MPV 8.9 fl 05/24/16 08:15 Neutrophils % 65.3 % (40.0-80.0) 05/24/16 08:15 Lymphocytes % 26.7 % (20.0-50.0) 05/24/16 08:15 Monocytes % 4.8 % (2.0-10.0) 05/24/16 08:15 Eosinophils % 2.5 % (0.0-5.0) 05/24/16 08:15 Basophils % 0.7 % (0.0-2.0) 05/24/16 08:15 Sodium 138 mEq/L (136-145) 05/26/16 08:00 Potassium 5.0 mEq/L (3.5-5.1) 05/26/16 08:00 Chloride 106 mEq/L (98-107) 05/26/16 08:00 Carbon Dioxide 29.6 mEq/L (21.0-31.0) 05/26/16 08:00 Anion Gap 7.4 (7.0-16.0) 05/26/16 08:00 BUN 62 mg/dL (7-25) H 05/26/16 08:00 Creatinine 1.5 mg/dL (0.7-1.3) H 05/26/16 08:00 Est GFR ( Amer) TNP 05/26/16 08:00 Est GFR (Non-Af Amer) TNP 05/26/16 08:00 BUN/Creatinine Ratio 41.3 05/26/16 08:00 Glucose 224 mg/dL (70-105) H 05/26/16 08:00 POC Glucose 383 MG/DL (70 - 105) H 06/28/16 17:00 Calcium 9.5 mg/dL (8.6-10.3) 05/26/16 08:00 Total Bilirubin 0.3 mg/dL (0.3-1.0) 05/23/16 07:45 AST 34 U/L (13-39) 05/23/16 07:45 ALT 37 U/L (7-52) 05/23/16 07:45 Alkaline Phosphatase 140 U/L (34-104) H 05/23/16 07:45 Total Protein 6.9 gm/dL (6.0-8.3) 05/23/16 07:45 Albumin 3.3 gm/dL (4.2-5.5) L 05/23/16 07:45 Globulin 3.6 gm/dL 05/23/16 07:45 Albumin/Globulin Ratio 0.9 (1.0-1.8) L 05/23/16 07:45 Lipase 16 U/L (11-82) 05/23/16 07:45 Valproic Acid 37.7 ug/mL (50.0-100.0) L 06/21/16 12:30 - Physical Exam Vitals and I&O: Vital Signs Temp 97.7 F 06/28/16 16:32 Pulse 66 06/28/16 20:00 Resp 20 06/28/16 20:00 BP 141/66 06/28/16 16:32 Pulse Ox 99 06/28/16 19:53 Intake & Output 06/28/16 06/28/16 06/29/16 06:59 18:59 06:59 Intake Total 120 2200 Balance 120 2200 Weight (lbs) 56.291 kg Intake: Oral 120 2200 Other: # Voids 3 4 # Bowel Movements 1 0 Active Medications: Current Medications Acetaminophen (Tylenol) 650 mg PO Q4HR PRN PRN Reason: Pain (Mild) Stop: 07/02/16 21:43 Last Admin: 06/18/16 12:27 Dose: 650 mg Al Hydrox/Mg Hydrox/Simethicone (Maalox) 30 ml PO Q4HR PRN PRN Reason: GI DISTRESS Stop: 07/02/16 21:43 Albuterol/Ipratropium (Duoneb Neb) 3 ml HHN Q4HRT PRN PRN Reason: Wheezing Stop: 07/21/16 08:04 Last Admin: 05/22/16 11:16 Dose: 3 ml Atenolol (Tenormin) 25 mg PO DAILY [facility] Stop: 08/09/16 13:29 Last Admin: 06/28/16 09:04 Dose: 25 mg Bisacodyl (Dulcolax 10 Mg Supp) 10 mg RC DAILY PRN PRN Reason: Constipation Stop: 07/23/16 08:28 Carbidopa/Levodopa (Sinemet 25mg-100 Mg) 1 tab PO TIDWM [facility] Stop: 07/03/16 07:59 Last Admin: 06/28/16 17:08 Dose: 1 tab Clonidine HCl (Catapres) 0.1 mg PO Q6HR PRN PRN Reason: SBP GREATER THAN 160 Stop: 08/09/16 13:19 Last Admin: 06/22/16 06:50 Dose: 0.1 mg Docusate Sodium (Colace) 250 mg PO BID [facility] Stop: 08/08/16 16:59 Last Admin: 06/28/16 17:08 Dose: 250 mg Donepezil HCl (Aricept) 10 mg PO DAILY [facility] Stop: 07/03/16 08:59 Last Admin: 06/28/16 09:05 Dose: 10 mg Famotidine (Pepcid) 20 mg PO BID [facility] Stop: 07/03/16 08:59 Last Admin: 06/28/16 17:08 Dose: 20 mg Ferrous Sulfate (Iron) 325 mg PO BID [facility] Stop: 07/03/16 08:59 Last Admin: 06/28/16 17:07 Dose: 325 mg Glipizide (Glucotrol) 5 mg PO BIDAC [facility] Stop: 07/03/16 07:29 Last Admin: 06/28/16 17:08 Dose: 5 mg Insulin Aspart (Novolog) 0 units SUBQ ACHS [facility]IR PRN Reason: Protocol Stop: 07/03/16 07:29 Last Admin: 06/28/16 20:27 Dose: Not Given Losartan Potassium (Cozaar) 50 mg PO DAILY [facility] Stop: 07/03/16 08:59 Last Admin: 06/28/16 09:05 Dose: 50 mg Magnesium Hydroxide (Milk Of Magnesia) 30 ml PO HS PRN PRN Reason: Constipation Stop: 07/02/16 21:43 Miscellaneous (Clinical Monitoring) 1 ea MC DAILY PRN PRN Reason: RENAL Stop: 08/23/16 12:04 Ondansetron HCl (Zofran Odt) 4 mg PO Q6H PRN PRN Reason: Nausea / Vomiting Stop: 07/21/16 20:25 Last Admin: 05/22/16 21:11 Dose: 4 mg Psyllium Hydrophilic Mucilloid (Metamucil) 1 pkt PO DAILY [facility] Stop: 07/03/16 08:59 Last Admin: 06/28/16 09:05 Dose: Not Given Quetiapine Fumarate (Seroquel) 100 mg PO HS [facility] Stop: 07/05/16 20:59 Last Admin: 06/28/16 20:26 Dose: 100 mg Sodium Phosphate (Fleet Enema) 135 ml RC PRN PRN PRN Reason: Constipation Stop: 07/23/16 08:28 Last Admin: 05/24/16 10:00 Dose: 135 ml Valproate Sodium (Depakene) 250 mg PO TID [facility] PRN Reason: Protocol Stop: 08/17/16 13:59 Last Admin: 06/28/16 20:26 Dose: 250 mg General: demented HEENT: NC/AT, PERRLA Neck: Supple, No JVD Lungs: CTAB Cardiovascular: RRR, Normal S1, Normal S2 Abdomen: soft non-tender, globular, positive bowel sound Extremities: excoriation Neurological: no change, disorganized - Procedures Procedures: Procedures Procedure Code Date ENDOSC POLYPECTOMY OF LG INTEST 45.42 07/13/07 GROUP PSYCHOTHERAPY 71002 06/03/15 GROUP PSYCHOTHERAPY GZHZZZZ 06/03/15 INDIVID PSYCHOTHERAP NEC 94.39 05/27/08 INSERT INDWELLING CATH 57.94 10/29/09 LESION REMOVAL COLONOSCOPY 41114 07/13/07 OTHER GROUP THERAPY 94.44 06/23/14 PERCUTANEOUS [ENDOSCOPIC] GASTROSTOMY [PEG] 43.11 10/10/13 RECREATIONAL THERAPY 93.81 06/24/10 Internal Medicine Assmt/Plan - Assessment Assessment: ch RENAL FAILURE DEHYDRATION UNCONTROLLED DIABETES dementia gait instability poor po intake lung consolidation - Plan Plan: cont on ada iss cont on oral dm meds dw rn continue w present care laxative addded, will review cxr Nutritional Asmnt/Malnutr-PDOC - Dietary Evaluation Malnutrition Findings (Please click <Entered> for more info): Nutritional Asmnt/Malnutrition Start: 05/07/16 09: 08 Text: Status: Complete Freq: Document 05/07/16 09:08 DMITRI (Rec: 05/07/16 09:26 DMITRI [place]- FNS1) Nutritional Asmnt/Malnutrition Patient General Information Nutritional Screening Moderate Risk Screening Diagnosis Psychosis (Reason for visit) Pertinent Medical Hx/Surgical Hx Per nursing notes, DM, HTN, CVA, renal failure, dehydration, and psycho history of psychosis, alzheimer's, bipolar and dementia. Subjective Information Patient is from [facility], primarily Vietnamese speaking. Per nursing notes, history of becoming easily agitated and physically combative. Refusing some meds and blood sugar checks. Patient lying in bed asleep at time of visit. Current Diet Order/ Nutrition Support [facility]- [facility] Patient / S.O Not Indicated Pertinent Medications maalox, colace, pepcid, iron, glipizide, novolog, cozaar, MOM, metamucil Pertinent Labs No labs drawn in this visit ( only accuchecks). Blood sugar 168-299. Nutritional Hx/Data Height 1.68 m Height (Calculated Centimeters) 167.6 Current Weight (lbs) 60.328 kg Weight (Calculated Kilograms) 60.3 Weight (Calculated Grams) 87072.8 [place] Body Weight 142lb % [place] Body Weight 93 Recent Weight Change No Weight Status Approriate GI Symptoms Food Allergies No Cultural/Ethnic/Baptism Belief None indicated Usual diet at home Regular Skin Integrity/Comment: Intact, [place] 19 Current %PO Poor (25-49%) Estimated Nutritional Goals BEE in Kcals: Using Current wt Calories/Kcals/Kg 25-30 kcal/kg Kcals Calculated 2479-2050 kcal/day Protein: Using Current wt Protein g/k gm/kg Protein Calculated 60gm/day Fluid: ml 3173-6294 ml/day Nutritional Problem 2. Problem Problem Inadequate oral intake related to Etiology possible poor appetite aeb Signs/Symptoms: meeting <50% of estimated nutrient needs 1. Problem Problem Altered nutrition related lab values related to Etiology uncontrolled hyperglycemia aeb Signs/Symptoms: accuchecks 168-299 Intervention/Recommendation Recommendations by RD Increase Calorie Intake Comments 1. MD to continue to adjust insulin regimen for optimal glycemic control. 2. Encourage oral intake of meals; provide snacks to optimize nutrient intake. Assist with meals as needed. Expected Outcomes/Goals Expected Outcomes/Goals oral intake >75% of meals, glucose normalizes 80-180 Physician Parameters for PEM Body Mass Index (BMI) 19 - 24 (Normal)
[2016-06-29] MEDS: INSULIN ASPART, RECOMBINANT 100 UNITS/ML SUBQ SCH ×4 (06:31→20:38)
[2016-06-29] MEDS: Multivitamin w/ Minerals Tab PO SCH (09:38)
[2016-06-29] MEDS: Ferrous Sulfate 300 MG/5 ML UDC PO SCH ×2 (09:38→16:48)
--- NOTE | 2016-06-29 15:24 | Internal Medicine Prog Note ---
Internal Medicine Subjective - Subjective Patient seen and examined:: with staff, chart reviewed Patient is:: awake, verbal, interactive Per staff patient is:: no adverse event, confused Internal Medicine Objective - Results Result Diagrams: 05/24/16 08:15 05/26/16 08:00 Recent Labs: Laboratory Last Values WBC 8.9 Th/cmm (4.8-10.8) D 05/24/16 08:15 RBC 3.49 Mil/cmm (3.80-5.80) L 05/24/16 08:15 Hgb 10.2 gm/dL (12.6-17.4) L 05/24/16 08:15 Hct 30.4 % (39.0-49.0) L 05/24/16 08:15 MCV 86.9 fl (80-99) 05/24/16 08:15 MCH 29.3 pg (27.0-31.0) 05/24/16 08:15 MCHC Differential 33.7 pg (28.0-36.0) 05/24/16 08:15 RDW 14.4 % (11.5-20.0) 05/24/16 08:15 Plt Count 313 Th/cmm (150-400) 05/24/16 08:15 MPV 8.9 fl 05/24/16 08:15 Neutrophils % 65.3 % (40.0-80.0) 05/24/16 08:15 Lymphocytes % 26.7 % (20.0-50.0) 05/24/16 08:15 Monocytes % 4.8 % (2.0-10.0) 05/24/16 08:15 Eosinophils % 2.5 % (0.0-5.0) 05/24/16 08:15 Basophils % 0.7 % (0.0-2.0) 05/24/16 08:15 Sodium 138 mEq/L (136-145) 05/26/16 08:00 Potassium 5.0 mEq/L (3.5-5.1) 05/26/16 08:00 Chloride 106 mEq/L (98-107) 05/26/16 08:00 Carbon Dioxide 29.6 mEq/L (21.0-31.0) 05/26/16 08:00 Anion Gap 7.4 (7.0-16.0) 05/26/16 08:00 BUN 62 mg/dL (7-25) H 05/26/16 08:00 Creatinine 1.5 mg/dL (0.7-1.3) H 05/26/16 08:00 Est GFR ( Amer) TNP 05/26/16 08:00 Est GFR (Non-Af Amer) TNP 05/26/16 08:00 BUN/Creatinine Ratio 41.3 05/26/16 08:00 Glucose 224 mg/dL (70-105) H 05/26/16 08:00 POC Glucose 271 MG/DL (70 - 105) H 06/29/16 11:33 Calcium 9.5 mg/dL (8.6-10.3) 05/26/16 08:00 Total Bilirubin 0.3 mg/dL (0.3-1.0) 05/23/16 07:45 AST 34 U/L (13-39) 05/23/16 07:45 ALT 37 U/L (7-52) 05/23/16 07:45 Alkaline Phosphatase 140 U/L (34-104) H 05/23/16 07:45 Total Protein 6.9 gm/dL (6.0-8.3) 05/23/16 07:45 Albumin 3.3 gm/dL (4.2-5.5) L 05/23/16 07:45 Globulin 3.6 gm/dL 05/23/16 07:45 Albumin/Globulin Ratio 0.9 (1.0-1.8) L 05/23/16 07:45 Lipase 16 U/L (11-82) 05/23/16 07:45 Valproic Acid 37.7 ug/mL (50.0-100.0) L 06/21/16 12:30 - Physical Exam Vitals and I&O: Vital Signs Temp 97.8 F 06/29/16 14:00 Pulse 57 06/29/16 14:00 Resp 20 06/29/16 14:00 BP 111/64 06/29/16 14:00 Pulse Ox 96 06/29/16 14:00 Intake & Output 06/28/16 06/29/16 06/29/16 18:59 06:59 18:59 Intake Total 2200 Balance 2200 Weight (lbs) 56.291 kg Intake: Oral 2200 Other: # Voids 4 1 # Bowel Movements 0 1 Active Medications: Current Medications Acetaminophen (Tylenol) 650 mg PO Q4HR PRN PRN Reason: Pain (Mild) Stop: 07/02/16 21:43 Last Admin: 06/18/16 12:27 Dose: 650 mg Al Hydrox/Mg Hydrox/Simethicone (Maalox) 30 ml PO Q4HR PRN PRN Reason: GI DISTRESS Stop: 07/02/16 21:43 Albuterol/Ipratropium (Duoneb Neb) 3 ml HHN Q4HRT PRN PRN Reason: Wheezing Stop: 07/21/16 08:04 Last Admin: 05/22/16 11:16 Dose: 3 ml Atenolol (Tenormin) 25 mg PO DAILY [facility] Stop: 08/09/16 13:29 Last Admin: 06/28/16 09:04 Dose: 25 mg Bisacodyl (Dulcolax 10 Mg Supp) 10 mg RC DAILY PRN PRN Reason: Constipation Stop: 07/23/16 08:28 Carbidopa/Levodopa (Sinemet 25mg-100 Mg) 1 tab PO TIDWM [facility] Stop: 07/03/16 07:59 Last Admin: 06/29/16 12:06 Dose: 1 tab Clonidine HCl (Catapres) 0.1 mg PO Q6HR PRN PRN Reason: SBP GREATER THAN 160 Stop: 08/09/16 13:19 Last Admin: 06/29/16 06:31 Dose: 0.1 mg Docusate Sodium (Colace) 250 mg PO BID [facility] Stop: 08/08/16 16:59 Last Admin: 06/29/16 09:38 Dose: 250 mg Donepezil HCl (Aricept) 10 mg PO DAILY [facility] Stop: 07/03/16 08:59 Last Admin: 06/28/16 09:05 Dose: 10 mg Famotidine (Pepcid) 20 mg PO BID [facility] Stop: 07/03/16 08:59 Last Admin: 06/29/16 09:38 Dose: 20 mg Ferrous Sulfate (Iron) 325 mg PO BID [facility] Stop: 07/03/16 08:59 Last Admin: 06/29/16 09:38 Dose: 325 mg [facility] Stop: 07/03/16 07:29 Last Admin: 06/29/16 06:31 Dose: 5 mg Insulin Aspart (Novolog) 0 units SUBQ ACHS JASVIR PRN Reason: Protocol Stop: 07/03/16 07:29 Last Admin: 06/29/16 12:06 Dose: 4 units Losartan Potassium (Cozaar) 50 mg PO DAILY [facility] Stop: 07/03/16 08:59 Last Admin: 06/28/16 09:05 Dose: 50 mg Magnesium Hydroxide (Milk Of Magnesia) 30 ml PO HS PRN PRN Reason: Constipation Stop: 07/02/16 21:43 Miscellaneous (Clinical Monitoring) 1 ea MC DAILY PRN PRN Reason: RENAL Stop: 08/23/16 12:04 Ondansetron HCl (Zofran Odt) 4 mg PO Q6H PRN PRN Reason: Nausea / Vomiting Stop: 07/21/16 20:25 Last Admin: 05/22/16 21:11 Dose: 4 mg Psyllium Hydrophilic Mucilloid (Metamucil) 1 pkt PO DAILY [facility] Stop: 07/03/16 08:59 Last Admin: 06/28/16 09:05 Dose: Not Given Quetiapine Fumarate (Seroquel) 100 mg PO HS [facility] Stop: 07/05/16 20:59 Last Admin: 06/28/16 20:26 Dose: 100 mg Sodium Phosphate (Fleet Enema) 135 ml RC PRN PRN PRN Reason: Constipation Stop: 07/23/16 08:28 Last Admin: 05/24/16 10:00 Dose: 135 ml Valproate Sodium (Depakene) 250 mg PO TID [facility] PRN Reason: Protocol Stop: 08/17/16 13:59 Last Admin: 06/29/16 13:44 Dose: 250 mg General: demented HEENT: NC/AT, PERRLA, EOMI Neck: Supple Lungs: CTAB Cardiovascular: RRR, Normal S1, Normal S2 Abdomen: soft non-tender, globular, positive bowel sound Extremities: excoriation Neurological: no change - Procedures Procedures: Procedures Procedure Code Date ENDOSC POLYPECTOMY OF LG INTEST 45.42 07/13/07 GROUP PSYCHOTHERAPY 52964 06/03/15 GROUP PSYCHOTHERAPY GZHZZZZ 06/03/15 INDIVID PSYCHOTHERAP NEC 94.39 05/27/08 INSERT INDWELLING CATH 57.94 10/29/09 LESION REMOVAL COLONOSCOPY 31575 07/13/07 OTHER GROUP THERAPY 94.44 06/23/14 PERCUTANEOUS [ENDOSCOPIC] GASTROSTOMY [PEG] 43.11 10/10/13 RECREATIONAL THERAPY 93.81 06/24/10 Internal Medicine Assmt/Plan - Assessment Assessment: ch RENAL FAILURE DEHYDRATION UNCONTROLLED DIABETES dementia gait instability poor po intake lung consolidation - Plan Plan: cont on ada iss cont on oral dm meds dw rn continue w present care laxative addded, will review cxr Nutritional Asmnt/Malnutr-PDOC - Dietary Evaluation Malnutrition Findings (Please click <Entered> for more info): Nutritional Asmnt/Malnutrition Start: 05/07/16 09: 08 Text: Status: Complete Freq: Document 05/07/16 09:08 DMITRI (Rec: 05/07/16 09:26 MMMILTON [facility]- FNS1) Nutritional Asmnt/Malnutrition Patient General Information Nutritional Screening Moderate Risk Screening Diagnosis Psychosis (Reason for visit) Pertinent Medical Hx/Surgical Hx Per nursing notes, DM, HTN, CVA, renal failure, dehydration, and psycho history of psychosis, alzheimer's, bipolar and dementia. Subjective Information Patient is from [facility], primarily Portuguese speaking. Per nursing notes, history of becoming easily agitated and physically combative. Refusing some meds and blood sugar checks. Patient lying in bed asleep at time of visit. Current Diet Order/ Nutrition Support [facility] [place] Patient / S.O Not Indicated Pertinent Medications maalox, colace, pepcid, iron, glipizide, novolog, cozaar, MOM, metamucil Pertinent Labs No labs drawn in this visit ( only accuchecks). Blood sugar 168-299. Nutritional Hx/Data Height 1.68 m Height (Calculated Centimeters) 167.6 Current Weight (lbs) 60.328 kg Weight (Calculated Kilograms) 60.3 Weight (Calculated Grams) 87760.8 [place] Body Weight 142lb % [place] Body Weight 93 Recent Weight Change No Weight Status Approriate GI Symptoms Food Allergies No Cultural/Ethnic/[employer]ist Belief None indicated Usual diet at home Regular Skin Integrity/Comment: Intact, [place] 19 Current %PO Poor (25-49%) Estimated Nutritional Goals BEE in Kcals: Using Current wt Calories/Kcals/Kg 25-30 kcal/kg Kcals Calculated 8210-3474 kcal/day Protein: Using Current wt Protein g/k gm/kg Protein Calculated 60gm/day Fluid: ml 2980-8602 ml/day Nutritional Problem 2. Problem Problem Inadequate oral intake related to Etiology possible poor appetite aeb Signs/Symptoms: meeting <50% of estimated nutrient needs 1. Problem Problem Altered nutrition related lab values related to Etiology uncontrolled hyperglycemia aeb Signs/Symptoms: accuchecks 168-299 Intervention/Recommendation Recommendations by RD Increase Calorie Intake Comments 1. MD to continue to adjust insulin regimen for optimal glycemic control. 2. Encourage oral intake of meals; provide snacks to optimize nutrient intake. Assist with meals as needed. Expected Outcomes/Goals Expected Outcomes/Goals oral intake >75% of meals, glucose normalizes 80-180 Physician Parameters for PEM Body Mass Index (BMI) 19 - 24 (Normal)
--- NOTE | 2016-06-30 02:19 | Progress Notes ---
DATE: 06/29/2016 Case discussed with staff of the patient, reviewed records. The patient continues to await placement. He is demented, confused, impulsive, unpredictable. Unable to participate in meaningful conversation or make safe plan for self-care. Continues to have poor insight, needing redirection. No side effects with the medication, no sedation, no nausea, no extrapyramidal symptoms. We will continue with the patient in group therapy, milieu therapy and adjust medication as needed. JOB# [id number]
--- NOTE | 2016-06-30 02:29 | Progress Notes ---
DATE: 06/28/2016 Case was discussed with staff of the patient, reviewed records. The patient continues to do the same. He is demented, confused, unpredictable, impulsive, needing placement. We are still working on placement. So far, we have been unsuccessful, hopefully something will come up soon. No side effects with the medication, no sedation, no nausea, no extrapyramidal symptoms. We will continue the patient in group therapy, milieu therapy, adjust medication as needed. JOB# [id number]
[2016-06-30] MEDS: INSULIN ASPART, RECOMBINANT 100 UNITS/ML SUBQ SCH ×3 (06:39→16:41)
[2016-06-30] MEDS: Ferrous Sulfate 300 MG/5 ML UDC PO SCH ×2 (09:54→16:43)
[2016-06-30] MEDS: Multivitamin w/ Minerals Tab PO SCH (09:56)
--- NOTE | 2016-06-30 13:28 | Internal Medicine Prog Note ---
Internal Medicine Subjective - Subjective Patient seen and examined:: with staff, chart reviewed Patient is:: awake, verbal, interactive Per staff patient is:: no adverse event, no episodes of fall, eating well, confused Internal Medicine Objective - Results Result Diagrams: 05/24/16 08:15 05/26/16 08:00 Recent Labs: Laboratory Last Values WBC 8.9 Th/cmm (4.8-10.8) D 05/24/16 08:15 RBC 3.49 Mil/cmm (3.80-5.80) L 05/24/16 08:15 Hgb 10.2 gm/dL (12.6-17.4) L 05/24/16 08:15 Hct 30.4 % (39.0-49.0) L 05/24/16 08:15 MCV 86.9 fl (80-99) 05/24/16 08:15 MCH 29.3 pg (27.0-31.0) 05/24/16 08:15 MCHC Differential 33.7 pg (28.0-36.0) 05/24/16 08:15 RDW 14.4 % (11.5-20.0) 05/24/16 08:15 Plt Count 313 Th/cmm (150-400) 05/24/16 08:15 MPV 8.9 fl 05/24/16 08:15 Neutrophils % 65.3 % (40.0-80.0) 05/24/16 08:15 Lymphocytes % 26.7 % (20.0-50.0) 05/24/16 08:15 Monocytes % 4.8 % (2.0-10.0) 05/24/16 08:15 Eosinophils % 2.5 % (0.0-5.0) 05/24/16 08:15 Basophils % 0.7 % (0.0-2.0) 05/24/16 08:15 Sodium 138 mEq/L (136-145) 05/26/16 08:00 Potassium 5.0 mEq/L (3.5-5.1) 05/26/16 08:00 Chloride 106 mEq/L (98-107) 05/26/16 08:00 Carbon Dioxide 29.6 mEq/L (21.0-31.0) 05/26/16 08:00 Anion Gap 7.4 (7.0-16.0) 05/26/16 08:00 BUN 62 mg/dL (7-25) H 05/26/16 08:00 Creatinine 1.5 mg/dL (0.7-1.3) H 05/26/16 08:00 Est GFR ( Amer) TNP 05/26/16 08:00 Est GFR (Non-Af Amer) TNP 05/26/16 08:00 BUN/Creatinine Ratio 41.3 05/26/16 08:00 Glucose 224 mg/dL (70-105) H 05/26/16 08:00 POC Glucose 308 MG/DL (70 - 105) H 06/30/16 12:09 Calcium 9.5 mg/dL (8.6-10.3) 05/26/16 08:00 Total Bilirubin 0.3 mg/dL (0.3-1.0) 05/23/16 07:45 AST 34 U/L (13-39) 05/23/16 07:45 ALT 37 U/L (7-52) 05/23/16 07:45 Alkaline Phosphatase 140 U/L (34-104) H 05/23/16 07:45 Total Protein 6.9 gm/dL (6.0-8.3) 05/23/16 07:45 Albumin 3.3 gm/dL (4.2-5.5) L 05/23/16 07:45 Globulin 3.6 gm/dL 05/23/16 07:45 Albumin/Globulin Ratio 0.9 (1.0-1.8) L 05/23/16 07:45 Lipase 16 U/L (11-82) 05/23/16 07:45 Valproic Acid 37.7 ug/mL (50.0-100.0) L 06/21/16 12:30 - Physical Exam Vitals and I&O: Vital Signs Temp 97.8 F 06/29/16 14:00 Pulse 63 06/30/16 07:22 Resp 18 06/30/16 07:22 BP 111/64 06/29/16 14:00 Pulse Ox 98 06/30/16 07:22 Intake & Output 06/29/16 06/30/16 06/30/16 18:59 06:59 18:59 Intake Total 1200 Balance 1200 Intake: Oral 1200 Other: # Bowel Movements 1 Active Medications: Current Medications Acetaminophen (Tylenol) 650 mg PO Q4HR PRN PRN Reason: Pain (Mild) Stop: 07/02/16 21:43 Last Admin: 06/18/16 12:27 Dose: 650 mg Al Hydrox/Mg Hydrox/Simethicone (Maalox) 30 ml PO Q4HR PRN PRN Reason: GI DISTRESS Stop: 07/02/16 21:43 Albuterol/Ipratropium (Duoneb Neb) 3 ml HHN Q4HRT PRN PRN Reason: Wheezing Stop: 07/21/16 08:04 Last Admin: 05/22/16 11:16 Dose: 3 ml Atenolol (Tenormin) 25 mg PO DAILY [facility] Stop: 08/09/16 13:29 Last Admin: 06/30/16 08:02 Dose: Not Given Bisacodyl (Dulcolax 10 Mg Supp) 10 mg RC DAILY PRN PRN Reason: Constipation Stop: 07/23/16 08:28 Carbidopa/Levodopa (Sinemet 25mg-100 Mg) 1 tab PO TIDWM [facility] Stop: 07/03/16 07:59 Last Admin: 06/30/16 12:01 Dose: 1 tab Clonidine HCl (Catapres) 0.1 mg PO Q6HR PRN PRN Reason: SBP GREATER THAN 160 Stop: 08/09/16 13:19 Last Admin: 06/29/16 06:31 Dose: 0.1 mg Docusate Sodium (Colace) 250 mg PO BID [facility] Stop: 08/08/16 16:59 Last Admin: 06/30/16 09:57 Dose: Not Given Donepezil HCl (Aricept) 10 mg PO DAILY [facility] Stop: 07/03/16 08:59 Last Admin: 06/30/16 09:57 Dose: 10 mg Famotidine (Pepcid) 20 mg PO BID [facility] Stop: 07/03/16 08:59 Last Admin: 06/30/16 09:56 Dose: 20 mg Ferrous Sulfate (Iron) 325 mg PO BID [facility] Stop: 07/03/16 08:59 Last Admin: 06/30/16 09:54 Dose: 325 mg Glipizide (Glucotrol) 5 mg PO BIDAC [facility] Stop: 07/03/16 07:29 Last Admin: 06/30/16 06:39 Dose: 5 mg Insulin Aspart (Novolog) 0 units SUBQ ACHS JASVIR PRN Reason: Protocol Stop: 07/03/16 07:29 Last Admin: 06/30/16 12:00 Dose: 6 units Losartan Potassium (Cozaar) 50 mg PO DAILY [facility] Stop: 07/03/16 08:59 Last Admin: 06/30/16 08:02 Dose: Not Given Magnesium Hydroxide (Milk Of Magnesia) 30 ml PO HS PRN PRN Reason: Constipation Stop: 07/02/16 21:43 Miscellaneous (Clinical Monitoring) 1 ea MC DAILY PRN PRN Reason: RENAL Stop: 08/23/16 12:04 Ondansetron HCl (Zofran Odt) 4 mg PO Q6H PRN PRN Reason: Nausea / Vomiting Stop: 07/21/16 20:25 Last Admin: 05/22/16 21:11 Dose: 4 mg Psyllium Hydrophilic Mucilloid (Metamucil) 1 pkt PO DAILY [facility] Stop: 07/03/16 08:59 Last Admin: 06/30/16 08:03 Dose: Not Given Quetiapine Fumarate (Seroquel) 100 mg PO HS [facility] Stop: 07/05/16 20:59 Last Admin: 06/29/16 20:37 Dose: 100 mg Sodium Phosphate (Fleet Enema) 135 ml RC PRN PRN PRN Reason: Constipation Stop: 07/23/16 08:28 Last Admin: 05/24/16 10:00 Dose: 135 ml Valproate Sodium (Depakene) 250 mg PO TID [facility] PRN Reason: Protocol Stop: 08/17/16 13:59 Last Admin: 06/30/16 09:57 Dose: 250 mg General: demented HEENT: NC/AT, PERRLA Neck: Supple, No JVD Lungs: CTAB Cardiovascular: RRR, Normal S1, Normal S2 Abdomen: soft non-tender, globular Extremities: excoriation, contracture Neurological: disorganized - Procedures Procedures: Procedures Procedure Code Date ENDOSC POLYPECTOMY OF LG INTEST 45.42 07/13/07 GROUP PSYCHOTHERAPY 07313 06/03/15 GROUP PSYCHOTHERAPY GZHZZZZ 06/03/15 INDIVID PSYCHOTHERAP NEC 94.39 05/27/08 INSERT INDWELLING CATH 57.94 10/29/09 LESION REMOVAL COLONOSCOPY 65465 07/13/07 OTHER GROUP THERAPY 94.44 06/23/14 PERCUTANEOUS [ENDOSCOPIC] GASTROSTOMY [PEG] 43.11 10/10/13 RECREATIONAL THERAPY 93.81 06/24/10 Internal Medicine Assmt/Plan - Assessment Assessment: ch RENAL FAILURE DEHYDRATION UNCONTROLLED DIABETES dementia gait instability poor po intake lung consolidation - Plan Plan: cont on ada iss cont on oral dm meds dw rn continue w present care laxative addded, will review cxr Nutritional Asmnt/Malnutr-PDOC - Dietary Evaluation Malnutrition Findings (Please click <Entered> for more info): Nutritional Asmnt/Malnutrition Start: 05/07/16 09: 08 Text: Status: Complete Freq: Document 05/07/16 09:08 DMITRI (Rec: 05/07/16 09:26 DMITRI [facility]- FNS1) Nutritional Asmnt/Malnutrition Patient General Information Nutritional Screening Moderate Risk Screening Diagnosis Psychosis (Reason for visit) Pertinent Medical Hx/Surgical Hx Per nursing notes, DM, HTN, CVA, renal failure, dehydration, and psycho history of psychosis, alzheimer's, bipolar and dementia. Subjective Information Patient is from [facility], primarily [place]ag[place] speaking. Per nursing notes, history of becoming easily agitated and physically combative. Refusing some meds and blood sugar checks. Patient lying in bed asleep at time of visit. Current Diet Order/ Nutrition Support [facility]- [facility] [place] Patient / S.O Not Indicated Pertinent Medications maalox, colace, pepcid, iron, glipizide, novolog, cozaar, MOM, metamucil Pertinent Labs No labs drawn in this visit ( only accuchecks). Blood sugar 168-299. Nutritional Hx/Data Height 1.68 m Height (Calculated Centimeters) 167.6 Current Weight (lbs) 60.328 kg Weight (Calculated Kilograms) 60.3 Weight (Calculated Grams) 47305.8 [place] Body Weight 142lb % [place] Body Weight 93 Recent Weight Change No Weight Status Approriate GI Symptoms Food Allergies No Cultural/Ethnic/Buddhism Belief None indicated Usual diet at home Regular Skin Integrity/Comment: [place], [place] 19 Current %PO Poor (25-49%) Estimated Nutritional Goals BEE in Kcals: Using Current wt Calories/Kcals/Kg 25-30 kcal/kg Kcals Calculated 0841-9961 kcal/day Protein: Using Current wt Protein g/k gm/kg Protein Calculated 60gm/day Fluid: ml 9441-5040 ml/day Nutritional Problem 2. Problem Problem Inadequate oral intake related to Etiology possible poor appetite aeb Signs/Symptoms: meeting <50% of estimated nutrient needs 1. Problem Problem Altered nutrition related lab values related to Etiology uncontrolled hyperglycemia aeb Signs/Symptoms: accuchecks 168-299 Intervention/Recommendation Recommendations by RD Increase Calorie Intake Comments 1. MD to continue to adjust insulin regimen for optimal glycemic control. 2. Encourage oral intake of meals; provide snacks to optimize nutrient intake. Assist with meals as needed. Expected Outcomes/Goals Expected Outcomes/Goals oral intake >75% of meals, glucose normalizes 80-180 Physician Parameters for PEM Body Mass Index (BMI) 19 - 24 (Normal)
--- NOTE | 2016-07-01 03:58 | Progress Notes ---
DATE: 06/30/2016 The case was discussed with staff of the patient, reviewed records. The patient continues to do the same. He continues to need redirection. He continues to have poor insight. He continues to be demented and confused, which is not expected to improve. He is compliant with the medication with no side effects, no sedation, no nausea, no extrapyramidal symptoms. So far no place is being willing to take the patient, and we will continue to work with the patient in group therapy, milieu therapy, and adjust the medication as needed. JOB# [id number]
== END 2016-06-30 18:15 | DRG 884 ==
LOC: UNDOADMIN 19:00 → GERO 19:00 → UNDODISIN 21:30 → GERO 06-03 11:26
PROVIDERS: ADMIT Psychiatry & Neurology Psychiatry; ATTEND Psychiatry & Neurology Psychiatry
DX: F03.91 Unspecified dementia, unspecified severity, with behavioral disturbance (principal); E11.22 Type 2 diabetes mellitus with diabetic chronic kidney disease; E11.65 Type 2 diabetes mellitus with hyperglycemia; E86.0 Dehydration; N18.9 Chronic kidney disease, unspecified; R26.9 Unspecified abnormalities of gait and mobility; F29 Unspecified psychosis not due to a substance or known physiological condition; F31.9 Bipolar disorder, unspecified; Z91.14 Patient's other noncompliance with medication regimen
CPT/HCPCS: 36415-UA; 71010-TC; 74000-TC; 76700-TC; 80048-TC; 80053-TC; 80164-TC; 82948-90; 83690-TC; 85025-TC; 94640; 94760; J1815; Q0162; Z7610